=== PATIENT | male | born 1940 | race Caucasian/White ===

== ENCOUNTER → 2016-11-20 | Outpatient (CLI) | payer OTHER ==
[~2016-11-20] MED LIST: ASPI81TA21 PO; CHOL100027 PO; LISI-787 PO; LISI20TA55 PO; MAGNESIUM/ZINC PO; MISCCAP80 PO; POTAPOW29 PO; PRED1SUS3 OPL; VITA400C3 PO
--- NOTE | 2016-11-20 14:06 | DIAGNOSTIC IMAGING REPORT ---
TESTICULAR ULTRASOUND HISTORY: Pain. Nodule. N50.811 Testicular pain, [id number] COMPARISON: None. FINDINGS: Right testis: Maximum dimension 3.8 cm. Normal vascular flow. Left testis: Maximum dimension 4.1 cm. Normal vascular flow. IMPRESSION: Negative study Electronically signed by: Marbin Iverson M.D. 11/20/2016 2:04 PM Dictated Date/Time: 11/20/2016 2:01 PM
--- NOTE | 2016-11-27 08:22 | CODING QUERY MEDICAL NECESSITY ---
SUPPORTING DIAGNOSIS NEEDED A supporting diagnosis is required for the test/procedure performed on this patient in order for us to be reimbursed by the patient's insurance. Please provide a supporting diagnosis for the following test/procedure listed below next to the test name along with your signature. *If there is no additional diagnosis for this patient that would support the following test/procedure please document that below next to the test/procedure. Test(s)/Procedure(s) that require a supporting diagnosis: * PSA DIAGNOSIS: * DOS: 11/20/16 Provider Signature: Date: Thank you Amanda Qureshi [employer] Once completed, please kindly fax back to [phone] For questions please call [phone]
== END | disposition home or self-care (01) ==
LOC: C.ULTR 13:21
PROVIDERS: ATTEND Nurse Practitioner Adult Health
DX: N50.811 Right testicular pain (principal)

== ENCOUNTER → 2016-12-06 | Day surgery (SDC) | payer OTHER ==
[2016-11-20 15:46] VITALS: Ht 175.3 cm; Wt 88.6 kg
[~2016-12-06] VITALS: Ht 175.3 cm; Wt 88.6 kg
[~2016-12-06] MED LIST changes: +500ML BSS 0.3ML EPI 1:1000PF IRRIG ONE; +ACETAMINOPHEN 325 MG TAB PO PRN; +AMVISC PLUS 0.8ML SYRINGE INT OCU ONE; +ATROPINE SULFATE 0.1 MG/ML 5ML SYR IV PRN; +BSS FLUSH ONE; +ENDOCOAT 0.85ML SYRINGE INT OCU ONE; +EpINEphrine INJ 1MG/ML AMP 1 MG/ML AMP ONE; +LACTATED RINGER'S 1000ML 500 ML IV SCH; +LIDOCAINE 4% OP SOLN DROP CHARGE ONE; +LIDOCAINE 4% OP SOLN DROP CHARGE OPL SCH; +LIDOCAINE HCL 1% MPF 2 ML VIAL ONE; -LISI20TA55 PO; -MAGNESIUM/ZINC PO; +MIDAZOLAM HCL 1 MG/ML 2ML VIAL ONE; +MIX: 4ML BSS 1ML EPI 1:1000 PF TOP ONE; +MOXIFLOXACIN OPH SOLN PER DROP CHARGE ONE; -POTAPOW29 PO; +POVIDONE-IODINE OP SOLN 30 ML BTL ONE; +PROPARACAINE 0.5% OP SOLN PER DROP CHARGE OPL SCH; +TOBRAMYCIN/DEXAMETHASONE OPH OINT PER APPLN CHARGE ONE; -VITA400C3 PO
[2016-12-06] MEDS: PHENYLEPHRINE HCL 2.5% OP SOLN PER DROP CHARGE OPL SCH ×3 (06:32→06:42)
[2016-12-06] MEDS: TROPICAMIDE 1% OP SOLN PER DROP CHARGE OPL SCH ×3 (06:33→06:43)
[2016-12-06] MEDS: CYCLOPENTOLATE HCL 1% OP SOLN PER DROP CHARGE OPL SCH ×3 (06:34→06:44)
[2016-12-06] MEDS: MOXIFLOXACIN OPH SOLN PER DROP CHARGE OPL SCH ×3 (06:35→06:45)
--- NOTE | 2016-12-06 06:39 | History & Physical Bridge - SC ---
H&P Re-Evaluation Bridge Note: I have examined the patient, reviewed the History & Physical and in the interval since the performance of the History & Physical I have noted the following changes of clinical significance: No changes noted
--- NOTE | 2016-12-06 07:22 | [facility] Post Operative Brief Note ---
Immediate Operative Summary Operative Date Dec 06, 2016. Pre-Operative Diagnosis Cataract left eye Post-Operative Diagnosis same Procedure(s) Performed Left Cataract Phacoemulsification With Intraocular Lens Implant Surgeon Dr Rueda Cold Working Supervisor Surgeon(s) 0 Estimated Blood Loss 0 Findings left cataract Specimens 0 Complication(s) None Disposition
--- NOTE | 2016-12-06 07:23 | Discharge Instructions-SurgCtr ---
Discharge Instructions Date of Service Dec 06, 2016. Visit Reason for Visit: Cataract Left Eye Discharge Discharge Diagnosis / Problem: left cataract Discharge Goals Goal(s): Decrease discomfort, Improve function Activity Recommendations Activity Limitations: as noted below Anesthesia . Post Anesthesia Instructions: If you have had General Anesthesia or IV Sedation: * Do not drive today. * Resume driving when surgeon permits. * Do not make important decisions or sign legal documents today. * Call surgeon for: 1. Temperature elevations greater than 101 degrees F. 2. Uncontrollable pain. 3. Excessive bleeding. 4. Persistent nausea and vomiting. 5. Medication intolerance (nausea, vomiting or rash). * For nausea and vomiting use only clear liquids such as: tea, soda, bouillon until nausea subsides, then gradually increase diet as tolerated. * If you have any concerns or questions, call your surgeon's office. If physician is unavailable and it is an emergency, call 911 or go to the nearest emergency room. . Instructions / Follow-Up Instructions / Follow-Up ACTIVITY RECOMMENDATIONS: * Light activities. * You may walk outside, read, watch television. * You may notice redness on the white part of the eye and some blurry vision - this is normal. MEDICATIONS: Resume previous medications unless instructed otherwise by your surgeon. Start all eye drops at 9:30am today: * Eye drops (today): Prednisone - one drop in operative eye every 2 hours while awake Ofloxacin - one drop in operative eye every 2 hours while awake SPECIAL CARE INSTRUCTIONS: * Tape plastic shield over eye to sleep at night. Call your doctor at with any concerns or problems. FOLLOW UP VISIT: Follow-up with Dr Rueda at [facility] as scheduled. Diet Recommendations Home Diet: no limitations Procedures Procedures Performed: Left Cataract Phacoemulsification With Intraocular Lens Implant Pending Studies Studies pending at discharge: no Medical Emergencies . Who to Call and When: Medical Emergencies: If at any time you feel your situation is an emergency, please call 911 immediately. . Non-Emergent Contact Non-Emergency issues call your: Surgeon . . "Provider Documentation" section prepared by Jeanmarie Rueda.
--- NOTE | 2016-12-06 07:24 | [facility] Operative Report ---
Operative Report Date of Service Dec 06, 2016. Operative Report Phaco with monofocal IOL DATE OF OPERATION: 12/06/16 PREOPERATIVE DIAGNOSIS: Senile nuclear cataract, left eye POSTOPERATIVE DIAGNOSIS: Senile nuclear cataract, left eye PROCEDURE PERFORMED: Phacoemulsification with intraocular lens implantation, left eye SURGEON: Dr. Jeanmarie Rueda ANESTHESIA: Topical with 1% intracameral lidocaine and monitored anesthesia care COMPLICATIONS: None DESCRIPTION OF PROCEDURE: After positively identifying the patient both verbally and by wristband in the preoperative area, the left eye was marked as the operative eye. The patient was then brought back to the operating room by the anesthesia and nursing staff where they were given a drop of Lidocaine and betadine into the operative eye. They were then sterilely prepped and draped in the standard fashion typical for ophthalmic surgery. Steri-strips were placed along the upper eyelids to keep the lashes back, and a lid speculum was placed into the operative eye. At this point, a documented time out was performed with members of the ophthalmology, nursing, and anesthesia staffs all agreeing upon the correct patient, correct location for surgery, correct procedure, and correct type and power of intraocular lens to be implanted. The microscope was then swung into position. First, a paracentesis wound was made using a sideport blade. Then, in sequence, 1% preservative-free lidocaine followed by Endocoat viscoelastic was injected into the anterior chamber. Next , the main incision was made with a keratome blade in triplanar fashion. A sharp cystotome was introduced into the eye and used to create a tear in the anterior capsule, which was directed into a continuous curvilinear capsulorrhexis using Utrata forceps. Hydrodissection was then performed with BSS on a flat-tip cannula. Next, the phacoemulsification handpiece was introduced into the eye and used to remove the nucleus in a [id number]-kyq-fjzd fashion. This was done without complication and then the irrigation-aspiration handpiece was introduced into the eye and used to remove all remaining cortical and epinuclear material. Amvisc was then injected into the anterior chamber as well as into the capsular bag and using the lens injector system, an MX60 22.0 D lens, serial number [id number], and expiration date 03/2019 was injected into the capsular bag and rotated into the correct position. Next, the irrigation- aspiration handpiece was used to remove all remaining Amvisc. BSS was used to hydrate the main wound, and then BSS was injected into the paracentesis site to reach physiologic pressure and then the main wound was checked and found to be watertight. The patient was given drops of Vigamox and Tobradex ointment into the operative eye, and then the surrounding area was cleaned and dried. A clear plastic shield was placed over the eye and the patient was then sat up and taken from the operating room by the anesthesia staff having tolerated the procedure well and suffering no complications. DISPOSITION: The patient was returned to the recovery room in stable condition. I attest to the content of the Intraoperative Record and any orders documented therein. Any exceptions are noted below.
[2016-12-06 07:28] VITALS: TEMP 36.4
[2016-12-06 07:49] VITALS: BP 124/72; PULSE 58; O2SAT 97
--- NOTE | 2016-12-06 08:06 | Anesthesia Progress Nt - [facility] ---
Anesthesia Post Op Note Date & Time Dec 06, 2016 at 08:06 Vital Signs Pain Intensity: 0 Vital Signs Past 12 Hours Date Time Temp Pulse Resp B/P Pulse Ox O2 Delivery O2 Flow Rate FiO2 12/06/16 07:49 58 16 124/72 97 Room Air 12/06/16 07:28 36.4 54 16 109/74 99 Room Air 12/06/16 06:24 36.4 59 18 130/75 95 Room Air Notes Mental Status: alert / awake / arousable, participated in evaluation Pt Amnestic to Procedure: Yes Nausea / Vomiting: adequately controlled Pain: adequately controlled Airway Patency, RR, SpO2: stable & adequate BP & HR: stable & adequate Hydration State: stable & adequate Anesthetic Complications: no major complications apparent
== END | disposition home or self-care (01) ==
LOC: X.SURG 06:03
PROVIDERS: ATTEND Ophthalmology
DX: H25.12 Age-related nuclear cataract, left eye (principal); I10 Essential (primary) hypertension; Z98.890 Other specified postprocedural states; Z88.8 Allergy status to other drugs, medicaments and biological substances

== ENCOUNTER → 2016-12-20 | Day surgery (SDC) | payer OTHER ==
[2016-12-13 08:15] VITALS: Ht 175.3 cm; Wt 88.6 kg
[~2016-12-20] VITALS: Ht 175.3 cm; Wt 88.6 kg
[~2016-12-20] MED LIST changes: +EpHEDrine SULFATE INJ 50 MG/ML AMP IV PRN; -LIDOCAINE 4% OP SOLN DROP CHARGE OPL SCH; +LIDOCAINE 4% OP SOLN DROP CHARGE OPR SCH; -PROPARACAINE 0.5% OP SOLN PER DROP CHARGE OPL SCH; +PROPARACAINE 0.5% OP SOLN PER DROP CHARGE OPR SCH
[2016-12-20] MEDS: PHENYLEPHRINE HCL 2.5% OP SOLN PER DROP CHARGE OPR SCH ×3 (06:33→06:43)
[2016-12-20] MEDS: TROPICAMIDE 1% OP SOLN PER DROP CHARGE OPR SCH ×3 (06:34→06:44)
[2016-12-20] MEDS: CYCLOPENTOLATE HCL 1% OP SOLN PER DROP CHARGE OPR SCH ×3 (06:35→06:43)
[2016-12-20] MEDS: MOXIFLOXACIN OPH SOLN PER DROP CHARGE OPR SCH ×3 (06:36→06:46)
--- NOTE | 2016-12-20 07:19 | [facility] Post Operative Brief Note ---
Immediate Operative Summary Operative Date Dec 20, 2016. Pre-Operative Diagnosis Cataract Right Eye Post-Operative Diagnosis Same Procedure(s) Performed Right Cataract Phacoemulsification With Intraocular Lens Implant Surgeon Dr. Rueda Fashion Photographer Surgeon(s) None Estimated Blood Loss 0 mL Findings right cataract Specimens None Complication(s) None Disposition
--- NOTE | 2016-12-20 07:20 | [facility] Operative Report ---
Operative Report Date of Service Dec 20, 2016. Operative Report Phaco with monofocal IOL DATE OF OPERATION: 12/20/16 PREOPERATIVE DIAGNOSIS: Senile nuclear cataract, right eye POSTOPERATIVE DIAGNOSIS: Senile nuclear cataract, right eye PROCEDURE PERFORMED: Phacoemulsification with intraocular lens implantation, right eye SURGEON: Dr. Jeanmarie Rueda ANESTHESIA: Topical with 1% intracameral lidocaine and monitored anesthesia care COMPLICATIONS: None DESCRIPTION OF PROCEDURE: After positively identifying the patient both verbally and by wristband in the preoperative area, the right eye was marked as the operative eye. The patient was then brought back to the operating room by the anesthesia and nursing staff where they were given a drop of Lidocaine and betadine into the operative eye. They were then sterilely prepped and draped in the standard fashion typical for ophthalmic surgery. Steri-strips were placed along the upper eyelids to keep the lashes back, and a lid speculum was placed into the operative eye. At this point, a documented time out was performed with members of the ophthalmology, nursing, and anesthesia staffs all agreeing upon the correct patient, correct location for surgery, correct procedure, and correct type and power of intraocular lens to be implanted. The microscope was then swung into position. First, a paracentesis wound was made using a sideport blade. Then, in sequence, 1% preservative-free lidocaine followed by Endocoat viscoelastic was injected into the anterior chamber. Next , the main incision was made with a keratome blade in triplanar fashion. A sharp cystotome was introduced into the eye and used to create a tear in the anterior capsule, which was directed into a continuous curvilinear capsulorrhexis using Utrata forceps. Hydrodissection was then performed with BSS on a flat-tip cannula. Next, the phacoemulsification handpiece was introduced into the eye and used to remove the nucleus in a ymzoff-fuz-podrkrp fashion. This was done without complication and then the irrigation-aspiration handpiece was introduced into the eye and used to remove all remaining cortical and epinuclear material. Amvisc was then injected into the anterior chamber as well as into the capsular bag and using the lens injector system, an MX60 22.0 D lens, serial number [id number], and expiration date 06/2019 was injected into the capsular bag and rotated into the correct position. Next, the irrigation- aspiration handpiece was used to remove all remaining Amvisc. BSS was used to hydrate the main wound, and then BSS was injected into the paracentesis site to reach physiologic pressure and then the main wound was checked and found to be watertight. The patient was given drops of Vigamox and Tobradex ointment into the operative eye, and then the surrounding area was cleaned and dried. A clear plastic shield was placed over the eye and the patient was then sat up and taken from the operating room by the anesthesia staff having tolerated the procedure well and suffering no complications. DISPOSITION: The patient was returned to the recovery room in stable condition. I attest to the content of the Intraoperative Record and any orders documented therein. Any exceptions are noted below.
[2016-12-20 07:21] VITALS: TEMP 36.3
--- NOTE | 2016-12-20 07:21 | Discharge Instructions-SurgCtr ---
Discharge Instructions Date of Service Dec 20, 2016. Visit Reason for Visit: Cataract Right Eye Discharge Discharge Diagnosis / Problem: right cataract Discharge Goals Goal(s): Decrease discomfort, Improve function Activity Recommendations Activity Limitations: as noted below Anesthesia . Post Anesthesia Instructions: If you have had General Anesthesia or IV Sedation: * Do not drive today. * Resume driving when surgeon permits. * Do not make important decisions or sign legal documents today. * Call surgeon for: 1. Temperature elevations greater than 101 degrees F. 2. Uncontrollable pain. 3. Excessive bleeding. 4. Persistent nausea and vomiting. 5. Medication intolerance (nausea, vomiting or rash). * For nausea and vomiting use only clear liquids such as: tea, soda, bouillon until nausea subsides, then gradually increase diet as tolerated. * If you have any concerns or questions, call your surgeon's office. If physician is unavailable and it is an emergency, call 911 or go to the nearest emergency room. . Instructions / Follow-Up Instructions / Follow-Up ACTIVITY RECOMMENDATIONS: * Light activities. * You may walk outside, read, watch television. * You may notice redness on the white part of the eye and some blurry vision - this is normal. MEDICATIONS: Resume previous medications unless instructed otherwise by your surgeon. Start all eye drops at 9:30 am today: * Eye drops (today): Prednisone - one drop in operative eye every 2 hours while awake Ofloxacin - one drop in operative eye every 2 hours while awake SPECIAL CARE INSTRUCTIONS: * Tape plastic shield over eye to sleep at night. Call your doctor at with any concerns or problems. FOLLOW UP VISIT: Follow-up with Dr Rueda at [facility] as scheduled. Diet Recommendations Home Diet: no limitations Procedures Procedures Performed: Right Cataract Phacoemulsification With Intraocular Lens Implant Pending Studies Studies pending at discharge: no Medical Emergencies . Who to Call and When: Medical Emergencies: If at any time you feel your situation is an emergency, please call 911 immediately. . Non-Emergent Contact Non-Emergency issues call your: Surgeon . . "Provider Documentation" section prepared by Jeanmarie Rueda.
[2016-12-20 07:43] VITALS: BP 129/81; PULSE 56; O2SAT 98
--- NOTE | 2016-12-20 07:54 | Anesthesia Progress Nt - [facility] ---
Anesthesia Post Op Note Date & Time Dec 20, 2016 at 07:54 Vital Signs Pain Intensity: 0 Vital Signs Past 12 Hours Date Time Temp Pulse Resp B/P Pulse Ox O2 Delivery O2 Flow Rate FiO2 12/20/16 07:43 56 20 129/81 98 Room Air 12/20/16 07:21 36.3 52 16 116/76 95 Room Air 12/20/16 06:24 36.3 59 16 118/56 95 Room Air Notes Mental Status: alert / awake / arousable, participated in evaluation Pt Amnestic to Procedure: Yes Nausea / Vomiting: adequately controlled Pain: adequately controlled Airway Patency, RR, SpO2: stable & adequate BP & HR: stable & adequate Hydration State: stable & adequate Anesthetic Complications: no major complications apparent
== END | disposition home or self-care (01) ==
LOC: X.SURG 06:10
PROVIDERS: ATTEND Ophthalmology
DX: H25.11 Age-related nuclear cataract, right eye (principal); I10 Essential (primary) hypertension

== ENCOUNTER → 2017-07-04 | Outpatient (CLI) | payer OTHER ==
[~2017-07-04] MED LIST changes: -500ML BSS 0.3ML EPI 1:1000PF IRRIG ONE; -ACETAMINOPHEN 325 MG TAB PO PRN; -AMVISC PLUS 0.8ML SYRINGE INT OCU ONE; -ATROPINE SULFATE 0.1 MG/ML 5ML SYR IV PRN; -BSS FLUSH ONE; -ENDOCOAT 0.85ML SYRINGE INT OCU ONE; -EpHEDrine SULFATE INJ 50 MG/ML AMP IV PRN; -EpINEphrine INJ 1MG/ML AMP 1 MG/ML AMP ONE; -LACTATED RINGER'S 1000ML 500 ML IV SCH; -LIDOCAINE 4% OP SOLN DROP CHARGE ONE; -LIDOCAINE 4% OP SOLN DROP CHARGE OPR SCH; -LIDOCAINE HCL 1% MPF 2 ML VIAL ONE; -MIDAZOLAM HCL 1 MG/ML 2ML VIAL ONE; -MIX: 4ML BSS 1ML EPI 1:1000 PF TOP ONE; -MOXIFLOXACIN OPH SOLN PER DROP CHARGE ONE; -POVIDONE-IODINE OP SOLN 30 ML BTL ONE; -PROPARACAINE 0.5% OP SOLN PER DROP CHARGE OPR SCH; -TOBRAMYCIN/DEXAMETHASONE OPH OINT PER APPLN CHARGE ONE
[2017-07-04 17:46] LABS: BASO % 0.3 %; BASO ABS # 0.02 K/uL (0-0.2); COMPLETE YES; EOS % 7.1 %; HEMATOCRIT 40.8 % (42-52); IG% 0.1 %; LYMPH % 30.5 %; LYMPH ABS # 2.28 K/uL (1.2-3.4); MEAN CELL VOLUME 92.7 fL (80-100); MEAN CORPUSCULAR HEMOGLOBIN 31.8 pg (25-34); MEAN CORPUSCULAR HGB CONC 34.3 g/dl (32-36); MEAN PLATELET VOLUME 9.4 fL (7.4-10.4); MONO % 8.2 %; NEUT % 53.8 %; PLATELET COUNT 286 K/uL (130-400); WHITE BLOOD COUNT 7.48 K/uL (4.8-10.8)
[2017-07-04 18:16] LABS: BLOOD UREA NITROGEN 39 mg/dl (7-18); BUN/CREATININE RATIO 21.2 (10-20); CALCIUM 9.1 mg/dl (8.5-10.1); CARBON DIOXIDE 25 mmol/L (21-32); CHLORIDE 105 mmol/L (98-107); CREATININE 1.84 mg/dl (0.60-1.40); GLUCOSE 92 mg/dl (70-99); POTASSIUM 3.9 mmol/L (3.5-5.1); SODIUM 138 mmol/L (136-145)
== END | disposition home or self-care (01) ==
LOC: C.LAB 17:15
PROVIDERS: ATTEND Family Medicine
DX: R42 Dizziness and giddiness (principal)

== ENCOUNTER 2017-09-12 18:45 | Emergency (ER) | payer OTHER ==
[~2017-09-12] VITALS: Ht 175.3 cm; Wt 90.0 kg
[~2017-09-12 18:45] MED LIST changes: +ASPI-319 PO; -ASPI81TA21 PO; -MISCCAP80 PO
[2017-09-12 18:53] VITALS: BP 139/74; PULSE 78; TEMP 36.5; O2SAT 95; Ht 175.3 cm; Wt 90.0 kg
[2017-09-12] MEDS ORDERED: GLYCDRO6 OP (19:27)
--- NOTE | 2017-09-12 20:01 | EMERGENCY ROOM VISIT NOTE ---
ED Visit Note First contact with patient: 18:59 CHIEF COMPLAINT: Foot pain This 77-year-old male presents to the emergency departments complaint of left foot pain that started yesterday and has been getting progressively worse today. Patient states the pain is constant, aching and occasionally burning, worse with walking on the foot, better with rest and elevation, 7/10. He has not tried any medication for the pain. He denies any known injury to the foot. No numbness or weakness. He denies any ankle, knee, or hip pain. He denies any fevers or chills, headache, chest pain, shortness of breath, back pain, abdominal pain, nausea or vomiting, diarrhea or constipation, urinary symptoms, or rash. REVIEW OF SYSTEMS: A complete 10 point review of systems was reviewed with the patient with pertinent positives and negatives as per history of present illness. All else were negative. PMH: Reviewed in chart. He is not a diabetic. SOCIAL HISTORY: Patient lives at home with his . He denies tobacco use. PHYSICAL EXAM: Vital Signs: Reviewed Nurse's notes. CONSTITUTIONAL: Pleasant and cooperative. No acute distress, but appears uncomfortable and in pain during exam. HEENT: Normocephalic, atraumatic. Pupils equal, round and reactive to light, EOMI. TMs normal. Pharynx normal. Moist membranes. NECK: Supple, full active range of motion without discomfort. RESPIRATORY: Clear to auscultation bilaterally with no wheezing, crackles, rhonchi or stridor. Equal expansion bilaterally. CARDIOVASCULAR: Regular rate and rhythm with no murmurs, rubs or gallops. Normal peripheral perfusion. No edema. GASTROINTESTINAL: Soft, nontender, nondistended. No palpable masses or HSM. Bowel sounds present in all quadrants. MUSCULOSKELETAL: There is tenderness to palpation and mild swelling over the dorso-lateral aspect of the left foot, slightly erythematous and warm to touch. There is no tenderness with palpation of the ankle or the remainder of the foot. There is no swelling or erythema involving the toes. No deformity noted. The skin is intact. The foot is warm and well-perfused with 2+ DP/PT pulses and sensation is intact. Full range of motion of all joints without discomfort. INTEGUMENTARY: No rash or other significant dermatologic conditions noted. NEUROLOGIC: Alert and oriented X 4 with normal affect. Cranial nerves II-XII grossly intact. No focal neurologic deficits noted. IMAGING: LEFT FOOT 3 VIEWS CLINICAL HISTORY: Dorsolateral foot pain. FINDINGS: 3 views of left foot are compared to study dated 02/27/2008. The skeletal structures are osteopenic. No fracture is seen. Mild arthritic change is present at the first metatarsophalangeal joint. The joint spaces of the foot are otherwise well-maintained. A high arch is incidentally noted. There is a tiny plantar calcaneal enthesophyte. The overlying soft tissues are within normal limits. IMPRESSION: Osteopenia and mild arthritic change as above. No acute bony abnormality is seen in the left foot. EMERGENCY DEPARTMENT COURSE: I examined the patient. Differential diagnosis includes contusion, abrasion, fracture, arthritis, cellulitis, gout, among others. X-ray of the left foot is negative for any acute fracture. Given how tender his foot is with mild erythema and warmth, and concern for developing cellulitis. Patient is afebrile with normal vital signs, I do not feel blood work is indicated at this time. There is no evidence of osteomyelitis on x- ray. The patient was placed on Keflex, given his first dose in the ED and encouraged to follow closely with his primary care provider. He was also given strict return precautions should his symptoms worsen, he verbalized understanding. Patient was discharged home in stable condition and ambulatory. Medication Reconciliation: I attest that I have personally reviewed the patient' s current medication list. Blood pressure screening: The patient was found to have normal blood pressure on screening and does not require follow-up for repeat blood pressure check. Patient was discussed with Dr. Calle, who also independently evaluated the patient and agrees with my assessment and plan. Problem List Medical Problems: (1) Hypertension Status: Chronic Current/Historical Medications Scheduled Aspirin Enteric Coated (Ecotrin Or Generic), 81 MG PO 3XWK Cephalexin Monohydrate (Keflex), 500 MG PO QID Cholecalciferol (Vitamin D 1000 Unit), 1,000 INTER.UNIT PO QAM Lisinopril/Hctz (Zestoretic 20MG/12.5MG), 0.5 TAB PO DAILY Probiotic Product (Probiotic), 1 CAP PO QAM Scheduled PRN [place]-Dbqmqgpyisxy-Eabhywrs (Artificial Tears), 1 DROP OP UD PRN for Dry Eye( s) Allergies Coded Allergies: Atorvastatin (Verified Allergy, Unknown, RASH, 12/20/16) Propranolol (Verified Allergy, Unknown, RASH, 12/13/16) Vital Signs Date Time Temp Pulse Resp B/P (MAP) Pulse Ox O2 Delivery O2 Flow Rate FiO2 09/12/17 18:53 36.5 78 18 139/74 95 Medications Administered Medications (Trade) Dose Ordered Sig/Paula Route Start Time Stop Time Status Last Admin Dose Admin Cephalexin Monohydrate (Keflex Cap) 500 mg NOW ONCE PO 09/12/17 20:45 09/12/17 20:46 DC 09/12/17 21:20 500 MG Cephalexin Monohydrate (Keflex 500MG Home Pack) 1 homepack NOW ONCE PO 09/12/17 20:45 09/12/17 20:46 DC 09/12/17 21:31 1 HOMEPACK Departure Information Impression Primary Impression: Cellulitis of foot, left Dispostion Home / Self-Care Condition GOOD Prescriptions Cephalexin Monohydrate (Keflex) 500 Mg Cap 500 MG PO QID for 9 Days, #36 CAP Prov: Blanca Madrid CRNP 09/12/17 Referrals Taj Hart M.D. (PCP) Patient Instructions ED Infec Skin Cellulitis, [facility] Additional Instructions You were seen in the Emergency Department for cellulitis (skin infection) of your left foot. You have been prescribed Keflex to be taken 4 times a day for 10 days. This medication is an antibiotic. Stop this medication and contact a medical provider if you develop any significant adverse side effects including: wheezing , shortness of breath, passing out, vomiting, or a diffuse rash. Always take antibiotics as directed and COMPLETE the ENTIRE course regardless of the improvement of your symptoms. Look for signs of worsening infection of the wound including: increased pain, swelling, foul discharge, streaking, or fevers/chills/feeling ill. If any of these are noticed you should return to the Emergency Department for further assessment and treatment. For pain control, you can use the following tvpn-kyy-cyocnwr medicines (if >12 yo): - Extra strength (500mg/tab) Tylenol (acetaminophen) 1-2 tabs every 6-8 hours as needed. Do not exceed 6 tablets in a 24 hour period. Avoid taking more than 3 grams (3000 mg) of Tylenol per day. This includes any other sources of acetaminophen you may take on a regular basis. - Regular strength (200 mg/tab) Advil (ibuprofen) 1-2 tabs every 4-6 hours as needed. Do not exceed a dose of 2400 mg per day. Apply warm compresses to your left foot to help with pain and also to help improve the infection. Keep the foot elevated as much as possible to reduce swelling. Follow up with your PCP in 2 days for recheck, or sooner for worsening symptoms. Return to the emergency department if your symptoms worsen despite treatment course outlined above.
--- NOTE | 2017-09-12 20:11 | DIAGNOSTIC IMAGING REPORT ---
LEFT FOOT 3 VIEWS CLINICAL HISTORY: Dorsolateral foot pain. FINDINGS: 3 views of left foot are compared to study dated 02/27/2008. The skeletal structures are osteopenic. No fracture is seen. Mild arthritic change is present at the first metatarsophalangeal joint. The joint spaces of the foot are otherwise well-maintained. A high arch is incidentally noted. There is a tiny plantar calcaneal enthesophyte. The overlying soft tissues are within normal limits. IMPRESSION: Osteopenia and mild arthritic change as above. No acute bony abnormality is seen in the left foot. Electronically signed by: Ariel Lucas M.D. 09/12/2017 8:09 PM Dictated Date/Time: 09/12/2017 8:08 PM
[2017-09-12] MEDS ORDERED: CEPHALEXIN MONOHYDRATE 250 MG CAP PO ONE (20:45)
[2017-09-12] MEDS ORDERED: CEPHALEXIN 500MG HOME PACK 1 EA BTL PO ONE (20:45)
[2017-09-12] MEDS ORDERED: CEPH500C PO (21:18)
[2017-09-12] MEDS ORDERED: MISCCAP80 PO (21:57)
--- NOTE | 2017-09-12 23:54 | EMERGENCY ROOM VISIT NOTE ---
ED Visit Note First contact with patient: 18:59 I have personally seen and evaluated the patient with the PA. I agree with the diagnosis and management decisions and have been personally involved in the case. Please see FAUSTO Alford's notes for further details of the history, physical and visit.
== END 2017-09-12 21:33 | disposition home or self-care (01) ==
LOC: C.EDB 18:46 → C.EDD 21:33
DX: L03.116 Cellulitis of left lower limb (principal); I10 Essential (primary) hypertension; Z79.82 Long term (current) use of aspirin; Z79.899 Other long term (current) drug therapy; Z88.8 Allergy status to other drugs, medicaments and biological substances

== ENCOUNTER → 2018-04-18 | Outpatient (CLI) | payer OTHER ==
[~2018-04-18] MED LIST changes: +GLYCDRO6 OP; +MISCCAP80 PO; -PRED1SUS3 OPL
== END | disposition home or self-care (01) ==
LOC: C.RDSM 10:40
PROVIDERS: ATTEND Orthopaedic Surgery Sports Medicine
DX: M25.531 Pain in right wrist (principal)

== ENCOUNTER 2020-04-07 18:20 | Observation (INO) ==
[2020-04-07] MEDS ORDERED: ONDANSETRON INJ 2 MG/ML 2 ML VIAL IV STA (18:39)
[2020-04-07] MEDS ORDERED: NITROGLYCERIN 2% OINTMENT 30GM TUBE EXT STA (18:39)
--- NOTE | 2020-04-07 18:47 | Emergency Department Note ---
History of Present Illness General Chief complaint: Chest Pain Stated complaint: SEVERE CHEST PAIN Time Seen by Provider: 04/07/20 18:30 Source: patient History of Present Illness Provider complaint: Upper abdominal pain Onset (ago): hour(s) (1.5 hours prior to arrival) Location: abdomen Radiation: non-radiation Severity: severe Maximum Pain Intensity: 7 Quality: + other (Like an elephant sitting on his belly) Relieved By: + medication (Pepcid and antacid) Associated symptoms: + nausea/vomiting (Nausea no vomiting) and + shortness of breath; no cough, no fever/chills and no headaches This is a 80-year-old male who presents with epigastric abdominal pain. It started about an hour and a half prior to arrival. The patient states that he was eating a hoagie and started to have discomfort in his upper abdomen. He describes it as a elephant sitting on his abdomen. He states it is associated with nausea and shortness of breath. He rates it a 7 out of 10 in severity. He took a Pepcid which did not seem to help. He also took liquid antacid which he states he feels is helping alleviate the pain now. The pain does not radiate. He has no diaphoresis. He has had no fever, cough or cold symptoms, urinary symptoms, diarrhea, black or bloody stools or known exposure to COVID-19. The patient does state that he had a similar episode about a year ago. He was seen at [facility] and they did a nuclear stress test on him which was normal. They gave him the presumptive diagnosis of esophageal spasm. Home Medications Home Medications Medication Instructions Recorded Confirmed Type lisinopril 20 1 tab PO DAILY tab 07/03/19 04/07/20 History mg-hydrochlorothiazide 12.5 mg tablet lactobacillus combination no.4 0 mmu cells PO DAILY 04/07/20 04/07/20 History [Probiotic] magnesium oxide 0 mg PO DAILY 04/07/20 04/07/20 History Allergies Allergy/AdvReac Type Severity Reaction Status Date / Time atorvastatin Allergy Unknown RASH Verified 04/07/20 20:36 propranolol Allergy Unknown RASH Verified 04/07/20 20:36 nisoldipine [From Sular] Allergy Unknown Verified 04/07/20 20:36 Past Med/Surg History Medical History Benign prostatic hyperplasia with elevated prostate specific antigen (PSA) Carotid artery stenosis Chronic kidney disease, stage III (moderate) GERD without esophagitis Hypertension Inflammatory polyarthritis Long-term use of hydroxychloroquine NSAID long-term use Osteoarthritis of hands, bilateral PAD (peripheral artery disease) Surgical History H/O inguinal hernia repair H/O prostatectomy Hx of total knee arthroplasty Family History Denies family history of Kidney disease Social History Smoking Status: Former smoker Tobacco Type: Pipe and Cigars marital status: Current Living Situation: Spouse Feels Safe at Home: Yes Review of Systems See HPI for pertinent positives & negatives. and A total of 10 systems reviewed and were otherwise negative Physical Exam Vital Signs Vital Signs - 24 hr 04/07/20 18:23 04/07/20 18:33 04/07/20 18:40 Temperature 36.8 C Temperature Source Oral Pulse Rate 68 68 64 Pulse Rate from SpO2 Sensor 68 64 Respiratory Rate 20 13 20 Blood Pressure 137/69 128/71 Blood Pressure Mean 91 97 Pulse Oximetry 99 99 97 Oxygen Delivery Method Room Air Sepsis Recent Fever Within 48 Hours No Sepsis New/Unexplained Change in Mental Status N/A Sepsis Action Taken by Nursing No Action Required 04/07/20 18:41 04/07/20 18:42 04/07/20 18:50 Temperature Temperature Source Pulse Rate 63 62 Pulse Rate from SpO2 Sensor 62 61 Respiratory Rate 22 Blood Pressure Blood Pressure Mean Pulse Oximetry 97 95 Oxygen Delivery Method Room Air Room Air Sepsis Recent Fever Within 48 Hours Sepsis New/Unexplained Change in Mental Status Sepsis Action Taken by Nursing 04/07/20 19:00 04/07/20 19:10 04/07/20 19:42 Temperature Temperature Source Pulse Rate 62 60 61 Pulse Rate from SpO2 Sensor 62 61 62 Respiratory Rate 17 24 20 Blood Pressure 139/87 126/68 Blood Pressure Mean 105 85 Pulse Oximetry 98 97 96 Oxygen Delivery Method Sepsis Recent Fever Within 48 Hours Sepsis New/Unexplained Change in Mental Status Sepsis Action Taken by Nursing 04/07/20 19:50 04/07/20 20:00 04/07/20 20:50 Temperature Temperature Source Pulse Rate 60 63 64 Pulse Rate from SpO2 Sensor 59 L 64 Respiratory Rate 22 19 20 Blood Pressure 120/63 Blood Pressure Mean 80 Pulse Oximetry 95 97 Oxygen Delivery Method Sepsis Recent Fever Within 48 Hours Sepsis New/Unexplained Change in Mental Status Sepsis Action Taken by Nursing 04/07/20 21:00 04/07/20 21:10 04/07/20 21:20 Temperature Temperature Source Pulse Rate 63 60 64 Pulse Rate from SpO2 Sensor 63 61 62 Respiratory Rate 19 14 19 Blood Pressure 156/85 H Blood Pressure Mean 104 Pulse Oximetry 97 96 94 Oxygen Delivery Method Sepsis Recent Fever Within 48 Hours Sepsis New/Unexplained Change in Mental Status Sepsis Action Taken by Nursing 04/07/20 21:30 04/07/20 21:40 Temperature Temperature Source Pulse Rate 62 63 Pulse Rate from SpO2 Sensor 63 62 Respiratory Rate 18 18 Blood Pressure 135/75 Blood Pressure Mean 88 Pulse Oximetry 97 97 Oxygen Delivery Method Sepsis Recent Fever Within 48 Hours Sepsis New/Unexplained Change in Mental Status Sepsis Action Taken by Nursing Constitutional: Vital signs reviewed. Eyes: Pupils are equal round reactive to light. Conjunctiva are noninjected. ENT: Pharynx is clear without erythema or exudate. Mucous membranes are moist. Neck supple without meningeal signs. Respiratory: Clear to auscultation bilaterally. Breath sounds are equal ibis aterally. Cardiovascular: Regular rate and rhythm. No rubs or gallops. GI: Soft, nondistended with epigastric tenderness. No guarding or Gerardo sign. Bowel sounds are present. Musculoskeletal: No peripheral edema. No lower extremity tenderness. Integumentary: No cyanosis. or jaundice. Neurological: The patient is awake and alert. No focal deficits. Psychiatric: Normal affect. Not anxious appearing. Course Administered Medications Discontinued Medications Nitroglycerin (Nitro-Bid 2%) 0.5 inch EXT NOW STA Stop: 04/07/20 18:40 Last Admin: 04/07/20 18:58 Dose: 0.5 inch Documented by: [id number] Ondansetron HCl (Zofran) 4 mg IV NOW STA Stop: 04/07/20 18:40 Last Admin: 04/07/20 19:08 Dose: 4 mg Documented by: [id number] Medical Decision Making Differential Diagnosis GERD, hiatal hernia, cholelithiasis, PUD, PA Medical Records Attestation: I reviewed the patient's medical records. I did perform a limited focused review of portions of the patient's old chart on the electronic medical record. The patient has had no recent pertinent visits to this hospital. Home Medications Current Medication List: was personally reviewed by me Laboratory Data Attestation: I reviewed the patient's lab results. Result diagrams: 04/07/20 19:08 04/07/20 19:08 Lab Results 04/07/20 04/07/20 04/07/20 Range/Units 19:08 19:08 19:08 WBC 7.21 (4.8-10.8) K/uL RBC 4.01 L (4.7-6.1) M/uL Hgb 13.0 L (14.0-18.0) g/dL Hct 36.9 L (42-52) % MCV 92.0 (80-100) fL MCH 32.4 (25-34) pg MCHC 35.2 (32-36) g/dL RDW Std Deviation 41.1 (36.4-46.3) fL RDW Coeff of Raul 12.1 (11.5-14.5) % Plt Count 221 (130-400) K/uL MPV 9.4 (7.4-10.4) fL Immature Gran % (Auto) 0.1 % Neut % (Auto) 62.6 % Lymph % (Auto) 21.1 % Henry % (Auto) 9.3 % Eos % (Auto) 6.8 % Baso % (Auto) 0.1 % Neut # (Auto) 4.51 (1.4-6.5) K/uL Lymph # (Auto) 1.52 (1.2-3.4) K/uL Henry # (Auto) 0.67 H (0.11-0.59) K/uL Eos # (Auto) 0.49 (0-0.5) K/uL Baso # (Auto) 0.01 (0-0.2) K/uL Immature Gran # (Auto) 0.01 (0.00-0.02) K/uL PT Cancelled INR Cancelled APTT Cancelled PTT Ratio Cancelled Sodium 142 (136-145) mmol/L Potassium 4.2 (3.5-5.1) mmol/L Chloride 108 H (98-107) mmol/L Carbon Dioxide 28 (21-32) mmol/L Anion Gap 6.0 (3-11) BUN 42 H (7-18) mg/dl Creatinine 2.02 H (0.6-1.4) mg/dl Est Cr Clr Drug Dosing 33.1 ml/min Est GFR ( Amer) 35.6 Est GFR (Non-Af Amer) 30.7 BUN/Creatinine Ratio 20.8 H (10-20) Glucose 132 H (70-99) mg/dl Calcium 9.1 (8.5-10.1) mg/dl Total Bilirubin 0.6 (0.2-1) mg/dl AST 38 H (15-37) U/L ALT 43 (12-78) U/L Alkaline Phosphatase 110 (45-117) U/L Troponin I < 0.015 (0-0.045) ng/ml Total Protein 7.1 (6.4-8.2) gm/dl Albumin 3.6 (3.4-5.0) gm/dl Globulin 3.5 (2.5-4.0) gm/dl Albumin/Globulin Ratio 1.0 (0.9-2) Lipase 287 (73-393) U/L 04/07/20 Range/Units 20:08 WBC (4.8-10.8) K/uL RBC (4.7-6.1) M/uL Hgb (14.0-18.0) g/dL Hct (42-52) % MCV (80-100) fL MCH (25-34) pg MCHC (32-36) g/dL RDW Std Deviation (36.4-46.3) fL RDW Coeff of Raul (11.5-14.5) % Plt Count (130-400) K/uL MPV (7.4-10.4) fL Immature Gran % (Auto) % Neut % (Auto) % Lymph % (Auto) % Henry % (Auto) % Eos % (Auto) % Baso % (Auto) % Neut # (Auto) (1.4-6.5) K/uL Lymph # (Auto) (1.2-3.4) K/uL Henry # (Auto) (0.11-0.59) K/uL Eos # (Auto) (0-0.5) K/uL Baso # (Auto) (0-0.2) K/uL Immature Gran # (Auto) (0.00-0.02) K/uL PT 10.2 INR 1.0 APTT 26.2 PTT Ratio 0.9 Sodium (136-145) mmol/L Potassium (3.5-5.1) mmol/L Chloride (98-107) mmol/L Carbon Dioxide (21-32) mmol/L Anion Gap (3-11) BUN (7-18) mg/dl Creatinine (0.6-1.4) mg/dl Est Cr Clr Drug Dosing ml/min Est GFR ( Amer) Est GFR (Non-Af Amer) BUN/Creatinine Ratio (10-20) Glucose (70-99) mg/dl Calcium (8.5-10.1) mg/dl Total Bilirubin (0.2-1) mg/dl AST (15-37) U/L ALT (12-78) U/L Alkaline Phosphatase (45-117) U/L Troponin I (0-0.045) ng/ml Total Protein (6.4-8.2) gm/dl Albumin (3.4-5.0) gm/dl Globulin (2.5-4.0) gm/dl Albumin/Globulin Ratio (0.9-2) Lipase (73-393) U/L Imaging Data Radiologist's Impression: US gallbladder CLINICAL HISTORY: Epigastric pain. Evaluate for stone. COMPARISON STUDY: No previous studies for comparison. FINDINGS: Exam is compromised by suboptimal penetration. No biliary ductal dilatation is identified. The common bile duct measures 4 mm in caliber. Sludge within the gallbladder is noted. No gallstones are identified. There is no gallbladder wall thickening. Gallbladder is mildly distended. No sonographic Gerardo sign was reported. The pancreas is largely obscured. There is no right hydronephrosis. No hepatic lesions are identified although sensitivity is diminished on this exam. Right renal cortical thinning is noted. IMPRESSION: 1. Exam compromised by suboptimal penetration. Mild gallbladder distention with sludge within the gallbladder. No gallbladder wall thickening or gallstones identified. These findings do not strongly suggest acute cholecystitis although a hepatobiliary scan could be obtained if indicated. 2. Obscured pancreas. ACT 112: Negative or not required by law. Electronically signed by: Jack Drake M.D. 04/07/2020 7:42 PM Dictated: 04/07/201940 Transcribed: 04/07/201940 XR chest 1V portable CLINICAL HISTORY: Chest pain. COMPARISON STUDY: Chest radiograph December 30, 2015. FINDINGS: Lung volumes are normal. Lungs are clear. There is no pneumothorax or pleural effusion. Cardiac size is stable. Mediastinal contours are normal. There is no evidence for pulmonary edema. IMPRESSION: No acute cardiopulmonary findings. ACT 112: Negative or not required by law. Electronically signed by: Jack Drake M.D. 04/07/2020 6:49 PM Dictated: 04/07/201848 Transcribed: 04/07/201848 ECG Data Indication: + abdominal pain Rate (beats per minute): 66 Rhythm: + normal sinus ECG Intervals/blocks: no Left bundle branch block ECG [place]: + Left axis deviation ECG ST segments: no ST elevation ECG Findings: no PVCs Comparison ECG Date: from (December 30, 2015) Change: no significant change Blood Pressure Blood Pressure Findings: Elevated blood pressure Blood Pressure Disposition: Referred to patients primary care provider [facility] Narrative I did evaluate the patient as noted above. The patient is presenting with pain over his epigastrium and lower chest. He describes it as an elephant sitting on his chest. He does state that it seems to be better with an antacid he took. He did have a negative cardiac nuclear stress test a year ago. I did treat the patient with nitroglycerin paste. IV access was established. He was given Zofran [address] I did place an order for continuous cardiac monitoring. The monitor showed normal sinus rhythm at a rate of 68. I did order and personally review the patient's 12-lead EKG as described above. He has no acute ischemic changes. I did order and personally reviewed the images of the patient's chest x-ray as described above. There is no evidence of pneumonia or acute cardiopulmonary process. I did order and review the patient's blood work as noted in the electronic medical record. He has chronic kidney disease with the creatinine of 2. He has a negative troponin but his pain did start an hour and a half prior to arrival. I did order an ultrasound of the gallbladder. I did review the images myself as well as the radiology report as described above. There is some gallbladder sludge with mild distention but no signs of CBD dilatation or gallstones or cholecystitis. I did reevaluate the patient. I did discuss his test results with him. He states that his chest/abdominal pain is now completely resolved. On exam he no longer has any tenderness to his abdomen. I did recommend hospitalization for repeat cardiac biomarkers and potentially a HIDA scan if he has persistent pain in his abdomen. The case was discussed with the case loader operator and hospitalist. Impression & Plan Chest pain, Abdominal pain, Chronic kidney disease Discharge Plan Visit Data *Final* Discharge Date/Time: 04/07/20 22:16 Chief Complaint: Chest Pain Stated Complaint: SEVERE CHEST PAIN ED Provider: Gage Sen Discharge Problem: Chest pain, Abdominal pain, Chronic kidney disease Patient Disposition: Admitted As Inpatient Discharge Instructions Interventions: ED Discharge Assessment Last Done: 04/07/20 22:16 Discharge Problem: Chest pain Qualifiers: Chest pain type: unspecified Qualified Code(s): R07.9 - Chest pain, unspecified Abdominal pain Qualifiers: Abdominal location: epigastric Qualified Code(s): R10.13 - Epigastric pain Chronic kidney disease Qualifiers: Chronic kidney disease stage: unspecified stage Qualified Code(s): N18.9 - Chronic kidney disease, unspecified
--- NOTE | 2020-04-07 18:51 | XRay Report ---
XR chest 1V portable CLINICAL HISTORY: Chest pain. COMPARISON STUDY: Chest radiograph December 30, 2015. FINDINGS: Lung volumes are normal. Lungs are clear. There is no pneumothorax or pleural effusion. Car diac size is stable. Mediastinal contours are normal. There is no evidence for pulmonary edema. IMPRESSION: No acute cardiopulmonary findings. ACT 112: Negative or not required by law. Electronically signed by: Jack Drake M.D. 04/07/2020 6:49 PM
[2020-04-07 19:16] LABS: Basophils # (auto) 0.01 K/uL (0-0.2); Basophils % (auto) 0.1 %; Eosinophils # (auto) 0.49 K/uL (0-0.5); Eosinophils % (auto) 6.8 %; Hematocrit (blood only) 36.9 % (42-52); Immature Granulocytes # (auto) 0.01 K/uL (0.00-0.02); Immature Granulocytes % (auto) 0.1 %; Lymphocytes # (auto) 1.52 K/uL (1.2-3.4); Lymphocytes % (auto) 21.1 %; Mean Corpuscular Hemoglobin 32.4 pg (25-34); Mean Corpuscular Hgb Conc 35.2 g/dL (32-36); Mean Platelet Volume 9.4 fL (7.4-10.4); Monocytes # (auto) 0.67 K/uL (0.11-0.59); Monocytes % (auto) 9.3 %; Neutrophils # (auto) 4.51 K/uL (1.4-6.5); Neutrophils % (auto) 62.6 %; Platelet Count 221 K/uL (130-400); RDW Coefficient of Variation 12.1 % (11.5-14.5); RDW Standard Deviation 41.1 fL (36.4-46.3); Red Blood Count 4.01 M/uL (4.7-6.1); White Blood Count 7.21 K/uL (4.8-10.8)
[2020-04-07 19:35] LABS: Alanine Aminotransferase 43 U/L (12-78); Albumin Level 3.6 gm/dl (3.4-5.0); Aspartate Aminotransferase 38 U/L (15-37); BUN Creatinine Ratio 20.8 (10-20); Blood Urea Nitrogen 42 mg/dl (7-18); Calcium 9.1 mg/dl (8.5-10.1); Carbon Dioxide 28 mmol/L (21-32); Chloride 108 mmol/L (98-107); Creatinine Clr Calc Pharmacy 33.1 ml/min; Est GFR (African American) 35.6; Est GFR (Non-African American) 30.7; Glucose 132 mg/dl (70-99); Lipase 287 U/L (73-393); Potassium 4.2 mmol/L (3.5-5.1); Sodium 142 mmol/L (136-145)
[2020-04-07 19:39] LABS: Alkaline Phosphatase 110 U/L (45-117); Bilirubin,Total 0.6 mg/dl (0.2-1); Globulin 3.5 gm/dl (2.5-4.0); Total Protein 7.1 gm/dl (6.4-8.2); Troponin I < 0.015 ng/ml (0-0.045)
--- NOTE | 2020-04-07 19:44 | Ultrasound Report ---
US gallbladder CLINICAL HISTORY: Epigastric pain. Evaluate for stone. COMPARISON STUDY: No previous studies for comparison. FINDINGS: Exam is compromised by suboptimal penetration. No biliary ductal dilatation is identified. The common bile duct measures 4 mm in caliber. Sludge within the gallbladder is noted. No gallstones are identified. There is no gallbladder wall thickening. Gallbladder is mildly distended. No sonograp hic Gerardo sign was reported. The pancreas is largely obscured. There is no right hydronephrosis. No hepatic lesions are identified although sensitivity is diminished on this exam. Right renal cortical thinning is noted. IMPRESSION: 1. Exam compromised by suboptimal penetration. Mild gallbladder distention with sludge within the gal lbladder. No gallbladder wall thickening or gallstones identified. These findings do not strongly sug gest acute cholecystitis although a hepatobiliary scan could be obtained if indicated. 2. Obscured pancreas. ACT 112: Negative or not required by law. Electronically signed by: Jack Drake M.D. 04/07/2020 7:42 PM
[2020-04-07 20:35] LABS: Partial Thromboplastin Ratio 0.9; Partial Thromboplastin Time 26.2 Seconds (21.0-31.0); Prothrombin Time 10.2 Seconds (9.0-12.0)
--- NOTE | 2020-04-07 21:56 | History & Physical Report ---
Date of Service April 07, 2020 Assessment & Plan (1) Substernal chest pain: Substernal chest pain and epigastric abdominal pain- The patient will be admitted to telemetry for serial cardiac enzymes, serial EKG's, cardiac rhythm monitoring and a 2-D echocardiogram with Dopplers.. Initial EKG and troponin are normal. Patient did have hospitalization at [facility] approximately 1 year ago, with negative stress testing at that time. Present on Admission?: Yes (2) Epigastric abdominal pain: The fact that he took 3 ibuprofen the previous day, may have contributed to his symptoms. Present on Admission?: Yes (3) Abnormal gallbladder ultrasound: Gallbladder ultrasound shows mild gallbladder distention with sludge. Keep patient n.p.o. Order HIDA scan. Famotidine 20 mg IV every 12 hours Zofran 4 mg IV every 6 hours PRN Ceftriaxone 1 g IV daily Present on Admission?: Yes (4) Benign prostatic hyperplasia with elevated prostate specific antigen (PSA): Follow urine output while receiving IV fluids Present on Admission?: Yes (5) Chronic kidney disease, stage III (moderate): Creatinine 2.02 upon admission, with range 1.62-2.12. Follow laboratory serially. Present on Admission?: Yes (6) GERD without esophagitis: Placed on famotidine 20 mg IV every 12 hours Present on Admission?: Yes (7) Hypertension: Hold lisinopril and HCTZ while n.p.o. Present on Admission?: Yes (8) Long-term use of hydroxychloroquine: No longer listed as a current medication Present on Admission?: Yes (9) Inflammatory polyarthritis: Reports he does take ibuprofen periodically, and in particular, took 3 ibuprofen yesterday. Present on Admission?: Yes (10) PAD (peripheral artery disease): Not symptomatic at this time Present on Admission?: Yes History of Present Illness Chief Complaint: The patient presents to the emergency department with the acute onset of severe substernal and epigastric pain after eating a [employer] spicy mayonnaise laden kristy. Primary Care Provider: Taj Hart MD The patient is a 80-year-old male with a past medical history including CKD stage III, BPH with elevated PSA, carotid artery stenosis, GERD, hypertension, inflammatory polyarthritis, long-term use of hydroxychloroquine, bilateral hand osteoarthritis, PAD and hypertension. He presented to the emergency department after persistence of substernal and epigastric chest pain following eating a spicy mayonnaise laden Robin wagner earlier this evening. About 1 year ago he had similar symptoms, was taken to [facility], where he was ad mitted for 2 days and underwent significant testing including heart stress testing which was reported normal. During that admission, he was diagnosed with esophageal spasm. Allergies Allergy/AdvReac Type Severity Reaction Status Date / Time atorvastatin Allergy Unknown RASH Verified 04/07/20 20:36 propranolol Allergy Unknown RASH Verified 04/07/20 20:36 nisoldipine [From Sular] Allergy Unknown Verified 04/07/20 20:36 Home Medications Home Medications Medication Instructions Recorded Confirmed Type lisinopril 20 1 tab PO DAILY tab 07/03/19 04/07/20 History mg-hydrochlorothiazide 12.5 mg tablet lactobacillus combination no.4 0 mmu cells PO DAILY 04/07/20 04/07/20 History [Probiotic] magnesium oxide 0 mg PO DAILY 04/07/20 04/07/20 History Past Med/Surg History Medical History Benign prostatic hyperplasia with elevated prostate specific antigen (PSA) Carotid artery stenosis Chronic kidney disease, stage III (moderate) GERD without esophagitis Hypertension Inflammatory polyarthritis Long-term use of hydroxychloroquine NSAID long-term use Osteoarthritis of hands, bilateral PAD (peripheral artery disease) Surgical History H/O inguinal hernia repair H/O prostatectomy Hx of total knee arthroplasty Family History Denies family history of Kidney disease Social History Smoking Status: Former smoker Tobacco Type: Pipe and Cigars marital status: Current Living Situation: Spouse Feels Safe at Home: Yes Review of Systems Review of Systems: The patient denies palpitations, shortness of breath, dyspnea on exertion, cough, lower extremity swelling, sore throat, fevers, chills, sweats, weight change, fatigue, nausea, vomiting, diarrhea , constipation, pelvic pain, blood in urine or stool, dysuria, urinary frequency or urgency, lightheadedness, dizziness, headache, memory loss, loss of consciousness, rash, abnormal bruising or bleeding, imbalance, focal or generalized weakness, numbness or tingling in arms or legs, generalized arthralgias or myalgias, back or neck pain, or night sweats. The review of systems is otherwise negative other than for that already noted above, and at least 10 systems have been reviewed. Physical Exam Physical Exam: The patient is awake, alert and oriented 3, well developed and well nourished, normocephalic and atraumatic, lying in bed and in no acute distress. HEENT--PERRL, EOMI, mucous membranes and oropharynx normal. Neck--supple. No JVD. No bruits. Thyroid normal, trachea midline, no adenopathy. Heart--normal S1 and S2. No murmurs, rubs or gallops. Lungs--clear bilaterally, no respiratory distress, no accessory muscle use. Abdomen--normal bowel sounds and soft. Nontender. Nondistended. Mildly obese. Extremities--no cyanosis or clubbing. No edema. Dermatologic--normal skin turgor, normal color, no abnormal lymph nodes, no rash. Neurologic--cranial nerves II through XII grossly intact. Rheumatologic--normal range of motion. Psychiatric--normal affect. Results & Data Results & Data ([facility]) Vital Signs (Past 12 Hours) Vital Signs Temp Pulse Resp BP Pulse Ox 04/07/20 20:50 64 20 04/07/20 20:00 63 19 120/63 97 04/07/20 19:50 60 22 95 04/07/20 19:42 61 20 126/68 96 04/07/20 19:10 60 24 97 04/07/20 19:00 62 17 139/87 98 04/07/20 18:50 62 95 04/07/20 18:41 63 22 97 04/07/20 18:40 64 20 128/71 97 04/07/20 18:33 68 13 99 04/07/20 18:23 98.2 F 68 20 137/69 99 Laboratory Results Laboratory Results WBC 7.21 K/uL (4.8-10.8) 04/07/20 19:08 RBC 4.01 M/uL (4.7-6.1) L 04/07/20 19:08 Hgb 13.0 g/dL (14.0-18.0) L 04/07/20 19:08 Hct 36.9 % (42-52) L 04/07/20 19:08 MCV 92.0 fL (80-100) 04/07/20 19:08 MCH 32.4 pg (25-34) 04/07/20 19:08 MCHC 35.2 g/dL (32-36) 04/07/20 19:08 RDW Std Deviation 41.1 fL (36.4-46.3) 04/07/20 19:08 RDW Coeff of Raul 12.1 % (11.5-14.5) 04/07/20 19:08 Plt Count 221 K/uL (130-400) 04/07/20 19:08 MPV 9.4 fL (7.4-10.4) 04/07/20 19:08 Immature Gran % (Auto) 0.1 % 04/07/20 19:08 Neut % (Auto) 62.6 % 04/07/20 19:08 Lymph % (Auto) 21.1 % 04/07/20 19:08 [place] % (Auto) 9.3 % 04/07/20 19:08 Eos % (Auto) 6.8 % 04/07/20 19:08 Baso % (Auto) 0.1 % 04/07/20 19:08 Neut # (Auto) 4.51 K/uL (1.4-6.5) 04/07/20 19:08 Lymph # (Auto) 1.52 K/uL (1.2-3.4) 04/07/20 19:08 [place] # (Auto) 0.67 K/uL (0.11-0.59) H 04/07/20 19:08 Eos # (Auto) 0.49 K/uL (0-0.5) 04/07/20 19:08 Baso # (Auto) 0.01 K/uL (0-0.2) 04/07/20 19:08 Immature Gran # (Auto) 0.01 K/uL (0.00-0.02) 04/07/20 19:08 PT 10.2 Seconds (9.0-12.0) 04/07/20 20:08 INR 1.0 (0.9-1.1) 04/07/20 20:08 APTT 26.2 Seconds (21.0-31.0) 04/07/20 20:08 PTT Ratio 0.9 04/07/20 20:08 Sodium 142 mmol/L (136-145) 04/07/20 19:08 Potassium 4.2 mmol/L (3.5-5.1) 04/07/20 19:08 Chloride 108 mmol/L (98-107) H 04/07/20 19:08 Carbon Dioxide 28 mmol/L (21-32) 04/07/20 19:08 Anion Gap 6.0 (3-11) 04/07/20 19:08 BUN 42 mg/dl (7-18) H 04/07/20 19:08 Creatinine 2.02 mg/dl (0.6-1.4) H 04/07/20 19:08 Est Cr Clr Drug Dosing 33.1 ml/min 04/07/20 19:08 Est GFR ( Amer) 35.6 04/07/20 19:08 Est GFR (Non-Af Amer) 30.7 04/07/20 19:08 BUN/Creatinine Ratio 20.8 (10-20) H 04/07/20 19:08 Glucose 132 mg/dl (70-99) H 04/07/20 19:08 Calcium 9.1 mg/dl (8.5-10.1) 04/07/20 19:08 Total Bilirubin 0.6 mg/dl (0.2-1) 04/07/20 19:08 AST 38 U/L (15-37) H 04/07/20 19:08 ALT 43 U/L (12-78) 04/07/20 19:08 Alkaline Phosphatase 110 U/L (45-117) 04/07/20 19:08 Troponin I < 0.015 ng/ml (0-0.045) 04/07/20 19:08 Total Protein 7.1 gm/dl (6.4-8.2) 04/07/20 19:08 Albumin 3.6 gm/dl (3.4-5.0) 04/07/20 19:08 Globulin 3.5 gm/dl (2.5-4.0) 04/07/20 19:08 Albumin/Globulin Ratio 1.0 (0.9-2) 04/07/20 19:08 Lipase 287 U/L (73-393) 04/07/20 19:08 Diagnostic Findings [facility] [place], [place] [phone] XRay Report Patient: GAGE JOHNS Date: 04/07/20 MR#: [id number]: [address] Acct ID:[id number]: Date: [address] [place] [address] Zip: [place] [address] Age: 80Location: ED Sex: M Room/Bed: Att Phy:Diagnosis: SEVERE CHEST PAIN Mariela Phy: Taj Hart MDService Date: 04/07/20 Fam Phy:Interpreting Phy: Jack Drake MD Admit Phy: Ordering Phy: Gage Sen MD cc: ~ XR chest 1V portable CLINICAL HISTORY: Chest pain. COMPARISON STUDY: Chest radiograph December 30, 2015. FINDINGS: Lung volumes are normal. Lungs are clear. There is no pneumothorax or pleural effusion. Cardiac size is stable. Mediastinal contours are normal. There is no evidence for pulmonary edema. IMPRESSION: No acute cardiopulmonary findings. ACT 112: Negative or not required by law. Electronically signed by: Jack Drake M.D. 04/07/2020 6:49 PM Dictated: 04/07/201848 Transcribed: 04/07/201848 [facility], [place] [phone] Ultrasound Report Patient: GAGE JOHNS Date: 04/07/20 MR#: [id number]: [address] Acct ID:[id number]: Date: [address] [place] [address] Zip: [place] [address] Age: 80Location: ED Sex: M Room/Bed: Att Phy:Diagnosis: SEVERE CHEST PAIN Mariela Phy: Taj Hart MDService Date: 04/07/20 Colin Phy: Taj Hart MDInterpreting Phy: Jack Drake MD Admit Phy: Ordering Phy: Gage Sen MD cc: ~ US gallbladder CLINICAL HISTORY: Epigastric pain. Evaluate for stone. COMPARISON STUDY: No previous studies for comparison. FINDINGS: Exam is compromised by suboptimal penetration. No biliary ductal dilatation is identified. The common bile duct measures 4 mm in caliber. Sludge within the gallbladder is noted. No gallstones are identified. There is no gallbladder wall thickening. Gallbladder is mildly distended. No sonographic Gerardo sign was reported. The pancreas is largely obscured. There is no right hydronephrosis. No hepatic lesions are identified although sensitivity is diminished on this exam. Right renal cortical thinning is noted. IMPRESSION: 1. Exam compromised by suboptimal penetration. Mild gallbladder distention with sludge within the gallbladder. No gallbladder wall thickening or gallstones identified. These findings do not strongly suggest acute cholecystitis although a hepatobiliary scan could be obtained if indicated. 2. Obscured pancreas. ACT 112: Negative or not required by law. Electronically signed by: Jack Drake M.D. 04/07/2020 7:42 PM Dictated: 04/07/201940 Transcribed: 04/07/201940 Code Status & VTE Plan Code Status Full code VTE Prophylaxis Plan VTE Prophylaxis will be ordered: Yes PG Care Time/CCT Total # of Minutes Spent Total Time Spent with Patient: Total time spent is greater than 50% in administrative coordinator rdination of care (as documented) at patient's floor/unit and/or counseling patient: Coding Level of Care Code 34842 OBS Care - Level 3 Diagnoses Substernal chest pain R07.2 Epigastric abdominal pain R10.13 Abnormal gallbladder ultrasound R93.2 Benign prostatic hyperplasia with elevated prostate specific antigen (PSA) N40.0; R97.20 Chronic kidney disease, stage III (moderate) N18.3 GERD without esophagitis K21.9 Hypertension I10 Long-term use of hydroxychloroquine Z79.899 Inflammatory polyarthritis M06.4 PAD (peripheral artery disease) I73.9
[2020-04-07] MEDS ORDERED: NITROGLYCERIN SL 0.4 MG/TAB TAB SL PRN (22:41)
[2020-04-07] MEDS ORDERED: ONDANSETRON INJ 2 MG/ML 2 ML VIAL IV PRN (22:41)
[2020-04-07] MEDS ORDERED: cefTRIAXone SODIUM 2,000 MG in DEXTROSE 5% 50 ML IV SCH (23:00)
[2020-04-07] MEDS: FAMOTIDINE 20 MG in SYRINGE 3 ML IV SCH (23:32)
[2020-04-08] MEDS: SODIUM CHLORIDE 0.9% 1000ML 1,000 ML IV SCH ×2 (00:11→14:05)
[2020-04-08] MEDS: FAMOTIDINE 20 MG in SYRINGE 3 ML IV SCH (07:48)
[2020-04-08 08:00] LABS: Basophils # (auto) 0.01 K/uL (0-0.2); Basophils % (auto) 0.2 %; Eosinophils # (auto) 0.46 K/uL (0-0.5); Eosinophils % (auto) 7.9 %; Hematocrit (blood only) 35.7 % (42-52); Hemoglobin 12.3 g/dL (14.0-18.0); Immature Granulocytes # (auto) 0.01 K/uL (0.00-0.02); Immature Granulocytes % (auto) 0.2 %; Lymphocytes # (auto) 1.23 K/uL (1.2-3.4); Lymphocytes % (auto) 21.2 %; Mean Corpuscular Hemoglobin 32.3 pg (25-34); Mean Corpuscular Hgb Conc 34.5 g/dL (32-36); Mean Corpuscular Volume 93.7 fL (80-100); Mean Platelet Volume 9.4 fL (7.4-10.4); Monocytes # (auto) 0.54 K/uL (0.11-0.59); Monocytes % (auto) 9.3 %; Neutrophils # (auto) 3.55 K/uL (1.4-6.5); Neutrophils % (auto) 61.2 %; Platelet Count 213 K/uL (130-400); RDW Coefficient of Variation 12.4 % (11.5-14.5); RDW Standard Deviation 41.8 fL (36.4-46.3); Red Blood Count 3.81 M/uL (4.7-6.1)
[2020-04-08 08:32] LABS: Albumin Level 3.3 gm/dl (3.4-5.0); BUN Creatinine Ratio 22.3 (10-20); Calcium 8.8 mg/dl (8.5-10.1); Creatinine Clr Calc Pharmacy 36.7 ml/min; Est GFR (African American) 40.3; Est GFR (Non-African American) 34.8; Magnesium 2.4 mg/dl (1.8-2.4); Potassium 4.6 mmol/L (3.5-5.1)
[2020-04-08 08:36] LABS: Bilirubin,Total 0.3 mg/dl (0.2-1); Globulin 3.2 gm/dl (2.5-4.0); Total Protein 6.5 gm/dl (6.4-8.2)
[2020-04-08] MEDS ORDERED: ASPIRIN 81 MG CHEW PO SCH (09:00)
[2020-04-08] MEDS ORDERED: SODIUM CHLORIDE 0.9% IV SCH (09:00)
[2020-04-08] MEDS ORDERED: SINCALIDE IV SCH (09:00)
[2020-04-08] MEDS ORDERED: cefTRIAXone SODIUM 1,000 MG/50 ML BAG IV SCH (09:00)
[2020-04-08] MEDS ORDERED: ACETAMINOPHEN 325 MG TAB PO PRN (10:31)
[2020-04-08] MEDS ORDERED: ACETAMINOPHEN 325 MG TAB ONE (10:33)
--- NOTE | 2020-04-08 11:00 | Nuclear Medicine Report ---
NUCLEAR MEDICINE HEPATOBILIARY SCAN WITH EJECTION FRACTION HISTORY: epigastric pain, abnormal GB US COMPARISON: Abdominal ultrasound 04/05/2020. TECHNIQUE: Immediately following the intravenous administration of 5.3 mCi Tc-99m Choletec, dynamic a nterior abdominal imaging pre/post 1.75 mcg of Kinevac was performed. FINDINGS: Uniform hepatic tracer accumulation is shown. Prompt intrahepatic biliary excretion is seen. The gall bladder, common bile duct, and small bowel are all visualized by 40 minutes. This appearance represen ts the normal sequence of biliary excretion. The gall bladder ejection fraction following administration of Kinevac was 28% (normal >35%). IMPRESSION: 1. No evidence for cystic duct obstruction. 2. Abnormally low gallbladder ejection fraction of 28 %. ACT 112: Negative or not required by law. Electronically signed by: Philip Gardner M.D. 04/08/2020 10:58 AM
--- NOTE | 2020-04-08 11:36 | Hospitalist Progress Note ---
Date of Service April 08, 2020 Assessment & Plan (1) Abnormal gallbladder ultrasound: 1. Substernal chest pain -troponins and EKG negative -continue to follow clinically 2. Epigastric abdominal pain/gallbladder sludge on ultrasound -c/w ceftriaxone IV q24h -HIDA scan complete; awaiting read 3. (2) Epigastric abdominal pain: (3) Substernal chest pain: (4) Benign prostatic hyperplasia with elevated prostate specific antigen (PSA): (5) Carotid artery stenosis: (6) Chronic kidney disease, stage III (moderate): (7) Hypertension: (8) GERD without esophagitis: (9) Inflammatory polyarthritis: (10) Long-term use of hydroxychloroquine: (11) NSAID long-term use: (12) PAD (peripheral artery disease): (13) Osteoarthritis of hands, bilateral: (14) Chest pain: (15) Hypertension: Admission and Anticipated Discharge Date Admission Date: April 07, 2020 Subjective Patient seen at bedside this morning after his HIDA scan. He reports no symptoms except for a headache. Per patient, his lower chest/upper abdominal pain has resolved. Patient denies chest pain, shortness of breath, abdominal pain, lightheadedness, dizziness, sweating, chills, fever, nausea, vomiting, arm pain, jaw pain, or back pain. Results & Data Results & Data ([facility]) Vital Signs (Past 12 Hours) Vital Signs Temp Pulse Pulse Resp BP Pulse Ox 04/08/20 11:18 36.5 C 56 L 16 161/86 H 98 04/08/20 08:00 61 04/08/20 07:28 36.4 C L 56 L 18 145/74 H 95 04/08/20 03:26 36.4 C L 59 L 18 108/62 97 04/08/20 01:28 36.7 C 62 18 126/74 97 04/08/20 00:00 49 L (1) Chest pain Chest pain type: unspecified Qualified Code(s): R07.9 - Chest pain, unspecified
--- NOTE | 2020-04-08 18:15 | Discharge Summary ---
Date of Service April 08, 2020 Admission HPI Per Admitting Provider The patient is a 80-year-old male with a past medical history including CKD stage III, BPH with elevated PSA, carotid artery stenosis, GERD, hypertension, inflammatory polyarthritis, long-term use of hydroxychloroquine, bilateral hand osteoarthritis, PAD and hypertension. He presented to the emergency department after persistence of substernal and epigastric chest pain following eating a spicy mayonnaise laden Robin wagner earlier this evening. About 1 year ago he had similar symptoms, was taken to [facility], where he was admitted for 2 days and underwent significant testing including heart stress testing which was reported normal. During that admission, he was diagnosed with esophageal spasm. Admission Exam Per Admitting Provider Constitutional: Vital signs reviewed. Eyes: Pupils are equal round reactive to light. Conjunctiva are noninjected. ENT: Pharynx is clear without erythema or exudate. Mucous membranes are moist. Neck supple without meningeal signs. Respiratory: Clear to auscultation bilaterally. Breath sounds are equal bilaterally. Cardiovascular: Regular rate and rhythm. No rubs or gallops. GI: Soft, nondistended with epigastric tenderness. No guarding or Gerardo sign. Bowel sounds are present. Musculoskeletal: No peripheral edema. No lower extremity tenderness. Integumentary: No cyanosis. or jaundice. Neurological: The patient is awake and alert. No focal deficits. Psychiatric: Normal affect. Not anxious appearing. Principal Diagnosis Epigastric pain Discharge Exam Constitutional well developed and well nourished; no acute distress and not ill appearing Respiratory normal respiratory effort; no respiratory distress Auscultation: lungs clear to auscultation bilaterally; no crackles and no wh eezes Cardiovascular Rate/Rhythm: regular rate and regular rhythm Heart Sounds: no murmur Gastrointestinal (Abdomen) Inspection/Auscultation: abdomen not distended Percussion/Palpation: + abdomen tender (mild tenderness to deep palpation in the epigastrum) and abdomen soft; no guarding and abdomen not rigid Discharge Data Allergies Allergy/AdvReac Type Severity Reaction Status Date / Time atorvastatin Allergy Unknown RASH Verified 04/07/20 20:36 propranolol Allergy Unknown RASH Verified 04/07/20 20:36 nisoldipine [From Sular] Allergy Unknown Verified 04/07/20 20:36 Consultations 04/07/20 20:16 ED Decision to Admit Stat 04/07/20 22:41 Consult Case Management - Discharge Planning Routine Ordered Studies 04/07/20 18:39 US gallbladder Stat Hospital Course (1) Abnormal gallbladder ultrasound: 1. Epigastric pain/substernal chest pain/gallbladder sludge on ultrasound: Patient was admitted for epigastric pain/substernal chest pressure after a large fatty meal that came on suddenly and lasted about 2-3 hours. Patient had a distant history of similar pain, which was also worked up in hospital and deemed not of cardiac origin. In the ED, EKG was negative, as were troponins. RUQ ultrasound showed some gallbladder sludge and mild edema, and so the patient was placed on IV ceftriaxone. A HIDA scan was performed, which showed a mildly reduced gallbladder ejection fraction, but was otherwise normal, and so IV antibiotics were discontinued. The patient was discharged with instructions to follow up outpatient for his gallbladder findings. 2. Hypertension Patient's blood pressure was slightly elevated during his stay, and he was continued on his home blood pressure meds. His BP did not become clinically concerning during his visit. 3. GERD without esophagitis Patient was placed on famotidine IV during his admission. (2) Epigastric abdominal pain: (3) Substernal chest pain: (4) Benign prostatic hyperplasia with elevated prostate specific antigen (PSA): (5) Carotid artery stenosis: (6) Chronic kidney disease, stage III (moderate): (7) Hypertension: (8) GERD without esophagitis: (9) Inflammatory polyarthritis: (10) Long-term use of hydroxychloroquine: (11) NSAID long-term use: (12) PAD (peripheral artery disease): (13) Osteoarthritis of hands, bilateral: (14) Chest pain: Total Time Total Time Spent Total Time Spent (In Minutes): >30 Discharge Plan Discharge Items Patient Disposition: Home - Self-Care Reason For Visit: SUBSTERNAL AND EPIGASTRIC PAIN Discharge Diagnosis: Substernal and epigastric pain Activity: Resume your previous activity Non-emergency contact: Primary Care Provider Call non-emergency contact if: your symptoms worsen, your pain is worsening and your pain is concerning for you Follow-up/Referrals: Taj Hart MD [Primary Care Provider] - Diet: Heart Healthy Addtl Attending Provider Instructions: Chest and abdominal pain -when you came in, we were concerned about whether the discomfort could have been coming from your heart, stomach, or gallbladder -fortunately, your EKGs and heart enzymes looked reassuring; that makes it clear you weren't having a heart attack -to be thorough, because you do have some risks for clogged arteries, we should get you set up for a stress test, but this can be done in the office in the next week or two -your gallbladder has a bit of sludge on ultrasound, but this is extremely common. Your "gallbladder stress test" (HIDA scan) did show a slight reduction in gallbladder function, but not so severe as to be clear that the gallbladder is the culprit. With this in mind, we will want you to follow for symptoms. If you get that pain frequently/recurrently, especially after fatty meals, we would need to revisit to see if your gallbladder was the problem. -putting it all together, however, it really looks most like you had a bad bout of indigestion from the meal you had. Pending Studies at Discharge: No Stand-Alone Forms: My [facility], Smoking Cessation Medications and DC Order Prescriptions: Continued lisinopril-hydrochlorothiazide 20-12.5 mg tablet 1 tab PO DAILY RF: 0 magnesium oxide 420 mg Tablet 0 mg PO DAILY RF: 0 Probiotic 3 billion cell Capsule 0 mmu cells PO DAILY RF: 0 Discharge Orders: Discharge Order (Routine); Ordered 04/08/20 Ordered By: Rajat Smith Admission Data Admit Date/Time: 04/07/20 21:49 Attending Provider: Francisco Javier Sosa Admit Provider: Leighton Land Primary Care Provider: Taj Hart Other Providers: Leighton Land ; Rajat Smith Other Interventions: Discharge Summary Assessment (RN) Last Done: 04/08/20 17:13 DC Date/Time DO NOT enter until pt leaves facility: 04/08/20 17:59 Supervising Physician Co-Signing Physician Notes I personally examined the patient and verified all jiménez points of history and exam, discussed case, and agree with decision making with Dr Smith feeling better and would like to go home. pain lasted at least 2.5hrs nonstop. no preceding CP w exertion no SHEETS no diminished exercise tolerance. no dyspnea with the pain, no sweats no radiation of pain pt believes pain was entirely GI main question was esophageal spasms vs biliary vitals noted nad heent nc at mmm breathing unlabored no accessory muscles good effort skin no rashes no pallor or icterus abd soft mild distention mild epigastric ttp no guarding no rebound NO RUQ tenderness chest/abdominal pain - after eating sub w spicey patricio. suspect UGI source - indigestion --> stomach and/or esophageal spasm >>>> biliary. d/w pt HIDA mildly abnromal w sl low EF but no other evidence of acute biliary disease (exam, labs, US -- sludge but no cholecystitis or duct obstruction) -- and all of this coupled with pain having been a one time occurrence (possibly twice in about a year at the most if prior episode that got him admitted at [facility] was similar) - that it would be far less likely to be biliary in origin - for now watchful waiting in this regard and if sx were to start to occur on a more frequent basis then could consider choley. otherwise - with no dyspnea no other preceding anginal sx and with pain lasting for so long without acute EKG findings and with normal troponins - exceedingly unlikely to have been cardiac. this, coupled with fairly recent negative stress test, all quite reassuring. pt stable for home, expressed good understanding of all of above. Resident Activity Tracking Resident Involvement: Resident Care Provided Care Provided: Adult Hospital Medicine
--- NOTE | 2020-04-08 19:39 | Billing Data ---
Date of Service April 08, 2020 Coding Level of Care Code 64716 OBS Care - Discharge
--- NOTE | 2020-04-08 22:28 | Electrocardiogram Report ---
Test Reason : Blood Pressure : / mmHG Vent. Rate : 066 BPM Atrial Rate : 066 BPM P-R Int : 244 ms QRS Dur : 084 ms QT Int : 406 ms P-R-T Axes : 053 -43 033 degrees QTc Int : 425 ms Sinus rhythm with 1st degree A-V block Left axis deviation Inferior infarct , age undetermined Abnormal ECG When compared with ECG of 30-DEC-2015 20:57, Inferior infarct is now Present Non-specific change in ST segment in Anterior leads Nonspecific T wave abnormality, improved in Inferior leads T wave inversion no longer evident in Anterior leads Confirmed by Vidal Wilcox ([id number]) on 04/08/2020 10:28:03 PM Referred By: REFERRED SELF Confirmed By:Vidal Wilcox
--- NOTE | 2020-04-08 22:51 | Electrocardiogram Report ---
Test Reason : Blood Pressure : / mmHG Vent. Rate : 054 BPM Atrial Rate : 054 BPM P-R Int : 266 ms QRS Dur : 074 ms QT Int : 428 ms P-R-T Axes : 072 -27 036 degrees QTc Int : 405 ms Sinus bradycardia with 1st degree A-V block Low voltage QRS Inferior infarct When compared with ECG of 07-APR-2020 18:32, No significant change was found Confirmed by Vidal Wilcox ([id number] on 04/08/2020 10:50:51 PM Referred By: REFERRED SELF Confirmed By:Vidal Wilcox
== END 2020-04-08 17:59 | disposition home or self-care (01) ==
LOC: 2W 18:20 → ED 18:20 → SUATTDRO 21:49 → 2W 22:16

== ENCOUNTER 2020-05-12 23:32 | Inpatient (IN) ==
[2020-05-12] MEDS ORDERED: SODIUM CHLORIDE 0.9% 500 ML IV SCH (23:45)
[2020-05-12] MEDS ORDERED: ONDANSETRON INJ 2 MG/ML 2 ML VIAL IV STA (23:50)
[2020-05-12] MEDS: HYDROmorphone INJ 0.5 MG/0.5 ML SYR IV PRN (23:53)
[2020-05-13] LABS: Basophils # (auto) 0.01 K/uL (0-0.2); Basophils % (auto) 0.1 %; Eosinophils # (auto) 0.28 K/uL (0-0.5); Hematocrit (blood only) 37.5 % (42-52); Hemoglobin 12.8 g/dL (14.0-18.0); Immature Granulocytes # (auto) 0.03 K/uL (0.00-0.02); Immature Granulocytes % (auto) 0.2 %; Lymphocytes # (auto) 2.29 K/uL (1.2-3.4); Lymphocytes % (auto) 16.5 %; Mean Corpuscular Hemoglobin 31.9 pg (25-34); Mean Corpuscular Hgb Conc 34.1 g/dL (32-36); Mean Corpuscular Volume 93.5 fL (80-100); Mean Platelet Volume 9.6 fL (7.4-10.4); Monocytes # (auto) 1.26 K/uL (0.11-0.59); Monocytes % (auto) 9.1 %; Neutrophils % (auto) 72.1 %; Platelet Count 252 K/uL (130-400); RDW Coefficient of Variation 12.3 % (11.5-14.5); RDW Standard Deviation 41.9 fL (36.4-46.3); Red Blood Count 4.01 M/uL (4.7-6.1); White Blood Count 13.87 K/uL (4.8-10.8)
[2020-05-13] MEDS: HYDROmorphone INJ 0.5 MG/0.5 ML SYR IV PRN ×6 (00:12→09:16)
[2020-05-13 00:17] LABS: Alanine Aminotransferase 78 U/L (12-78); Albumin Level 3.9 gm/dl (3.4-5.0); Aspartate Aminotransferase 56 U/L (15-37); BUN Creatinine Ratio 24.3 (10-20); Blood Urea Nitrogen 55 mg/dl (7-18); Calcium 9.4 mg/dl (8.5-10.1); Carbon Dioxide 25 mmol/L (21-32); Chloride 108 mmol/L (98-107); Est GFR (African American) 31.2; Est GFR (Non-African American) 26.9; Glucose 136 mg/dl (70-99); Lipase 145 U/L (73-393); Sodium 140 mmol/L (136-145)
[2020-05-13 00:20] LABS: Albumin Globulin Ratio 1.1 (0.9-2); Alkaline Phosphatase 96 U/L (45-117); Bilirubin,Total 0.4 mg/dl (0.2-1); Globulin 3.5 gm/dl (2.5-4.0); Total Protein 7.4 gm/dl (6.4-8.2)
[2020-05-13] MEDS ORDERED: fentaNYL citrate 100 MCG/2 ML VIAL IV STA (01:12)
--- NOTE | 2020-05-13 01:32 | Emergency Department Note ---
Impression & Plan Acute postoperative abdominal pain, Leukocytosis ED Provider Note INFORMANT: Patient ED PROVIDER(S): Romulo Basilio MD CHIEF COMPLAINT: Right upper quadrant abdominal pain PLAN: Disposition: Admitted Condition: Good MEDICAL DECISION MAKING: Patient presented with acute postoperative right upper quadrant abdominal pain. He was quite tender. He was given multiple doses of IV Dilaudid. He was also treated with IV Zofran. The patient had unremarkable ECG. The patient's blood work revealed a mild leukocytosis. LFTs and lipase were unremarkable. Chemistry panel revealed renal insufficiency. The patient underwent CT imaging which revealed postsurgical changes. The patient had a consultation placed with the surgeon, Dr. Erick Martinez. He asked for his PA to be notified for evaluation in the ER. Patient was evaluated in the emergency [place] by Luis Joy PA-C. Patient was admitted for further treatment. Triage Nursing notes reviewed and agree them. Additional history obtained from patient's Vital Signs: reviewed and remarkable for no significant abnormalities Differential diagnosis: Bile leak, diaphragmatic irritation secondary to laparoscopic procedure, appendicitis, testicular torsion, infections, diverticulitis, UTI, obstruction, mesenteric ischemia, aortic pathology, inflammatory bowel disease, renal colic, PUD, pancreatitis, biliary pathology, hernia, volvulus, constipation, as well as other pathologies. Diagnostics interpreted by me: ECG: Twelve-lead ECG reveals a sinus rhythm with a first-degree AV block at 62 bpm. There is a normal QRS and axis. No elevation or depression. No PVCs. Cardiac Monitoring: [Cardiac monitoring ordered by me: The patient was placed on continuous cardiac monitoring and observed. It revealed a normal sinus rhythm at 64 beats per minute without ectopy or evidence of dysrhythmia. Imaging studies: CT imaging of the abdomen pelvis reveals postsurgical changes. There is some mild fluid around the liver. No significant obstruction or other emergent p athology noted. I refer to the EMR for further details. Consultation(s): Surgery, Dr. Erick Martinez HPI: The patient is a 80 year old male who presents to the Emergency Room with complaints of right upper quadrant abdominal pain. This started 10 PM this evening and is worse with palpation or taking a deep breath. The patient also notes the following associated symptoms, mild nausea. The patient has tried Percocet without success for relieving factors. Current pain is rated as 9/10. Patient had gallbladder surgery done yesterday by Dr. Erick Martinez. Pt denies LOC, headache, fevers, chills, diaphoresis, visual changes, neck pain, chest pain, breathing difficulties, nausea, vomiting, abdominal pain, back pain, melena, hematochezia, urinary symptoms, numbness, weakness, lymphadenopathy, rash, or other complaints. ROS: See above HPI for pertinent positives & negatives. A total of 10 systems reviewed and were otherwise negative. PAST MEDICAL HISTORY:See Below hypertension PAST SURGICAL HISTORY:See Below cholecystectomy FAMILY HISTORY:See Below SOCIAL HISTORY:See Below HOME MEDICATIONS:See Below ALLERGIES:See Below VITALS:See Below PHYSICAL EXAMINATION: GENERAL: Awake, alert, very uncomfortable-appearing, in no distress HENT: Normocephalic, atraumatic. Oropharynx unremarkable. EYES: Normal conjunctiva. Sclera non-icteric. NECK: Inspection normal. Non-tender. Supple. No nuchal rigidity. FROM. No masses. RESPIRATORY: Clear to auscultation. No wheezes. No rales. Normal respiratory effort. CARDIAC: Normal rate. Normal rhythm. No murmurs. No rubs. Extremities warm and well perfused. Pulses equal. No JVD. GI: Soft, non-distended. Right upper quadrant tenderness to palpation. Mild rebound and guarding. No masses. The laparoscopic incision sites are clean dry and intact. RECTAL: Deferred. MUSCULOSKELETAL: Atraumatic. Chest examination reveals no tenderness. The back is symmetrical on inspection without obvious abnormality. There is no CVA tenderness to palpation. No joint edema. LOWER EXTREMITIES: Calves are equal size bilaterally and non-tender. No edema. No discoloration. NEURO: Normal sensorium. No sensory or motor deficits noted. SKIN: No rash or jaundice noted. ED COURSE: Critical Care: None Romulo Basilio MD Past Med/Surg History Medical History (Updated 05/13/20 @ 01:32 by Romulo Basilio MD) Benign prostatic hyperplasia with elevated prostate specific antigen (PSA) Cardiac murmur HEARD BY PCP PAST MONTH- NO VALVE ISSUES PER 2015 ECHO Carotid artery stenosis Left side 50-69% stenosis per 2019 carotid doppler Chronic kidney disease, stage III (moderate) F/U DR RICARDO- BASELINE CREAT 1.6-1.8 GERD without esophagitis History of back problems Hypertension Inflammatory polyarthritis PAD (peripheral artery disease) SOB (shortness of breath) on exertion Surgical History (Updated 05/11/20 @ 10:59 by Cele Hunt, RN) H/O hernia repair (08/18/05) Right direct inguinal hernia and lipoma of the cord repair with mesh [id number] Dr. Martinez H/O inguinal hernia repair H/O prostatectomy 2001 & 2007 H/O right knee surgery 1973 History of colonoscopy History of rectal surgery Hx of cataract surgery 2016 both eyes Hx of total knee arthroplasty Right 2005 S/P laparoscopic cholecystectomy (05/11/20) Laparoscopic Cholecystectomy with Cholangiogram 05/11/20 Dr. 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 Beliefs That Will Affect Care: None marital status: Current Living Situation: Spouse and Family current occupational status: retired How many Children do You have: 2 Feels Safe at Home: Yes Allergies Allergies Allergy/AdvReac Type Severity Reaction Status Date / Time atorvastatin Allergy Unknown RASH Verified 05/13/20 00:38 nisoldipine [From Sular] Allergy Unknown Unknown Verified 05/13/20 00:38 propranolol Allergy Unknown RASH Verified 05/13/20 00:38 Home Meds Home Medications Medication Instructions Recorded Confirmed lisinopril 20 1 tab PO QAM tab 07/03/19 05/13/20 mg-hydrochlorothiazide 12.5 mg tablet Probiotic 0 mmu cells PO QAM 04/07/20 05/13/20 omeprazole magnesium 20 mg 20 mg PO QAM 04/21/20 05/13/20 tablet,delayed release alum-mag hydroxide-simeth 30 ml PO QID PRN 05/06/20 05/13/20 Previous Rx's Medication Instructions Recorded oxycodone-acetaminophen [Percocet] 1 - 2 tab PO .q4-6h PRN #7 tab 05/11/20 Results & Data (ED) Vital Signs Vital Signs - 24 hr 05/12/20 23:37 05/12/20 23:53 05/12/20 23:55 Pulse Rate 63 62 55 L Pulse Rate from SpO2 Sensor 60 56 L Respiratory Rate 18 17 20 Respiratory Effort / Characteristics Non-Labored Respiratory Depth Normal Respiratory Pattern Regular Blood Pressure 162/82 H 159/91 H Blood Pressure Mean 108 117 Pulse Oximetry 98 99 97 Oxygen Delivery Method Room Air Room Air Sepsis Recent Fever Within 48 Hours No Sepsis New/Unexplained Change in Mental Status No Sepsis Action Taken by Nursing No Action Required 05/13/20 00:10 05/13/20 00:11 05/13/20 00:20 Pulse Rate 60 62 61 Pulse Rate from SpO2 Sensor 59 L 62 60 Respiratory Rate 14 16 14 Respiratory Effort / Characteristics Respiratory Depth Respiratory Pattern Blood Pressure 167/90 H Blood Pressure Mean 132 Pulse Oximetry 97 96 94 Oxygen Delivery Method Sepsis Recent Fever Within 48 Hours Sepsis New/Unexplained Change in Mental Status Sepsis Action Taken by Nursing 05/13/20 00:30 Pulse Rate 63 Pulse Rate from SpO2 Sensor 66 Respiratory Rate 17 Respiratory Effort / Characteristics Respiratory Depth Respiratory Pattern Blood Pressure 156/87 H Blood Pressure Mean 111 Pulse Oximetry 93 Oxygen Delivery Method Sepsis Recent Fever Within 48 Hours Sepsis New/Unexplained Change in Mental Status Sepsis Action Taken by Nursing Laboratory Data Result diagrams: 05/12/20 23:48 05/12/20 23:48 Lab Results 05/12/20 05/12/20 Range/Units 23:48 23:48 WBC 13.87 H (4.8-10.8) K/uL RBC 4.01 L (4.7-6.1) M/uL Hgb 12.8 L (14.0-18.0) g/dL Hct 37.5 L (42-52) % MCV 93.5 (80-100) fL MCH 31.9 (25-34) pg MCHC 34.1 (32-36) g/dL RDW Std Deviation 41.9 (36.4-46.3) fL RDW Coeff of Raul 12.3 (11.5-14.5) % Plt Count 252 (130-400) K/uL MPV 9.6 (7.4-10.4) fL Immature Gran % (Auto) 0.2 % Neut % (Auto) 72.1 % Lymph % (Auto) 16.5 % [place] % (Auto) 9.1 % Eos % (Auto) 2.0 % Baso % (Auto) 0.1 % Neut # (Auto) 10.00 H (1.4-6.5) K/uL Lymph # (Auto) 2.29 (1.2-3.4) K/uL [place] # (Auto) 1.26 H (0.11-0.59) K/uL Eos # (Auto) 0.28 (0-0.5) K/uL Baso # (Auto) 0.01 (0-0.2) K/uL Immature Gran # (Auto) 0.03 H (0.00-0.02) K/uL Sodium 140 (136-145) mmol/L Potassium 4.0 (3.5-5.1) mmol/L Chloride 108 H (98-107) mmol/L Carbon Dioxide 25 (21-32) mmol/L Anion Gap 7.0 (3-11) BUN 55 H (7-18) mg/dl Creatinine 2.25 H (0.6-1.4) mg/dl Est Cr Clr Drug Dosing Not Reportable Est GFR ( Amer) 31.2 Est GFR (Non-Af Amer) 26.9 BUN/Creatinine Ratio 24.3 H (10-20) Glucose 136 H (70-99) mg/dl Calcium 9.4 (8.5-10.1) mg/dl Total Bilirubin 0.4 (0.2-1) mg/dl AST 56 H (15-37) U/L ALT 78 (12-78) U/L Alkaline Phosphatase 96 (45-117) U/L Total Protein 7.4 (6.4-8.2) gm/dl Albumin 3.9 (3.4-5.0) gm/dl Globulin 3.5 (2.5-4.0) gm/dl Albumin/Globulin Ratio 1.1 (0.9-2) Lipase 145 (73-393) U/L Administered Medications Hydromorphone HCl (Hydromorphone Inj 0.5 Mg/0.5 Ml Syr) 0.5 mg IV Q15M PRN PRN Reason: Pain Stop: 05/26/20 23:49 Last Admin: 05/13/20 00:54 Dose: 0.5 mg Documented by: [id number] Admin: 05/13/20 00:12 Dose: 0.5 mg Documented by: [id number] Admin: 05/12/20 23:53 Dose: 0.5 mg Documented by: [id number] Discontinued Medications Fentanyl Citrate (Fentanyl Citrate 100 Mcg/2 Ml Vial) 50 mcg IV NOW STA Stop: 05/13/20 01:13 Last Admin: 05/13/20 01:20 Dose: 50 mcg Documented by: [id number] Sodium Chloride (Nss) 500 mls @ 999 mls/hr IV .Q31M MARIA E Stop: 05/13/20 00:15 Last Infusion: 05/13/20 00:31 Dose: 0 mls/hr Documented by: [id number] Admin: 05/12/20 23:53 Dose: 999 mls/hr Documented by: [id number] Ondansetron HCl (Ondansetron Inj 2 Mg/Ml 2 Ml Vial) 4 mg IV NOW STA Stop: 05/12/20 23:51 Last Admin: 05/12/20 23:53 Dose: 4 mg Documented by: [id number] Discharge Plan Visit Data Chief Complaint: Abdominal Pain Stated Complaint: GALL BLADDER SURG YESTERDAYABD PAIN,CHEST,SHOULDER ED Provider: Romulo Basilio Discharge Problem: Acute postoperative abdominal pain, Leukocytosis Forms Stand Alone Forms: [employer] [facility] Remind Prescriptions Prescriptions: No Action lisinopril-hydrochlorothiazide 20-12.5 mg tablet 1 tab PO QAM RF: 0 omeprazole magnesium [Prilosec OTC] 20 mg tablet,delayed release (DR/EC) 20 mg PO QAM RF: 0 alum-mag hydroxide-simeth 200-200-20 mg/5 mL Suspension 30 ml PO QID PRN (Reason: Indigestion) RF: 0 oxycodone-acetaminophen [Percocet] 5-325 mg tablet 1 - 2 tab PO .q4-6h PRN (Reason: pain, for initial therapy, max 6 tabs per day) Qty: 7 RF: 0 Probiotic 3 billion cell Capsule 0 mmu cells PO QAM RF: 0
[2020-05-13] MEDS ORDERED: ONDANSETRON INJ 2 MG/ML 2 ML VIAL ONE (02:45)
--- NOTE | 2020-05-13 03:27 | History & Physical Report ---
Date of Service May 13, 2020 Assessment & Plan (1) Acute postoperative abdominal pain: -etiology uncertain -will admit for pain control and treat conservatively with NPO status and IVF -provide analgesics and anti-emetics -if pain persists will consider HIDA scan in am History of Present Illness Primary Care Provider: Taj Hart MD 80 year old male underwent cholecystectomy yesterday and was d/c home the same day. He was doing well--had BM and was tolerating diet until earlier this evening developed right shoulder pain along with RUQ abdominal pain. No N/V. No palliative or provocative factors. In the ED, CT scan of abdomen showed small amount of perihepatic fluid. No free air or SBO noted. WBC was 13K. At the im eof my exam the patient was noted to be stable. Allergies Allergy/AdvReac Type Severity Reaction Status Date / Time atorvastatin Allergy Unknown RASH Verified 05/13/20 00:38 nisoldipine [From Sular] Allergy Unknown Unknown Verified 05/13/20 00:38 propranolol Allergy Unknown RASH Verified 05/13/20 00:38 Home Medications Home Medications Medication Instructions Recorded Confirmed Type lisinopril 20 1 tab PO QAM tab 07/03/19 05/13/20 History mg-hydrochlorothiazide 12.5 mg tablet Probiotic 0 mmu cells PO QAM 04/07/20 05/13/20 History omeprazole magnesium 20 mg 20 mg PO QAM 04/21/20 05/13/20 History tablet,delayed release alum-mag hydroxide-simeth 30 ml PO QID PRN 05/06/20 05/13/20 History oxycodone-acetaminophen [Percocet] 1 - 2 tab PO .q4-6h PRN #7 tab 05/11/20 05/13/20 Rx Past Med/Surg History Medical History Benign prostatic hyperplasia with elevated prostate specific antigen (PSA) Cardiac murmur HEARD BY PCP PAST MONTH- NO VALVE ISSUES PER 2015 ECHO Carotid artery stenosis Left side 50-69% stenosis per 2019 carotid doppler Chronic kidney disease, stage III (moderate) F/U DR RICARDO- BASELINE CREAT 1.6-1.8 GERD without esophagitis History of back problems Hypertension Inflammatory polyarthritis PAD (peripheral artery disease) SOB (shortness of breath) on exertion Surgical History H/O hernia repair (08/18/05) Right direct inguinal hernia and lipoma of the cord repair with mesh [id number] Dr. Martinez H/O inguinal hernia repair H/O prostatectomy 2001 & 2007 H/O right knee surgery 1973 History of colonoscopy History of rectal surgery Hx of cataract surgery 2016 both eyes Hx of total knee arthroplasty Right 2005 S/P laparoscopic cholecystectomy (05/11/20) Laparoscopic Cholecystectomy with Cholangiogram 05/11/20 Dr. 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 Beliefs That Will Affect Care: None marital status: Current Living Situation: Spouse current occupational status: retired How many Children do You have: 2 Feels Safe at Home: Yes Review of Systems Constitutional: no fever Eyes: no diplopia Ear, Nose, Mouth, Throat: no ear pain Respiratory: no cough and no dyspnea Cardiovascular: no chest pain Gastrointestinal: + abdominal pain; no nausea and no vomiting Genitourinary: no dysuria Musculoskeletal: no back pain Integumentary: no rash Neurologic: no localized weakness Physical Exam Constitutional: well developed and well nourished; no acute distress Eyes: no conjunctival abnormality ENMT: Ears: no hearing impairment Neck: trachea midline Respiratory: normal respiratory effort; no respiratory distress and no labored breathing BS are decreased at bases Cardiovascular: Rate/Rhythm: regular rate and regular rhythm Gastrointestinal (Abdomen): Inspection/Auscultation: + hypoactive bowel sounds Percussion/Palpation: + abdomen tender; no guarding incisions all C/D/I Musculoskeletal: no calf pain Skin: no rashes, warm and dry Neurologic: moves all extremities Results & Data Results & Data ([place]) Vital Signs (Past 12 Hours) Vital Signs Pulse Resp BP Pulse Ox 05/13/20 03:10 67 19 95 05/13/20 03:01 68 18 95 05/13/20 03:00 65 18 146/84 H 95 05/13/20 02:50 69 19 96 05/13/20 02:40 67 17 95 05/13/20 02:31 73 19 93 05/13/20 02:30 67 18 163/93 H 96 05/13/20 02:20 73 19 97 05/13/20 02:10 68 19 96 05/13/20 02:00 66 18 172/75 H 97 05/13/20 01:50 70 19 150/80 H 97 05/13/20 01:40 66 19 98 05/13/20 01:31 68 18 97 05/13/20 01:30 63 18 154/87 H 97 05/13/20 01:20 65 20 93 05/13/20 01:10 63 18 91 05/13/20 01:01 64 17 90 05/13/20 01:00 63 17 146/76 H 90 05/13/20 00:50 68 20 93 05/13/20 00:40 64 17 94 05/13/20 00:31 79 14 89 L 05/13/20 00:30 63 17 156/87 H 93 05/13/20 00:20 61 14 94 05/13/20 00:11 62 16 167/90 H 96 05/13/20 00:10 60 14 97 05/12/20 23:55 55 L 20 159/91 H 97 05/12/20 23:53 62 17 99 05/12/20 23:37 63 18 162/82 H 98 Code Status & VTE Plan VTE Prophylaxis Plan VTE Prophylaxis will be ordered: Yes Supervising Physician Co-Signing Physician Notes As per Luis LEYVA Hard to pinpoint the patient's pain seems like he has abdominal wall guarding more than anything in the epigastric and right upper quadrant he stated that the pain initially started in the right upper quadrant going to the shoulder at about 9:30 in the evening he was doing fine during the day CT scan was obtained which was reviewed His vitals were reviewed. On exam the patient is laying comfortable but immediately as I examined him he generalized guards all over his abdomen the trocar sites are fine We will admit and watch him if the pain persists we will get a HIDA scan but doubt doubt that this is a bile leak cholangiogram was obtained which did not show an obstruction but the common bile duct was a little bit bigger than normal PG Care Time/CCT Total # of Minutes Spent Total Time Spent with Patient: Total time spent is greater than 50% in coordination of care (as documented) at patient's floor/unit and/or counseling patient: Coding Level of Care Code None Diagnoses Acute postoperative abdominal pain G89.18; R10.9
[2020-05-13] MEDS ORDERED: MoRPHine SULFATE 2 MG/ML CARP IV PRN (03:56)
[2020-05-13] MEDS ORDERED: SODIUM CHLORIDE 0.9% 1000ML 1,000 ML IV SCH (03:56)
[2020-05-13] MEDS ORDERED: ACETAMINOPHEN 1,000 MG/100 ML VIAL IV SCH (04:30)
[2020-05-13 05:51] LABS: Appearance Urine Clear (Clear); Bilirubin Urine Negative (Negative); Blood Urine Negative (Negative); Color Urine Yellow; Glucose Urine UA Negative (Negative); Ketones Urine Trace (Negative); Leukocyte Esterase Urine Negative (Negative); Nitrite Urine Negative (Negative); Protein Urine Negative (Negative); Specific Gravity Urine 1.025 (1.000-1.030); Urobilinogen Urine Negative (Negative)
--- NOTE | 2020-05-13 07:18 | XRay Report ---
XR chest 1V portable CLINICAL HISTORY: right chest pain RECENT CHOLECYSTECTOMY COMPARISON STUDY: 04/07/2020 FINDINGS: The heart is mildly enlarged. There is elevation right hemidiaphragm. There is no overt monica lure. There is no focal pulmonary consolidation. There is minor basilar atelectasis.[ IMPRESSION: Elevation of the right hemidiaphragm otherwise no acute findings. ACT 112: Negative or not required by law. Electronically signed by: Scott Irwin M.D. 05/13/2020 7:17 AM
[2020-05-13 07:36] LABS: Basophils # (auto) 0.01 K/uL (0-0.2); Basophils % (auto) 0.1 %; Hematocrit (blood only) 40.4 % (42-52); Hemoglobin 13.6 g/dL (14.0-18.0); Immature Granulocytes # (auto) 0.01 K/uL (0.00-0.02); Immature Granulocytes % (auto) 0.1 %; Lymphocytes # (auto) 0.33 K/uL (1.2-3.4); Lymphocytes % (auto) 3.5 %; Mean Corpuscular Hemoglobin 31.9 pg (25-34); Mean Corpuscular Hgb Conc 33.7 g/dL (32-36); Mean Corpuscular Volume 94.8 fL (80-100); Mean Platelet Volume 9.8 fL (7.4-10.4); Monocytes # (auto) 0.25 K/uL (0.11-0.59); Monocytes % (auto) 2.6 %; Neutrophils # (auto) 8.94 K/uL (1.4-6.5); Neutrophils % (auto) 93.7 %; Platelet Count 232 K/uL (130-400); RDW Coefficient of Variation 12.7 % (11.5-14.5); RDW Standard Deviation 43.2 fL (36.4-46.3); Red Blood Count 4.26 M/uL (4.7-6.1); White Blood Count 9.54 K/uL (4.8-10.8)
--- NOTE | 2020-05-13 08:16 | CT Scan Report ---
CT OF THE ABDOMEN AND PELVIS WITHOUT CONTRAST CLINICAL HISTORY: sudden right abd pain, 1 day post cholecystectomy COMPARISON STUDY: Right upper quadrant ultrasound April 07, 2020. TECHNIQUE: Axial images of the abdomen and pelvis were obtained without IV contrast. Images were revi ewed in the axial, sagittal, and coronal planes. Automated exposure control was utilized for the chace dy. A dose lowering technique was utilized adhering to the principles of ALARA. FINDINGS: Incidental note is made of contrast within the colon and rectum from intraoperative cholang iogram. Imaged portions of the lower chest demonstrate a trace right pleural effusion. No pneumatosis , free air or portal venous gas is present. There is no biliary ductal dilatation status post cholecy stectomy. There is mild infiltration within the cholecystectomy bed. There is trace perihepatic fluid . Evaluation of the abdomen and pelvis is suboptimal on this unenhanced examination. There is no laurie pancreatic infiltration. Moderate right renal atrophy is noted. There is no hydronephrosis. There is no evidence for a bowel obstruction. The appendix is normal. Sigmoid diverticulosis is noted without evidence for acute diverticulitis. No renal, ureteral or bladder calculi are present. Fat-containing left inguinal hernia is incidentally noted. There are no suspicious osseous lesions. Caliber of the a bdominal aorta is normal. IMPRESSION: 1. Expected findings following recent cholecystectomy, including minimal infiltration within the chol ecystectomy bed, trace perihepatic fluid and trace right pleural effusion. No biliary ductal dilatati on. 2. No bowel obstruction. Normal appendix. 3. Moderate right renal atrophy. 4. Colonic diverticulosis without evidence for acute diverticulitis. ACT 112: Negative or not required by law. Electronically signed by: Jack Drake M.D. 05/13/2020 8:14 AM
[2020-05-13] MEDS: ONDANSETRON INJ 2 MG/ML 2 ML VIAL IV PRN ×2 (08:45→17:47)
--- NOTE | 2020-05-13 08:47 | Electrocardiogram Report ---
Test Reason : Blood Pressure : / mmHG Vent. Rate : 062 BPM Atrial Rate : 062 BPM P-R Int : 226 ms QRS Dur : 084 ms QT Int : 428 ms P-R-T Axes : 098 -16 031 degrees QTc Int : 434 ms Sinus rhythm with 1st degree A-V block with Premature atrial complexes Low voltage QRS Borderline ECG When compared with ECG of 08-APR-2020 07:27, Premature atrial complexes are now Present Confirmed by Jc Bob ([id number]) on 05/13/2020 8:46:43 AM Referred By: REFERRED SELF Confirmed By:Jc Bob
--- NOTE | 2020-05-13 11:28 | Nuclear Medicine Report ---
NUCLEAR MEDICINE HEPATOBILIARY SCAN HISTORY: post op laparoscopic cholecystectomy pain right upper quadrant COMPARISON: Abdomen and pelvis CT 05/13/2020. TECHNIQUE: Immediately following the intravenous administration of 5.3 mCi Tc-99m Choletec, static an terior abdominal imaging was performed at 30 minutes and 60 minutes. The patient was unable to tolera te dynamic imaging. FINDINGS: Uniform hepatic tracer accumulation is shown. Prompt intrahepatic biliary excretion is seen. The gall bladder is surgically absent. Radiotracer seen within the common bile duct and small bowel at the ini tial 30 minutes. Intense pooling of radiotracer is also seen within the subhepatic location. This fav ors enterogastric reflux into the stomach. There is a punctate focus of radiotracer uptake at the gal lbladder fossa which is unchanged throughout the examination. This favors the cystic duct remnant. A tiny bile leak cannot be excluded but is considered less likely. IMPRESSION: 1. Suboptimal study with static images only due to the patient's pain. 2. Radiotracer uptake within the left subhepatic space favors enterogastric reflux into the stomach. 3. There is a punctate focus of radiotracer uptake at the gallbladder fossa which is unchanged throug hout the examination. This favors the cystic duct remnant. A tiny bile leak cannot be excluded but is considered less likely. ACT 112: Negative or not required by law. Electronically signed by: Philip Gardner M.D. 05/13/2020 11:26 AM
--- NOTE | 2020-05-13 12:06 | XRay Report ---
XR abdomen 2V w PA chest CLINICAL HISTORY: right upper quadrant and abd pain post op COMPARISON STUDY: CT scan dated 05/13/2020 FINDINGS: There are surgical clips within the right upper quadrant. Erect chest reveals no free intra peritoneal air. There are basilar atelectatic changes. There is elevation right hemidiaphragm. The he art is enlarged with mild central vascular prominence. Erect and supine views the abdomen reveal cont rast within nondilated colon. There is filling of a normal-appearing appendix. IMPRESSION: No evidence of bowel obstruction. No evidence of free air. ACT 112: Negative or not required by law. Electronically signed by: Scott Irwin M.D. 05/13/2020 12:05 PM
--- NOTE | 2020-05-13 12:08 | Surgery Progress Note ---
Date of Service May 13, 2020 Assessment & Plan (1) Acute postoperative abdominal pain: At this time we will re-check his creatinine and put a consult for medical service to see the patient he has had a previous history of cardiac disease although was cleared for surgery by rehab liaison he is not complaining of chest pain At this time we will change his IV fluids may cut down on a analgesics may start him on a clear liquid diet but at this time I am at a loss to really explain the pain that he is having out of proportion with physical findings and images Present on Admission?: Yes Admission and Anticipated Discharge Date Admission Date: May 13, 2020 Subjective Still complaining of abdominal pain although states maybe a little bit less has not voided since this morning Physical Exam Physical Exam: Almost somnolent at times but still complaining of abdominal pain Generalized guarding and when I examined him Results & Data ([facility]) Vital Signs (Past 12 Hours) Vital Signs Temp Pulse Pulse Resp BP BP Pulse Ox 05/13/20 08:04 36.8 C 05/13/20 07:34 86 20 156/89 H 90 05/13/20 06:00 36.5 C 05/13/20 03:45 81 16 159/91 H 92 05/13/20 03:10 67 19 95 05/13/20 03:01 68 18 95 05/13/20 03:00 65 18 146/84 H 95 05/13/20 02:50 69 19 96 05/13/20 02:40 67 17 95 05/13/20 02:31 73 19 93 05/13/20 02:30 67 18 163/93 H 96 05/13/20 02:20 73 19 97 05/13/20 02:10 68 19 96 05/13/20 02:00 66 18 172/75 H 97 05/13/20 01:50 70 19 150/80 H 97 05/13/20 01:40 66 19 98 05/13/20 01:31 68 18 97 05/13/20 01:30 63 18 154/87 H 97 05/13/20 01:20 65 20 93 05/13/20 01:10 63 18 91 05/13/20 01:01 64 17 90 05/13/20 01:00 63 17 146/76 H 90 05/13/20 00:50 68 20 93 05/13/20 00:40 64 17 94 05/13/20 00:31 79 14 89 L 05/13/20 00:30 63 17 156/87 H 93 05/13/20 00:20 61 14 94 05/13/20 00:11 62 16 167/90 H 96 05/13/20 00:10 [address] scan most recent lab work was reviewed PG Care Time/CCT Total # of Minutes Spent Total Time Spent with Patient: Total time spent is greater than 50% in coordination of care (as documented) at patient's floor/unit and/or counseling patient: Coding Level of Care Code None Diagnoses Acute postoperative abdominal pain G89.18; R10.9
[2020-05-13] MEDS ORDERED: OXYCODONE/ACETAMINOPHEN 5mg/325mg TAB PO PRN (12:10)
[2020-05-13 12:23] LABS: BUN Creatinine Ratio 26.4 (10-20); Calcium 9.2 mg/dl (8.5-10.1); Creatinine Clr Calc Pharmacy 32.3 ml/min; Est GFR (African American) 34.5; Est GFR (Non-African American) 29.8; Potassium 4.6 mmol/L (3.5-5.1)
[2020-05-13] MEDS: LACTATED RINGER'S 1,000 ML IV SCH ×2 (12:28→17:49)
--- NOTE | 2020-05-13 12:52 | Hospitalist Consultation ---
Date of Consultation May 13, 2020 Assessment & Plan (1) Respiratory distress: Nursing staff to call me concerned for the patient's respiratory distress. He was tachypneic and was splinting due to his right-sided abdominal pain. Patient was placed on 3 L of oxygen by simple mask. An ABG showed pH of 7.38 PCO2 37 PO2 of 84 with 96% saturation rate on the oxygen. Chest x-ray was repeated showing elevation of right hemidiaphragm but no new changes and EKG showed normal sinus rhythm. To this end it may be splinting abdominal distention pain will continue to try to control his pain symptoms again try to have a cathartic to try to relieve any type of constipation which may be impedi ng his diaphragmatic excursion (2) Acute postoperative abdominal pain: Patient was admitted after discharge for cholecystectomy with acute right upper quadrant abdominal pain radiating to her shoulder. Subsequent to admission he had a repeat CT scan abdomen pelvis and also hepatobiliary nuclear scan. Neither showed convincing evidence for etiologies of this discomfort. I personally spoke to the radiologist to read the studies which we reviewed them and there is does not seem to be anything out of the typical postoperative changes other than her elevated right hemidiaphragm which could be from splinting from the pain. Subsequently we will try to administer pain control with scheduled acetaminophen and opiates and topical lidocaine being sure not to place the lidocaine on the wound itself. Patient does have some stool visible in the colon on the right side will try to employ some gentle cathartic agents to try to remove the stool as this may be an etiology of his discomfort (3) Hypertension: Patient typically takes lisinopril hydrochlorothiazide however he does have a bit of change in his creatinine making him have some acute kidney injury subsequently these medications will be held and we will employ hydralazine if need be for blood pressure control (4) Chronic kidney disease, stage III (moderate): As mentioned above patient suffers on chronic kidney disease stage III now with acute kidney injury on top of this will continue to avoid nephrotoxic medications and will administer some intravenous fluids to try to improve his renal function (5) GERD without esophagitis: Proton pump inhibitor will be continued (6) Benign prostatic hyperplasia with elevated prostate specific antigen (PSA): Currently not exhibiting signs and symptoms of lower urinary tract outflow obstruction subsequently patient typically does not take any medications will continue to watch for postoperative urinary retention History of Present Illness Attending Physician: Erick Martinez MD History of Present Illness Dr. Martinez had requested a consultation to evaluate this patient's postoperative abdominal pain and acute kidney injury Initially the patient was evaluated multiple occasions in the afternoon of 05/13 first the patient was evaluated and says his pain was somewhat better I did notice he had increased respiratory effort and did noted elevated right hemidiaphragm on X chest x-ray. I did phone radiology and went over the CAT sca n of his abdomen pelvis, his HIDA scan, x-ray with Dr. Drake who did not feel there were anything out of the ordinary except for the elevated hemidiaphragm and postoperative changes. Patient says he was somewhat comfortable during my examination his lungs examine normally with exception of the right base and I left him to convalesce as we attempted to control his symptoms. Earlier in the afternoon the nurse on shift called me and states he was more tachypneic and hypoxemic requiring oxygen therapy. I ordered a stat chest x-ray ABG EKG and did physically see the patient again in the presence of his . He did seem around similar with regard to his respiratory distress and ABG was performed and did not show him to be hypercarbic his pH was normalized his oxygen was appropriate although he did require some supplementation and maintain his saturations. Chest x-ray was without any new changes as an EKG also did not show any concerns for acute coronary syndrome. Initially is also worried he could be having some respiratory depression from opiate use however he was able to be appropriate and talk to me so initially thoughts of using naloxone were withdrawn. Patient did have poor urinary output and was given a fluid bolus and there was some stool retention seen on initial CAT scan on presentation he was given a suppository I did also physically communicate to the surgical SIMA so that were all aware of what happened with this patient at this time Allergies Allergy/AdvReac Type Severity Reaction Status Date / Time atorvastatin Allergy Unknown RASH Verified 05/13/20 00:38 nisoldipine [From [facility]ular] Allergy Unknown Unknown Verified 05/13/20 00:38 propranolol Allergy Unknown RASH Verified 05/13/20 00:38 Home Medications Home Medications Medication Instructions Recorded Confirmed Type lisinopril 20 1 tab PO QAM tab 07/03/19 05/13/20 History mg-hydrochlorothiazide 12.5 mg tablet Probiotic 0 mmu cells PO QAM 04/07/20 05/13/20 History omeprazole magnesium 20 mg 20 mg PO QAM 04/21/20 05/13/20 History tablet,delayed release alum-mag hydroxide-simeth 30 ml PO QID PRN 05/06/20 05/13/20 History oxycodone-acetaminophen [Percocet] 1 - 2 tab PO .q4-6h PRN #7 tab 05/11/20 05/13/20 Rx Patient History Medical History (Updated 05/13/20 @ 16:37 by Gage Taylor MD) Benign prostatic hyperplasia with elevated prostate specific antigen (PSA) Cardiac murmur HEARD BY PCP PAST MONTH- NO VALVE ISSUES PER 2015 ECHO Carotid artery stenosis Left side 50-69% stenosis per 2019 carotid doppler Chronic kidney disease, stage III (moderate) F/U DR RICARDO- BASELINE CREAT 1.6-1.8 GERD without esophagitis History of back problems Hypertension Inflammatory polyarthritis PAD (peripheral artery disease) SOB (shortness of breath) on exertion Surgical History H/O hernia repair (08/18/05) Right direct inguinal hernia and lipoma of the cord repair with mesh [id number] Dr. Martinez H/O inguinal hernia repair H/O prostatectomy 2001 & 2007 H/O right knee surgery 1973 History of colonoscopy History of rectal surgery Hx of cataract surgery 2016 both eyes Hx of total knee arthroplasty Right 2005 S/P laparoscopic cholecystectomy (05/11/20) Laparoscopic Cholecystectomy with Cholangiogram 05/11/20 Dr. Martinez Family History Father Cancer Mother Heart disease Diabetes Denies family history of Kidney disease Social History (Updated 04/21/20 @ 11:47 by Christiane Bosch RN) Smoking Status: Former smoker Tobacco Type: Pipe and Cigars Second Hand Exposure: Yes (ON OCC); Do You Dip or Chew Tobacco: No; Hx Alcohol Use: Yes Alcohol type: beer, wine and hard liquor Alcohol Intake Frequency: 2-3 x/Week Hx Substance Use: No Preferred Language: Tristanian Communication Ability: Effective Promotional Marketing Agent Required: No Beliefs That Will Affect Care: None marital status: Current Living Situation: Spouse current occupational status: retired How many Children do You have: 2 Feels Safe at Home: Yes Review of Systems Review of Systems: Mild to moderate respiratory distress and abdominal discomfort with right abdominal wall pain no headache, blurry or double vision no speech or swallowing issues no chest pain, pressure or palpitations Patient has shortness of breath at rest without cough or wheezes abdominal pain is right lateral wall there is no evidence of skin breakdown this is not over his ribs to suggest rib fracture and there is no fluctuance or ecchymosis associated with it., He has no nausea or vomiting no dysuria, hematuria or frequency no focal joint pain or swelling no back pain, CVA tenderness or radicular pain no bruising, bleeding or rashes no focal signs of weakness or numbness or altered sensation no complaints or anxiety or depression. Physical Exam Physical Exam: The patient appeared well nourished but in mild to moderate distress Vital signs as documented. Head exam is normocephalic atraumatic no scleral icterus Neck is without JVD, thyromegaly, or carotid bruits. Lungs are with abscent breath sounds at the right base Cardiac exam, Rhythm is regular.. No murmurs, rubs or gallops. Abdominal exam reveals normal bowel sounds, soft mild distension, wounds look good, but his lateral abdominal wall has reproducible tenderness Extremities are nonedematous and both pedal pulses are normal. Neurologic exam is alert and oriented, no focal loss of strength or sensation Skin is without bruises or rashes Psychologically is without concerns for anxiety or depression. Results & Data Results & Data ([facility]) Vital Signs (Past 12 Hours) Vital Signs Temp Pulse Pulse Resp BP BP Pulse Ox 05/13/20 08:04 98.2 F 05/13/20 07:34 86 20 156/89 H 90 05/13/20 06:00 97.7 F 05/13/20 03:45 81 16 159/91 H 92 05/13/20 03:10 67 19 95 05/13/20 03:01 68 18 95 05/13/20 03:00 65 18 146/84 H 95 05/13/20 02:50 69 19 96 05/13/20 02:40 67 17 95 05/13/20 02:31 73 19 93 05/13/20 02:30 67 18 163/93 H 96 05/13/20 02:20 73 19 97 05/13/20 02:10 68 19 96 05/13/20 02:00 66 18 172/75 H 97 05/13/20 01:50 70 19 150/80 H 97 05/13/20 01:40 66 19 98 05/13/20 01:31 68 18 97 05/13/20 01:30 63 18 154/87 H 97 05/13/20 01:20 65 20 93 05/13/20 01:10 63 18 91 05/13/20 01:01 64 17 90 05/13/20 01:00 63 17 146/76 H 90 05/13/20 00:[address] abdomen pelvis 05/13/2020 expected findings following recent cholecystectomy no bowel obstruction, normal appendix, moderate right renal atrophy. Diverticulosis without diverticulitis Nuclear medicine hepatobiliary scan 05/13/2020 radiotracer uptake within the left subhepatic space favors enterogastric reflux into the stomach. A tiny punctate focus of radiotracer at the gallbladder fossa is unchanged through the examination likely favoring a cystic duct remnant Chest x-ray 05/12 elevation of right hemidiaphragm otherwise negative, abdomen x- ray 05/13 no bowel obstruction no free air PG Care Time/CCT Total # of Minutes Spent Total Time Spent with Patient: Total time spent is greater than 50% in co ordination of care (as documented) at patient's floor/unit and/or counseling patient: Coding Level of Care Code 16111 Inpt Consult Level 5 Diagnoses Respiratory distress R06.03 Acute postoperative abdominal pain G89.18; R10.9 Hypertension I10 Chronic kidney disease, stage III (moderate) N18.3 GERD without esophagitis K21.9 Benign prostatic hyperplasia with elevated prostate specific antigen (PSA) N40.0; R97.20
[2020-05-13] MEDS: LIDOCAINE 5% 1 PATCH TD SCH (13:47)
[2020-05-13] MEDS: ACETAMINOPHEN 1,000 MG/100 ML VIAL IV SCH ×2 (13:56→21:58)
[2020-05-13] MEDS ORDERED: ACETAMINOPHEN 1000 MG/100 ML IV IV SCH (14:00)
[2020-05-13] MEDS ORDERED: SODIUM CHLORIDE 0.9% 500 ML IV SCH (14:45)
[2020-05-13] MEDS ORDERED: NALOXONE HCL 0.4 MG/1 ML VIAL/CARP IV STA (14:47)
[2020-05-13] MEDS ORDERED: LACTATED RINGER'S 500 ML IV ONE (14:58)
--- NOTE | 2020-05-13 15:18 | XRay Report ---
XR chest 1V portable CLINICAL HISTORY: shortness of breath COMPARISON STUDY: Earlier in the day FINDINGS: There is persistent elevation the right hemidiaphragm. The heart is enlarged. There is basi lar atelectasis. There is no lobar consolidation. No free intraperitoneal air is visualized.[There ar e no significant pleural effusions. IMPRESSION: Persistent elevation of the right hemidiaphragm with basilar atelectatic change. ACT 112: Negative or not required by law. Electronically signed by: Scott Irwin M.D. 05/13/2020 3:17 PM
[2020-05-13 15:29] LABS: Base Excess ABG -3.2 mEq/L (-9-1.8); HCO3 ABG 21 mmol/L (19-24); Oxygen Saturation ABG 96.4 % (90-95); PCO2 ABG 37 mmHg (35-46); PO2 ABG 84 mmHg (80-95); pH ABG 7.38 (7.35-7.45)
[2020-05-13 15:30] LABS: Allen Test POS (Pos)
[2020-05-13] MEDS ORDERED: bisacodyL 10 MG SUPP PR STA (15:44)
[2020-05-13] MEDS: MoRPHine SULFATE 2 MG/ML CARP IV PRN (16:12)
--- NOTE | 2020-05-13 16:24 | Electrocardiogram Report ---
Test Reason : Blood Pressure : / mmHG Vent. Rate : 096 BPM Atrial Rate : 096 BPM P-R Int : 204 ms QRS Dur : 066 ms QT Int : 488 ms P-R-T Axes : 044 -40 046 degrees QTc Int : 616 ms Normal sinus rhythm Left axis deviation Poor R wave progression, consider anterior [place] vs. lead placement vs. LVH Diffuse Nonspecific T wave abnormality Abnormal ECG When compared with ECG of 12-MAY-2020 23:45, Premature atrial complexes are no longer Present Vent. rate has increased BY 34 BPM Confirmed by Jc Bob ([id number]) on 05/13/2020 4:24:45 PM Referred By: REFERRED SELF Confirmed By:Jc Bob
--- NOTE | 2020-05-13 16:25 | Electrocardiogram Report ---
Test Reason : Blood Pressure : / mmHG Vent. Rate : 095 BPM Atrial Rate : 095 BPM P-R Int : 214 ms QRS Dur : 066 ms QT Int : 376 ms P-R-T Axes : 034 -40 040 degrees QTc Int : 472 ms Sinus rhythm with 1st degree A-V block Left axis deviation Poor R wave progression, consider anterior [place] vs. lead placement vs. LVH Diffuse Nonspecific T wave abnormality Abnormal ECG When compared with ECG of 13-MAY-2020 15:03, No significant change Confirmed by Jc Bob ([id number]) on 05/13/2020 4:25:28 PM Referred By: REFERRED SELF Confirmed By:Jc Bob
[2020-05-14] MEDS: MoRPHine SULFATE 2 MG/ML CARP IV PRN ×2 (00:24→08:27)
[2020-05-14] MEDS: OXYCODONE HCL IR 5 MG TAB (IMMEDIATE RELEASE) PO PRN (02:46)
[2020-05-14] MEDS: LACTATED RINGER'S 1,000 ML IV SCH (03:50)
[2020-05-14] MEDS: ACETAMINOPHEN 1,000 MG/100 ML VIAL IV SCH ×3 (05:58→21:25)
[2020-05-14 07:59] LABS: Hematocrit (blood only) 38.7 % (42-52); Hemoglobin 12.9 g/dL (14.0-18.0); Mean Corpuscular Hemoglobin 32.1 pg (25-34); Mean Corpuscular Hgb Conc 33.3 g/dL (32-36); Mean Corpuscular Volume 96.3 fL (80-100); Mean Platelet Volume 9.8 fL (7.4-10.4); Platelet Count 224 K/uL (130-400); RDW Coefficient of Variation 12.9 % (11.5-14.5); RDW Standard Deviation 45.3 fL (36.4-46.3); Red Blood Count 4.02 M/uL (4.7-6.1); White Blood Count 10.72 K/uL (4.8-10.8)
[2020-05-14 08:19] LABS: Dohle Bodies 1+; Immature Granulocytes # (auto) 0.09 K/uL (0.00-0.02); Immature Granulocytes % (auto) 0.8 %; Lymphocytes # (auto) 0.51 K/uL (1.2-3.4); Lymphocytes % (auto) 4.8 %; Monocytes # (auto) 0.43 K/uL (0.11-0.59); Neutrophils # (auto) 9.69 K/uL (1.4-6.5); Neutrophils % (auto) 90.4 %; Toxic Vacuolation 1+
[2020-05-14] MEDS: LIDOCAINE 5% 1 PATCH TD SCH (08:27)
[2020-05-14 09:03] LABS: BUN Creatinine Ratio 28.2 (10-20); Calcium 8.4 mg/dl (8.5-10.1); Creatinine Clr Calc Pharmacy 28.8 ml/min; Est GFR (African American) 30.1; Est GFR (Non-African American) 25.9; Potassium 5.9 mmol/L (3.5-5.1)
[2020-05-14] MEDS: SODIUM CHLORIDE 0.9% 1000ML 1,000 ML IV SCH ×2 (10:03→19:00)
[2020-05-14] MEDS: DOCUSATE SODIUM/SENNA 50/8.6MG TAB PO SCH (10:04)
[2020-05-14] MEDS: POLYETHYLENE (MIRALAX) 17 GM PACK PO SCH ×2 (10:04→21:12)
--- NOTE | 2020-05-14 11:04 | Surgery Progress Note ---
Date of Service May 14, 2020 Assessment & Plan (1) Acute postoperative abdominal pain: Still concerned of possibly an intra-abdominal pathology that may be ascribed to his guarding although he had a CAT scan when he first came in hepatobiliary scan which was negative for any biliary system leaks from recent gallbladder surgery Surgery was straightforward without any complications in fact the patient had gone home the same day ate well and approximately 8 hours later came in with acute right upper quadrant pain shoulder pain At this point I will repeat the CT scan of the abdomen and pelvis without contrast but the patient may need to be reexplored This was discussed with the patient and I reviewed with the radiologist as far as the type of CAT scans obtained at this time the patient has a chronic renal failure and I was hesitant to use any IV contrast plain CT scan of the abdomen was recommended Present on Admission?: Yes Admission and Anticipated Discharge Date Admission Date: May 13, 2020 Subjective States his abdominal pain is less pronounced than when he first came back in Denies any nausea denies any flatus Feels like he is more short of breath Physical Exam Physical Exam: On O2 nasal cannula 2 L Appears to be more labored breathing The abdomen is still distended with generalized guarding No peripheral edema Patient just with straight catheter 300 cc Results & Data ([facility]) Vital Signs (Past 12 Hours) Vital Signs Temp Pulse Pulse Resp BP Pulse Ox 05/14/20 07:31 36.8 C 89 24 157/79 H 95 05/13/20 23:11 36.4 C L 86 22 153/81 H 97 Vitals and lab were noted PG Care Time/CCT Total # of Minutes Spent Total Time Spent with Patient: Total time spent is greater than 50% in coordination of care (as documented) at patient's floor/unit and/or counseling patient: Coding Level of Care Code None Diagnoses Acute postoperative abdominal pain G89.18; R10.9
--- NOTE | 2020-05-14 12:28 | CT Scan Report ---
CT OF THE ABDOMEN AND PELVIS WITHOUT CONTRAST CLINICAL HISTORY: Persistent abdominal pain following upper scalp cholecystectomy. COMPARISON STUDY: CT of the abdomen and pelvis May 13, 2020. TECHNIQUE: Axial images of the abdomen and pelvis were obtained without IV contrast. Images were revi ewed in the axial, sagittal, and coronal planes. Automated exposure control was utilized for the chace dy. A dose lowering technique was utilized adhering to the principles of ALARA. FINDINGS: Elevation of the right hemidiaphragm is again noted. A small right pleural effusion has dev eloped since prior CT. There is right lower lobe atelectasis. There is segmental right middle lobe at electasis. There is a trace left pleural effusion. No pneumatosis, free air or portal venous gas is p resent. There is no biliary ductal dilatation status post cholecystectomy. The stomach is mildly dist ended and fluid-filled. There has been interval development of a 9.6 x 4.6 cm pocket of fluid along t he undersurface of the lateral segment of the liver since prior CT. A small amount of fluid within th e pelvis has developed since prior examination. The appendix is normal. There is colonic diverticulos is without evidence for acute diverticulitis. Unenhanced images of the spleen, adrenal glands, left k idney and pancreas are unremarkable. There is moderate right renal atrophy. There is no hydronephrosi s. There are no suspicious osseous lesions. IMPRESSION: 1. Interval development of a 9.6 x 4.6 cm pocket of fluid along the undersurface of the lateral segme nt of the liver. Increasing perihepatic fluid and new fluid within the pelvis. These findings are hig hly suggestive of a bile leak. 2. Interval development of a small right pleural effusion. This is probably reactive although bile wi thin the pleural space could appear similar. Associated right lower lobe and right middle lobe atelec tasis. ACT 112: Negative or not required by law. Electronically signed by: Jack Drake M.D. 05/14/2020 12:26 PM
--- NOTE | 2020-05-14 12:56 | Surgery Progress Note ---
Date of Service May 14, 2020 Assessment & Plan (1) Bile leak: And review all the CAT scans and HIDA scan that he had since he came in postoperatively including the intraoperative cholangiogram and in retrospect the patient had a bowel leak and most likely from an accessory duct of [place] even though at the time of the surgery we had clipped any structure coming out from the liver I doubt that this is related to a cystic duct leak since our last imaging showed dye into the duodenum and it had a little extravasation which I doubt was related to the catheter inserting in the cystic duct I talk with the patient talk with his discussed the situation with the endoscopy department for GI and they will try to see who does ERCPs which he may need we will keep the patient n.p.o. at this time in anticipation they may do it today Since he is clinically improving slowly and his abdomen is softer I think ERCP with stenting would be the only thing that is needed but if it does not resolve the issue then he may need to have a subhepatic drainage catheter which can be done laparoscopically or with interventional radiologist Present on Admission?: Yes Admission and Anticipated Discharge Date Admission Date: May 13, 2020 Subjective Sitting at the side of the bed appears much more comfortable and I saw him this morning he is less short of breath and his abdomen appears a bit softer and feels better Physical Exam Physical Exam: As stated above he is alert coherent much less short of breath than earlier this morning the abdomen is softer with no localized tenderness Results & Data ([facility]) Vital Signs (Past 12 Hours) Vital Signs Temp Pulse Resp BP Pulse Ox 05/14/20 07:31 36.8 C 89 24 157/[address] scan of the abdomen and pelvis without contrast at this shows more fluid around the liver and there may be some fluid towards the right lower quadrant localized suspicious at this time for a bowel leak PG Care Time/CCT Total # of Minutes Spent Total Time Spent with Patient: Total time spent is greater than 50% in coordination of care (as documented) at patient's floor/unit and/or counseling patient: Coding Level of Care Code None Diagnoses Bile leak K83.9
--- NOTE | 2020-05-14 13:07 | Hospitalist Progress Note ---
Date of Service May 14, 2020 Assessment & Plan (1) Acute postoperative abdominal pain: Patient was admitted after discharge for cholecystectomy with acute right upper quadrant abdominal pain radiating to her shoulder. - Repeat CT a/p on 05/14 showed bile leak. GI consulted. - Continue pain control & relieve bladder pressure - Going for ERCP today for concern for bile leak (2) Benign prostatic hyperplasia with elevated prostate specific antigen (PSA): Increasing suprapubic discomfort on 05/14. Straight cath with 300 mL of urine. Follows with Dr. Bautista as outpatient. - Will monitor bladder scans today. Offer Grubbs if he re-retains. He could then go home with this and follow up as outpatient for voiding trial. (3) Respiratory distress: Nursing staff called hospitalist on 05/13 for shortness of breath. CXR on 05/13 revealed right ranjan-diaphragm elevation, possibly due to splinting from pain. - CT a/p on 05/14 showed right pleural effusion. Unclear if this is bile vs. serous fluid from irritation from bile leak. - Comfortable on nasal cannula and Oxymask -> Should improve with resolution of abdominal issues. - If continue breathing issues, may need to consider pulmonary consult for chest tube if we think this is a bilious pleural effusion. (4) Chronic kidney disease, stage III (moderate): Baseline Cr ~1.6-1.8. - Up to 2.3 on 05/14 with concern for post-renal due to bladder outlet obstruction. - Straight cath on 05/14 at noon with 300 mL; will do bladder scans as above. - Continue IV fluids; using normal saline instead of lactated ringers for high K+. (5) Hypertension: Patient typically takes lisinopril-hydrochlorothiazide. Today BP is 160/80. - Holding home BP meds for now; can restart home meds as needed (6) GERD without esophagitis: - Continue PPI as able (7) DVT prophylaxis: SCDs - Defer to primary team on heparin given possible surgical need or chest tube need. Admission and Anticipated Discharge Date Admission Date: May 13, 2020 Subjective Pain is some improved today. Still having some bladder discomfort and abdominal discomfort. Physical Exam Constitutional: WD/WN, vitals as above Eyes: EOM intact bilaterally; no conjunctival abnormality ENMT: external ear and nose normal, oropharynx normal Neck: trachea midline, no thyromegaly normal visual inspection Respiratory: normal respiratory effort, lungs clear to auscultation no respiratory distress Cardiovascular: RRR, no murmur, no edema Gastrointestinal (Abdomen): Inspection/Auscultation: + abdomen distended, normal bowel sounds and + abdominal surgical scar (Clean, healing) Percussion/Palpation: + abdomen tender, + guarding and abdomen soft; abdomen not rigid Musculoskeletal: no cyanosis or clubbing, extremities motor strength 5/5 Skin: no rashes, warm and dry Neurologic: moves all extremities and awake Psychiatric: Orientation: alert, oriented to person and cooperative Results & Data Results & Data ([facility]) Vital Signs (Past 12 Hours) Vital Signs Temp Pulse Resp BP Pulse Ox 05/14/20 07:31 36.8 C 89 24 157/79 H 95 PG Care Time/CCT Total # of Minutes Spent Total Time Spent with Patient: Total time spent is greater than 50% in coordination of care (as documented) at patient's floor/unit and/or counseling patient: Coding Level of Care Code 39335 Subseq Hosp Care Lvl 3 Diagnoses Acute postoperative abdominal pain G89.18; R10.9 Benign prostatic hyperplasia with elevated prostate specific antigen (PSA) N40.0; R97.20 Respiratory distress R06.03 Chronic kidney disease, stage III (moderate) N18.3 Hypertension I10 GERD without esophagitis K21.9 DVT prophylaxis Z29.9
--- NOTE | 2020-05-14 13:09 | Gastrointestinal Consultation ---
Date of Consultation May 14, 2020 Assessment & Plan (1) Acute postoperative abdominal pain: Pt is a 80 y/o male who is 3 days s/p lap cholecystectomy, admitted for abd pain. Upon eval, CT abd/pelvis showed 9x3cm pocket of fluid in lateral liver area suspicious for bile leak vs biloma? - Keep NPO - Repeat K level (5.9 this AM), repeat LFTs - Plan for ERCP if K level within acceptable range by Dr. Sheron Berman in OR today - IVF and symptomatic supports - Surgery following Supervising Physician Co-Signing Physician Notes I have seen and examined the patient and discussed the management with FAUSTO Galvin. Post operative abdominal pain- admitted through the ER. Slightly use of accessory muscles, no reported chest pain. PE - elderly male in nad, HEENT -perrla, no scleral icterus, Pulm- slight use of accessory muscles with breathing, supplemental oxygen use, cv- rrr no mrg, Abd - lap marvin scars, protuberant abdomen, soft Labs reviewed - K high but repeat pending, hfp wnl CT a/p with concerns for a right pleural effusion, periphepatic fluid, and also a collection near bile duct ERCP later today - correction of electrolytes prior if still elevated. Dr. Berman aware of case. History of Present Illness Reason for Consultation: Bile leak Requesting Physician: Dr. Erick Martinez Attending Physician: Dr. Jacy Ramirez History of Present Illness Pt is a 80 y/o male who is s/p lap cholecystectomy on 05/11/2020 and returned to hospital w c/o RUQ abd pain radiating to R shoulder, difficulty urinating/defecating. He appears SOB on exam and said this is new as well. No fever, chills, CP, jaundice. On eval, initial HIDA scan 05/13 was limited due to pt's pain/motion. CT abd/pelvis today showed development of a 9.6 x 4.6 cm pocket of fluid along the undersurface of the lateral segment of the liver. Increasing perihepatic fluid and new fluid within the pelvis. These findings are highly suggestive of a bile leak. He also has small R pleural effusion. K 5.9. LFTs normal on 05/12, repeat pending No ASA, anticoagulant Denies ETOH abuses; no tobacco since 1960s Allergies Allergy/AdvReac Type Severity Reaction Status Date / Time atorvastatin Allergy Unknown RASH Verified 05/13/20 00:38 nisoldipine [From Sular] Allergy Unknown Unknown Verified 05/13/20 00:38 propranolol Allergy Unknown RASH Verified 05/13/20 00:38 Home Medications Home Medications Medication Instructions Recorded Confirmed Type lisinopril 20 1 tab PO QAM tab 07/03/19 05/13/20 History mg-hydrochlorothiazide 12.5 mg tablet Probiotic 0 mmu cells PO QAM 04/07/20 05/13/20 History omeprazole magnesium 20 mg 20 mg PO QAM 04/21/20 05/13/20 History tablet,delayed release alum-mag hydroxide-simeth 30 ml PO QID PRN 05/06/20 05/13/20 History oxycodone-acetaminophen [Percocet] 1 - 2 tab PO .q4-6h PRN #7 tab 05/11/20 05/13/20 Rx Patient History Medical History Benign prostatic hyperplasia with elevated prostate specific antigen (PSA) Cardiac murmur HEARD BY PCP PAST MONTH- NO VALVE ISSUES PER 2015 ECHO Carotid artery stenosis Left side 50-69% stenosis per 2019 carotid doppler Chronic kidney disease, stage III (moderate) F/U DR RICARDO- BASELINE CREAT 1.6-1.8 GERD without esophagitis History of back problems Hypertension Inflammatory polyarthritis PAD (peripheral artery disease) SOB (shortness of breath) on exertion Surgical History H/O hernia repair (08/18/05) Right direct inguinal hernia and lipoma of the cord repair with mesh [id number] Dr. Martinez H/O inguinal hernia repair H/O prostatectomy 2001 & 2007 H/O right knee surgery 1973 History of colonoscopy History of rectal surgery Hx of cataract surgery 2016 both eyes Hx of total knee arthroplasty Right 2004 S/P laparoscopic cholecystectomy (05/11/20) Laparoscopic Cholecystectomy with Cholangiogram 05/11/20 Dr. Martinez Family History Father Cancer Mother Heart disease Diabetes Denies family history of Kidney disease Social History Smoking Status: Former smoker Tobacco Type: Pipe and Cigars Second Hand Exposure: Yes (ON OCC); Do You Dip or Chew Tobacco: No; Hx Alcohol Use: Yes Alcohol type: beer, wine and hard liquor Alcohol Intake Frequency: 2-3 x/Week Hx Substance Use: No Preferred Language: Citizen Of The [place] Communication Ability: Effective Consultant Teacher Required: No Beliefs That Will Affect Care: None marital status: Current Living Situation: Spouse current occupational status: retired How many Children do You have: 2 Feels Safe at Home: Yes Review of Systems Review of Systems: All systems reviewed & are unremarkable except as noted in HPI & below Physical Exam Constitutional: well groomed and cooperative; + uncomfortable (c/o abd pain, SOB) Eyes: PERRL, conjunctivae normal, anicteric sclerae ENMT: external ear and nose normal, oropharynx normal Respiratory: + uses accessory muscles CTA except diminished on RLL areas Cardiovascular: RRR, no murmur, no edema Gastrointestinal (Abdomen): Inspection/Auscultation: + abdomen distended and + hypoactive bowel sounds Percussion/Palpation: + abdomen tender (diffuse) Skin: no rashes, warm and dry no jaundice Psychiatric: A+Ox3, euthymic affect Lymphatic: no lymphedema Results & Data ([facility]) Vital Signs (Past 12 Hours) Vital Signs Temp Pulse Resp BP Pulse Ox 05/14/20 07:31 36.8 C 89 24 157/79 H 95
[2020-05-14] MEDS ORDERED: INDOMETHACIN 50 MG SUPP PR ONE ×2 (13:19→16:16)
[2020-05-14 13:20] LABS: Potassium 5.3 mmol/L (3.5-5.1)
[2020-05-14 13:28] LABS: Albumin Level 2.9 gm/dl (3.4-5.0); Bilirubin Direct 0.3 mg/dl (0-0.2); Bilirubin,Total 0.7 mg/dl (0.2-1); Total Protein 6.6 gm/dl (6.4-8.2)
[2020-05-14] MEDS ORDERED: IOVERSOL 50ml IV ONE (16:01)
[2020-05-14] MEDS ORDERED: SUCCINYLCHOLINE CHLORIDE 20 MG/ML 10 ML VIAL IV ONE (16:19)
[2020-05-14] MEDS ORDERED: ONDANSETRON INJ 2 MG/ML 2 ML VIAL ONE (16:19)
[2020-05-14] MEDS ORDERED: LIDOCAINE HCL 2% 2 ML VIAL/AMP(20MG/ML) INFIL ONE (16:19)
[2020-05-14] MEDS ORDERED: PROPOFOL IV EMULSION 10 MG/ML 20 ML VIAL IV ONE (16:19)
[2020-05-14] MEDS ORDERED: fentaNYL citrate 100 MCG/2 ML VIAL ONE (16:19)
--- NOTE | 2020-05-14 16:26 | Anesthesiology Consultation ---
Date of Service May 14, 2020 Assessment & Plan Chart Review Chart Review: Acceptable Risk for Surgery Consults Requested none History Surgery Operation Date: 05/14/20 14:20 Proposed Procedures p Endoscopic Retrograde Cholangiopancreatogram - Sheron Berman Height/Weight Height: 5 ft 9 in Weight: 87.9 kg Allergies Allergy/AdvReac Type Severity Reaction Status Date / Time atorvastatin Allergy Unknown RASH Verified 05/13/20 00:38 nisoldipine [From Sular] Allergy Unknown Unknown Verified 05/13/20 00:38 propranolol Allergy Unknown RASH Verified 05/13/20 00:38 Medications Home Medications Medication Instructions Recorded Confirmed Last Taken lisinopril 20 1 tab PO QAM tab 07/03/19 05/13/20 05/12/20 mg-hydrochlorothiazide 12.5 mg tablet Probiotic 0 mmu cells PO QAM 04/07/20 05/13/20 05/12/20 omeprazole magnesium 20 mg 20 mg PO QAM 04/21/20 05/13/20 05/12/20 tablet,delayed release alum-mag hydroxide-simeth 30 ml PO QID PRN 05/06/20 05/13/20 05/09/20 13:00 oxycodone-acetaminophen [Percocet] 1 - 2 tab PO .q4-6h PRN #7 tab 05/11/20 05/13/20 05/12/20 Active Medications Generic Name Dose Route Start Last Admin Trade Name Freq PRN Reason Stop Dose Admin Acetaminophen 1,000 mg in 100 mls @ 400 mls/hr 05/13/20 14:00 05/14/20 15:15 Ofirmev IV 05/16/20 13:59 Infused Q8H MARIA E Infusion Protocol Sodium Chloride 1,000 mls @ 80 mls/hr 05/14/20 10:00 05/14/20 10:03 Nss 1000ml IV 06/13/20 09:59 80 mls/hr .[id number] MARIA E Administration Lidocaine 1 patch 05/13/20 13:15 05/14/20 08:27 Lidocaine 5% 1 Patch TD 06/12/20 13:14 1 patch QAM MARIA E Administration Miscellaneous 1 ea 05/13/20 13:30 05/13/20 22:00 Remove Lidoderm Patch N/A 06/12/20 13:29 1 ea DAILY@2100 MARIA E Administration Morphine Sulfate 2 mg 05/13/20 13:11 05/14/20 08:27 Morphine Sulfate 2 Mg/Ml Carp IV 05/27/20 13:10 2 mg Q4 PRN Administration Severe Pain Ondansetron HCl 4 mg 05/13/20 03:56 05/13/20 17:47 Ondansetron Inj 2 Mg/Ml 2 Ml Vial IV 06/12/20 03:55 4 mg Q4H PRN Administration Nausea And Vomiting Oxycodone HCl 10 mg 05/13/20 13:11 05/14/20 02:46 Oxycodone Hcl Ir 5 Mg Tab (Immediate Release) PO 05/27/20 13:10 10 mg Q6H PRN Administration Moderate Pain Polyethylene Glycol 17 gm 05/14/20 10:00 05/14/20 10:04 Polyethylene (Miralax) 17 Gm Pack PO 06/13/20 09:59 17 gm BID MARIA E Administration Senna/Docusate Sodium 1 tab 05/14/20 10:00 05/14/20 10:04 Docusate Sodium/Senna 50/8.6mg Tab PO 06/13/20 09:59 1 tab QAM MARIA E Administration NPO Date Last Intake of Fluids: 05/14/20 Time Last Intake of Fluids: 09:00 Date Last Intake of Solids: 05/12/20 Past Medical History Medical History Benign prostatic hyperplasia with elevated prostate specific antigen (PSA) Cardiac murmur HEARD BY PCP PAST MONTH- NO VALVE ISSUES PER 2015 ECHO Carotid artery stenosis Left side 50-69% stenosis per 2019 carotid doppler Chronic kidney disease, stage III (moderate) F/U DR RICARDO- BASELINE CREAT 1.6-1.8 GERD without esophagitis History of back problems Hypertension Inflammatory polyarthritis PAD (peripheral artery disease) SOB (shortness of breath) on exertion Past Family History Family History Father Cancer Mother Heart disease Diabetes Denies family history of Kidney disease Past Surgical History Surgical History H/O hernia repair (08/18/05) Right direct inguinal hernia and lipoma of the cord repair with mesh [id number] Dr. Martinez H/O inguinal hernia repair H/O prostatectomy 2001 & 2007 H/O right knee surgery 1973 History of colonoscopy History of rectal surgery Hx of cataract surgery 2016 both eyes Hx of total knee arthroplasty Right 2005 S/P laparoscopic cholecystectomy (05/11/20) Laparoscopic Cholecystectomy with Cholangiogram 05/11/20 Dr. Martinez Social History Smoking Status: Former smoker tobacco type: cigarettes and smokeless tobacco Do You Dip or Chew Tobacco: No Hx Alcohol Use: Yes Alcohol type: beer, wine and hard liquor alcohol intake frequency: a few times a week Hx Substance Use: No Physical Exam Vital Signs Last Vital Signs Temp 36.4 C L 05/14/20 15:13 Pulse 94 H 05/14/20 15:13 Resp 24 05/14/20 15:13 BP 164/81 H 05/14/20 15:13 Pulse Ox 94 05/14/20 15:13 Testing Laboratory Results 05/14/20 07:37 05/14/20 12:57 Urine Color Yellow 05/13/20 05:20 Urine Appearance Clear (Clear) 05/13/20 05:20 Urine pH 5.0 (4.5-7.5) 05/13/20 05:20 Ur Specific [place] 1.025 (1.000-1.030) 05/13/20 05:20 Urine Protein Negative (Negative) 05/13/20 05:20 Urine Glucose (UA) Negative (Negative) 05/13/20 05:20 Urine Ketones Trace (Negative) H 05/13/20 05:20 Urine Nitrite Negative (Negative) 05/13/20 05:20 Ur Leukocyte Esterase Negative (Negative) 05/13/20 05:20
[2020-05-14] MEDS ORDERED: HYDROmorphone INJ 2 MG/ML SYR/VIAL IV PRN (16:27)
[2020-05-14] MEDS ORDERED: ONDANSETRON INJ 2 MG/ML 2 ML VIAL IV PRN (16:27)
[2020-05-14] MEDS ORDERED: METOCLOPRAMIDE HCL INJ 5 MG/ML 2 ML VIAL IV PRN (16:27)
[2020-05-14] MEDS ORDERED: ePHEDrine sulfate 50 MG/ML AMP IV PRN (16:27)
[2020-05-14] MEDS ORDERED: fentaNYL citrate 100 MCG/2 ML VIAL IV PRN (16:27)
[2020-05-14] MEDS ORDERED: PROMETHAZINE HCL 12.5 MG in SODIUM CHLORIDE 0.9% 50 ML IV PRN (16:27)
[2020-05-14] MEDS ORDERED: ATROPINE SULFATE 0.1 MG/ML 10ML SYR IV PRN (16:27)
--- NOTE | 2020-05-14 16:39 | History & Physical Bridge Note ---
Date of Service May 14, 2020 History & Physical Bridge Note I have examined the patient, reviewed the History & Physical and in the interval since the performance of the History & Physical I have noted the following changes of clinical significance. Patient underwent cholecystectomy several days ago and now has worsening abdominal discomfort and CT findings suggestive of a bile leak. The patient notes having severe right-sided discomfort associated with shortness of breath as he is not able to breathe in deeply. ERCP has been requested for treatment of a suspected bile leak. Patient and I have discussed the risks of ERCP to include bleeding, infection, perforation, pain, pancreatitis and failed biliary cannulation. PE: moderate distress severe ruq tenderness no scleral icterus Impression: Patient status post cholecystectomy with a fairly large fluid collection and worsening abdominal pain. The findings are fairly consistent with a postoperative bile leak. Given this we will proceed with ERCP, given the patient's symptoms this seems to be a somewhat urgent case and we will perform it as soon as possible Plan: ERCP today Continue broad-spectrum antibiotic coverage If patient continues to have problems despite a biliary decompression he may need radiologic placement of a drain into the biloma CT OF THE ABDOMEN AND PELVIS WITHOUT CONTRAST CLINICAL HISTORY: Persistent abdominal pain following upper scalp cholecystectomy. COMPARISON STUDY: CT of the abdomen and pelvis May 13, 2020. TECHNIQUE: Axial images of the abdomen and pelvis were obtained without IV contrast. Images were reviewed in the axial, sagittal, and coronal planes. Automated exposure control was utilized for the study. A dose lowering technique was utilized adhering to the principles of ALARA. FINDINGS: Elevation of the right hemidiaphragm is again noted. A small right pleural effusion has developed since prior CT. There is right lower lobe atelectasis. There is segmental right middle lobe atelectasis. There is a trace left pleural effusion. No pneumatosis, free air or portal venous gas is present. There is no biliary ductal dilatation status post cholecystectomy. The stomach is mildly distended and fluid-filled. There has been interval development of a 9.6 x 4.6 cm pocket of fluid along the undersurface of the lateral segment of the liver since prior CT. A small amount of fluid within the pelvis has developed since prior examination. The appendix is normal. There is colonic diverticulosis without evidence for acute diverticulitis. Unenhanced images of the spleen, adrenal glands, left kidney and pancreas are unremarkable. There is moderate right renal atrophy. There is no hydronephrosis. There are no suspicious osseous lesions. IMPRESSION: 1. Interval development of a 9.6 x 4.6 cm pocket of fluid along the undersurface of the lateral segment of the liver. Increasing perihepatic fluid and new fluid within the pelvis. These findings are highly suggestive of a bile leak. 2. Interval development of a small right pleural effusion. This is probably reactive although bile within the pleural space could appear similar. Associated right lower lobe and right middle lobe atelectasis.
[2020-05-14] MEDS ORDERED: GLYCOPYRROLATE 0.2 MG/ML VIAL ONE (17:01)
--- NOTE | 2020-05-14 17:31 | Post Operative Brief Note ---
Immediate Post Op Note v1 Date of Surgery May 14, 2020 Pre & Post Diagnosis Operation Date: 05/14/20 14:20 Pre-Op Diagnosis: Bile duct leak Post-Op Diagnosis: Bile duct leak I identified the patient and participated in the time-out.: Yes Procedure Operation Date: 05/14/20 14:20 Actual Procedures p Endoscopic Retrograde Cholangiopancreatogram, Stent Placement - Sheron Berman Surgeon Sheron Berman Hosiery Pairer none Estimated Blood Loss 0 Findings Consistent with Post-Op Diagnosis
[2020-05-14] MEDS ORDERED: PIPERACILL/TAZOBAC CONSULT ACTIVE PRN (17:32)
[2020-05-14] MEDS ORDERED: PIPERACILLIN/TAZOBACTAM 4.5 GM in DEXTROSE 5% 100 ML IV STA (17:32)
--- NOTE | 2020-05-14 17:32 | Communication Note ---
Date of Service: May 14, 2020 Patient underwent urgent ERCP this evening for suspected bile leak Findings High-grade bile leak noted from the cystic duct remnant Treatment: Biliary sphincterotomy, biliary stent placed Recommendations Continue IV hydration overnight Would begin broad-spectrum antibiotic coverage for 7 days Avoid use of nonsteroidals for 1 week If pain persists overnight patient may need a percutaneous drain placed for the bile within the peritoneum
[2020-05-14] MEDS ORDERED: GLUCAGON FOR INJ 1 MG VIAL ONE (17:37)
[2020-05-14] MEDS ORDERED: PIPERACILLIN/TAZOBACTAM 3.375 GM in DEXTROSE 5% 100 ML IV ONE (17:45)
--- NOTE | 2020-05-14 17:46 | GI REPORT ---
Patient Name: Gage Man Procedure Date: 05/14/2020 4:39 PM Date of : 1940 Admit Type: Inpatient Age: 80 Gender: Male Attending MD: Sheron Berman DO Procedure: ERCP Providers: Sheron Berman DO Referring MD: Erick Martinez, Ji Gutiérrez Md, Taj Hart Indications: Abdominal pain of suspected biliary origin, Suspected bile leak Medicines: General Anesthesia Complications: No immediate complications. Estimated blood loss: Minimal. Estimated Blood Loss: Estimated blood loss was minimal. Procedure: Pre-Anesthesia Assessment: - Prior to the procedure, a History and Physical was performed, and patient medications, allergies and sensitivities were reviewed. The patient's tolerance of previous anesthesia was reviewed. - The risks and benefits of the procedure and the sedation options and risks were discussed with the patient. All questions were answered and informed consent was obtained. - Patient identification and proposed procedure were verified prior to the procedure by the physician, the nurse and the sterile preparation technician. The procedure was verified in the procedure room. - Pre-procedure physical examination revealed no contraindications to sedation. - ASA Grade Assessment: IV - A patient with severe systemic disease that is a constant threat to life. - After reviewing the risks and benefits, the patient was deemed in satisfactory condition to undergo the procedure. - The anesthesia plan was to use general anesthesia. - Immediately prior to administration of medications, the patient was re-assessed for adequacy to receive sedatives. - The heart rate, respiratory rate, oxygen saturations, blood pressure, adequacy of pulmonary ventilation, and response to care were monitored throughout the procedure. - The physical status of the patient was re-assessed after the procedure. After obtaining informed consent, the scope was passed under direct vision. Throughout the procedure, the patient's blood pressure, pulse, and oxygen saturations were monitored continuously. The Scope was introduced through the mouth, and advanced to the duodenum and used to inject contrast into the bile duct. The patient tolerated the procedure well. The ERCP was somewhat difficult due to challenging cannulation because of papillary stenosis, challenging cannulation because of peridiverticular papilla, presence of food and the patient's body habitus. Successful completion of the procedure was aided by performing the maneuvers documented (below) in this report. Findings: A teacher of the sight impaired film of the abdomen was obtained. Surgical clips, consistent with a previous cholecystectomy, were seen in the area of the right upper quadrant of the abdomen. The esophagus was successfully intubated under direct vision without detailed examination of the pharynx, larynx, and associated structures. The upper GI tract was traversed under direct vision without detailed examination. Excessive fluid was found in the stomach. A medium amount of food (residue) was found in the gastric fundus. The major papilla was located partially within a diverticulum. The major papilla was congested. We had difficulty with cannulation of the bile duct during the initial attempts when using the Cook Omnitone and 0.035 inch Acrobate 2 guidewire. This was transitioned to another sphinctertome. The bile duct was then deeply cannulated with the short-nosed traction sphincterotome (Rx 39) and 0.025 in Dream guidewire (PD was not cannulated). Contrast was injected. I personally interpreted the bile duct images. Contrast extended to the entire biliary tree. The biliary orifice was stenotic. This appeared benign. Extravasation of contrast originating from the cystic duct was observed (contrast seen in the peritoneum). A biliary sphincterotomy was made with a monofilament Dreamtome sphincterotome using ERBE electrocautery. There was no post-sphincterotomy bleeding. To discover objects, the biliary tree was swept with an 8.5to 15 mm balloon starting at the bifurcation. Sludge was swept from the duct. One 10 Fr by 8 cm biliary stent with a single external flap and a single internal flap was placed 8 cm into the common bile duct. Bile flowed through the stent. The stent was in good position. The endoscope was withdrawn from the patient. Indomethacin 100 mg was given via suppository to decrease the risk of post-ERCP pancreatitis (PEP). Impression: - Excessive gastric fluid. - A medium amount of food (residue) in the stomach. - The major papilla was located partially within a diverticulum. - The major papilla appeared congested. - Biliary papillary stenosis, benign. - A bile leak was found. - A biliary sphincterotomy was performed. - The biliary tree was swept and sludge was found. - One biliary stent was placed into the common bile duct. - Indomethacin given to decrease risk of post-ERCP pancreatitis. Recommendation: - Avoid aspirin and nonsteroidal anti-inflammatory medicines for 1 week. - Repeat ERCP in 6 weeks to remove stent. - Use broad spectrum antibiotics for 1 week. - Observe patient's clinical course following today's ERCP with therapeutic intervention. If no improvement overnight may need to consider percutaneous drain. Sheron Berman D.O. Sheron Berman, 05/14/2020 5:45:21 PM This report has been signed electronically. Note Initiated On: 05/14/2020 4:39 PM Number of Addenda: 0 I attest to the content of the Intraoperative Record and orders documented therein, exceptions below {[id number]}
--- NOTE | 2020-05-14 18:02 | Communication Note ---
I saw the patient in the postoperative unit after ERCP. He remains to be in significant distress although he notes his pain is much better. After discussion with the anesthesia doctor we would recommend that the patient be monitored in the ICU overnight. I called the internal medicine service informing they would be able to take care of the transfer process. Recommendations Antibiotic coverage for 7 days N.p.o. overnight Recommend ICU monitoring overnight Continue IV hydration If pain persists tomorrow may need to consider percutaneous drainage of the biloma (per surgery service) Date of Service: May 14, 2020
--- NOTE | 2020-05-14 18:08 | Fluoroscopy Report ---
[place] ERCP biliary ductal CLINICAL HISTORY: ERCPabdominal pain, possible bile leak. COMPARISON STUDY: CT scan dated 05/14/2020 FLUOROSCOPY TIME: 25 seconds. NUMBER OF FLUOROSCOPIC IMAGES: 5 FINDINGS: 5 intraprocedural fluoroscopic spot images were obtained. The common bile duct was cannulat ed and retrograde fashion and contrast was instilled. The cystic duct remnant was opacified. The juan ent's suspected bile leak is difficult to visualize in the provided fluoroscopic spot images IMPRESSION: Intraoperative fluoroscopic spot images obtained during ERCP. ACT 112: Negative or not required by law. Electronically signed by: Scott Irwin M.D. 05/14/2020 6:07 PM
--- NOTE | 2020-05-14 18:23 | Anesthesiology Progress Note ---
Date of Service May 14, 2020 Anesthesia Post Procedure Vital Signs Vital Signs: Temp Pulse Pulse Resp BP Pulse Ox 05/14/20 18:10 85 18 132/76 97 05/14/20 18:00 83 15 143/57 H 99 05/14/20 17:50 91 H 19 140/67 93 05/14/20 17:40 36.5 C 92 H 21 139/82 93 05/14/20 16:18 36.7 C 94 H 20 102/82 96 05/14/20 15:13 36.4 C L 94 H 24 164/81 H 94 05/14/20 07:31 36.8 C 89 24 157/79 H 95 05/13/20 23:11 36.4 C L 86 22 153/81 H 97 Pain Intensity Right Upper Abdomen: Pain Intensity: 0 Transfer of Care Handoff Completed per policy Notes Mental Status: alert / awake / arousable Patient Amnestic to Procedure: Yes Nausea / Vomiting: adequately controlled Pain: adequately controlled Airway Patency, RR, SpO2: stable & adequate BP & HR: stable & adequate Hydration State: stable & adequate Anesthetic Complications: no major complications apparent
[2020-05-14] MEDS: PIPERACILLIN/TAZOBACTAM 3.375 GM in DEXTROSE 5% 100 ML IV SCH (23:51)
[2020-05-15] MEDS: ACETAMINOPHEN 1,000 MG/100 ML VIAL IV SCH ×3 (05:49→20:54)
[2020-05-15 07:41] LABS: Hematocrit (blood only) 32.3 % (42-52); Hemoglobin 10.4 g/dL (14.0-18.0); Mean Corpuscular Hemoglobin 31.5 pg (25-34); Mean Corpuscular Hgb Conc 32.2 g/dL (32-36); Mean Corpuscular Volume 97.9 fL (80-100); Mean Platelet Volume 9.6 fL (7.4-10.4); Platelet Count 192 K/uL (130-400); RDW Coefficient of Variation 13.2 % (11.5-14.5); RDW Standard Deviation 47.1 fL (36.4-46.3); White Blood Count 7.46 K/uL (4.8-10.8)
[2020-05-15] MEDS: LIDOCAINE 5% 1 PATCH TD SCH (07:59)
[2020-05-15] MEDS: DOCUSATE SODIUM/SENNA 50/8.6MG TAB PO SCH (07:59)
[2020-05-15] MEDS: POLYETHYLENE (MIRALAX) 17 GM PACK PO SCH ×2 (07:59→20:54)
[2020-05-15] MEDS: SODIUM CHLORIDE 0.9% 1000ML 1,000 ML IV SCH ×2 (07:59→17:11)
[2020-05-15 08:06] LABS: Albumin Level 2.2 gm/dl (3.4-5.0); BUN Creatinine Ratio 27.3 (10-20); Calcium 8.1 mg/dl (8.5-10.1); Creatinine Clr Calc Pharmacy 27.1 ml/min; Est GFR (African American) 27.2; Est GFR (Non-African American) 23.5; Magnesium 2.3 mg/dl (1.8-2.4); Potassium 5.1 mmol/L (3.5-5.1)
[2020-05-15] MEDS: PIPERACILLIN/TAZOBACTAM 3.375 GM in DEXTROSE 5% 100 ML IV SCH ×2 (08:06→15:04)
[2020-05-15 08:09] LABS: Albumin Globulin Ratio 0.6 (0.9-2); Bilirubin,Total 0.6 mg/dl (0.2-1); Globulin 3.6 gm/dl (2.5-4.0); Phosphorus 2.8 mg/dl (2.5-4.9); Total Protein 5.8 gm/dl (6.4-8.2)
[2020-05-15] MEDS ORDERED: SODIUM CHLORIDE 0.9% 1000ML 500 ML IV ONE (08:13)
--- NOTE | 2020-05-15 10:44 | Surgery Progress Note ---
Date of Service May 15, 2020 Assessment & Plan (1) Bile leak: ERCP done yesterday was reviewed apparently small leak at the cystic duct although I cannot appreciated when reviewing the films a stent was placed The fluid that he has around the liver and possibly reactive effusion in the r ight chest was well noted yesterday At this time since the patient is improving clinically I would favor conservative management at this time and reimaging in a day or so depending on her clinical scenario if need be I would like to have interventional radiologist drain this fluid if possible rather than take him back to surgery if it needs to be done Presently he is receiving some fluid bolus for his lateral related creatinine and discussed with Dr. Ji Gutiérrez the current situation a plan to repeat the creatinine later drawn today if still elevated nephrology consult will be placed We will order regular diet reported patient could choose what ever he would like Called at home left word on recorder for roll to call me back so that I could bring her up-to-date Present on Admission?: Yes Admission and Anticipated Discharge Date Admission Date: May 13, 2020 Subjective Feels much better hungry he wants something to chew on virtually no abdominal pain his abdomen much softer Physical Exam Physical Exam: Sitting up in a side of the bed fairly comfortable on O2 nasal cannula O2 sats 99 less labored bleeding than yesterday the abdomen much softer without localized tenderness Results & Data ([facility]) Vital Signs (Past 12 Hours) Vital Signs Temp Pulse Pulse Resp BP Pulse Ox Pulse Ox 05/15/20 07:03 36.6 C 72 18 126/66 99 05/15/20 03:55 36.6 C 62 19 95/53 L 97 05/15/20 03:18 65 19 99 05/15/20 03:00 97 05/15/20 02:14 64 12 98 05/14/20 23:46 64 12 98 05/14/20 23:43 36.5 C 63 19 95/51 L 98 Lab noted including slight elevation of the renal function and a slight drop in hemoglobin no white count PG Care Time/CCT Total # of Minutes Spent Total Time Spent with Patient: Total time spent is greater than 50% in coordination of care (as documented) at patient's floor/unit and/or counseling patient: Coding Level of Care Code None Diagnoses Bile leak K83.9
[2020-05-15] MEDS ORDERED: COUGH DROP (SUGAR FREE) LOZ 24 LOZ/1 BOX BUCCAL ONE (12:12)
--- NOTE | 2020-05-15 13:52 | Hospitalist Progress Note ---
Date of Service May 15, 2020 Assessment & Plan (1) Acute postoperative abdominal pain: Patient was admitted after discharge for cholecystectomy with acute right upper quadrant abdominal pain radiating to her shoulder. - Repeat CT a/p on 05/14 showed bile leak. GI consulted. - Underwent ERCP on 05/14 with stent put in. - Continue pain control & relieve bladder pressure - Improving today. Will advance diet. (2) Respiratory distress: Nursing staff called hospitalist on 05/13 for shortness of breath. CXR on 05/13 revealed right ranjan-diaphragm elevation, possibly due to splinting from pain. - CT a/p on 05/14 showed right pleural effusion. Unclear if this is bile vs. serous fluid from irritation from bile leak. - Comfortable on nasal cannula and Oxymask -> Should improve with resolution of abdominal issues. - Will get repeat CXR today to assess pleural effusion. - If continue breathing issues, may need to consider pulmonary consult for chest tube if we think this is a bilious pleural effusion. (3) Benign prostatic hyperplasia with elevated prostate specific antigen (PSA): Increasing suprapubic discomfort on 05/14. Straight cath with 300 mL of urine. Follows with Dr. Bautista as outpatient. - Grubbs inserted on 05/14. Will probably need discharged with it with plan for outpatient voiding trial. (4) Chronic kidney disease, stage III (moderate): Baseline Cr ~1.6-1.8. - Up to 2.3 on 05/14 with concern for post-renal due to bladder outlet obstruction. - Cr up to 2.5 today. Gave 500 mL bolus and will recheck in the afternoon. If no improvement, will get nephrology consult. (5) Hypertension: Patient typically takes lisinopril-hydrochlorothiazide. Today BP is 160/80 . - Holding home BP meds for now; can restart home meds as needed (6) GERD without esophagitis: - Continue PPI as able (7) DVT prophylaxis: SCDs - Defer to primary team on heparin given possible surgical need or chest tube need. Admission and Anticipated Discharge Date Admission Date: May 13, 2020 Subjective Feel better today. Less abdominal pain. More appetite. Physical Exam Constitutional: WD/WN, vitals as above Eyes: EOM intact bilaterally; no conjunctival abnormality ENMT: external ear and nose normal, oropharynx normal Neck: trachea midline, no thyromegaly normal visual inspection Respiratory: normal respiratory effort, lungs clear to auscultation no respiratory distress Cardiovascular: RRR, no murmur, no edema Gastrointestinal (Abdomen): Inspection/Auscultation: + abdomen distended, normal bowel sounds and + abdominal surgical scar (Clean, healing) Percussion/Palpation: + abdomen tender, + guarding and abdomen soft; abdomen not rigid Musculoskeletal: no cyanosis or clubbing, extremities motor strength 5/5 Skin: no rashes, warm and dry Neurologic: moves all extremities and awake Psychiatric: Orientation: alert, oriented to person and cooperative Results & Data Results & Data ([facility]) Vital Signs (Past 12 Hours) Vital Signs Temp Pulse Pulse Pulse Resp BP Pulse Ox 05/15/20 11:24 36.6 C 71 18 116/62 98 05/15/20 11:12 64 05/15/20 07:03 36.6 C 72 18 126/66 99 05/15/20 03:55 36.6 C 62 19 95/53 L 97 05/15/20 03:18 65 19 99 05/15/20 03:00 05/15/20 02:14 64 12 98 Pulse Ox 05/15/20 11:24 05/15/20 11:12 05/15/20 07:03 05/15/20 03:55 05/15/20 03:18 05/15/20 03:00 97 05/15/20 02:14 PG Care Time/CCT Total # of Minutes Spent Total Time Spent with Patient: Total time spent is greater than 50% in coordination of care (as documented) at patient's floor/unit and/or counseling patient: Coding Level of Care Code 81974 Subseq Hosp Care Lvl 3 Diagnoses Acute postoperative abdominal pain G89.18; R10.9 Respiratory distress R06.03 Benign prostatic hyperplasia with elevated prostate specific antigen (PSA) N40.0; R97.20 Chronic kidney disease, stage III (moderate) N18.3 Hypertension I10 GERD without esophagitis K21.9 DVT prophylaxis Z29.9
--- NOTE | 2020-05-15 15:03 | Progress Notes ---
DATE: 05/15/2020 The patient is doing well today after ERCP and stent placement for a bile leak. His daughter is present at the bedside. He was able to eat and though he felt full, he did not have any vomiting. He has had no fever and his abdominal pain is greatly improved. There are no signs of post-ERCP pancreatitis. At this point, I just recommend continued antibiotic coverage and recommendations as per the surgery team.
[2020-05-15 15:16] LABS: BUN Creatinine Ratio 27.6 (10-20); Calcium 8.4 mg/dl (8.5-10.1); Creatinine Clr Calc Pharmacy 27.6 ml/min; Est GFR (African American) 27.9; Est GFR (Non-African American) 24.1; Potassium 4.8 mmol/L (3.5-5.1)
--- NOTE | 2020-05-15 15:21 | XRay Report ---
TWO VIEW CHEST CLINICAL HISTORY: Pleural effusions. FINDINGS: PA and lateral chest radiographs are compared to study dated 05/13/2020 and correlated with abdominal CT dated 05/14/2020. The cardiomediastinal silhouette is unremarkable noting atherosclerotic calcification of the thoracic aorta. There is persistent elevation of the right hemidiaphragm. There are small pleural effusions with bibasilar consolidation. There is no pneumothorax. The skeletal str uctures are osteopenic. The bony thorax appears intact. Cholecystectomy clips are seen in the right u pper quadrant. Residual enteric contrast is noted in the colon. A common bile duct stent is in place. IMPRESSION: 1. There is persistent elevation of the right hemidiaphragm. 2. There are small pleural effusions with bibasilar consolidation. This is similar to yesterday's CT scan. ACT 112: Negative or not required by law. Electronically signed by: Ariel Lucas M.D. 05/15/2020 3:20 PM
[2020-05-15 15:56] LABS: Hematocrit (blood only) 35.7 % (42-52); Hemoglobin 11.5 g/dL (14.0-18.0)
[2020-05-16] MEDS: PIPERACILLIN/TAZOBACTAM 3.375 GM in DEXTROSE 5% 100 ML IV SCH ×3 (00:28→15:45)
[2020-05-16] MEDS: ACETAMINOPHEN 1,000 MG/100 ML VIAL IV SCH (05:22)
[2020-05-16] MEDS: SODIUM CHLORIDE 0.9% 1000ML 1,000 ML IV SCH (05:23)
[2020-05-16 07:21] LABS: Hematocrit (blood only) 30.8 % (42-52); Hemoglobin 10.4 g/dL (14.0-18.0); Mean Corpuscular Hemoglobin 32.2 pg (25-34); Mean Corpuscular Hgb Conc 33.8 g/dL (32-36); Mean Corpuscular Volume 95.4 fL (80-100); Mean Platelet Volume 9.8 fL (7.4-10.4); Platelet Count 197 K/uL (130-400); RDW Coefficient of Variation 13.1 % (11.5-14.5); RDW Standard Deviation 45.8 fL (36.4-46.3); Red Blood Count 3.23 M/uL (4.7-6.1); White Blood Count 10.17 K/uL (4.8-10.8)
[2020-05-16 07:46] LABS: Calcium 8.4 mg/dl (8.5-10.1); Creatinine Clr Calc Pharmacy 27.8 ml/min; Est GFR (African American) 27.5; Est GFR (Non-African American) 23.7; Magnesium 2.4 mg/dl (1.8-2.4); Potassium 4.8 mmol/L (3.5-5.1)
[2020-05-16] MEDS: LIDOCAINE 5% 1 PATCH TD SCH (07:56)
[2020-05-16] MEDS: DOCUSATE SODIUM/SENNA 50/8.6MG TAB PO SCH (08:05)
[2020-05-16] MEDS: POLYETHYLENE (MIRALAX) 17 GM PACK PO SCH ×2 (08:05→15:49)
--- NOTE | 2020-05-16 10:15 | Nephrology Consultation ---
Date of Consultation May 16, 2020 Assessment & Plan (1) Acute kidney injury: * Cr has risen from 1.8 to 2.5. Patient is nonoliguric * Volume status and electrolyte balance remain acceptable at this time * Agree w/ holding Lisinopril HCTZ and providing gentle hydration * Noncontrast CT 05/14 negative for hydro * Will order urinalysis w/ microscopy * Monitor PRP (2) Chronic kidney disease, stage III (moderate): * Baseline Cr ~ 1.8. Previous evaluation revealed acellular urine sediment. Abdominal CT 05/14 reveals R cortical atrophy suggestive of microvascular disease (3) Hypertension: * BP is acceptable. Hold NIDA and thiazide diuretic (4) Benign prostatic hyperplasia with elevated prostate specific antigen (PSA): * PVR > 300 cc. Agree w/ placing zapata catheter (5) Bile leak: * Lap marvin 05/11 * 05/14 bile leak s/p ERCP w/ stent History of Present Illness Reason for Consultation: NIKOLE/CKD Attending Physician: Erick Martinez MD History of Present Illness Mr. Man is a 80 year old white male who is seen at the request of Dr. Contreras for evaluation of NIKOLE/CKD. Medical records in the EMR were reviewed today and are summarized as follows: Mr. Man has stage III CKD w/ baseline Cr 1.8 - 2.0. His Pony Worker has been Dr. Crawford. Previous evaluation has revealed acellular urine sediment. Renal imaging revealed R cortical atrophy suggestive of microvascular disease. Mr. Man's medical history is also significant for BPH, HTN, inflammatory polyarthritis, carotid stenosis and GERD. Mr. Man underwent laproscopic cholecystectomy 05/11. He was readmitted 05/13 for evaluation of RUQ abdominal pain. Noncontrast CT 05/14 revealed a bile leak. Patient subsequently underwent ERCP w/ biliary stent placement. Since a dmission serum Cr has risen from 2.0 to 2.5. Patient has remained nonoliguric. NIDA inhibitor/HCTZ has been held. BP has remained stable. Mr. Man was noted to have PVR > 300 cc. Zapata catheter was inserted yesterday. Allergies Allergy/AdvReac Type Severity Reaction Status Date / Time atorvastatin Allergy Unknown RASH Verified 05/13/20 00:38 nisoldipine [From Sular] Allergy Unknown Unknown Verified 05/13/20 00:38 propranolol Allergy Unknown RASH Verified 05/13/20 00:38 Home Medications Home Medications Medication Instructions Recorded Confirmed Type lisinopril 20 1 tab PO QAM tab 07/03/19 05/13/20 History mg-hydrochlorothiazide 12.5 mg tablet Probiotic 0 mmu cells PO QAM 04/07/20 05/13/20 History omeprazole magnesium 20 mg 20 mg PO QAM 04/21/20 05/13/20 History tablet,delayed release alum-mag hydroxide-simeth 30 ml PO QID PRN 05/06/20 05/13/20 History oxycodone-acetaminophen [Percocet] 1 - 2 tab PO .q4-6h PRN #7 tab 05/11/20 05/13/20 Rx Patient History Medical History Benign prostatic hyperplasia with elevated prostate specific antigen (PSA) Cardiac murmur HEARD BY PCP PAST MONTH- NO VALVE ISSUES PER 2015 ECHO Carotid artery stenosis Left side 50-69% stenosis per 2019 carotid doppler Chronic kidney disease, stage III (moderate) F/U DR CRAWFORD- BASELINE CREAT 1.6-1.8 GERD without esophagitis History of back problems Hypertension Inflammatory polyarthritis PAD (peripheral artery disease) SOB (shortness of breath) on exertion Surgical History H/O hernia repair (08/18/05) Right direct inguinal hernia and lipoma of the cord repair with mesh [id number] Dr. Martinez H/O inguinal hernia repair H/O prostatectomy 2001 & 2007 H/O right knee surgery 1973 History of colonoscopy History of rectal surgery Hx of cataract surgery 2016 both eyes Hx of total knee arthroplasty Right 2004 S/P laparoscopic cholecystectomy (05/11/20) Laparoscopic Cholecystectomy with Cholangiogram 05/11/20 Dr. Martinez Family History Father Cancer Mother Heart disease Diabetes Denies family history of Kidney disease Social History Smoking Status: Former smoker Tobacco Type: Pipe and Cigars Second Hand Exposure: Yes (ON OCC); Do You Dip or Chew Tobacco: No; Hx Alcohol Use: Yes Alcohol type: beer, wine and hard liquor Alcohol Intake Frequency: 2-3 x/Week Hx Substance Use: No Preferred Language: Micronesian Communication Ability: Effective Linux Systems Analyst Required: No Beliefs That Will Affect Care: None marital status: Current Living Situation: Spouse current occupational status: retired How many Children do You have: 2 Feels Safe at Home: Yes Review of Systems Constitutional: no fever Eyes: no problem reported Ear, Nose, Mouth, Throat: no problem reported Respiratory: no dyspnea Cardiovascular: no chest pain and no edema Gastrointestinal: no abdominal pain and no diarrhea/loose stools Musculoskeletal: no back pain Integumentary: no rash Neurologic: no dizziness Physical Exam Constitutional: not in distress Eyes: PERRL, conjunctivae normal, anicteric sclerae ENMT: external ear and nose normal, oropharynx normal Neck: trachea midline, no thyromegaly Respiratory: normal respiratory effort, lungs clear to auscultation Cardiovascular: RRR, no murmur, no edema Gastrointestinal (Abdomen): normal bowel sounds, soft, nontender, no hepatosplenomegaly Musculoskeletal: Extremities: no cyanosis Skin: no rashes, warm and dry Neurologic: awake; not confused Results & Data ([facility]) Vital Signs (Past 12 Hours) Vital Signs Temp Pulse Pulse Pulse Resp BP Pulse Ox 05/16/20 08:51 59 L 05/16/20 07:38 36.9 C 67 20 146/79 H 98 05/16/20 03:28 36.4 C L 67 22 143/77 H 94 05/16/20 00:00 70 05/15/20 23:30 37.0 C 70 18 125/70 95 Laboratory Results Laboratory Tests 05/13/20 05/16/20 05/16/20 05:20 06:55 06:55 WBC 10.17 Hgb 10.4 L Hct 30.8 L Plt Count 197 Sodium 137 Potassium 4.8 Chloride 110 H Carbon Dioxide 20 L BUN 68 H Creatinine 2.50 H Glucose 104 H Magnesium 2.4 Urine Color Yellow Urine Appearance Clear Urine pH 5.0 Ur Specific [place] 1.025 Urine Protein Negative Urine Glucose (UA) Negative Urine Blood Negative Urine Nitrite Negative Ur Leukocyte Esterase Negative PG Care Time/CCT Total # of Minutes Spent Total Time Spent with Patient: Total time spent is greater than 50% in coordination of care (as documented) at patient's floor/unit and/or counseling patient: Coding Level of Care Code 68887 Inpt Consult Level 5 Diagnoses Acute kidney injury N17.9 Chronic kidney disease, stage III (moderate) N18.3 Hypertension I10 Benign prostatic hyperplasia with elevated prostate specific antigen (PSA) N40.0; R97.20 Bile leak K83.9
--- NOTE | 2020-05-16 10:43 | Surgery Progress Note ---
Date of Service pt feels better, no abdominal pain, no fever, normal WBC, passed BM, he tolerated diet, May 16, 2020 Assessment & Plan Admission and Anticipated Discharge Date Admission Date: May 13, 2020 Supervising Physician Co-Signing Physician Notes I have seen and examined the patient and discussed the management with FAUSTO Galvin. Post operative abdominal pain- admitted through the ER. Slightly use of accessory muscles, no reported chest pain. PE - elderly male in nad, HEENT -perrla, no scleral icterus, Pulm- slight use of accessory muscles with breathing, supplemental oxygen use, cv- rrr no mrg, Abd - lap marvin scars, protuberant abdomen, soft Labs reviewed - K high but repeat pending, hfp wnl CT a/p with concerns for a right pleural effusion, periphepatic fluid, and also a collection near bile duct ERCP later today - correction of electrolytes prior if still elevated. Dr. Berman aware of case. 05/16/2020 10:47AM doing fine, stable, continue treatment, will F/U Physical Exam Constitutional: WD/WN, vitals as above well developed and well nourished Eyes: PERRL, conjunctivae normal, anicteric sclerae ENMT: external ear and nose normal, oropharynx normal Neck: trachea midline, no thyromegaly Respiratory: normal respiratory effort, lungs clear to auscultation Cardiovascular: RRR, no murmur, no edema Gastrointestinal (Abdomen): Percussion/Palpation: abdomen soft NT, ND, BS + Musculoskeletal: no cyanosis or clubbing, extremities motor strength 5/5 Skin: no rashes, warm and dry Neurologic: patellar DTR's 2+ bilat, sensation intact Psychiatric: Orientation: alert and oriented x 3 Results & Data ([facility]) Vital Signs (Past 12 Hours) Vital Signs Temp Pulse Pulse Pulse Resp BP Pulse Ox 05/16/20 08:51 59 L 05/16/20 07:38 36.9 C 67 20 146/79 H 98 05/16/20 03:28 36.4 C L 67 22 143/77 H 94 05/16/20 00:00 70 05/15/20 23:30 37.0 C 70 18 125/70 95 Laboratory Results Abnormal lab results 05/15/20 05/15/20 05/16/20 Range/Units 14:50 15:44 06:55 RBC 3.23 L (4.7-6.1) M/uL Hgb 11.5 L 10.4 L (14.0-18.0) g/dL Hct 35.7 L 30.8 L (42-52) % Chloride 108 H (98-107) mmol/L Carbon Dioxide (21-32) mmol/L BUN 68 H (7-18) mg/dl Creatinine 2.47 H (0.6-1.4) mg/dl BUN/Creatinine Ratio 27.6 H (10-20) Glucose (70-99) mg/dl Calcium 8.4 L (8.5-10.1) mg/dl 05/16/20 Range/Units 06:55 RBC (4.7-6.1) M/uL Hgb (14.0-18.0) g/dL Hct (42-52) % Chloride 110 H (98-107) mmol/L Carbon Dioxide 20 L (21-32) mmol/L BUN 68 H (7-18) mg/dl Creatinine 2.50 H (0.6-1.4) mg/dl BUN/Creatinine Ratio 27.0 H (10-20) Glucose 104 H (70-99) mg/dl Calcium 8.4 L (8.5-10.1) mg/dl
[2020-05-16] MEDS: NORMOSOL-R 1,000 ML IV SCH ×2 (10:55→19:58)
[2020-05-16 11:46] LABS: Appearance Urine Cloudy (Clear); Bacteria Urine Automated Negative (Negative); Bilirubin Urine Negative (Negative); Blood Urine 3+ (Negative); Color Urine Yellow; Glucose Urine UA Negative (Negative); Ketones Urine Negative (Negative); Leukocyte Esterase Urine Trace (Negative); Nitrite Urine Negative (Negative); Protein Urine 1+ (Negative); Specific Gravity Urine 1.023 (1.000-1.030); Urobilinogen Urine Negative (Negative)
--- NOTE | 2020-05-16 13:06 | XRay Report ---
XR chest 1V portable CLINICAL HISTORY: Abnormal chest x-ray. Follow-up study. Pleural effusions. COMPARISON STUDY: 05/15/2020 FINDINGS: There is persistent elevation of the right hemidiaphragmatic contour. There are small bilat eral pleural effusions with basilar airspace opacities likely atelectatic. There is no failure.[ IMPRESSION: 1. No significant change from the preceding study 2. Persistent elevation right hemidiaphragm, small bilateral pleural effusions, and associated basila r opacities, likely atelectatic ACT 112: Negative or not required by law. Electronically signed by: Scott Irwin M.D. 05/16/2020 1:05 PM
[2020-05-17] MEDS: PIPERACILLIN/TAZOBACTAM 3.375 GM in DEXTROSE 5% 100 ML IV SCH ×3 (00:17→16:21)
[2020-05-17] MEDS: MoRPHine SULFATE 2 MG/ML CARP IV PRN ×3 (03:19→19:21)
[2020-05-17] MEDS: NORMOSOL-R 1,000 ML IV SCH (05:28)
[2020-05-17 06:03] LABS: Hematocrit (blood only) 30.5 % (42-52); Hemoglobin 10.2 g/dL (14.0-18.0); Mean Corpuscular Hemoglobin 31.9 pg (25-34); Mean Corpuscular Hgb Conc 33.4 g/dL (32-36); Mean Corpuscular Volume 95.3 fL (80-100); Mean Platelet Volume 9.5 fL (7.4-10.4); Platelet Count 212 K/uL (130-400); RDW Standard Deviation 45.4 fL (36.4-46.3); White Blood Count 8.04 K/uL (4.8-10.8)
[2020-05-17 06:37] LABS: BUN Creatinine Ratio 25.3 (10-20); Calcium 8.4 mg/dl (8.5-10.1); Creatinine Clr Calc Pharmacy 33.9 ml/min; Est GFR (African American) 35.1; Est GFR (Non-African American) 30.3; Potassium 4.4 mmol/L (3.5-5.1)
[2020-05-17 06:41] LABS: Albumin Globulin Ratio 0.6 (0.9-2); Bilirubin,Total 0.6 mg/dl (0.2-1); Globulin 3.6 gm/dl (2.5-4.0); Total Protein 5.6 gm/dl (6.4-8.2)
--- NOTE | 2020-05-17 07:22 | Surgery Progress Note ---
Date of Service May 17, 2020 Assessment & Plan (1) Bile leak: Point I reviewed this CAT scan again with the radiologist including the ERCP and we recommended to get a CT scan of the abdomen and pelvis now with the intention of possibility draining this percutaneously if there is enough fluid around the liver Did mention the patient that we need to do something to get him over this whether it is interventional radiologist done here or going to a tertiary center or if he does not want to go there cannot be drained here that we will take him to surgery and laparoscopic drain the fluid collections He is agreeable to proceed with this Based on a CAT scan he may need a thoracentesis or if interventional radiologist decides to drain this and may go through the chest to drain it Present on Admission?: Yes Admission and Anticipated Discharge Date Admission Date: May 13, 2020 Subjective He states he feels terrible this morning his legs are swollen he has no abdominal pain is tolerating a diet his bowels are moving but he is short of breath as he walks from the bed to the chair Physical Exam Physical Exam: He is alert coherent as stated above The abdomen is completely benign no right upper quadrant tenderness no epigastric tenderness or guarding He has bilateral +2 pedal edema Results & Data ([facility]) Vital Signs (Past 12 Hours) Vital Signs Temp Pulse Resp BP Pulse Ox 05/17/20 03:40 36.9 C 71 18 158/83 H 93 05/17/20 00:00 37.0 C 71 19 151/71 H 98 05/16/20 19:26 36.7 C 69 20 148/72 H 99 Labs noted chest x-ray from yesterday was reviewed PG Care Time/CCT Total # of Minutes Spent Total Time Spent with Patient: Total time spent is greater than 50% in coordination of care (as documented) at patient's floor/unit and/or counseling patient: Coding Level of Care Code None Diagnoses Bile leak K83.9
[2020-05-17] MEDS: LIDOCAINE 5% 1 PATCH TD SCH (07:52)
--- NOTE | 2020-05-17 08:17 | Anesthesiology Progress Note ---
Date of Service May 17, 2020 Anesthesia Post Procedure Vital Signs Vital Signs: Temp Pulse Pulse Resp BP BP Pulse Ox 05/17/20 07:43 36.7 C 63 19 150/78 H 96 05/17/20 03:40 36.9 C 71 18 158/83 H 93 05/17/20 00:00 37.0 C 71 19 151/71 H 98 05/16/20 19:26 36.7 C 69 20 148/72 H 99 05/16/20 15:59 37.5 C 61 20 134/76 98 05/16/20 15:21 63 05/16/20 12:00 36.7 C 64 20 151/76 H 98 05/16/20 08:51 59 L Pain Intensity Right Upper Abdomen: Pain Intensity: 0 Notes Notes: pt not present at time of rounding
--- NOTE | 2020-05-17 08:57 | XRay Report ---
XR chest 1V portable CLINICAL HISTORY: follow up effusion inc SOB COMPARISON STUDY: Chest radiograph May 16, 2020. FINDINGS: There is no pneumothorax. A small right pleural effusion with right basilar opacity and suzy vation of the right hemidiaphragm is unchanged. There is no evidence for pulmonary edema. Mild cardio megaly is noted. There is a trace left pleural effusion. IMPRESSION: 1. No change in appearance of the chest. Small right pleural effusion with right basilar opacity and elevation of the right hemidiaphragm. 2. Trace left pleural effusion. ACT 112: Negative or not required by law. Electronically signed by: Jack Drake M.D. 05/17/2020 8:56 AM
--- NOTE | 2020-05-17 09:26 | CT Scan Report ---
CT SCAN OF THE ABDOMEN AND PELVIS WITHOUT IV CONTRAST CLINICAL HISTORY: Follow-up fluid collection. Bile leak. COMPARISON STUDY: Abdominal CT scans dated 05/14/2020 and 05/13/2020. TECHNIQUE: CT scan of the abdomen and pelvis is performed from the lung bases to the proximal femora. Images are reviewed in the axial, sagittal, and coronal planes. IV contrast was not administered for this examination. A dose lowering technique was utilized adhering to the principles of ALARA. CT DOSE: 1064.46 mGy.cm FINDINGS: Lung bases: The heart is normal in size and without pericardial effusion. The coronary arteries are d ensely calcified. There is elevation right hemidiaphragm. There are small right and trace left pleura l effusions with associated right basilar consolidation. Linear atelectasis is seen. Lung base. Scatt ered calcified granulomas are observed. There is a small hiatal hernia. Liver: The unenhanced liver is normal in size, contour, and attenuation. There is no intrahepatic ibis iary ductal dilatation. Pneumobilia is noted. Gallbladder: The gallbladder is surgically absent noting clips in the gallbladder fossa. A common ibis e duct stent is in place.. Spleen: Normal in size and attenuation. Pancreas: The unenhanced pancreas is moderately atrophic and grossly unremarkable. Adrenal glands: Unremarkable. Kidneys: There is asymmetric cortical atrophy of the right kidney as compared to the left. There is n o hydronephrosis. There are no renal calculi identified. There is no evidence of contour deforming re nal mass lesion. Abdominal vasculature: The abdominal aorta is normal in course and caliber. Bowel: There is moderate colonic diverticulosis without CT evidence of acute diverticulitis. No bowel obstruction is seen. The appendix is well-visualized and normal. Peritoneum: There is trace perihepatic fluid. This has decreased from 05/14/2020. A small volume of fr ee fluid in the pelvis has also decreased from previous. No intraperitoneal free air is seen. Lymphadenopathy: None. Pelvic viscera: The bladder is decompressed around a Grubbs catheter and not well evaluated. Small foc i of intraluminal gas are likely related to instrumentation. The prostate gland is enlarged and heter ogeneous noting median lobe hypertrophy. There is a small fat-containing left inguinal hernia. Skeletal structures: The skeletal structures are osteopenic. Mild to moderate lumbosacral spondylosis is observed. No lytic or blastic lesions are seen. Soft tissues: There is body wall edema. IMPRESSION: 1. A common bile duct stent is in place. Pneumobilia suggests patency of the stent. 2. There is trace perihepatic fluid as well as a small volume of fluid in the pelvis. This has decrea sed from 05/14/2020. No organized/drainable fluid collection is identified. 3. Small right and trace left pleural effusions with associated right basilar consolidation. This is similar to previous. 4. Moderate colonic diverticulosis without CT evidence of acute diverticulitis. 5. Body wall edema suggests fluid overload. 6. Additional findings as above. ACT 112: Negative or not required by law. Electronically signed by: Ariel Lucas M.D. 05/17/2020 9:24 AM
[2020-05-17] MEDS: POLYETHYLENE (MIRALAX) 17 GM PACK PO SCH ×2 (10:23→22:02)
[2020-05-17] MEDS: DOCUSATE SODIUM/SENNA 50/8.6MG TAB PO SCH (10:23)
--- NOTE | 2020-05-17 10:29 | Nephrology Progress Note ---
Date of Service May 17, 2020 Assessment & Plan (1) Acute kidney injury: * Non-oliguric * Creatinine peaked at 2.5 mg/dL yesterday; 2.0 mg/dL today * Electrolytes acceptable * Fluid retention associated with IV fluids, hypoalbuminemia, and NIKOLE * Pneumatic compression BL LE * IVF discontinued * Maintain Zapata to gravity for now * Continue holding Lisinopril HCTZ * Noncontrast CT 05/14 and 05/17 reviewed with patient this morning * UA 1+ protein, microscopy 10-30 RBC * Monitor PRP (2) Chronic kidney disease, stage III (moderate): * Baseline Cr ~ 1.8. Previous evaluation revealed acellular urine sediment. Abdominal CT 05/14 reveals R cortical atrophy suggestive of microvascular disease (3) Hypertension: * BP is acceptable. Hold NIDA and thiazide diuretic (4) Benign prostatic hyperplasia with elevated prostate specific antigen (PSA): * PVR > 300 cc. Agree w/ placing zapata catheter (5) Bile leak: * Lap marvin 05/11 * 05/14 bile leak s/p ERCP w/ stent * Surgery following * Updated CT reviewed this AM (6) Pleural effusion: Pulm consult for evaluation and possible thoracentesis Admission and Anticipated Discharge Date Admission Date: May 13, 2020 Subjective Mr. Man and his are very upset this morning. They expressed frustration with his care. Gage describes significant progressive edema and dyspnea. No abdominal pain. No fevers or chills. Tolerating small amount of PO. Review of Systems Constitutional: no fever, no chills and no anorexia Eyes: no problem reported Ear, Nose, Mouth, Throat: no problem reported Respiratory: + chest congestion, + dyspnea and + dyspnea on exertion; no pain on inspiration Cardiovascular: + dyspnea at rest and + edema; no chest pain Gastrointestinal: no abdominal pain and no problem reported Genitourinary: + problem reported (Zapata draining clear yellow urine. No blood. Scrotal edema.); no hematuria Musculoskeletal: no problem reported Integumentary: no problem reported Neurologic: no problem reported Physical Exam Constitutional: well developed; no acute distress Eyes: no scleral abnormality and no corneal abnormality ENMT: Mouth: no oral mucosal abnormality and oral mucous membranes not dry Neck: normal visual inspection and trachea midline Respiratory: + labored breathing Auscultation: + diminished lung sounds; no rhonchi Cardiovascular: Rate/Rhythm: regular rate Heart Sounds: normal S1 and normal S2 Vessels: no JVD Extremities: + edema Musculoskeletal: Extremities: no cyanosis and no clubbing Skin: normal turgor; no lesions Neurologic: Motor/Sensory: no tremor and no asterixis Psychiatric: Orientation: alert and oriented x 3 Results & Data ([facility]) Vital Signs (Past 12 Hours) Vital Signs Temp Pulse Pulse Resp BP BP Pulse Ox 05/17/20 08:00 59 L 05/17/20 07:43 36.7 C 63 19 150/78 H 96 05/17/20 03:40 36.9 C 71 18 158/83 H 93 05/17/20 00:00 37.0 C 71 19 151/71 H 98 Laboratory Results Laboratory Results - last 24 hr 05/16/20 05/17/20 05/17/20 11:00 05:42 05:42 WBC 8.04 RBC 3.20 L Hgb 10.2 L Hct 30.5 L MCV 95.3 MCH 31.9 MCHC 33.4 RDW Std Deviation 45.4 RDW Coeff of Raul 13.0 Plt Count 212 MPV 9.5 Sodium 142 Potassium 4.4 Chloride 112 H Carbon Dioxide 22 Anion Gap 8.0 BUN 52 H Creatinine 2.04 H D Est Cr Clr Drug Dosing 33.9 Est GFR ( Amer) 35.1 Est GFR (Non-Af Amer) 30.3 BUN/Creatinine Ratio 25.3 H Glucose 101 H Calcium 8.4 L Total Bilirubin 0.6 AST 25 ALT 33 Alkaline Phosphatase 118 H D Total Protein 5.6 L Albumin 2.0 L Globulin 3.6 Albumin/Globulin Ratio 0.6 L Urine Color Yellow Urine Appearance Cloudy A Urine pH 5.0 Ur Specific [place] 1.023 Urine Protein 1+ H Urine Glucose (UA) Negative Urine Ketones Negative Urine Blood 3+ H Urine Nitrite Negative Urine Bilirubin Negative Urine Urobilinogen Negative Ur Leukocyte Esterase Trace H Urine WBC (Auto) 1-5 Urine RBC (Auto) 10-30 H U Hyaline Cast (Auto) 1-5 U Epithel Cells (Auto) 10-20 H Urine Bacteria (Auto) Negative Urine Yeast Not Reportable PG Care Time/CCT Total # of Minutes Spent Total Time Spent with Patient: Total time spent is greater than 50% in coordination of care (as documented) at patient's floor/unit and/or counseling patient: Coding Level of Care Code 84485 Subseq Hosp Care Lvl 3 Diagnoses Acute kidney injury N17.9 Chronic kidney disease, stage III (moderate) N18.3 Hypertension I10 Benign prostatic hyperplasia with elevated prostate specific antigen (PSA) N40.0; R97.20 Bile leak K83.9 Pleural effusion J90
--- NOTE | 2020-05-17 11:49 | Surgery Progress Note ---
Date of Service May 17, 2020 Assessment & Plan (1) Bile leak: CT scan of the abdomen and pelvis done today shows decreased fluid around the liver and an area right lower quadrant also decreased fluid in the right chest cavity radiologist felt there is nothing drainable Admission and Anticipated Discharge Date Admission Date: May 13, 2020 Results & Data ([facility]) Vital Signs (Past 12 Hours) Vital Signs Temp Pulse Pulse Resp BP BP Pulse Ox 05/17/20 08:00 59 L 05/17/20 07:43 36.7 C 63 19 150/78 H 96 05/17/20 03:40 36.9 C 71 18 158/83 H 93 05/17/20 00:00 37.0 C 71 19 151/71 H 98 PG Care Time/CCT Total # of Minutes Spent Total Time Spent with Patient: Total time spent is greater than 50% in coordination of care (as documented) at patient's floor/unit and/or counseling patient: Coding Level of Care Code None Diagnoses Bile leak K83.9
[2020-05-17] MEDS: OXYCODONE HCL IR 5 MG TAB (IMMEDIATE RELEASE) PO PRN (13:59)
[2020-05-17] MEDS ORDERED: POLYETHYLENE (MIRALAX) 17 GM PACK PO ONE (14:54)
--- NOTE | 2020-05-17 15:30 | Pulmonary Consultation ---
Date of Consultation May 17, 2020 Assessment & Plan (1) Volume overload: 72-year-old male with a past medical history of peripheral artery disease, obesity, inflammatory polyarthritis, CKD stage III and BPH presenting to the hospital with abdominal pain now found to have right lower lobe atelectasis and effusion. The right pleural effusion is very minimal and not amenable to thoracentesis. I think this is likely related to a sympathetic process given his recent surgery and also likely secondary to his overall volume overloaded state. At present, I do not think that the pleural effusion is related to the biliary leak given that he is afebrile and given that the effusion is fairly minimal. There also is not much ascites on the CT abdomen/pelvis. He is over 9 L positive. He is grossly edematous. He appears to be making good urine output Via Grubbs catheter. I will defer volume status management to primary team and his histology specialist. I would recommend obtaining an echocardiogram to evaluate his diastolic function and right ventricular pressures. I do not think he has any significant pneumonia at this time. He does have a right hemidiaphragm elevation likely related to atelectasis. He has been rather sedentary and I strongly encourage getting out of bed and sitting in a chair. He should ambulate as much as possible. Recommend continuing the use of incentive spirometry multiple times throughout the day. He is at risk to develop pneumonia. I suspect his hypoxemia is related to shunt physiology from the atelectasis. (2) Pleural effusion, right: (3) Acute postoperative abdominal pain: (4) Acute kidney injury: (5) Atelectasis, right: (6) Obesity (BMI 30.0-34.9): History of Present Illness Reason for Consultation: Right lower lobe atelectasis and effusion Requesting Physician: Hospitalist service Attending Physician: Erick Martinez MD History of Present Illness 80-year-old male with a past medical history of CKD stage III, hypertension, obesity, BPH, inflammatory polyarthritis and peripheral arterial disease who is currently hospitalized due to a bile leak related to cholecystectomy performed on 05/11/2020. Patient reports that after his cholecystectomy he woke up with pain in his chest and abdomen. He was admitted on 05/13/2020 due to "acute postoperative abdominal pain". ERCP on 05/14/2020 and stent placement for bile duct leak. Patient is endorsing occasional mild substernal chest pain. He notes that he is not walked today. He is virtually only waited in his bed today. He notes that he was walking around yesterday. He has not been using his incentive spirometer today. He denies any fevers or chills. He denies any cough. No sick contacts, however, his does cough chronically and she relates this is secondary to her COPD. Both his and his daughter are present in the room. Patient notes that he smoked in the 1960s socially. I am unable to find any recent echocardiogram. He does not have any significant white count currently. ABG on 05/13/2020 was generally unremarkable aside from mild hypoxemia. PaO2 was 84 on 3 L nasal cannula. Chest x-ray from 05/07/2020 demonstrated right basilar atelectasis with mild elevation of the right hemidiaphragm. CT abdomen yesterday demonstrated small right and left pleural effusions and right basilar consolidation/atelectasis. Trace effusion was noted. I performed a bedside [id number] ultrasound of his right ranjan diaphragm which demonstrated a very minimal effusion with significant atelectasis. Patient himself describes that he appears very swollen compared to his usual. He is 9.5 L positive since hospital admission. He has a Grubbs catheter in place. His creatinine is currently 2.04. This is improved from yesterday which was 2.5. His BUN is slowly improving to 52 from 68. Patient is currently on Zosyn. Allergies Allergy/AdvReac Type Severity Reaction Status Date / Time atorvastatin Allergy Unknown RASH Verified 05/13/20 00:38 nisoldipine [From Sular] Allergy Unknown Unknown Verified 05/13/20 00:38 propranolol Allergy Unknown RASH Verified 05/13/20 00:38 Home Medications Home Medications Medication Instructions Recorded Confirmed Type lisinopril 20 1 tab PO QAM tab 07/03/19 05/13/20 History mg-hydrochlorothiazide 12.5 mg tablet Probiotic 0 mmu cells PO QAM 04/07/20 05/13/20 History omeprazole magnesium 20 mg 20 mg PO QAM 04/21/20 05/13/20 History tablet,delayed release alum-mag hydroxide-simeth 30 ml PO QID PRN 05/06/20 05/13/20 History oxycodone-acetaminophen [Percocet] 1 - 2 tab PO .q4-6h PRN #7 tab 05/11/20 05/13/20 Rx Patient History Medical History Acute kidney injury Benign prostatic hyperplasia with elevated prostate specific antigen (PSA) Cardiac murmur HEARD BY PCP PAST MONTH- NO VALVE ISSUES PER 2015 ECHO Carotid artery stenosis Left side 50-69% stenosis per 2019 carotid doppler Chronic kidney disease, stage III (moderate) F/U DR RICARDO- BASELINE CREAT 1.6-1.8 GERD without esophagitis History of back problems Hypertension Inflammatory polyarthritis PAD (peripheral artery disease) SOB (shortness of breath) on exertion Surgical History H/O hernia repair (08/18/05) Right direct inguinal hernia and lipoma of the cord repair with mesh [id number] Dr. Martinez H/O inguinal hernia repair H/O prostatectomy 2001 & 2007 H/O right knee surgery 1973 History of colonoscopy History of rectal surgery Hx of cataract surgery 2016 both eyes Hx of total knee arthroplasty Right 2004 S/P laparoscopic cholecystectomy (05/11/20) Laparoscopic Cholecystectomy with Cholangiogram 05/11/20 Dr. Martinez Family History Father Cancer Mother Heart disease Diabetes Denies family history of Kidney disease Social History Smoking Status: Former smoker Tobacco Type: Pipe and Cigars Second Hand Exposure: Yes (ON OCC); Do You Dip or Chew Tobacco: No; Hx Alcohol Use: Yes Alcohol type: beer, wine and hard liquor Alcohol Intake Frequency: 2-3 x/Week Hx Substance Use: No Preferred Language: [place] Communication Ability: Effective Cleaning Technician Required: No Beliefs That Will Affect Care: None marital status: Current Living Situation: Spouse current occupational status: retired How many Children do You have: 2 Feels Safe at Home: Yes Review of Systems Review of Systems: All systems reviewed & are unremarkable except as noted in HPI & below Physical Exam Constitutional: Patient is lying in bed. Does not appear to be in any distress. Eyes: PERRL, conjunctivae normal, anicteric sclerae ENMT: external ear and nose normal, oropharynx normal Neck: trachea midline, no thyromegaly Respiratory: Diminished at the bases with some mild rhonchi. No tachypnea present. Cardiovascular: Rate/Rhythm: regular rate and regular rhythm 3-4+ pitting edema in the lower extremities. Left lower extremity is greater than the right lower extremity. Gastrointestinal (Abdomen): Mild tenderness to palpation. Laparoscopic scars present. Musculoskeletal: Peripheral cyanosis noted in his nailbeds. Able to move all extremities with ease. Skin: no rashes, warm and dry Neurologic: PERRL, EOMI, accommodation nl, no face palsy, no dysarthria Psychiatric: A+Ox3, euthymic affect Results & Data Results & Data ([facility]) Vital Signs (Past 12 Hours) Vital Signs Temp Pulse Pulse Resp BP BP Pulse Ox 05/17/20 11:50 98.4 F 73 18 160/74 H 96 05/17/20 08:00 59 L 05/17/20 07:43 98.1 F 63 19 150/78 H 96 05/17/20 03:40 98.4 F 71 18 158/83 H 93 I reviewed vital signs, labs and imaging PG Care Time/CCT Total # of Minutes Spent Total Time Spent with Patient: Total time spent is greater than 50% in coordination of care (as documented) at patient's floor/unit and/or counseling patient: Coding Level of Care Code 12757 Initial Inpt Care Lvl 3 Diagnoses Volume overload E87.70 Pleural effusion, right J90 Acute postoperative abdominal pain G89.18; R10.9 Acute kidney injury N17.9 Atelectasis, right J98.11 Obesity (BMI 30.0-34.9) E66.9
--- NOTE | 2020-05-17 16:22 | Hospitalist Progress Note ---
Date of Service May 17, 2020 Assessment & Plan Admission and Anticipated Discharge Date Admission Date: May 13, 2020 Subjective Is a 80-year-old male with a past medical history of obesity, volume overload, chronic kidney disease stage III, arthritis, CHF, carotid artery stenosis,., Hypertension, inflammatory polyarthritis, long-term use of hydroxychloroquine, NSAID long-term use, osteoarthritis with bilateral hands peripheral artery disease. Results & Data Results & Data ([facility]) Vital Signs (Past 12 Hours) Vital Signs Temp Pulse Pulse Resp BP BP Pulse Ox 05/17/20 15:26 36.4 C L 64 23 144/74 H 94 05/17/20 11:50 36.9 C 73 18 160/74 H 96 05/17/20 08:00 59 L 05/17/20 07:43 36.7 C 63 19 150/78 H 96
--- NOTE | 2020-05-17 16:25 | History & Physical Report ---
Date of Service May 17, 2020 Assessment & Plan (1) Acute postoperative abdominal pain: Acute postoperative abdominal pain secondary to bile leak: Was the reason for initial presentation in the hospital approximately a week ago. Patient is slowly improved, status post ERCP to repair bile leak. -Routine postop care per general surgery -We will follow Deconditioning in the setting of generalized malaise with abdominal pain and fullness: Patient has had a complex medical course recently, having been admitted for a similar procedure and having numerous adverse events subsequently. He endorses not eating properly, not sleeping well, and has not been physically active. Patient reports significant weakness with his muscles, questionable coordination with walking, significant abdominal fullness, and pain in his right quadricep. He attributes the majority of his symptoms to fluid overload, while he does have some objective physical exam evidence of this I do not believe is the underlying etiology of his illness. I believe it is multifactorial in nature stemming from poor nutrition and mobility leading to constipation producing a generalized sensation of fullness. I believe a multidisciplinary approach to address these issues will be most effective. First we will consult PT and OT to assess the patient's functional status and encourage "reconditioning ", second we will consult nutrition given the patient's poor protein status, therapy will address the patient's constipation reducing pain medication and encouraging MiraLAX. Provided significant education regarding the importance of ambulation, return of venous blood from the lower extremities, water retention -Consult PT -Consult OT -Consult nutrition -Monitor vital signs every shift Constipation: See above. Patient has not had a meaningful bowel movement in greater than 5 days. This is likely due to prolonged exposure to opioids and physical activity. We will start conservatively with a triple dose of MiraLAX, if this is not effective we will escalate to Relistor or milk molasses enema per patient request. Overall I think the patient's subjective symptomology was significantly improved after bowel movement. MiraLAX x3 doses provided in addition to patient's twice daily MiraLAX To consider Relistor versus enema if no bowel Pain management: See above. I believe the majority of his right quadricep pain is likely musculoskeletal in nature and to that effect he would be better served muscle relaxer. Furthermore would recommend trying to wean off opiate exposure as this will likely increase his constipation and his overall subjective feelings of fullness. to that effort will decrease opioid dose by half and provide 2 mg Valium scheduled -Valium 2 mg every 6 hours Oxycodone p.o. 5 mg every 6 hours as needed Morphine 2 mg IV every 4 as needed try to avoid Pedal edema to mid thigh: Patient has a history of an echo approximately 2 years ago showing normal ejection fraction 64%, has not had an echo since however is not having signs or symptoms of overt heart failure other than fluid overload. I suspect his fluid overload is most likely due to deconditioning, and physical inactivity along with poor nutrition. I provided the patient with significant education regarding physiological mechanisms that allow for water homeostasis. Patient was agreeable to try conservative approach including PT and OT, and nutrition in addition to resuming his hydrochlorothiazide blood pressure medication with nephrology's blessing. Given his symptoms and respiratory complaints, will obtain an echo to evaluate his diastolic function. -Monitor daily weights -PT OT -Nutrition consult -Resume BP meds when cleared by nephrology -f/u echo Urinary tract infection: Patient with history is she is voiding, has indwelling catheter with plans to be removed as an outpatient. Had a dirty urine culture today that grew out gardnella-like bacteria, currently on Zosyn. -continue zosyn and prior plan established with uro Acute kidney injury on chronic kidney disease: Patient presented with an NIKOLE on CKD, baseline creatinine appears to be 1.8, currently 2.0. Would expect it to continue trending in the right direction -Trend BMP -Avoid nephrotoxic meds Pleural effusion: Identified on CT scan, currently managed by surgery. There is a question referral to a tertiary care center for interventional radiology and thoracocentesis Respiratory distress: Upon presentation several days ago patient had an episode of respiratory distress, this was likely multifactorial from anxiety, pain, constipation, and overall fullness. Has had no episodes since. CT scan does demonstrate a pleural effusion as noted above, this is currently being managed with surgery. BPH with elevated PSA Continue home meds Peripheral artery disease Continue home meds FENa: Regular Code Status: Full code DVT PPX: SCDs PT/OT: Ordered Disposition: MedSurg with telemetry likely downgrade tomorrow Carrington Rollins MD PGY 3, FCM This chart was completed utilizing [employer] voice recognition software. Grammatical errors, random word insertions, pronoun errors, and in complete sentences are an occasional consequence of the system. Any questions or concerns about the content, text, or information contained within the body of this dictation should be addressed directly to the physician for clarification. (2) Obesity (BMI 30.0-34.9): (3) Pleural effusion, right: (4) DVT prophylaxis: (5) Bile leak: (6) Respiratory distress: (7) Benign prostatic hyperplasia with elevated prostate specific antigen (PSA): (8) PAD (peripheral artery disease): (9) Physical deconditioning: (10) Nutrition deficiency due to insufficient food: (11) Pain management: (12) Constipation: (13) Acute kidney injury superimposed on CKD: (14) HTN (hypertension): Admission and Anticipated Discharge Date Admission Date: May 13, 2020 History of Present Illness 80-year-old male with a past medical history of obesity, volume overload, chronic kidney disease stage III, arthritis, CHF, carotid artery stenosis,., Hypertension, inflammatory polyarthritis, long-term use of hydroxychloroquine, NSAID long-term use, osteoarthritis with bilateral hands peripheral artery disease.Initially presented on May 11 cholecystectomy, the patient was discharged the same day. He had postoperative complications including right upper quadrant pain, and respiratory distress. He was evaluated and admitted for what appeared to be bile leak that was subsequently corrected via ERCP. Repeat CT scan demonstrated resolution of bile leak, and questionable pleural effusion which is being managed conservatively by general surgery. The hospital service was consulted as the patient was endorsing significant fluid overload and associated pain. Today when I arrived to the room the patient was lying in bed no acute distress having recently taken pain medication accompanied by his . We reviewed the patient relayed to me the hospital course described above and endorsed the following symptoms pain in his right quadricep, significant abdominal fullness, constipation, and inability to take a full breath secondary fullness which she attributes secondary to fluid overload. Patient also endorses not eating well recently, nutrition mainly consisting few bites of food., Voiding, has not had a significant bowel movement in over 5 days, had an episode of watery diarrhea last night, only sleeping 45 minutes at a time. Upon reviewing the patient's lab work is most consistent with nutritional deficiency considering his total protein, albumin with significantly low, and his calcium was also low however normalized when corrected for hypoalbuminemia. Patient also described that p rior to his admission he was a fairly active gentleman, his activity has been significantly reduced since admission. Overall the patient is in poor spirits due to his prolonged medical course from what was supposed to be a uncomplicated medical procedure. His acute concerns are related to pain and perceived swelling, all questions were answered Primary Care Provider: Taj Hart MD Allergies Allergy/AdvReac Type Severity Reaction Status Date / Time atorvastatin Allergy Unknown RASH Verified 05/13/20 00:38 nisoldipine [From Sular] Allergy Unknown Unknown Verified 05/13/20 00:38 propranolol Allergy Unknown RASH Verified 05/13/20 00:38 Home Medications Home Medications Medication Instructions Recorded Confirmed Type lisinopril 20 1 tab PO QAM tab 07/03/19 05/13/20 History mg-hydrochlorothiazide 12.5 mg tablet Probiotic 0 mmu cells PO QAM 04/07/20 05/13/20 History omeprazole magnesium 20 mg 20 mg PO QAM 04/21/20 05/13/20 History tablet,delayed release alum-mag hydroxide-simeth 30 ml PO QID PRN 05/06/20 05/13/20 History oxycodone-acetaminophen [Percocet] 1 - 2 tab PO .q4-6h PRN #7 tab 05/11/20 05/13/20 Rx Past Med/Surg History Medical History Acute kidney injury Atelectasis, right Benign prostatic hyperplasia with elevated prostate specific antigen (PSA) Cardiac murmur HEARD BY PCP PAST MONTH- NO VALVE ISSUES PER 2015 ECHO Carotid artery stenosis Left side 50-69% stenosis per 2019 carotid doppler Chronic kidney disease, stage III (moderate) F/U DR RICARDO- BASELINE CREAT 1.6-1.8 GERD without esophagitis History of back problems Hypertension Inflammatory polyarthritis Obesity (BMI 30.0-34.9) PAD (peripheral artery disease) Pleural effusion, right SOB (shortness of breath) on exertion Volume overload Surgical History H/O hernia repair (08/18/05) Right direct inguinal hernia and lipoma of the cord repair with mesh [id number] Dr. Martinez H/O inguinal hernia repair H/O prostatectomy 2001 & 2007 H/O right knee surgery 1973 History of colonoscopy History of rectal surgery Hx of cataract surgery 2016 both eyes Hx of total knee arthroplasty Right 2004 S/P laparoscopic cholecystectomy (05/11/20) Laparoscopic Cholecystectomy with Cholangiogram 05/11/20 Dr. Martinez Family History Father Cancer Mother Heart disease Diabetes Denies family history of Kidney disease Social History Smoking Status: Former smoker Tobacco Type: Pipe and Cigars Second Hand Exposure: Yes (ON OCC); Do You Dip or Chew Tobacco: No; Hx Alcohol Use: Yes Alcohol type: beer, wine and hard liquor Alcohol Intake Frequency: 2-3 x/Week Hx Substance Use: No Preferred Language: Mohawk Communication Ability: Effective Microstrategy Architect Developer Required: No Beliefs That Will Affect Care: None marital status: Current Living Situation: Spouse current occupational status: retired How many Children do You have: 2 Feels Safe at Home: Yes Review of Systems Review of Systems: All systems reviewed & are unremarkable except as noted in HPI & below Physical Exam Physical Exam: General: In no acute distress HEENT: Normocephalic atraumatic Neck: Trachea midline, normal inspection. Cardiac: See attending attestation Respiratory: See attending attestation GI: Fullness, firm, tender in all 4 quadrants, no guarding, see attending attestation MSK: Moves all extremities, however reports significant reduction in strength Neuro: Alert and oriented although very tangential at times Psych: Calm and cooperative, appears frustrated by medical complications Results & Data Results & Data ([facility]) Vital Signs (Past 12 Hours) Vital Signs Temp Pulse Pulse Resp BP BP Pulse Ox 05/17/20 15:26 36.4 C L 64 23 144/74 H 94 05/17/20 11:50 36.9 C 73 18 160/74 H 96 05/17/20 08:00 59 L 05/17/20 07:43 36.7 C 63 19 150/78 H 96 Laboratory Results 05/17/20 05/17/20 Range/Units 05:42 05:42 WBC 8.04 (4.8-10.8) K/uL RBC 3.20 L (4.7-6.1) M/uL Hgb 10.2 L (14.0-18.0) g/dL Hct 30.5 L (42-52) % MCV 95.3 (80-100) fL MCH 31.9 (25-34) pg MCHC 33.4 (32-36) g/dL RDW Std Deviation 45.4 (36.4-46.3) fL RDW Coeff of Raul 13.0 (11.5-14.5) % Plt Count 212 (130-400) K/uL MPV 9.5 (7.4-10.4) fL Sodium 142 (136-145) mmol/L Potassium 4.4 (3.5-5.1) mmol/L Chloride 112 H (98-107) mmol/L Carbon Dioxide 22 (21-32) mmol/L Anion Gap 8.0 (3-11) BUN 52 H (7-18) mg/dl Creatinine 2.04 H D (0.6-1.4) mg/dl Est Cr Clr Drug Dosing 33.9 ml/min Est GFR ( Amer) 35.1 Est GFR (Non-Af Amer) 30.3 BUN/Creatinine Ratio 25.3 H (10-20) Glucose 101 H (70-99) mg/dl Calcium 8.4 L (8.5-10.1) mg/dl Total Bilirubin 0.6 (0.2-1) mg/dl AST 25 (15-37) U/L ALT 33 (12-78) U/L Alkaline Phosphatase 118 H D (45-117) U/L Total Protein 5.6 L (6.4-8.2) gm/dl Albumin 2.0 L (3.4-5.0) gm/dl Globulin 3.6 (2.5-4.0) gm/dl Albumin/Globulin Ratio 0.6 L (0.9-2) Medications Administered Current Inpatient Medications Piperacillin Sod/Tazobactam (Sod 3.375 gm/ Dextrose) 115 mls @ 28.75 mls/hr IV Q8H [facility]; Protocol Stop: 05/25/20 00:00 Last Admin: 05/17/20 16:21 Dose: 28.8 mls/hr Documented by: Lidocaine (Lidocaine 5% 1 Patch) 1 patch TD QAM [facility] Stop: 06/12/20 13:14 Last Admin: 05/17/20 07:52 Dose: Not Given Documented by: Miscellaneous (Remove Lidoderm Patch) 1 ea N/A DAILY@2100 [facility] Stop: 06/12/20 13:29 Last Admin: 05/16/20 15:50 Dose: Not Given Documented by: Miscellaneous Information (Piperacill/Tazobac Consult Active) 1 ea N/A UD PRN PRN Reason: Consult Stop: 06/13/20 17:31 Morphine Sulfate (Morphine Sulfate 2 Mg/Ml Carp) 2 mg IV Q4 PRN PRN Reason: Severe Pain Stop: 05/27/20 13:10 Last Admin: 05/17/20 10:42 Dose: 2 mg Documented by: Ondansetron HCl (Ondansetron Inj 2 Mg/Ml 2 Ml Vial) 4 mg IV Q4H PRN PRN Reason: Nausea And Vomiting Stop: 06/12/20 03:55 Last Admin: 05/13/20 17:47 Dose: 4 mg Documented by: Oxycodone HCl (Oxycodone Hcl Ir 5 Mg Tab (Immediate Release)) 10 mg PO Q6H PRN PRN Reason: Moderate Pain Stop: 05/27/20 13:10 Last Admin: 05/17/20 13:59 Dose: 10 mg Documented by: Polyethylene Glycol (Polyethylene (Miralax) 17 Gm Pack) 17 gm PO BID MARIA E Stop: 06/13/20 09:59 Last Admin: 05/17/20 10:23 Dose: Not Given Documented by: Senna/Docusate Sodium (Docusate Sodium/Senna 50/8.6mg Tab) 1 tab PO QAM [facility] Stop: 06/13/20 09:59 Last Admin: 05/17/20 10:23 Dose: Not Given Documented by: Code Status & VTE Plan VTE Prophylaxis Plan VTE Prophylaxis will be ordered: Yes Supervising Physician Co-Signing Physician Notes I personally examined the patient and verified all jiménez points of history and exam, discussed case, and agree with decision making with Dr Rollins. upper abdominal pain, swelling. no real breathing trouble now - and does not seem to have had for days. vitals noted initially sleeping comfortably then conversing with fatigue then having some upper abdominal pain. heent nc at mmm breathing unlabored no accessory muscles good effort skin no rashes no pallor or icterus neuro no focal deficits bile leak- upper abdominal pain also seems quite related to this. ongoing management per surgery. pain control. edema - agree w Dr Rollins, appears much more c/w venous stasis/third spacing from immobility and nutrition. compression, nutrition, mobilize, time. nephro has ordered a dose of diuretic - will follow for response otherwise as above Resident Activity Tracking Resident Involvement: Resident Care Provided Care Provided: Adult Hospital Medicine
[2020-05-17] MEDS ORDERED: FUROSEMIDE 20 MG in SYRINGE 0 ML IV ONE (17:00)
[2020-05-17] MEDS ORDERED: DIAZEPAM 5 MG/ML INJ 10ML VIAL IV SCH (17:15)
--- NOTE | 2020-05-17 18:42 | Billing Data ---
Date of Service May 17, 2020 Coding Level of Care Code 89427 Subseq Hosp Care Lvl 3
[2020-05-17] MEDS: diazePAM 2 MG TABLET PO PRN (21:46)
[2020-05-18] MEDS: PIPERACILLIN/TAZOBACTAM 3.375 GM in DEXTROSE 5% 100 ML IV SCH ×3 (00:54→16:14)
[2020-05-18] MEDS: MoRPHine SULFATE 2 MG/ML CARP IV PRN ×2 (03:24→14:02)
[2020-05-18 06:14] LABS: Albumin Level 2.4 gm/dl (3.4-5.0); BUN Creatinine Ratio 21.8 (10-20); Calcium 9.2 mg/dl (8.5-10.1); Creatinine Clr Calc Pharmacy 36.5 ml/min; Est GFR (African American) 38.8; Est GFR (Non-African American) 33.5; Potassium 3.7 mmol/L (3.5-5.1)
--- NOTE | 2020-05-18 07:50 | Surgery Progress Note ---
Date of Service May 18, 2020 Assessment & Plan (1) Bile leak: Delroy is one-week postop lap marvin with a postop bile leak that was stented He is improved and continues to improve the abdominal fluids by CAT scan yesterday was diminishing as was a slight pleural effusion My point of view I would say with next 24 hours he be ready to be discharged he states that he would like to go to rehab and plans were made for that which seems reasonable The Grubbs still in place at this time is draining clear urine and will be reasonable to remove the catheter before discharge since it was placed more to monitor his urine output Present on Admission?: Yes Admission and Anticipated Discharge Date Admission Date: May 13, 2020 Subjective Sitting up in a chair feeling much better he is breathing better but his legs are still swollen He is much happier now since "we have a team effort to treat him" Diet was changed to a softer diet that he is able to swallow better and he is enjoying that No abdominal complaints Physical Exam Physical Exam: As stated he is comfortable sitting in the chair eating his breakfast the abdomen is benign sitting up he still has some pedal edema but less so than he had yesterday Results & Data ([facility]) Vital Signs (Past 12 Hours) Vital Signs Temp Pulse Resp BP Pulse Ox 05/18/20 07:26 36.7 C 65 18 162/75 H 97 05/18/20 03:18 36.8 C 65 18 131/74 95 05/18/20 00:00 37.0 C 66 18 130/72 94 Intake and output noted diuresed well since yesterday his weight is down approximately 1 kg Creatinine is down to 1.8 almost at baseline PG Care Time/CCT Total # of Minutes Spent Total Time Spent with Patient: Total time spent is greater than 50% in coordination of care (as documented) at patient's floor/unit and/or counseling patient: Coding Level of Care Code None Diagnoses Bile leak K83.9
--- NOTE | 2020-05-18 09:13 | Nephrology Progress Note ---
Date of Service May 18, 2020 Assessment & Plan (1) Acute kidney injury: * Non-oliguric * Creatinine peaked at 2.5 mg/dL 05/16/20; 1.88 mg/dL today * Electrolytes acceptable * Fluid retention associated with IV fluids, hypoalbuminemia, and NIKOLE * Pneumatic compression BL LE * Maintain Grubbs to gravity for now * Continue holding Lisinopril HCTZ * Furosemide provided to encourage a negative fluid balance, additional 40 mg IV provide this AM * Document strict I/O's * UA 1+ protein, microscopy 10-30 RBC * Monitor PRP daily (2) Chronic kidney disease, stage III (moderate): * Baseline Cr ~ 1.8. Previous evaluation revealed acellular urine sediment. Abdominal CT 05/14 reveals R cortical atrophy suggestive of microvascular disease (3) Hypertension: * BP is acceptable. NIDA and thiazide diuretic have been held (4) Benign prostatic hyperplasia with elevated prostate specific antigen (PSA): * Grubbs remains intact but may remove for voiding trial as volume status and kidney function improve (5) Bile leak: * Lap marvin 05/11 * 05/14 bile leak s/p ERCP w/ stent (6) Pleural effusion: Appreciate pulm consult Admission and Anticipated Discharge Date Admission Date: May 13, 2020 Subjective No acute events overnight. Breathing more comfortably. Out of bed and ambulating. SHEETS better. Limited due to edema in legs and weakness. Edema slowly improving. No lightheadedness. No fevers or chills. Denies abdominal pain. Appetite is good. Review of Systems Review of Systems: All systems reviewed & are unremarkable except as noted in HPI & below Physical Exam Constitutional: well developed; no acute distress Eyes: no scleral abnormality and no corneal abnormality ENMT: Mouth: no oral mucosal abnormality and oral mucous membranes not dry Neck: normal visual inspection and trachea midline Respiratory: normal respiratory effort Auscultation: + diminished lung sounds and + rales; no rhonchi Cardiovascular: Rate/Rhythm: regular rate Heart Sounds: normal S1 and normal S2 Vessels: no JVD Extremities: + edema Musculoskeletal: Extremities: no cyanosis and no clubbing Skin: normal turgor; no lesions Neurologic: Motor/Sensory: no tremor and no asterixis Psychiatric: Orientation: alert and oriented x 3 Results & Data ([facility]) Vital Signs (Past 12 Hours) Vital Signs Temp Pulse Resp BP Pulse Ox 05/18/20 07:26 36.7 C 65 18 162/75 H 97 05/18/20 03:18 36.8 C 65 18 131/74 95 05/18/20 00:00 37.0 C 66 18 130/72 94 Laboratory Results Laboratory Results - last 24 hr 05/18/20 05:31 Sodium 141 Potassium 3.7 D Chloride 108 H Carbon Dioxide 25 Anion Gap 8.0 BUN 41 H Creatinine 1.88 H Est Cr Clr Drug Dosing 36.5 Est GFR ( Amer) 38.8 Est GFR (Non-Af Amer) 33.5 BUN/Creatinine Ratio 21.8 H Glucose 103 H Calcium 9.2 Phosphorus 4.0 Albumin 2.4 L PG Care Time/CCT Total # of Minutes Spent Total Time Spent with Patient: Total time spent is greater than 50% in coordination of care (as documented) at patient's floor/unit and/or counseling patient: Coding Level of Care Code 19481 Subseq Hosp Care Lvl 3 Diagnoses Acute kidney injury N17.9 Chronic kidney disease, stage III (moderate) N18.3 Hypertension I10 Benign prostatic hyperplasia with elevated prostate specific antigen (PSA) N40.0; R97.20 Bile leak K83.9 Pleural effusion J90
[2020-05-18] MEDS ORDERED: FUROSEMIDE 40 MG in SYRINGE 0 ML IV ONE (09:15)
[2020-05-18] MEDS: LIDOCAINE 5% 1 PATCH TD SCH (10:45)
[2020-05-18] MEDS: POLYETHYLENE (MIRALAX) 17 GM PACK PO SCH ×2 (10:45→21:08)
[2020-05-18] MEDS: DOCUSATE SODIUM/SENNA 50/8.6MG TAB PO SCH ×2 (10:46→17:49)
[2020-05-18] MEDS ORDERED: METHYLNALTREXONE BROMIDE 12 MG/0.6 ML VIAL SQ SCH (11:00)
[2020-05-18] MEDS: diazePAM 2 MG TABLET PO PRN (12:38)
--- NOTE | 2020-05-18 17:38 | XCELERA ---
[id number]
--- NOTE | 2020-05-18 17:38 | Hospitalist Progress Note ---
Date of Service May 18, 2020 Assessment & Plan Admission and Anticipated Discharge Date Admission Date: May 13, 2020 1. Pedal edema to mid thigh: Echo showed normal Left ventricular size and systolic function. EF 60-65%. No regional wall motion abnormalities. Mild concentric LV hypertrophy. No significant valvular abnormalities visualized. Similar findings compared to prior report from 2016. Patient is not showing any other overt signs of heart failure. Fluid overload is most likely due to deconditioning, prolonged immobility and poor nutrition. -Recommended more frequent ambulation and physical activity patient walked six laps on the floor today, will continue to do so -PT OT -Leg compression -Follow protein diet recommended by finish mill operator -Hold off on lisinopril and HCTZ until nephrology gives okay 2. Acute postoperative abdominal pain: Pain seems improved. Patient still experiencing some tenderness at surgery wound sites. -Routine postop care per general surgery -We will follow 3. Acid reflux: Patient began experiencing symptoms of acid reflux after lunch today. Symptoms possibly exacerbated by aftermath of surgical process. -Protonics and pepcid ordered 4. Constipation: Most likely due to prolonged exposure to opioids. MiraLAX helped a bit with bowel movement. -Escalate to Relistor to see if bowel movement will improve 5. Pain management: Pain meds and valium helped decrease right quadricep pain. Mobility should help with this as well. -Decrease dosage of opiates as this may be contributing to constipation. 6. UTI: Patient is voiding through indwelling catheter with plans to be removed as an outpatient. Continue on course of zosyn per prior plan established with uro 7. Acute kidney injury on chronic kidney disease: Patient is at baseline creatine of 1.8. Continue to avoid nephrotoxic meds. 8. Respiratory distress: Patient experiences mild episodes of respiratory distress, most likely aftermath of surgical process and RUQ abdominal pain -Continue to watch this 9. BPH with elevated PSA Continue home meds 10. Peripheral artery disease Continue home meds Supervising Physician Co-Signing Physician Notes I personally examined the patient and verified all jiménez points of history and exam, discussed case, and agree with decision making with Eduardo Young MS2. generally feeling better than he was. still w indigestion/reflux. pain on and off but pain meds defintiely help. swelling less. walking better. does get easily winded/SHEETS - notes that he did not have hypoxia though - did use O2 to recover faster but not actually hypoxic he ntoed. vitals ntoed nad heent nc at mmm breathing unlabored no accessory muscles good effort. edema improved - probably 2-3+ more shins and ~1-2thigh - definitely less than before edema - part venous stasis from immobility, part rpobably related to acute malnutirtion - working on both. mobility helping SHEETS - seems mostly deconditioning related. vitals and exam effectively rule out worrisome causes. continue to follow indigestion - PPI, will give a one-time dose of H2 otherwise as above, doing better Subjective Walked in to find patient sitting up in chair. He appeared to be having difficulty breathing. He said he felt winded and that this feeling comes and goes. He slept well last night, and thinks it might be thanks to pain meds. Had some complaints of epigastric pain and reflux with lunch. Seen by finish mill operator. Discussed switching him to high protein diet. Physical Exam Constitutional: Alert and oriented, in mild respiratory distress Eyes: PERRL, conjunctivae normal, anicteric sclerae Respiratory: clear to auscultation bilaterally, no rales, rhonchi, wheezes appreciated Cardiovascular: regular rate and rhythm. Normal S1/S2. No murmurs, rubs or gallops appreciated Musculoskeletal: noted some pain in right quad Skin: no bruising, itching, rashes Genitourinary: zapata catheter still in. Urine output is clear Results & Data Results & Data ([facility]) Vital Signs (Past 12 Hours) Vital Signs Temp Pulse Pulse Resp BP BP Pulse Ox 05/18/20 15:37 36.5 C 75 22 145/77 H 96 05/18/20 13:56 05/18/20 13:44 95 05/18/20 12:35 68 24 167/83 H 95 05/18/20 11:12 36.5 C 64 18 154/74 H 98 05/18/20 10:48 63 05/18/20 07:26 36.7 C 65 18 162/75 H 97 Pulse Ox Pulse Ox Pulse Ox 05/18/20 15:37 05/18/20 13:56 97 97 97 05/18/20 13:44 05/18/20 12:35 05/18/20 11:12 05/18/20 10:48 05/18/20 07:26
[2020-05-18] MEDS: OXYCODONE HCL IR 5 MG TAB (IMMEDIATE RELEASE) PO PRN ×2 (17:40→21:13)
[2020-05-18] MEDS: PANTOprazole 40 MG TAB PO SCH (17:49)
--- NOTE | 2020-05-18 19:14 | Billing Data ---
Date of Service May 18, 2020 Coding Level of Care Code 70383 Subseq Hosp Care Lvl 3
[2020-05-19] MEDS: PIPERACILLIN/TAZOBACTAM 3.375 GM in DEXTROSE 5% 100 ML IV SCH ×3 (00:53→16:06)
[2020-05-19] MEDS: diazePAM 2 MG TABLET PO PRN (01:14)
[2020-05-19 06:32] LABS: Albumin Level 2.3 gm/dl (3.4-5.0); Creatinine Clr Calc Pharmacy 37.3 ml/min; Est GFR (African American) 39.8; Est GFR (Non-African American) 34.3
[2020-05-19 06:33] LABS: Phosphorus 4.5 mg/dl (2.5-4.9)
--- NOTE | 2020-05-19 07:28 | Surgery Progress Note ---
Date of Service May 19, 2020 Assessment & Plan (1) Bile leak: Patient here s/p lap marvin c/b bile leak now stented He continues to make progress He is working on increasing his oral intake; DAIRY SCIENTIST saw patient yesterday and provided some guidance for diet advancement Will continue on PPI Lower extremity edema still present, but improving. He feels better when he is up ambulating Appreciate hospitalists and basic sciences professor assistance with patient We are okay with removal of zapata catheter for a void trial when okay with hospitalists & basic sciences professor; Cr: 1.8 today PT/OT worked with patient yesterday and anticipate discharge to home Pt has been seen and examined with Dr. Martinez Admission and Anticipated Discharge Date Admission Date: May 13, 2020 Supervising Physician Co-Signing Physician Notes is discomfort in his legsMain complaint at this time especially lateral aspect of the right thigh most noticeable when laying in bed but some discomfort with ambulation His appetite is slowly returning food does not taste good No abdominal complaints The abdomen is softly distended nontender slight ecchymosis just inferior to the umbilicus area probably related to heparin injection The leg still has a +2 edema bilaterally no calf tenderness He continues to mobilize fluid his lab noted his creatinine continues to decrease At this time continue present therapy hopefully he will continue the diuresis he did receive a diuretic yesterday but will leave it up to nephrology to address the fluid status Zapata catheter still in with clear urine Last evening he was complaining some reflux we started on some Protonix the patient has had a longstanding history of reflux and really had not had any since the gallbladder was out until last evening Subjective Patient seen resting in bed. Says he did not sleep very well last night. Has been having some pain in RLE, upper thigh area, that improves with ambulation. He is eating some, but the food had not been appetizing to him. Says abdomen feels okay. He is passing flatus and been having loose stools. Denies nausea. Was started on ppi for reflux yesterday. Physical Exam Physical Exam: awake Gastrointestinal (Abdomen): Percussion/Palpation: abdomen soft; abdomen nontender Musculoskeletal: + LE edema Results & Data ([facility]) Vital Signs (Past 12 Hours) Vital Signs Temp Pulse Pulse Resp BP BP Pulse Ox 05/19/20 07:25 36.9 C 67 18 143/77 H 96 05/19/20 03:17 36.7 C 71 17 137/63 96 05/18/20 23:25 36.9 C 70 18 130/66 94 05/18/20 23:00 61 PG Care Time/CCT Total # of Minutes Spent Total Time Spent with Patient: Total time spent is greater than 50% in coordination of care (as documented) at patient's floor/unit and/or counseling patient: Coding Level of Care Code None Diagnoses Bile leak K83.9
[2020-05-19] MEDS: PANTOprazole 40 MG TAB PO SCH (07:40)
[2020-05-19] MEDS ORDERED: FUROSEMIDE 40 MG TAB PO ONE (09:00)
--- NOTE | 2020-05-19 09:04 | Nephrology Progress Note ---
Date of Service May 19, 2020 Assessment & Plan (1) Acute kidney injury: * Non-oliguric * Creatinine peaked at 2.5 mg/dL 05/16/20; now stable at 1.8 mg/dL * Electrolytes acceptable * Fluid retention associated with IV fluids, hypoalbuminemia, and NIKLOE * Remove Grubbs for voiding trial today * Continue holding Lisinopril HCTZ * Furosemide provided to encourage a negative fluid balance; 40 mg PO provide this AM * Document strict I/O's * Monitor PRP daily (2) Chronic kidney disease, stage III (moderate): * Baseline Cr ~ 1.8. Previous evaluation revealed acellular urine sediment. Abdominal CT 05/14 reveals R cortical atrophy suggestive of microvascular disease (3) Hypertension: * BP is acceptable. NIDA and thiazide diuretic have been held (4) Benign prostatic hyperplasia with elevated prostate specific antigen (PSA): * Remove Grubbs for voiding trial today (5) Bile leak: * Lap marvin 05/11 * 05/14 bile leak s/p ERCP w/ stent (6) Pleural effusion: Admission and Anticipated Discharge Date Admission Date: May 13, 2020 Subjective No acute events overnight. Edema continues to improve. Ambulating in halls yesterday without difficulty. Good appetite. Denies pain. No fevers or chills. Denies significant dyspnea at this time. Review of Systems Review of Systems: All systems reviewed & are unremarkable except as noted in HPI & below Physical Exam Constitutional: well developed; no acute distress Eyes: no scleral abnormality and no corneal abnormality ENMT: Mouth: no oral mucosal abnormality and oral mucous membranes not dry Neck: normal visual inspection and trachea midline Respiratory: normal respiratory effort Auscultation: + diminished lung sounds and + rales; no rhonchi Cardiovascular: Rate/Rhythm: regular rate Heart Sounds: normal S1 and normal S2 Extremities: + edema Musculoskeletal: Extremities: no cyanosis and no clubbing Skin: normal turgor; no lesions Neurologic: Motor/Sensory: no tremor and no asterixis Psychiatric: Orientation: alert and oriented x 3 Results & Data ([facility]) Vital Signs (Past 12 Hours) Vital Signs Temp Pulse Pulse Resp BP BP Pulse Ox 05/19/20 07:25 36.9 C 67 18 143/77 H 96 05/19/20 03:17 36.7 C 71 17 137/63 96 05/18/20 23:25 36.9 C 70 18 130/66 94 05/18/20 23:00 61 Laboratory Results Laboratory Results - last 24 hr 05/19/20 05:32 Sodium 140 Potassium 4.0 Chloride 105 Carbon Dioxide 28 Anion Gap 7.0 BUN 39 H Creatinine 1.84 H Est Cr Clr Drug Dosing 37.3 Est GFR ( Amer) 39.8 Est GFR (Non-Af Amer) 34.3 BUN/Creatinine Ratio 21.0 H Glucose 115 H Calcium 9.0 Phosphorus 4.5 Albumin 2.3 L PG Care Time/CCT Total # of Minutes Spent Total Time Spent with Patient: Total time spent is greater than 50% in coordination of care (as documented) at patient's floor/unit and/or counseling patient: Coding Level of Care Code 48296 Subseq Hosp Care Lvl 3 Diagnoses Acute kidney injury N17.9 Chronic kidney disease, stage III (moderate) N18.3 Hypertension I10 Benign prostatic hyperplasia with elevated prostate specific antigen (PSA) N40.0; R97.20 Bile leak K83.9 Pleural effusion J90
[2020-05-19] MEDS: DOCUSATE SODIUM/SENNA 50/8.6MG TAB PO SCH (09:44)
[2020-05-19] MEDS: POLYETHYLENE (MIRALAX) 17 GM PACK PO SCH ×2 (09:44→22:24)
[2020-05-19] MEDS: LIDOCAINE 5% 1 PATCH TD SCH (09:44)
--- NOTE | 2020-05-19 13:35 | Hospitalist Progress Note ---
Date of Service May 19, 2020 Assessment & Plan Admission and Anticipated Discharge Date Admission Date: May 13, 2020 1. Pedal edema to thigh: This has been significantly improved. Recommend continuous ambulation and return to physical activity as tolerated. Also follow dietary instructions. 2. Right quad pain: Likely due to deconditioning. Ambulation and return to physical activity should help with this as well. 3. Abdominal pain: PPI seems to have helped with reflux symptoms. No other abdominal pain noted. Continue to follow up 4. Bowel movement: Follow up on effects of MiraLAX dose from today Supervising Physician Co-Signing Physician Notes I personally examined the patient and verified all jiménez points of history and exam, discussed case, and agree with decision making with Eduardo Young MS2. feeling well. swelling improving. for home once ok w surgery. vitals noted walking in room no distress. heent nc at mmm breathing unlabored edema - part venous stasis from immobility, part probably related to acute malnutrition - working on both. mobility helping. has had a few doses of diuretic SHEETS - seems mostly deconditioning related. ongoing increase in activity. otherwise as above, doing better. medically stable for discharge. Subjective Patient seems to be much improved today. He was able to get some sleep last nigh t, although right quad pain interrupted his sleep a few times. Walked in and found him standing upright. He says that standing and ambulation help with his right quad pain, but laying in bed for extended periods makes the pain worse. He ate all his breakfast this am. No reflux complaints. No abdominal pain except surgery wound site tenderness. Relistor did not do much for his bowel movement. He received MiraLax this am. The swelling in his legs is significantly decreased from yesterday. He is walking laps on hospital floor. Reports feeling winded afterwards. Diuresed 2L on Lasix. Grubbs catheter removed this am. Review of Systems Constitutional: Good energy. No fever, chills, decreased weakness Respiratory: Gets winded after prolonged ambulation. No wheezing/cough/pain on inspiration Cardiovascular: Additional Comments: No chest pain, no dyspnea at rest Gastrointestinal: No abdominal pain. Receiving MiraLax to help with bowel movement Genitourinary: + as per Subjective / HPI Neurologic: Focused, alert, oriented Results & Data Results & Data ([facility]) Vital Signs (Past 12 Hours) Vital Signs Temp Pulse Pulse Resp BP BP Pulse Ox 09/02/20 11:31 36.5 C 70 18 163/86 H 97 05/19/20 10:48 64 05/19/20 07:25 36.9 C 67 18 143/77 H 96 05/19/20 03:17 36.7 C 71 17 137/63 96
--- NOTE | 2020-05-19 18:48 | Billing Data ---
Date of Service May 19, 2020 Coding Level of Care Code 18863 Subseq Hosp Care Lvl 2
[2020-05-19] MEDS: OXYCODONE HCL IR 5 MG TAB (IMMEDIATE RELEASE) PO PRN (22:05)
[2020-05-20] MEDS: PIPERACILLIN/TAZOBACTAM 3.375 GM in DEXTROSE 5% 100 ML IV SCH (02:41)
[2020-05-20 07:23] LABS: Albumin Level 2.4 gm/dl (3.4-5.0); BUN Creatinine Ratio 19.4 (10-20); Calcium 8.9 mg/dl (8.5-10.1); Est GFR (African American) 41.7; Potassium 3.6 mmol/L (3.5-5.1)
[2020-05-20 07:28] LABS: Phosphorus 3.7 mg/dl (2.5-4.9)
--- NOTE | 2020-05-20 07:36 | Surgery Progress Note ---
Date of Service May 20, 2020 Assessment & Plan (1) Bile leak: Patient is s/p lap marvin and subsequent ERCP/stenting for bile leak Patient continues to clinically improve each day Grubbs catheter was removed, he stated he initially was retaining some but was eventually able to pass the urine without requiring straight cath; PVR's were obtained by nursing He is tolerating a diet LE edema improving We are okay with discharge to home today; will discuss with the hospitalists and nephrology their final recommendations Discharge instructions discussed with pt, we will see him in clinic next week. He will also need GI follow up within 6 weeks for stent removal Pt has been seen and examined with Dr. Martinez Admission and Anticipated Discharge Date Admission Date: May 13, 2020 Subjective Patient states he is eager to go home. He says his lower extremity swelling continues to improve. Denies shortness of breath. Had some more formed BM's this AM. Denies abdominal discomfort. Physical Exam Physical Exam: awake/alert Gastrointestinal (Abdomen): Inspection/Auscultation: + abdomen distended (mild) Percussion/Palpation: abdomen soft; abdomen nontender Musculoskeletal: bilateral LE edema improving Results & Data ([facility]) Vital Signs (Past 12 Hours) Vital Signs Temp Pulse Pulse Resp BP Pulse Ox 05/20/20 03:08 36.7 C 72 18 134/76 96 05/19/20 23:24 37.0 C 84 18 129/61 95 05/19/20 22:30 76 PG Care Time/CCT Total # of Minutes Spent Total Time Spent with Patient: Total time spent is greater than 50% in recreation coordinator rdination of care (as documented) at patient's floor/unit and/or counseling patient: Coding Level of Care Code None Diagnoses Bile leak K83.9
[2020-05-20] MEDS: LIDOCAINE 5% 1 PATCH TD SCH (08:26)
[2020-05-20] MEDS ORDERED: POTASSIUM CHLORIDE 20 MEQ TABCR PO SCH (08:30)
--- NOTE | 2020-05-20 10:30 | Nephrology Progress Note ---
Date of Service May 20, 2020 Assessment & Plan (1) Acute kidney injury: * Creatinine peaked at 2.5 mg/dL 05/16/20; now stable at 1.8 mg/dL * NIKOLE attributed to NIDA use, pre-renal physiology, and some urinary retention * Electrolytes acceptable * Fluid retention associated with IV fluids, hypoalbuminemia, and NIKOLE * Some persistent urinary retention but voiding reasonably well * Continue holding Lisinopril HCTZ * Furosemide 20 mg daily post discharge * Repeat metabolic profile next week as outpatient * I will coordinate outpatient follow up with me in the nephrology clinic next week * Plan of care was reviewed with the primary team today (2) Chronic kidney disease, stage III (moderate): * Baseline Cr ~ 1.8. Previous evaluation revealed acellular urine sediment. Abdominal CT 05/14 reveals R cortical atrophy suggestive of microvascular disease (3) Hypertension: * BP is acceptable. NIDA and thiazide diuretic have been held. Continue furosemide with monitoring. (4) Benign prostatic hyperplasia with elevated prostate specific antigen (PSA): * Remove Grubbs for voiding trial today (5) Bile leak: * Lap marvin 05/11 * 05/14 bile leak s/p ERCP w/ stent Admission and Anticipated Discharge Date Admission Date: May 13, 2020 Subjective No acute events overnight. Edema continues to improve. Ready to go home. Breathing comfortably. No abdominal pain. PVR ~120 ml. Continues to experience some hesitancy. Review of Systems Review of Systems: All systems reviewed & are unremarkable except as noted in HPI & below Physical Exam Constitutional: well developed; no acute distress Eyes: no scleral abnormality and no corneal abnormality ENMT: Mouth: no oral mucosal abnormality and oral mucous membranes not dry Neck: normal visual inspection and trachea midline Respiratory: normal respiratory effort Auscultation: + diminished lung sounds; no rales and no rhonchi Cardiovascular: Rate/Rhythm: regular rate Heart Sounds: normal S1 and normal S2 Vessels: no JVD Extremities: + edema Musculoskeletal: Extremities: no cyanosis and no clubbing Skin: normal turgor; no lesions Neurologic: Motor/Sensory: no tremor and no asterixis Psychiatric: Orientation: alert and oriented x 3 Results & Data ([facility]) Vital Signs (Past 12 Hours) Vital Signs Temp Pulse Pulse Resp BP BP Pulse Ox 05/20/20 07:41 36.8 C 72 19 148/73 H 96 05/20/20 03:08 36.7 C 72 18 134/76 96 05/19/20 23:24 37.0 C 84 18 129/61 95 05/19/20 22:30 76 Laboratory Results Laboratory Results - last 24 hr 05/20/20 06:22 Sodium 136 Potassium 3.6 Chloride 102 Carbon Dioxide 25 Anion Gap 9.0 BUN 34 H Creatinine 1.77 H Est Cr Clr Drug Dosing 38.0 Est GFR ( Amer) 41.7 Est GFR (Non-Af Amer) 36.0 BUN/Creatinine Ratio 19.4 Glucose 111 H Calcium 8.9 Phosphorus 3.7 Albumin 2.4 L PG Care Time/CCT Total # of Minutes Spent Total Time Spent with Patient: Total time spent is greater than 50% in coordination of care (as documented) at patient's floor/unit and/or counseling patient: Coding Level of Care Code 44360 Subseq Hosp Care Lvl 3 Diagnoses Acute kidney injury N17.9 Chronic kidney disease, stage III (moderate) N18.3 Hypertension I10 Benign prostatic hyperplasia with elevated prostate specific antigen (PSA) N40.0; R97.20 Bile leak K83.9
--- NOTE | 2020-05-20 19:49 | Hospitalist Progress Note ---
Date of Service May 20, 2020 Assessment & Plan (1) Bile leak: edema - part venous stasis from immobility, part probably related to acute malnutrition - working on both. mobility helping. anticipate ongoing slow resolution SHEETS - seems mostly deconditioning related. ongoing increase in activity seems to be helping thigh pain - mucle stiffness - improving w ambulation GERD/reflux - likely secondary (indirectly) to UGI irritation from bile leak - but improving. stable for home. can continue PPI for short term bile leak - stable for home per jim Admission and Anticipated Discharge Date Admission Date: May 13, 2020 Subjective feeling better ready to go home walking well. had a little trouble voiding earlier but then able to - no trouble since. discussed f/u, expectations, recovery, etc. Review of Systems Review of Systems: All systems reviewed & are unremarkable except as noted in HPI & below Physical Exam Physical Exam: vitals noted gen [id number] pleasant nad heent nc at mmm breathing unlabored no accessory muscles good effort skin no rashes no pallor or icterus neuro no focal deficits Results & Data Results & Data ([facility]) Vital Signs (Past 12 Hours) Vital Signs Temp Pulse Pulse Pulse Resp BP BP 05/20/20 13:47 98.2 F 71 67 72 19 148/73 H 134/76 Pulse Ox 05/20/20 13:47 96 PG Care Time/CCT Total # of Minutes Spent Total Time Spent with Patient: Total time spent is greater than 50% in coordination of care (as documented) at patient's floor/unit and/or counseling patient: Coding Level of Care Code 63683 Subseq Hosp Care Lvl 2 Diagnoses Bile leak K83.9
--- NOTE | 2020-05-23 10:00 | Discharge Summary ---
Date of Service May 23, 2020 Admission HPI Per Admitting Provider 80 year old male underwent cholecystectomy yesterday and was d/c home the same day. He was doing well--had BM and was tolerating diet until earlier this evening developed right shoulder pain along with RUQ abdominal pain. No N/V. No palliative or provocative factors. In the ED, CT scan of abdomen showed small amount of perihepatic fluid. No free air or SBO noted. WBC was 13K. At the im eof my exam the patient was noted to be stable. Principal Diagnosis Bile Leak acute post operative pain acute kidney injury superimposed on chronic kidney disease Discharge Exam awake/alert Gastrointestinal (Abdomen) Percussion/Palpation: abdomen soft; abdomen nontender Musculoskeletal bilateral lower extremity edema improving Discharge Data Allergies Allergy/AdvReac Type Severity Reaction Status Date / Time atorvastatin Allergy Unknown RASH Verified 05/13/20 00:38 nisoldipine [From Sular] Allergy Unknown Unknown Verified 05/13/20 00:38 propranolol Allergy Unknown RASH Verified 05/13/20 00:38 Consultations 05/13/20 01:47 ED Decision to Admit Stat 05/13/20 11:57 Consult Hospitalist Routine 05/14/20 12:56 Consult Gastroenterology Routine 05/16/20 09:28 Consult Nephrology Routine 05/17/20 10:23 Consult Pulmonology Routine Procedures Performed Operation Date: 05/14/20 14:20 Actual Procedures p Endoscopic Retrograde Cholangiopancreatogram, Stent Placement - Sheron Berman Ordered Studies 05/12/20 23:50 CT abd pelvis wo con Urgent 05/14/20 [place] ERCP biliary ductal Routine 05/14/20 10:57 CT abd pelvis wo con Stat 05/17/20 07:22 CT abd pelvis wo con Routine Hospital Course (1) Bile leak: This is a 80 year old male who underwent cholecystectomy on 05/11/[address] Martinez and was discharged home on the same day. He was doing well--had BM and was tolerating diet until the evening of 05/12 he developed right shoulder pain along with RUQ abdominal pain. Patient reported to the ER on 05/13 for further evaluation and a CT scan was obtained that was overall unremarkable, other than a small amount of perihepatic fluid, likely postop in nature. WBC 13. Patient was admitted and was made NPO with IVF. On 05/13 patient's pain persisted and a HIDA that revealed no definitive bile leak. Hospitalists were consulted to follow along with us during patient's admission given cardiac and CKD history. On the evening of 05/13 and into 05/14 patient developed an oxygen requirement and had some complaints of shortness of breath. ABG unremarkable and CXR showing elevation of the right hemidiaphragm. Given patient's clinical status decision was made to repeat CT scan. Interestingly repeat CT scan revealed interval devel opment of a 9.6 x 4.6 cm pocket of fluid along the undersurface of the lateral segment of the liver, highly suggestive of bile leak. GI was consulted thereafter and performed an ERCP with stent placement on 05/14. They recommended patient complete a course of abx thereafter. Patient's diet was advanced as tolerated post procedure. A repeat CT scan post procedure did not reveal any significant fluid collections requiring drainage. During patient's hospitalization he did develop NIKOLE on CKD. A zapata was placed temporarily for urinary retention and to accurately monitor I&O's. Nephrology was consulted for assistance and provided recommendations for diuresis and fortunately patient's Cr improved to his baseline. He did have significant lower extremity edema & had bilateral pleural effusions that improved after receiving diuresis. Pulmonary evaluated patient and agreed that his pleural effusions were improving and did not require thoracentesis. Patient also had low albumin which could have been contributing to his overloaded state. Diet was adjusted to patient's preferences of what was appetizing to him and he was seen by speech and dietary. His zapata catheter was ultimately removed prior to discharge and he was able to void spontaneously. Patient worked with PT/OT who recommended patient okay for discharge to home. On 05/20 the patient's pain was managed with prn medication, he was breathing comfortably on room air, tolerating a diet, and his LE edema and Cr improved. He was instructed to continue daily 20mg lasix until he was seen in nephrology clinic next wk. He was scheduled for a surgical follow up with Dr. Martinez and he was asked to call GI for removal of stent within 6 weeks. Total Time Total Time Spent Total Time Spent (In Minutes): 15 Discharge Plan Discharge Items Patient Disposition: Home - Self-Care Reason For Visit: POST-OP PAIN Discharge Diagnosis: post operative pain history of recent cholecystectomy Activity: Per Instructions section Lifting: No more than 10 pounds Bathing Comment: may shower; no soaking in tubs/pools Exercise/Sports: Wait until after follow-up appointment Driving/Machine Use: Do not resume driving until you are cleared by Dr. Martinez Non-emergency contact: Surgeon Call non-emergency contact if: you have any medication questions, your symptoms worsen, your pain is not controlled, your pain is worsening, you have a fever, your temperature is above 101.5, your wound has increased redness, your wound has increased drainage and your wound pain has increased Follow-up/Referrals: Erick Martinez MD [Surgeon] - 05/26/20 11:30 am ( within 1 week) Jakob Crawford DO [Physician] - 05/27/20 1:20 pm (within 1 week.) Taj Hart MD [Primary Care Provider] - 05/26/20 1:10 pm Sheron Berman [Physician] - 07/01/20 7:00 am (within 6 weeks for stent removal. Dr. Berman's office will mail you all the paperwork you need for this appointment.) Diet: Regular Addtl Attending Provider Instructions: Please call the gastroenterology group to schedule follow up within 6 weeks to have your stent removed. You have been followed by Nephrology during your hospitalization. They will be calling you to schedule an appointment with Dr. Crawford in his outpatient clinic within 1 week. You will be discharged on a diuretic called Lasix to be taken once daily until your follow up appointment. Please HOLD off on taking your Lisinopril-Hydrochlorothiazide until you see Dr. Crawford. Please call them if you have any questions/concerns. You may purchase stool softeners over the counter if needed for constipation. These include Miralax which you may take twice daily if needed Colace 100mg orally twice daily as needed Sennakot-S you may take twice daily if needed for constipation Pending Studies at Discharge: No Stand-Alone Forms: My [employer], Smoking Cessation Medications and DC Order Prescriptions: New furosemide [Lasix] 20 mg tablet 20 mg PO DAILY Qty: 7 RF: 0 oxycodone-acetaminophen [Percocet] 5-325 mg tablet 1 tab PO .q4-6h PRN (Reason: pain, for initial therapy, max 6 tabs per day) Qty: 7 RF: 0 Continued omeprazole magnesium [Prilosec OTC] 20 mg tablet,delayed release (DR/EC) 20 mg PO QAM RF: 0 alum-mag hydroxide-simeth 200-200-20 mg/5 mL Suspension 30 ml PO QID PRN (Reason: Indigestion) RF: 0 Probiotic 3 billion cell Capsule 0 mmu cells PO QAM RF: 0 Discontinued lisinopril-hydrochlorothiazide 20-12.5 mg tablet 1 tab PO QAM RF: 0 oxycodone-acetaminophen [Percocet] 5-325 mg tablet 1 - 2 tab PO .q4-6h PRN (Reason: pain, for initial therapy, max 6 tabs per day) Qty: 7 RF: 0 Discharge Orders: Discharge Order (Routine); Ordered 05/20/20 Ordered By: Maria Guadalupe Napoles/Other Patient Handouts: After Gallbladder Surgery, Having Laparoscopic C holecystectomy Admission Data Admit Date/Time: 05/13/20 02:01 Attending Provider: Erick Martinez Admit Provider: Erick Martinez Primary Care Provider: Taj Hart Other Providers: Erick Martinez ; Leighton Land ; Bina Fowler ; Lakhwinder Enamorado ; Guy Angeles ; Mary Beth Harley Thomas E. ; Francisco Javier Sosa ; Rene Almonte ; Alicia Spivey ; Sheri Reyna ; Bobbi Kraft ; Kraig Manzanares ; Tata Rowland ; Lona Rollins ; Ji Gutiérrez ; Kimani Vela ; Liban Doran ; Blanca Willard ; Farhan Licona ; Theodore Rutherford ; Lakhwinder Wade ; Joleen Treviño ; Oli Sanz ; Aranza Melgoza ; Eliana Melgoza ; Maninder Ko ; Marcel Serna ; Michael Martinez ; Norma De Santiago ; Edward Mccoy ; Yuridia Almonte ; Mary Beth Matt ; Jamie Thompson ; Stacie Shaw ; Joce Kothari ; Sheron Berman ; Zohaib Dai ; Sherice Hutchinson ; Taj Iyer ; Leon Jo ; Larisa Cisneros ; Camille Smalls ; Susu Bardales ; Jacy Ramirez ; Iglesia Nunes ; Ricky Pompa ; Zafar Massey ; [facility] Other Interventions: Discharge Summary Assessment (RN) Last Done: 05/20/20 13:47 Coding Level of Care Code D/C Day Management <30 mins Diagnoses Bile leak K83.9
== END 2020-05-20 13:52 | disposition home health service (06) | DRG 356 ==
LOC: ED 23:32 → 3E 05-13 02:01 → 2E 05-14 17:33

== ENCOUNTER 2020-05-28 21:48 | Inpatient (IN) ==
[2020-05-28] MEDS ORDERED: SODIUM CHLORIDE 0.9% 500 ML IV ONE (23:03)
[2020-05-28] MEDS ORDERED: ACETAMINOPHEN 1,000 MG/100 ML VIAL IV STA (23:03)
--- NOTE | 2020-05-28 23:09 | Emergency Department Note ---
History of Present Illness General Chief complaint: Cough Stated complaint: sob, fever 101, lethargic, cough Time Seen by Provider: 05/28/20 22:48 Source: patient, RN notes reviewed and old records reviewed Mode of arrival: ambulatory Limitations: no limitations History of Present Illness Provider complaint: fever Onset (ago): hour(s) 6 Location: upper extremity and lower extremity Radiation: non-radiation Maximum Pain Intensity: 0 Associated symptoms: + fever/chills and + weakness; no chest pain, no cough, no diaphoresis, no headaches, no nausea/vomiting and no shortness of breath This is a 80-year-old male who is had a complicated recent medical history. The patient reports he went down to his camper today and began running a fever. In addition to the fever the patient feels incredibly weak. The patient recently had his gallbladder out and unfortunately had a biliary leak. He ended up s taying approximately 1 month in the hospital which was complicated by acute kidney injury along with having a biliary stent placed. Home Medications Home Medications Medication Instructions Recorded Confirmed Type Probiotic 0 mmu cells PO QAM 04/07/20 05/28/20 History omeprazole magnesium 20 mg 20 mg PO QAM 04/21/20 05/28/20 History tablet,delayed release alum-mag hydroxide-simeth 30 ml PO QID PRN 05/06/20 05/28/20 History furosemide [Lasix] 20 mg PO DAILY #7 tab 05/20/20 05/28/20 Rx colchicine 0.6 mg tablet 0.6 mg PO BID 05/27/20 05/28/20 History Allergies Allergy/AdvReac Type Severity Reaction Status Date / Time atorvastatin Allergy Unknown RASH Verified 05/28/20 23:54 nisoldipine [From Sular] Allergy Unknown Unknown Verified 05/28/20 23:54 propranolol Allergy Unknown RASH Verified 05/28/20 23:54 Past Med/Surg History Medical History (Updated 05/31/20 @ 06:25 by Jakob Phipps MD) Acute kidney injury Atelectasis, right Benign prostatic hyperplasia with elevated prostate specific antigen (PSA) Cardiac murmur HEARD BY PCP PAST MONTH- NO VALVE ISSUES PER 2015 ECHO Carotid artery stenosis Left side 50-69% stenosis per 2019 carotid doppler Chronic kidney disease, stage III (moderate) F/U DR CRAWFORD- BASELINE CREAT 1.6-1.8 GERD without esophagitis Gout History of back problems Hypertension Inflammatory polyarthritis Obesity (BMI 30.0-34.9) PAD (peripheral artery disease) Pleural effusion, right SOB (shortness of breath) on exertion Volume overload Surgical History (Updated 05/29/20 @ 11:30 by Marbin Rausch MD) H/O hernia repair (08/18/05) Right direct inguinal hernia and lipoma of the cord repair with mesh [id number] Dr. Martinez H/O inguinal hernia repair H/O prostatectomy 2001 & 2007 H/O right knee surgery 1973 History of colonoscopy History of rectal surgery Hx of cataract surgery 2016 both eyes Hx of total knee arthroplasty Right 2004 S/P ERCP Stent placed S/P laparoscopic cholecystectomy (05/11/20) Laparoscopic Cholecystectomy with Cholangiogram 05/11/20 Dr. 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 Beliefs That Will Affect Care: None marital status: Current Living Situation: Spouse current occupational status: retired How many Children do You have: 2 Other Information That Helps Us Care for You: No Feels Safe at Home: Yes Safety Concerns: Feels Safe At This Time Review of Systems A total of 10 systems reviewed and were otherwise negative Physical Exam Vital Signs Vital Signs - 24 hr 05/28/20 21:57 Temperature 37.6 C H Temperature Source Oral Pulse Rate 91 H Pulse Rhythm Regular Pulse Strength Normal Respiratory Rate 20 Respiratory Effort / Characteristics Non-Labored Spontaneous Respiratory Depth Normal Respiratory Pattern Regular Blood Pressure 129/65 Blood Pressure Mean 86 Blood Pressure Position Sitting Pulse Oximetry 96 Oxygen Delivery Method Room Air Sepsis Recent Fever Within 48 Hours Yes Sepsis New/Unexplained Change in Mental Status No Sepsis Action Taken by Nursing No Action Required VITAL SIGNS - Vital signs and nursing notes were reviewed. GENERAL - 80-year-old appearing stated age who is in no acute distress. Commu nicates well with provider and answers questions appropriately. SKIN - Without rashes. HEAD - NC/AT. EYES - PERRL with EOMI bilaterally. Sclera anicteric. Palpebral conjunctiva pink and moist with no injection noted. EARS - No deformities of external structures noted on gross examination bilater ally. No pain elicited with palpation of the tragus bilaterally. External auditory canals without discharge or otorrhea. Tympanic membranes pearly robles without retraction or bulging. No fluid or purulent material visualized behind the TM. Handle of malleus, umbo, cone of light, pars tensa/flaccid all easily visualized. NOSE - Midline and without cyanosis. No epistaxis or purulent drainage noted. Septum midline without deviation or septal hematoma noted. MOUTH/OROPHARYNX - Without perioral cyanosis. Buccal mucosa pink and moist and without leukoplakia. Tongue midline with equal elevation of palate bilaterally. No tonsillar hypertrophy, erythema, or exudates noted. dentition noted. NECK - Neck with FROM. Supple to palpation. lymphadenopathy noted. No nuchal rigidity. LUNGS - Chest wall symmetric without accessory muscle use, intercostals retractions, or central cyanosis. Normal vesicular breath sounds CTA B/L. No wheezes, rales, or rhonchi appreciated. CARDIAC - RRR with S1/S2. No murmur, rubs, or gallops appreciated. ABDOMEN - Abdominal contour without pulsations or visible masses. BS normoactive all four quadrants. No tenderness, palpable masses, hepatosplenomegaly, or ascites noted. EXTREMITIES - No clubbing or peripheral cyanosis. No pretibial edema present. +3/5 radial, posterior tibial, and dorsalis pedis pulses palpated throughout. +5/5 strength noted in UE/LE bilaterally. NEUROLOGIC - Cranial nerves II through XII grossly intact. Sensory intact to light touch throughout. Patellar reflexes +2/4. PSYCH - A&Ox3 and cooperates fully with examiner. Pt is very pleasant and interacts well with examiner. Course Administered Medications Acetaminophen (Acetaminophen 325 Mg Tab) 650 mg PO Q4H PRN PRN Reason: Pain Stop: 06/29/20 15:26 Last Admin: 05/30/20 15:44 Dose: 650 mg Documented by: [id number] Colchicine (Colchicine 0.6 Mg Tab) 0.6 mg PO BID MARIA E Stop: 06/28/20 08:59 Last Admin: 05/30/20 20:25 Dose: 0.6 mg Documented by: [id number] Admin: 05/30/20 10:00 Dose: 0.6 mg Documented by: [id number] Admin: 05/29/20 21:32 Dose: 0.6 mg Documented by: [id number] Admin: 05/29/20 08:49 Dose: 0.6 mg Documented by: [id number] Furosemide (Furosemide 20 Mg Tab) 20 mg PO DAILY MARIA E Stop: 06/28/20 08:59 Last Admin: 05/30/20 10:00 Dose: 20 mg Documented by: [id number] Admin: 05/29/20 08:49 Dose: 20 mg Documented by: [id number] Piperacillin Sod/Tazobactam (Sod 3.375 gm/ Dextrose) 115 mls @ 28.75 mls/hr IV Q8H MARIA E; Protocol Stop: 06/08/20 07:59 Last Infusion: 05/31/20 03:38 Dose: 0 mls/hr Documented by: [id number] Admin: 05/30/20 23:39 Dose: 28.8 mls/hr Documented by: [id number] Infusion: 05/30/20 20:14 Dose: 0 mls/hr Documented by: [id number] Admin: 05/30/20 15:37 Dose: 28.8 mls/hr Documented by: [id number] Infusion: 05/30/20 13:00 Dose: 0 mls/hr Documented by: [id number] Admin: 05/30/20 09:00 Dose: 28.8 mls/hr Documented by: [id number] Infusion: 05/30/20 04:44 Dose: 0 mls/hr Documented by: [id number] Admin: 05/30/20 00:44 Dose: 28.8 mls/hr Documented by: [id number] Infusion: 05/29/20 19:57 Dose: 0 mls/hr Documented by: [id number] Admin: 05/29/20 15:51 Dose: 28.8 mls/hr Documented by: [id number] Infusion: 05/29/20 12:48 Dose: 0 mls/hr Documented by: [id number] Admin: 05/29/20 08:48 Dose: 28.8 mls/hr Documented by: [id number] Loperamide HCl (Loperamide Hcl 2 Mg Cap) 2 mg PO Q4H PRN PRN Reason: Diarrhea Stop: 06/29/20 18:08 Last Admin: 05/31/20 04:51 Dose: 2 mg Documented by: [id number] Admin: 05/30/20 20:25 Dose: 2 mg Documented by: [id number] Pantoprazole Sodium (Pantoprazole 40 Mg Tab) 40 mg PO BID MARIA E Stop: 06/28/20 20:59 Last Admin: 05/30/20 20:25 Dose: 40 mg Documented by: [id number] Admin: 05/30/20 10:00 Dose: 40 mg Documented by: [id number] Admin: 05/29/20 21:31 Dose: 40 mg Documented by: [id number] Saccharomyces Boulardii (Saccharomyces Boulardii 250 Mg Cap) 250 mg PO DAILY [facility] Stop: 06/29/20 08:59 Last Admin: 05/29/20 21:31 Dose: 250 mg Documented by: [id number] Discontinued Medications Sodium Chloride (Nss) 500 mls @ 999 mls/hr IV .Q31M ONE Stop: 05/28/20 23:33 Last Infusion: 05/29/20 00:41 Dose: 0 mls/hr Documented by: [id number] Admin: 05/29/20 00:07 Dose: 999 mls/hr Documented by: [id number] Acetaminophen (Ofirmev) 1,000 mg in 100 mls @ 400 mls/hr IV NOW STA Stop: 05/28/20 23:17 Last Infusion: 05/29/20 00:41 Dose: 0 mls/hr Documented by: [id number] Admin: 05/29/20 00:07 Dose: 400 mls/hr Documented by: [id number] Piperacillin Sod/Tazobactam Sod (Zosyn) 4.5 gm in 120 mls @ 240 mls/hr IV NOW ONE Stop: 05/29/20 02:21 Last Infusion: 05/29/20 03:49 Dose: 0 mls/hr Documented by: [id number] Admin: 05/29/20 02:16 Dose: 240 mls/hr Documented by: [id number] Daptomycin 475 mg/ Syringe 9.5 mls @ 4.75 mls/min IV NOW ONE; Protocol Stop: 05/29/20 01:53 Last Admin: 05/29/20 02:16 Dose: 4.75 mls/min Documented by: [id number] Ioversol (Optiray 320 125ml) 118 ml IV ONCE ONE Stop: 05/29/20 01:21 Last Admin: 05/29/20 01:20 Dose: 118 ml Documented by: [id number] Metoclopramide HCl (Metoclopramide Hcl Inj 5 Mg/Ml 2 Ml Vial) 10 mg IV NOW STA Stop: 05/29/20 02:16 Last Admin: 05/29/20 03:49 Dose: Not Given Documented by: [id number] Pantoprazole Sodium (Pantoprazole 40 Mg Tab) [facility] [place] [facility] [place]: 06/28/20 08:59 Last Admin: 05/29/20 08:49 Dose: 40 mg Documented by: [id number] Medical Decision Making Differential Diagnosis Infection, dehydration, metabolic abnormality, hypo/hyperglycemia, electrolyte disturbance, anemia, hypoxia, cardiac sources, intracerebral event, toxicologic, neurologic, as well as other pathologies. Medical Records Attestation: I reviewed the patient's medical records. Home Medications Current Medication List: was personally reviewed by me Laboratory Data Attestation: I reviewed the patient's lab results. Result diagrams: 05/31/20 04:52 05/30/20 05:50 Lab Results 05/28/20 05/28/20 05/28/20 Range/Units 23:46 23:46 23:46 WBC 13.18 H (4.8-10.8) K/uL RBC 3.41 L (4.7-6.1) M/uL Hgb 10.8 L (14.0-18.0) g/dL POC Hgb (14.0-18.0) g/dl Hct 31.4 L (42-52) % POC Hct (42-52) % MCV 92.1 (80-100) fL MCH 31.7 (25-34) pg MCHC 34.4 (32-36) g/dL RDW Std Deviation 40.7 (36.4-46.3) fL RDW Coeff of Raul 11.9 (11.5-14.5) % Plt Count 527 H (130-400) K/uL MPV 8.5 (7.4-10.4) fL Immature Gran % (Auto) 0.3 % Neut % (Auto) 83.0 % Lymph % (Auto) 5.8 % [place] % (Auto) 10.2 % Eos % (Auto) 0.5 % Baso % (Auto) 0.2 % Neut # (Auto) 10.94 H (1.4-6.5) K/uL Lymph # (Auto) 0.77 L (1.2-3.4) K/uL [place] # (Auto) 1.35 H (0.11-0.59) K/uL Eos # (Auto) 0.06 (0-0.5) K/uL Baso # (Auto) 0.02 (0-0.2) K/uL Immature Gran # (Auto) 0.04 H (0.00-0.02) K/uL PT 11.2 (9.0-12.0) Seconds INR 1.1 (0.9-1.1) APTT 27.7 (21.0-31.0) Seconds PTT Ratio 1.0 POC Sodium (135-144) mmol/L Sodium (136-145) mmol/L POC Potassium (3.3-5.0) mmol/L Potassium (3.5-5.1) mmol/L POC Chloride (101-112) mmol/L Chloride (98-107) mmol/L Carbon Dioxide (21-32) mmol/L POC Total CO2 (24-31) mmol/L Anion Gap (3-11) POC Anion Gap (16-25) mmol/L POC BUN (7-18) mg/dl BUN (7-18) mg/dl Creatinine (0.6-1.4) mg/dl POC Creatinine (0.6-1.3) mg/dl Est Cr Clr Drug Dosing Est GFR ( Amer) Est GFR (Non-Af Amer) BUN/Creatinine Ratio (10-20) Glucose (70-99) mg/dl POC Glucose (other) (70-99) mg/dl Lactate Calcium (8.5-10.1) mg/dl POC Ioniz Calcium Virgilio (1.12-1.32) mmol/l Magnesium (1.8-2.4) mg/dl Total Bilirubin (0.2-1) mg/dl AST (15-37) U/L ALT (12-78) U/L Alkaline Phosphatase (45-117) U/L Troponin I (0-0.045) ng/ml Total Protein (6.4-8.2) gm/dl Albumin (3.4-5.0) gm/dl Globulin (2.5-4.0) gm/dl Albumin/Globulin Ratio (0.9-2) Procalcitonin 0.37 (0-0.5) ng/ml Urine Color Urine Appearance (Clear) Urine pH (4.5-7.5) Ur Specific Telford (1.000-1.030) Urine Protein (Negative) Urine Glucose (UA) (Negative) Urine Ketones (Negative) Urine Blood (Negative) Urine Nitrite (Negative) Urine Bilirubin (Negative) Urine Urobilinogen (Negative) Ur Leukocyte Esterase (Negative) Urine WBC (Auto) (0-5) /hpf Urine RBC (Auto) (0-4) /hpf U Hyaline Cast (Auto) (0-5) /lpf U Epithel Cells (Auto) (0-5) /lpf Urine Bacteria (Auto) (Negative) Urine Yeast COVID-19 Eval Order COVID-19 PCR (Negative) 05/28/20 05/28/20 05/29/20 Range/Units 23:46 23:46 00:00 WBC (4.8-10.8) K/uL RBC (4.7-6.1) M/uL Hgb (14.0-18.0) g/dL POC Hgb (14.0-18.0) g/dl Hct (42-52) % POC Hct (42-52) % MCV (80-100) fL MCH (25-34) pg MCHC (32-36) g/dL RDW Std Deviation (36.4-46.3) fL RDW Coeff of Raul (11.5-14.5) % Plt Count (130-400) K/uL MPV (7.4-10.4) fL Immature Gran % (Auto) % Neut % (Auto) % Lymph % (Auto) % [place] % (Auto) % Eos % (Auto) % Baso % (Auto) % Neut # (Auto) (1.4-6.5) K/uL Lymph # (Auto) (1.2-3.4) K/uL [place] # (Auto) (0.11-0.59) K/uL Eos # (Auto) (0-0.5) K/uL Baso # (Auto) (0-0.2) K/uL Immature Gran # (Auto) (0.00-0.02) K/uL PT (9.0-12.0) Seconds INR (0.9-1.1) APTT (21.0-31.0) Seconds PTT Ratio POC Sodium (135-144) mmol/L Sodium 133 L (136-145) mmol/L POC Potassium (3.3-5.0) mmol/L Potassium 3.7 (3.5-5.1) mmol/L POC Chloride (101-112) mmol/L Chloride 100 (98-107) mmol/L Carbon Dioxide 24 (21-32) mmol/L POC Total CO2 (24-31) mmol/L Anion Gap 9.0 (3-11) POC Anion Gap (16-25) mmol/L POC BUN (7-18) mg/dl BUN 36 H (7-18) mg/dl Creatinine 1.92 H (0.6-1.4) mg/dl POC Creatinine (0.6-1.3) mg/dl Est Cr Clr Drug Dosing Not Reportable Est GFR ( Amer) 37.8 Est GFR (Non-Af Amer) 32.6 BUN/Creatinine Ratio 18.5 (10-20) Glucose 141 H (70-99) mg/dl POC Glucose (other) (70-99) mg/dl Lactate Cancelled Calcium 8.7 (8.5-10.1) mg/dl POC Ioniz Calcium Virgilio (1.12-1.32) mmol/l Magnesium 2.1 (1.8-2.4) mg/dl Total Bilirubin 0.6 (0.2-1) mg/dl AST 25 (15-37) U/L ALT 33 (12-78) U/L Alkaline Phosphatase 115 (45-117) U/L Troponin I < 0.015 (0-0.045) ng/ml Total Protein 7.3 (6.4-8.2) gm/dl Albumin 2.8 L (3.4-5.0) gm/dl Globulin 4.5 H (2.5-4.0) gm/dl Albumin/Globulin Ratio 0.6 L (0.9-2) Procalcitonin (0-0.5) ng/ml Urine Color Urine Appearance (Clear) Urine pH (4.5-7.5) Ur Specific [place]ord (1.000-1.030) Urine Protein (Negative) Urine Glucose (UA) (Negative) Urine Ketones (Negative) Urine Blood (Negative) Urine Nitrite (Negative) Urine Bilirubin (Negative) Urine Urobilinogen (Negative) Ur Leukocyte Esterase (Negative) Urine WBC (Auto) (0-5) /hpf Urine RBC (Auto) (0-4) /hpf U Hyaline Cast (Auto) (0-5) /lpf U Epithel Cells (Auto) (0-5) /lpf Urine Bacteria (Auto) (Negative) Urine Yeast COVID-19 Eval Order Covid19 Done at [facility] COVID-19 PCR (Negative) 05/29/20 05/29/20 05/29/20 Range/Units 00:00 00:18 01:29 WBC (4.8-10.8) K/uL RBC (4.7-6.1) M/uL Hgb (14.0-18.0) g/dL POC Hgb 12.2 L (14.0-18.0) g/dl Hct (42-52) % POC Hct 36 L (42-52) % MCV (80-100) fL MCH (25-34) pg MCHC (32-36) g/dL RDW Std Deviation (36.4-46.3) fL RDW Coeff of Raul (11.5-14.5) % Plt Count (130-400) K/uL MPV (7.4-10.4) fL Immature Gran % (Auto) % Neut % (Auto) % Lymph % (Auto) % [place] % (Auto) % Eos % (Auto) % Baso % (Auto) % Neut # (Auto) (1.4-6.5) K/uL Lymph # (Auto) (1.2-3.4) K/uL [place] # (Auto) (0.11-0.59) K/uL Eos # (Auto) (0-0.5) K/uL Baso # (Auto) (0-0.2) K/uL Immature Gran # (Auto) (0.00-0.02) K/uL PT (9.0-12.0) Seconds INR (0.9-1.1) APTT (21.0-31.0) Seconds PTT Ratio POC Sodium 132 L (135-144) mmol/L Sodium (136-145) mmol/L POC Potassium 3.8 (3.3-5.0) mmol/L Potassium (3.5-5.1) mmol/L POC Chloride 98 L (101-112) mmol/L Chloride (98-107) mmol/L Carbon Dioxide (21-32) mmol/L POC Total CO2 21 L (24-31) mmol/L Anion Gap (3-11) POC Anion Gap 18.0 (16-25) mmol/L POC BUN 33 H (7-18) mg/dl BUN (7-18) mg/dl Creatinine (0.6-1.4) mg/dl POC Creatinine 1.8 H (0.6-1.3) mg/dl Est Cr Clr Drug Dosing Est GFR ( Amer) Est GFR (Non-Af Amer) BUN/Creatinine Ratio (10-20) Glucose (70-99) mg/dl POC Glucose (other) 146 H (70-99) mg/dl Lactate 0.9 Calcium (8.5-10.1) mg/dl POC Ioniz Calcium Virgilio 1.10 L (1.12-1.32) mmol/l Magnesium (1.8-2.4) mg/dl Total Bilirubin (0.2-1) mg/dl AST (15-37) U/L ALT (12-78) U/L Alkaline Phosphatase (45-117) U/L Troponin I (0-0.045) ng/ml Total Protein (6.4-8.2) gm/dl Albumin (3.4-5.0) gm/dl Globulin (2.5-4.0) gm/dl Albumin/Globulin Ratio (0.9-2) Procalcitonin (0-0.5) ng/ml Urine Color Urine Appearance (Clear) Urine pH (4.5-7.5) Ur Specific T[place] (1.000-1.030) Urine Protein (Negative) Urine Glucose (UA) (Negative) Urine Ketones (Negative) Urine Blood (Negative) Urine Nitrite (Negative) Urine Bilirubin (Negative) Urine Urobilinogen (Negative) Ur Leukocyte Esterase (Negative) Urine WBC (Auto) (0-5) /hpf Urine RBC (Auto) (0-4) /hpf U Hyaline Cast (Auto) (0-5) /lpf U Epithel Cells (Auto) (0-5) /lpf Urine Bacteria (Auto) (Negative) Urine Yeast COVID-19 Eval Order COVID-19 PCR NEGATIVE (Negative) 05/29/20 Range/Units 01:50 WBC (4.8-10.8) K/uL RBC (4.7-6.1) M/uL Hgb (14.0-18.0) g/dL POC Hgb (14.0-18.0) g/dl Hct (42-52) % POC Hct (42-52) % MCV (80-100) fL MCH (25-34) pg MCHC (32-36) g/dL RDW Std Deviation (36.4-46.3) fL RDW Coeff of Raul (11.5-14.5) % Plt Count (130-400) K/uL MPV (7.4-10.4) fL Immature Gran % (Auto) % Neut % (Auto) % Lymph % (Auto) % [place] % (Auto) % Eos % (Auto) % Baso % (Auto) % Neut # (Auto) (1.4-6.5) K/uL Lymph # (Auto) (1.2-3.4) K/uL [place] # (Auto) (0.11-0.59) K/uL Eos # (Auto) (0-0.5) K/uL Baso # (Auto) (0-0.2) K/uL Immature Gran # (Auto) (0.00-0.02) K/uL PT (9.0-12.0) Seconds INR (0.9-1.1) APTT (21.0-31.0) Seconds PTT Ratio POC Sodium (135-144) mmol/L Sodium (136-145) mmol/L POC Potassium (3.3-5.0) mmol/L Potassium (3.5-5.1) mmol/L POC Chloride (101-112) mmol/L Chloride (98-107) mmol/L Carbon Dioxide (21-32) mmol/L POC Total CO2 (24-31) mmol/L Anion Gap (3-11) POC Anion Gap (16-25) mmol/L POC BUN (7-18) mg/dl BUN (7-18) mg/dl Creatinine (0.6-1.4) mg/dl POC Creatinine (0.6-1.3) mg/dl Est Cr Clr Drug Dosing Est GFR ( Amer) Est GFR (Non-Af Amer) BUN/Creatinine Ratio (10-20) Glucose (70-99) mg/dl POC Glucose (other) (70-99) mg/dl Lactate Calcium (8.5-10.1) mg/dl POC Ioniz Calcium Virgilio (1.12-1.32) mmol/l Magnesium (1.8-2.4) mg/dl Total Bilirubin (0.2-1) mg/dl AST (15-37) U/L ALT (12-78) U/L Alkaline Phosphatase (45-117) U/L Troponin I (0-0.045) ng/ml Total Protein (6.4-8.2) gm/dl Albumin (3.4-5.0) gm/dl Globulin (2.5-4.0) gm/dl Albumin/Globulin Ratio (0.9-2) Procalcitonin (0-0.5) ng/ml Urine Color Yellow Urine Appearance Slightly Cloudy A (Clear) Urine pH 5.0 (4.5-7.5) Ur Specific T[place]ord 1.039 H (1.000-1.030) Urine Protein 1+ H (Negative) Urine Glucose (UA) Negative (Negative) Urine Ketones Negative (Negative) Urine Blood Negative (Negative) Urine Nitrite Negative (Negative) Urine Bilirubin Negative (Negative) Urine Urobilinogen Negative (Negative) Ur Leukocyte Esterase Negative (Negative) Urine WBC (Auto) 1-5 (0-5) /hpf Urine RBC (Auto) 0-4 (0-4) /hpf U Hyaline Cast (Auto) 0 (0-5) /lpf U Epithel Cells (Auto) 5-10 H (0-5) /lpf Urine Bacteria (Auto) 1+ H (Negative) Urine Yeast Not Reportable COVID-19 Eval Order COVID-19 PCR (Negative) Imaging Data Radiologist's Impression: [facility], [place] [phone] CT Scan Report Patient: MART JOHNS Date: 05/29/20 MR#: [id number]: [address] Acct ID:[id number]: Date: 1940[facility] Zip: [place] [address] Age: 80Location: 3E Sex: MRoom/Bed: E317-1 Att Phy: Ji GutiérrezJuan, MDDiagnosis: FEVER Mariela Phy: Taj Hart, MDService Date: 05/28/20 Fam Phy:Interpreting Phy: Scott Irwin MD Admit Phy: Lona Rollins D.O. Ordering Phy: Jakob Phipps MD cc: ~ CT ANGIOGRAM OF THE CHEST CLINICAL HISTORY: Atypical chest pain. Possible pulmonary embolism. COMPARISON STUDY: Chest x-ray dated 11/16/2019 TECHNIQUE: Following the IV administration of 118 mL of Optiray-320, CT angiogram of the thorax was performed from the thoracic inlet to the lung bases utilizing the pulmonary embolus protocol. Images are reviewed in the axial, sagittal, and coronal planes. IV contrast was administered without complication. MIP imaging was performed. A dose lowering technique was utilized adhering to the principles of ALARA. CT DOSE: 1392.61 mGycm FINDINGS: Images of the upper abdomen reveal an indwelling biliary stent. There are a few tiny extraluminal gas bubbles in the region of the gallbladder fossa. There is trace fluid in the gallbladder fossa. There is pneumobilia. There is infiltration of the periduodenal fat. No pathologically enlarged axillary mediastinal or hilar lymph nodes were visualized. There was no evidence of thoracic aortic dilatation. There were no pulmonary artery filling defects to indicate acute pulmonary embolism. No pleural effusions are visualized. There is moderate respiratory motion artifact. There is no focal pulmonary consolidation. IMPRESSION: 1. Motion degraded study 2. No evidence of acute pulmonary embolism 3. No evidence of focal pulmonary consolidation 4. Tiny extraluminal gas bubbles in the region the gallbladder fossa. Trace fluid in the gallbladder fossa. Pneumobilia. Infiltration the periduodenal fat. ACT 112: Negative or not required by law. Electronically signed by: Scott Irwin M.D. 05/29/2020 8:22 AM Dictated: 05/29/20818 Transcribed: 05/29/20818 [facility], [facility] [phone] CT Scan Report Patient: MART JOHNS Date: 05/29/20 MR#: [id number]: [address] Acct ID:[id number]: Date: 1940[place] Zip: [place] [id number] Age: 80Location: 3E Sex: MRoom[facility]Bed: E[facility] Att Phy: Ji Gutiérrez, MDDiagnosis: FEVER Mariela Phy: Taj Hart, MDService Date: 05/28/20 Fam Phy:Interpreting Phy: Scott Irwin MD Admit Phy: Lona Rollins, D.O. Ordering Phy: Jakob Phipps MD cc: ~ CT abd pelvis IV con only CLINICAL HISTORY: Pt fever, hx of billary stents COMPARISON STUDY: 05/17/2020 TECHNIQUE: The patient was scanned in a dynamic helical fashion during intravenous administration of 118 cc of Optiray 320 A dose lowering technique was utilized adhering to the principles of ALARA. CT DOSE: FINDINGS: Lower chest: There are mild basilar atelectatic changes present. Liver: No focal hepatic masses are visualized. The portal and hepatic veins appear patent. There is pneumobilia. Gallbladder: Surgically absent Spleen: Normal in size and attenuation. Pancreas: Unremarkable. Adrenal glands: Unremarkable. Kidneys: There is symmetric renal cortical enhancement. The kidneys are normal in size without hydronephrosis. Bowel: There is marked thickening of the descending duodenum. This is likely inflammatory as a mass would likely have been visualized on prior ERCP. There is indwelling biliary enteric stent. There is infiltration of the fat adjacent to the duodenum. A few tiny extraluminal gas bubbles are suspected. These are nonspecific, but could be secondary to a persistent bile leak. A duodenal perforation can of course not be excluded. There is a small amount of periportal fluid. There is colonic diverticulosis. There is no evidence of acute diverticulitis. There is no evidence of acute appendicitis. Peritoneum: There is a small amount of periportal fluid, and there are a few tiny gas bubbles in the region of the gallbladder fossa. There is a small fat-containing left inguinal hernia Vasculature: The abdominal aorta is normal in course and caliber. Adenopathy: None. Pelvic viscera: The prostate is enlarged Skeletal structures: No destructive osseous lesions are seen. IMPRESSION: 1. Marked thickening of the descending duodenum with infiltration of adjacent fat, minimal periduodenal fluid, and tiny adjacent extraluminal gas bubbles. Diagnostic considerations for the extraluminal gas include persistent bile leak, or duodenal perforation. Although the duodenal thickening appears masslike, a neoplasm is unlikely as this would've been visualized on a recently performed ERCP. The masslike duodenal thickening, is therefore likely inflammatory 2. Colonic diverticulosis. No evidence of acute diverticulitis 3. Normal appendix 4. Prostatomegaly ACT 112: Negative or not required by law. Electronically signed by: Scott Irwin M.D. 05/29/2020 7:49 AM Dictated: 05/29/20732 Transcribed: 05/29/20732 [place], [place] [phone] CT Scan Report Patient: MART JOHNS [facility] Date: 05/29/20 MR#: [id number]: [address] Acct ID:[id number]: Date: [address] [place] [address] Zip: [place] [address] Age: 80Location: 3E Sex: MRoom/Bed: [facility] Att Phy: Ji Gutiérrez, MDDiagnosis: FEVER Mariela Phy: Taj Hart MDService Date: 05/29/20 Fam Phy:Interpreting Phy: Jack Drake MD Admit Phy: Lona Rollins D.O. Ordering Phy: Jakob Phipps MD cc: ~ CT OF THE ABDOMEN AND PELVIS WITH ORAL CONTRAST CLINICAL HISTORY: Pt c/o air in g/b fossa COMPARISON STUDY: CT of the abdomen and pelvis May 17, 2020. CT of the abdomen and pelvis performed earlier today. TECHNIQUE: Axial images of the abdomen and pelvis were obtained without IV contrast. Oral contrast was administered. Automated exposure control was utilized for the study. A dose lowering technique was utilized adhering to the principles of ALARA. FINDINGS: No pneumatosis or portal venous gas is present. A biliary stent is in place. There is pneumobilia.. There is no biliary ductal dilatation status post cholecystectomy. Note is made of significant wall thickening of the proximal du odenum. Note is made of a 2.7 cm fluid collection along the superior aspect of the proximal duodenum extending toward the cholecystectomy bed. There is moderate cholecystectomy bed inflammation. A few locules of gas within the cholecystectomy bed are noted. There is no oral contrast extravasation. There is no peripancreatic infiltration. No pancreatic ductal dilatation is present. Biliary stent is appropriately positioned. There is contrast within the collecting systems and bladder from recent contrast-enhanced exam. Moderate right renal atrophy is noted. No hydronephrosis. There is colonic diverticulosis without evidence for acute diverticulitis. There is no evidence for a bowel obstruction. No suspicious osseous lesions are noted. IMPRESSION: 1. No contrast extravasation. A few locules of gas within the cholecystectomy bed which could be due to a persistent bile leak. Duodenal perforation could appear similar although is considered less likely. 2. 2.7 cm fluid collection along the superior aspect of the proximal duodenum extending toward the cholecystectomy bed. This represents a nonspecific fluid collection, possibly a biloma. Sterility cannot be assessed by CT and an abscess cannot be excluded. Moderate cholecystectomy bed infiltration. This finding will be called/faxed to the ordering provider at time of dictation. 3. Marked duodenal wall thickening, likely inflammatory. A mass is considered less likely. ACT 112: Negative or not required by law. Electronically signed by: Jack Drake M.D. 05/29/2020 8:25 AM Dictated: 05/29/20 0738 Transcribed: 05/29/20 0814 ECG Data Attestation: I personally reviewed and interpreted this ECG as follows: Indication: + weakness Rate (beats per minute): 84 Rhythm: + normal sinus ECG Intervals/blocks: + Normal QT-c (411) ECG [place]: + Left axis deviation ECG ST segments: no ST depression and no ST elevation Comparison ECG Date: from (05/13/2020) Change: no significant change MDM Narrative This is a 80-year-old male who presents emergency department complaining of generalized weakness. Due to the patient's complex medical history using shared medical decision making with the patient he was sent for a CAT scan of the chest abdomen pelvis. His abdomen pelvis is a complicated read however it does appear the patient may have free air. Based on this I did discuss the case with the surgeon on-call who requested a oral contrast scan. The patient was then re- sent back for a rescan. He was started on broad-spectrum antibiotics in the meantime. He is a benign soft abdominal examination. I did discuss the case with the surgeon who asked that the patient be admitted to the medicine service. Patient and family are in agreement with treatment plan. Patient was seen and evaluated as above in room B2. Review was performed of nursing notes and vital signs. I did review pertinent previous visits and patient history. After obtaining a thorough history and physical examination the above work up was performed. While in the department, I personally reevaluated the patient several times and each time the patient was found to be resting comfortably. The patient was educated upon management, educated upon todays findings/results, educated upon importance of follow up from today's visit, educated upon symptoms in which to return, had questions answered prior to discharge, verbalized understanding, and was discharged home in good condition. An order was placed for continuous cardiac monitoring. The monitor shows a rate of 75 with Normal Sinus rhythm. The patient was evaluated during the global COVID-19 pandemic, and that diagnosis was suspected/considered upon their initial presentation. Their evaluation, treatment and testing was consistent with current guidelines for patients who present with complaints or symptoms that may be related to COVID- 19. Impression & Plan Fever, Duodenitis Discharge Plan Visit Data Chief Complaint: Cough Stated Complaint: sob, fever 101, lethargic, cough ED Provider: Jakob Phipps Discharge Problem: Fever, Duodenitis Patient Disposition: Admitted As Inpatient Discharge Instructions Interventions: ED Discharge Assessment Last Done: 05/29/20 06:49 Discharge Problem: Fever Qualifiers: Fever type: unspecified Qualified Code(s): R50.9 - Fever, unspecified
[2020-05-29 00:02] LABS: Basophils # (auto) 0.02 K/uL (0-0.2); Basophils % (auto) 0.2 %; Eosinophils # (auto) 0.06 K/uL (0-0.5); Eosinophils % (auto) 0.5 %; Hematocrit (blood only) 31.4 % (42-52); Hemoglobin 10.8 g/dL (14.0-18.0); Immature Granulocytes # (auto) 0.04 K/uL (0.00-0.02); Immature Granulocytes % (auto) 0.3 %; Lymphocytes # (auto) 0.77 K/uL (1.2-3.4); Lymphocytes % (auto) 5.8 %; Mean Corpuscular Hemoglobin 31.7 pg (25-34); Mean Corpuscular Hgb Conc 34.4 g/dL (32-36); Mean Corpuscular Volume 92.1 fL (80-100); Mean Platelet Volume 8.5 fL (7.4-10.4); Monocytes # (auto) 1.35 K/uL (0.11-0.59); Monocytes % (auto) 10.2 %; Neutrophils # (auto) 10.94 K/uL (1.4-6.5); Platelet Count 527 K/uL (130-400); RDW Coefficient of Variation 11.9 % (11.5-14.5); RDW Standard Deviation 40.7 fL (36.4-46.3); Red Blood Count 3.41 M/uL (4.7-6.1); White Blood Count 13.18 K/uL (4.8-10.8)
[2020-05-29 00:22] LABS: Alanine Aminotransferase 33 U/L (12-78); Albumin Level 2.8 gm/dl (3.4-5.0); Aspartate Aminotransferase 25 U/L (15-37); BUN Creatinine Ratio 18.5 (10-20); Blood Urea Nitrogen 36 mg/dl (7-18); Calcium 8.7 mg/dl (8.5-10.1); Carbon Dioxide 24 mmol/L (21-32); Chloride 100 mmol/L (98-107); Est GFR (African American) 37.8; Est GFR (Non-African American) 32.6; Glucose 141 mg/dl (70-99); Magnesium 2.1 mg/dl (1.8-2.4); Potassium 3.7 mmol/L (3.5-5.1); Sodium 133 mmol/L (136-145)
[2020-05-29 00:25] LABS: INR 1.1 (0.9-1.1); Partial Thromboplastin Time 27.7 Seconds (21.0-31.0); Prothrombin Time 11.2 Seconds (9.0-12.0)
[2020-05-29 00:26] LABS: Albumin Globulin Ratio 0.6 (0.9-2); Alkaline Phosphatase 115 U/L (45-117); Bilirubin,Total 0.6 mg/dl (0.2-1); Globulin 4.5 gm/dl (2.5-4.0); Total Protein 7.3 gm/dl (6.4-8.2); Troponin I < 0.015 ng/ml (0-0.045)
[2020-05-29 00:36] LABS: iSTAT Creatinine 1.8 mg/dl (0.6-1.3); iSTAT Hemoglobin 12.2 g/dl (14.0-18.0); iSTAT Ionized Calcium 1.1 mmol/l (1.12-1.32); iSTAT Potassium 3.8 mmol/L (3.3-5.0)
[2020-05-29] MEDS ORDERED: OPTIRAY 320 125ml IV ONE (01:20)
[2020-05-29] MEDS ORDERED: PIPERACILLIN/TAZOBACTAM 4.5 GM/120 ML BAG IV ONE (01:52)
[2020-05-29] MEDS ORDERED: DAPTOMYCIN CONSULT ACTIVE PRN (01:52)
[2020-05-29] MEDS ORDERED: DAPTOmycin 475 MG in SYRINGE 0 ML IV ONE (01:52)
[2020-05-29] MEDS ORDERED: PIPERACILL/TAZOBAC CONSULT ACTIVE PRN ×2 (01:52→07:30)
[2020-05-29 02:05] LABS: Bilirubin Urine Negative (Negative); Blood Urine Negative (Negative); Color Urine Yellow; Glucose Urine UA Negative (Negative); Ketones Urine Negative (Negative); Leukocyte Esterase Urine Negative (Negative); Nitrite Urine Negative (Negative); Protein Urine 1+ (Negative); Specific Gravity Urine 1.039 (1.000-1.030); Urobilinogen Urine Negative (Negative)
[2020-05-29 02:10] LABS: Appearance Urine Slightly Cloudy (Clear)
[2020-05-29] MEDS ORDERED: METOCLOPRAMIDE HCL INJ 5 MG/ML 2 ML VIAL IV STA (02:15)
[2020-05-29 02:24] LABS: Bacteria Urine Automated 1+ (Negative); Cast Urine Automated 0 /lpf (0-5); RBC Urine Automated 0-4 /hpf (0-4)
--- NOTE | 2020-05-29 06:27 | History & Physical Report ---
Date of Service May 29, 2020 Assessment & Plan (1) Fever: Patient presently afebrile. Etiology unclear. She is nontoxic in appearance. Does have elevated white blood cell count platelet count Follow cultures Check bio fire respiratory panel Uncertain if gallbladder site is the source of fever. His labs are largely unremarkable, right upper quadrant is nontender. Keep n.p.o. Dr. Berman consulted. Assistance appreciated Empiric Zosyn Continue to monitor Present on Admission?: Yes (2) Leukocytosis: As above, patient febrile. Source unclear Work-up as above Continue to follow Present on Admission?: Yes (3) Physical deconditioning: Patient may benefit from PT/OT Fall precautions Present on Admission?: Yes (4) Hypertension: Blood pressure well controlled at present. Patient recently stopped hydrochlorothiazide lisinopril due to acute kidney injury Continue to monitor Present on Admission?: Yes (5) Gout: Patient with recent flare of gout. He has been taking colchicine with improvement Continue current meds Present on Admission?: Yes (6) GERD without esophagitis: Chronic. Stable. Continue omeprazole 20 mg p.o. every morning EN Hep-Lock. Electrolytes within normal limits. N.p.o. for now. When diet is advanced, patient is requesting a low-sodium "slippery diet" with Ensure supplementation 3 times daily ProphylaxisSCDs Codefull Dispoadmit to medical floor Present on Admission?: Yes History of Present Illness Chief Complaint: fever, fatigue Primary Care Provider: Taj Hart MD Gage Man is a 80yo C male with history of HTN, Gout, GERD, CKD presenting with fevers/chills/cough and SOB. Patient had a cholecystectomy performed on 05/11/[address] Martinez and was discharged home the same day. Procedure was well tolerated with no complications identified. Patient developed RUQ pain and shoulder pain on the evening of 05/12. He was seen in the ER on 05/13 and ultimately found to have a bile leak. He had an ERCP wtih stent placement performed on 05/14/20. Patient's hospital stay was complicated by development of NIKOLE on CKD and volume overload requiring diuresis. Patient was ultimately discharged home. Patient followed up with Dr. Martinez on 05/26/[address] Crawford on 05/27/20. His Lisinopril/HCTZ continues to be held and BP is monitored. This can be restarted if needed pending blood pressure readings. Patient has been doing well at home overall. Yesterday he was going to try to spend the day at his camp. He reports riding in a golf cart for 30-45 minutes then he became very weak and fatigued. He went to his camp and "collapsed" and slept for 2.5 hours. He felt febrile when he woke up and his friends checked his temperature which was elevated at 101. He contacted a Tele-nurse through [employer] and was instructed to come to the ER. Patient reports a constant dry cough with some worsening SOB. He had gout symptoms recently in the left great toe and started Colchicine which improved his symptoms. No additional complaints at this time. No clear source of infecction. Patient denies LAINEZ/neck stiffness/CP/abdominal pain/nausea/vomiting/diarrhea/dysuria/rashes. Allergies Allergy/AdvReac Type Severity Reaction Status Date / Time atorvastatin Allergy Unknown RASH Verified 05/28/20 23:54 nisoldipine [From Sular] Allergy Unknown Unknown Verified 05/28/20 23:54 propranolol Allergy Unknown RASH Verified 05/28/20 23:54 Home Medications Home Medications Medication Instructions Recorded Confirmed Type Probiotic 0 mmu cells PO QAM 04/07/20 05/28/20 History omeprazole magnesium 20 mg 20 mg PO QAM 04/21/20 05/28/20 History tablet,delayed release alum-mag hydroxide-simeth 30 ml PO QID PRN 05/06/20 05/28/20 History furosemide [Lasix] 20 mg PO DAILY #7 tab 05/20/20 05/28/20 Rx colchicine 0.6 mg tablet 0.6 mg PO BID 05/27/20 05/28/20 History Past Med/Surg History Medical History (Updated 05/29/20 @ 06:47 by Lona Rollins DO) Acute kidney injury Atelectasis, right Benign prostatic hyperplasia with elevated prostate specific antigen (PSA) Cardiac murmur HEARD BY PCP PAST MONTH- NO VALVE ISSUES PER 2015 ECHO Carotid artery stenosis Left side 50-69% stenosis per 2019 carotid doppler Chronic kidney disease, stage III (moderate) F/U DR CRAWFORD- BASELINE CREAT 1.6-1.8 GERD without esophagitis Gout History of back problems Hypertension Inflammatory polyarthritis Obesity (BMI 30.0-34.9) PAD (peripheral artery disease) Pleural effusion, right SOB (shortness of breath) on exertion Volume overload Surgical History H/O hernia repair (08/18/05) Right direct inguinal hernia and lipoma of the cord repair with mesh [id number] Dr. Martinez H/O inguinal hernia repair H/O prostatectomy 2001 & 2007 H/O right knee surgery 1973 History of colonoscopy History of rectal surgery Hx of cataract surgery 2016 both eyes Hx of total knee arthroplasty Right 2005 S/P laparoscopic cholecystectomy (05/11/20) Laparoscopic Cholecystectomy with Cholangiogram 05/11/20 Dr. Martinez Family History Father Cancer Mother Heart disease Diabetes Denies family history of Kidney disease Social History Smoking Status: Former smoker Tobacco Type: Pipe and Cigars Second Hand Exposure: Yes (ON OCC); Hx Alcohol Use: Yes Alcohol type: beer, wine and hard liquor Alcohol Intake Frequency: 2-3 x/Week Hx Substance Use: No Preferred Language: Norwegian Communication Ability: Effective Geomatics Professor Required: No Beliefs That Will Affect Care: None marital status: Current Living Situation: Spouse current occupational status: retired How many Children do You have: 2 Feels Safe at Home: Yes Review of Systems Review of Systems: All systems reviewed & are unremarkable except as noted in HPI & below Physical Exam Physical Exam: General: patient resting comfortably, NAD, non-toxic in appearance, AA&O x 4 Skin: warm, dry, intact, no rashes or lesions HEENT: NC/AT, PERRL, EOMI, anicteric sclera, conjunctiva without injection, external ear normal to inspection and nontender, nares patent, moist mucus membranes, dentition intact, no oropharyngeal lesions, neck supple, trachea midline, no LAD, no thyromegaly, no JVD Heart: +S1/S2, regular, no m/r/g Lungs: equal air entry bilaterally, no rales/rhonchi/wheezes Abd: +BS, soft, NT/ND, no masses/organomegaly/ascites, trocar sites well approximated with no bleeding/drainage/dehiscence/erythema Ext: warm, 2+ pulses in UE/LE bilaterally, no clubbing/cyanosis or edema Neuro: nonfocal, patient AA&O x 4, speech intact, no facial droop, moving all extremities on command with equal strength 5/5 Results & Data Results & Data ([facility]) Vital Signs (Past 12 Hours) Vital Signs Temp Pulse Pulse Resp BP BP Pulse Ox 05/29/20 05:00 76 18 126/69 95 05/29/20 03:00 67 18 136/61 95 05/29/20 01:28 76 18 111/54 L 96 05/28/20 23:49 80 20 121/64 95 05/28/20 23:02 95 05/28/20 21:57 37.6 C H 91 H 20 129/65 96 Laboratory Results Lab Results 05/28/20 05/28/20 05/28/20 Range/Units 23:46 23:46 23:46 WBC 13.18 H (4.8-10.8) K/uL RBC 3.41 L (4.7-6.1) M/uL Hgb 10.8 L (14.0-18.0) g/dL POC Hgb (14.0-18.0) g/dl Hct 31.4 L (42-52) % POC Hct (42-52) % MCV 92.1 (80-100) fL MCH 31.7 (25-34) pg MCHC 34.4 (32-36) g/dL RDW Std Deviation 40.7 (36.4-46.3) fL RDW Coeff of Raul 11.9 (11.5-14.5) % Plt Count 527 H (130-400) K/uL MPV 8.5 (7.4-10.4) fL Immature Gran % (Auto) 0.3 % Neut % (Auto) 83.0 % Lymph % (Auto) 5.8 % Travis % (Auto) 10.2 % Eos % (Auto) 0.5 % Baso % (Auto) 0.2 % Neut # (Auto) 10.94 H (1.4-6.5) K/uL Lymph # (Auto) 0.77 L (1.2-3.4) K/uL Travis # (Auto) 1.35 H (0.11-0.59) K/uL Eos # (Auto) 0.06 (0-0.5) K/uL Baso # (Auto) 0.02 (0-0.2) K/uL Immature Gran # (Auto) 0.04 H (0.00-0.02) K/uL PT 11.2 (9.0-12.0) Seconds INR 1.1 (0.9-1.1) APTT 27.7 (21.0-31.0) Seconds PTT Ratio 1.0 POC Sodium (135-144) mmol/L Sodium (136-145) mmol/L POC Potassium (3.3-5.0) mmol/L Potassium (3.5-5.1) mmol/L POC Chloride (101-112) mmol/L Chloride (98-107) mmol/L Carbon Dioxide (21-32) mmol/L POC Total CO2 (24-31) mmol/L Anion Gap (3-11) POC Anion Gap (16-25) mmol/L POC BUN (7-18) mg/dl BUN (7-18) mg/dl Creatinine (0.6-1.4) mg/dl POC Creatinine (0.6-1.3) mg/dl Est Cr Clr Drug Dosing Est GFR ( Amer) Est GFR (Non-Af Amer) BUN/Creatinine Ratio (10-20) Glucose (70-99) mg/dl POC Glucose (other) (70-99) mg/dl Lactate Calcium (8.5-10.1) mg/dl POC Ioniz Calcium Virgilio (1.12-1.32) mmol/l Magnesium (1.8-2.4) mg/dl Total Bilirubin (0.2-1) mg/dl AST (15-37) U/L ALT (12-78) U/L Alkaline Phosphatase (45-117) U/L Troponin I (0-0.045) ng/ml Total Protein (6.4-8.2) gm/dl Albumin (3.4-5.0) gm/dl Globulin (2.5-4.0) gm/dl Albumin/Globulin Ratio (0.9-2) Procalcitonin 0.37 (0-0.5) ng/ml Urine Color Urine Appearance (Clear) Urine pH (4.5-7.5) Ur Specific [place] (1.000-1.030) Urine Protein (Negative) Urine Glucose (UA) (Negative) Urine Ketones (Negative) Urine Blood (Negative) Urine Nitrite (Negative) Urine Bilirubin (Negative) Urine Urobilinogen (Negative) Ur Leukocyte Esterase (Negative) Urine WBC (Auto) (0-5) /hpf Urine RBC (Auto) (0-4) /hpf U Hyaline Cast (Auto) (0-5) /lpf U Epithel Cells (Auto) (0-5) /lpf Urine Bacteria (Auto) (Negative) Urine Yeast COVID-19 Eval Order COVID-19 PCR (Negative) 05/28/20 05/28/20 05/29/20 Range/Units 23:46 23:46 00:00 WBC (4.8-10.8) K/uL RBC (4.7-6.1) M/uL Hgb (14.0-18.0) g/dL POC Hgb (14.0-18.0) g/dl Hct (42-52) % POC Hct (42-52) % MCV (80-100) fL MCH (25-34) pg MCHC (32-36) g/dL RDW Std Deviation (36.4-46.3) fL RDW Coeff of Raul (11.5-14.5) % Plt Count (130-400) K/uL MPV (7.4-10.4) fL Immature Gran % (Auto) % Neut % (Auto) % Lymph % (Auto) % Travis % (Auto) % Eos % (Auto) % Baso % (Auto) % Neut # (Auto) (1.4-6.5) K/uL Lymph # (Auto) (1.2-3.4) K/uL Travis # (Auto) (0.11-0.59) K/uL Eos # (Auto) (0-0.5) K/uL Baso # (Auto) (0-0.2) K/uL Immature Gran # (Auto) (0.00-0.02) K/uL PT (9.0-12.0) Seconds INR (0.9-1.1) APTT (21.0-31.0) Seconds PTT Ratio POC Sodium (135-144) mmol/L Sodium 133 L (136-145) mmol/L POC Potassium (3.3-5.0) mmol/L Potassium 3.7 (3.5-5.1) mmol/L POC Chloride (101-112) mmol/L Chloride 100 (98-107) mmol/L Carbon Dioxide 24 (21-32) mmol/L POC Total CO2 (24-31) mmol/L Anion Gap 9.0 (3-11) POC Anion Gap (16-25) mmol/L POC BUN (7-18) mg/dl BUN 36 H (7-18) mg/dl Creatinine 1.92 H (0.6-1.4) mg/dl POC Creatinine (0.6-1.3) mg/dl Est Cr Clr Drug Dosing Not Reportable Est GFR ( Amer) 37.8 Est GFR (Non-Af Amer) 32.6 BUN/Creatinine Ratio 18.5 (10-20) Glucose 141 H (70-99) mg/dl POC Glucose (other) (70-99) mg/dl Lactate Cancelled Calcium 8.7 (8.5-10.1) mg/dl POC Ioniz Calcium Virgilio (1.12-1.32) mmol/l Magnesium 2.1 (1.8-2.4) mg/dl Total Bilirubin 0.6 (0.2-1) mg/dl AST 25 (15-37) U/L ALT 33 (12-78) U/L Alkaline Phosphatase 115 (45-117) U/L Troponin I < 0.015 (0-0.045) ng/ml Total Protein 7.3 (6.4-8.2) gm/dl Albumin 2.8 L (3.4-5.0) gm/dl Globulin 4.5 H (2.5-4.0) gm/dl Albumin/Globulin Ratio 0.6 L (0.9-2) Procalcitonin (0-0.5) ng/ml Urine Color Urine Appearance (Clear) Urine pH (4.5-7.5) Ur Specific [place] (1.000-1.030) Urine Protein (Negative) Urine Glucose (UA) (Negative) Urine Ketones (Negative) Urine Blood (Negative) Urine Nitrite (Negative) Urine Bilirubin (Negative) Urine Urobilinogen (Negative) Ur Leukocyte Esterase (Negative) Urine WBC (Auto) (0-5) /hpf Urine RBC (Auto) (0-4) /hpf U Hyaline Cast (Auto) (0-5) /lpf U Epithel Cells (Auto) (0-5) /lpf Urine Bacteria (Auto) (Negative) Urine Yeast COVID-19 Eval Order Covid19 Done at [facility] COVID-19 PCR (Negative) 05/29/20 05/29/20 05/29/20 Range/Units 00:00 00:18 01:29 WBC (4.8-10.8) K/uL RBC (4.7-6.1) M/uL Hgb (14.0-18.0) g/dL POC Hgb 12.2 L (14.0-18.0) g/dl Hct (42-52) % POC Hct 36 L (42-52) % MCV (80-100) fL MCH (25-34) pg MCHC (32-36) g/dL RDW Std Deviation (36.4-46.3) fL RDW Coeff of Raul (11.5-14.5) % Plt Count (130-400) K/uL MPV (7.4-10.4) fL Immature Gran % (Auto) % Neut % (Auto) % Lymph % (Auto) % Travis % (Auto) % Eos % (Auto) % Baso % (Auto) % Neut # (Auto) (1.4-6.5) K/uL Lymph # (Auto) (1.2-3.4) K/uL Travis # (Auto) (0.11-0.59) K/uL Eos # (Auto) (0-0.5) K/uL Baso # (Auto) (0-0.2) K/uL Immature Gran # (Auto) (0.00-0.02) K/uL PT (9.0-12.0) Seconds INR (0.9-1.1) APTT (21.0-31.0) Seconds PTT Ratio POC Sodium 132 L (135-144) mmol/L Sodium (136-145) mmol/L POC Potassium 3.8 (3.3-5.0) mmol/L Potassium (3.5-5.1) mmol/L POC Chloride 98 L (101-112) mmol/L Chloride (98-107) mmol/L Carbon Dioxide (21-32) mmol/L POC Total CO2 21 L (24-31) mmol/L Anion Gap (3-11) POC Anion Gap 18.0 (16-25) mmol/L POC BUN 33 H (7-18) mg/dl BUN (7-18) mg/dl Creatinine (0.6-1.4) mg/dl POC Creatinine 1.8 H (0.6-1.3) mg/dl Est Cr Clr Drug Dosing Est GFR ( Amer) Est GFR (Non-Af Amer) BUN/Creatinine Ratio (10-20) Glucose (70-99) mg/dl POC Glucose (other) 146 H (70-99) mg/dl Lactate 0.9 Calcium (8.5-10.1) mg/dl POC Ioniz Calcium Virgilio 1.10 L (1.12-1.32) mmol/l Magnesium (1.8-2.4) mg/dl Total Bilirubin (0.2-1) mg/dl AST (15-37) U/L ALT (12-78) U/L Alkaline Phosphatase (45-117) U/L Troponin I (0-0.045) ng/ml Total Protein (6.4-8.2) gm/dl Albumin (3.4-5.0) gm/dl Globulin (2.5-4.0) gm/dl Albumin/Globulin Ratio (0.9-2) Procalcitonin (0-0.5) ng/ml Urine Color Urine Appearance (Clear) Urine pH (4.5-7.5) Ur Specific [place] (1.000-1.030) Urine Protein (Negative) Urine Glucose (UA) (Negative) Urine Ketones (Negative) Urine Blood (Negative) Urine Nitrite (Negative) Urine Bilirubin (Negative) Urine Urobilinogen (Negative) Ur Leukocyte Esterase (Negative) Urine WBC (Auto) (0-5) /hpf Urine RBC (Auto) (0-4) /hpf U Hyaline Cast (Auto) (0-5) /lpf U Epithel Cells (Auto) (0-5) /lpf Urine Bacteria (Auto) (Negative) Urine Yeast COVID-19 Eval Order COVID-19 PCR NEGATIVE (Negative) 05/29/20 Range/Units 01:50 WBC (4.8-10.8) K/uL RBC (4.7-6.1) M/uL Hgb (14.0-18.0) g/dL POC Hgb (14.0-18.0) g/dl Hct (42-52) % POC Hct (42-52) % MCV (80-100) fL MCH (25-34) pg MCHC (32-36) g/dL RDW Std Deviation (36.4-46.3) fL RDW Coeff of Raul (11.5-14.5) % Plt Count (130-400) K/uL MPV (7.4-10.4) fL Immature Gran % (Auto) % Neut % (Auto) % Lymph % (Auto) % Travis % (Auto) % Eos % (Auto) % Baso % (Auto) % Neut # (Auto) (1.4-6.5) K/uL Lymph # (Auto) (1.2-3.4) K/uL Travis # (Auto) (0.11-0.59) K/uL Eos # (Auto) (0-0.5) K/uL Baso # (Auto) (0-0.2) K/uL Immature Gran # (Auto) (0.00-0.02) K/uL PT (9.0-12.0) Seconds INR (0.9-1.1) APTT (21.0-31.0) Seconds PTT Ratio POC Sodium (135-144) mmol/L Sodium (136-145) mmol/L POC Potassium (3.3-5.0) mmol/L Potassium (3.5-5.1) mmol/L POC Chloride (101-112) mmol/L Chloride (98-107) mmol/L Carbon Dioxide (21-32) mmol/L POC Total CO2 (24-31) mmol/L Anion Gap (3-11) POC Anion Gap (16-25) mmol/L POC BUN (7-18) mg/dl BUN (7-18) mg/dl Creatinine (0.6-1.4) mg/dl POC Creatinine (0.6-1.3) mg/dl Est Cr Clr Drug Dosing Est GFR ( Amer) Est GFR (Non-Af Amer) BUN/Creatinine Ratio (10-20) Glucose (70-99) mg/dl POC Glucose (other) (70-99) mg/dl Lactate Calcium (8.5-10.1) mg/dl POC Ioniz Calcium Virgilio (1.12-1.32) mmol/l Magnesium (1.8-2.4) mg/dl Total Bilirubin (0.2-1) mg/dl AST (15-37) U/L ALT (12-78) U/L Alkaline Phosphatase (45-117) U/L Troponin I (0-0.045) ng/ml Total Protein (6.4-8.2) gm/dl Albumin (3.4-5.0) gm/dl Globulin (2.5-4.0) gm/dl Albumin/Globulin Ratio (0.9-2) Procalcitonin (0-0.5) ng/ml Urine Color Yellow Urine Appearance Slightly Cloudy A (Clear) Urine pH 5.0 (4.5-7.5) Ur Specific [place] 1.039 H (1.000-1.030) Urine Protein 1+ H (Negative) Urine Glucose (UA) Negative (Negative) Urine Ketones Negative (Negative) Urine Blood Negative (Negative) Urine Nitrite Negative (Negative) Urine Bilirubin Negative (Negative) Urine Urobilinogen Negative (Negative) Ur Leukocyte Esterase Negative (Negative) Urine WBC (Auto) 1-5 (0-5) /hpf Urine RBC (Auto) 0-4 (0-4) /hpf U Hyaline Cast (Auto) 0 (0-5) /lpf U Epithel Cells (Auto) 5-10 H (0-5) /lpf Urine Bacteria (Auto) 1+ H (Negative) Urine Yeast Not Reportable COVID-19 Eval Order COVID-19 PCR (Negative) Diagnostic Findings CT abdomen and pelvis without contrast: Direct comparison made with prior study from May 29 appointment DM. Gastrointestinal contrast has been administered. Again, there is thickening of the duodenum inflammation in the surrounding gallbladder fossa. There is a small focus of extraluminal gas. There is a duodenal diverticulum noted on prior study of May 13, 2020. Impression: No extravasation of gastrointestinal contrast duodenal diverticulum. Persistent inflammatory change in the gallbladder fossa with punctate focus of extraluminal gas ECG Additional Comments: Sinus rhythm, normal intervals, no acute ischemic changes Code Status & VTE Plan Code Status Full code PG Care Time/CCT Total # of Minutes Spent Total Time Spent with Patient: Total time spent is greater than 50% in coordination of care (as documented) at patient's floor/unit and/or counseling patient: Coding Level of Care Code 03630 Initial Inpt Care Lvl 3 Diagnoses Fever R50.9 Fever type: unspecified Leukocytosis D72.829 Leukocytosis type: unspecified Physical deconditioning R53.81 Hypertension I10 Hypertension type: essential hypertension Gout M10.9 Gout site: toe Gout etiology: unspecified cause Chronicity: acute Laterality: left GERD without esophagitis K21.9 (1) Leukocytosis Leukocytosis type: unspecified Qualified Code(s): D72.829 - Elevated white blood cell count, unspecified (2) Hypertension Hypertension type: essential hypertension Qualified Code(s): I10 - Essential (primary) hypertension (3) Fever Fever type: unspecified Qualified Code(s): R50.9 - Fever, unspecified (4) Gout Gout site: toe Gout etiology: unspecified cause Chronicity: acute Laterality: left Qualified Code(s): M10.9 - Gout, unspecified
[2020-05-29] MEDS ORDERED: DOCUSATE SODIUM 100 MG CAP PO PRN (07:30)
--- NOTE | 2020-05-29 07:50 | CT Scan Report ---
CT abd pelvis IV con only CLINICAL HISTORY: Pt fever, hx of billary stents COMPARISON STUDY: 05/17/2020 TECHNIQUE: The patient was scanned in a dynamic helical fashion during intravenous administration of 118 cc of Optiray 320 A dose lowering technique was utilized adhering to the principles of ALARA. CT DOSE: FINDINGS: Lower chest: There are mild basilar atelectatic changes present. Liver: No focal hepatic masses are visualized. The portal and hepatic veins appear patent. There is p neumobilia. Gallbladder: Surgically absent Spleen: Normal in size and attenuation. Pancreas: Unremarkable. Adrenal glands: Unremarkable. Kidneys: There is symmetric renal cortical enhancement. The kidneys are normal in size without hydron ephrosis. Bowel: There is marked thickening of the descending duodenum. This is likely inflammatory as a mass w ould likely have been visualized on prior ERCP. There is indwelling biliary enteric stent. There is i nfiltration of the fat adjacent to the duodenum. A few tiny extraluminal gas bubbles are suspected. T hese are nonspecific, but could be secondary to a persistent bile leak. A duodenal perforation can of course not be excluded. There is a small amount of periportal fluid. There is colonic diverticulosis . There is no evidence of acute diverticulitis. There is no evidence of acute appendicitis. Peritoneum: There is a small amount of periportal fluid, and there are a few tiny gas bubbles in the region of the gallbladder fossa. There is a small fat-containing left inguinal hernia Vasculature: The abdominal aorta is normal in course and caliber. Adenopathy: None. Pelvic viscera: The prostate is enlarged Skeletal structures: No destructive osseous lesions are seen. IMPRESSION: 1. Marked thickening of the descending duodenum with infiltration of adjacent fat, minimal periduoden al fluid, and tiny adjacent extraluminal gas bubbles. Diagnostic considerations for the extraluminal gas include persistent bile leak, or duodenal perforation. Although the duodenal thickening appears m asslike, a neoplasm is unlikely as this would've been visualized on a recently performed ERCP. The ma sslike duodenal thickening, is therefore likely inflammatory 2. Colonic diverticulosis. No evidence of acute diverticulitis 3. Normal appendix 4. Prostatomegaly ACT 112: Negative or not required by law. Electronically signed by: Scott Irwin M.D. 05/29/2020 7:49 AM
[2020-05-29] MEDS ORDERED: ALUMINUM/MAGNESIUM/SIMETH (MAALOX MAX) 30 ML UDC PO PRN (07:58)
--- NOTE | 2020-05-29 08:23 | CT Scan Report ---
CT ANGIOGRAM OF THE CHEST CLINICAL HISTORY: Atypical chest pain. Possible pulmonary embolism. COMPARISON STUDY: Chest x-ray dated 8 11/16/2019 TECHNIQUE: Following the IV administration of 118 mL of Optiray-320, CT angiogram of the thorax was p erformed from the thoracic inlet to the lung bases utilizing the pulmonary embolus protocol. Images a re reviewed in the axial, sagittal, and coronal planes. IV contrast was administered without complica tion. MIP imaging was performed. A dose lowering technique was utilized adhering to the principles o f ALARA. CT DOSE: 1392.61 mGycm FINDINGS: Images of the upper abdomen reveal an indwelling biliary stent. There are a few tiny extraluminal gas bubbles in the region of the gallbladder fossa. There is trace fluid in the gallbladder fossa. There is pneumobilia. There is infiltration of the periduodenal fat. No pathologically enlarged axillary mediastinal or hilar lymph nodes were visualized. There was no evidence of thoracic aortic dilatation. There were no pulmonary artery filling defects to indicate acute pulmonary embolism. No pleural effusions are visualized. There is moderate respiratory motion artifact. There is no focal pulmonary consolidation. IMPRESSION: 1. Motion degraded study 2. No evidence of acute pulmonary embolism 3. No evidence of focal pulmonary consolidation 4. Tiny extraluminal gas bubbles in the region the gallbladder fossa. Trace fluid in the gallbladder fossa. Pneumobilia. Infiltration the periduodenal fat. ACT 112: Negative or not required by law. Electronically signed by: Scott Irwin M.D. 05/29/2020 8:22 AM
--- NOTE | 2020-05-29 08:26 | CT Scan Report ---
CT OF THE ABDOMEN AND PELVIS WITH ORAL CONTRAST CLINICAL HISTORY: Pt c/o air in g/b fossa COMPARISON STUDY: CT of the abdomen and pelvis May 17, 2020. CT of the abdomen and pelvis perform ed earlier today. TECHNIQUE: Axial images of the abdomen and pelvis were obtained without IV contrast. Oral contrast wa s administered. Automated exposure control was utilized for the study. A dose lowering technique was utilized adhering to the principles of ALARA. FINDINGS: No pneumatosis or portal venous gas is present. A biliary stent is in place. There is pneum obilia.. There is no biliary ductal dilatation status post cholecystectomy. Note is made of significa nt wall thickening of the proximal duodenum. Note is made of a 2.7 cm fluid collection along the supe rior aspect of the proximal duodenum extending toward the cholecystectomy bed. There is moderate chol ecystectomy bed inflammation. A few locules of gas within the cholecystectomy bed are noted. There is no oral contrast extravasation. There is no peripancreatic infiltration. No pancreatic ductal dilata tion is present. Biliary stent is appropriately positioned. There is contrast within the collecting s ystems and bladder from recent contrast-enhanced exam. Moderate right renal atrophy is noted. No hydr onephrosis. There is colonic diverticulosis without evidence for acute diverticulitis. There is no ev idence for a bowel obstruction. No suspicious osseous lesions are noted. IMPRESSION: 1. No contrast extravasation. A few locules of gas within the cholecystectomy bed which could be due to a persistent bile leak. Duodenal perforation could appear similar although is considered less like ly. 2. 2.7 cm fluid collection along the superior aspect of the proximal duodenum extending toward the ch olecystectomy bed. This represents a nonspecific fluid collection, possibly a biloma. Sterility canno t be assessed by CT and an abscess cannot be excluded. Moderate cholecystectomy bed infiltration. Thi s finding will be called/faxed to the ordering provider at time of dictation. 3. Marked duodenal wall thickening, likely inflammatory. A mass is considered less likely. ACT 112: Negative or not required by law. Electronically signed by: Jack Drake M.D. 05/29/2020 8:25 AM
[2020-05-29] MEDS: PIPERACILLIN/TAZOBACTAM 3.375 GM in DEXTROSE 5% 100 ML IV SCH ×2 (08:48→15:51)
[2020-05-29] MEDS: FUROSEMIDE 20 MG TAB PO SCH (08:49)
[2020-05-29] MEDS: COLCHICINE 0.6 MG TAB PO SCH ×2 (08:49→21:32)
[2020-05-29] MEDS ORDERED: PANTOprazole 40 MG TAB PO SCH (09:00)
[2020-05-29 09:23] LABS: Adenovirus PCR Not Detected (NotDetected); Bordetella parapertussis PCR Not Detected (NotDetected); Bordetella pertussis PCR Not Detected (NotDetected); Chlamydia pneumoniae PCR Not Detected (NotDetected); Coronavirus 229E PCR Not Detected (NotDetected); Coronavirus CoV-2 (COVID19)PCR Not Detected (NotDetected); Coronavirus HKU1 PCR Not Detected (NotDetected); Coronavirus NL63 PCR Not Detected (NotDetected); Coronavirus OC43PCR Not Detected (NotDetected); Human Metapneumovirus PCR Not Detected (NotDetected); Influenza A PCR Not Detected (NotDetected); Influenza B PCR Not Detected (NotDetected); Mycoplasma pneumoniae PCR Not Detected (NotDetected); Parainfluenza Virus 1 PCR Not Detected (NotDetected); Parainfluenza Virus 2 PCR Not Detected (NotDetected); Parainfluenza Virus 3 PCR Not Detected (NotDetected); Parainfluenza Virus 4 PCR Not Detected (NotDetected); Respiratory Syncytial VirusPCR Not Detected (NotDetected); Rhinovirus/Enterovirus PCR Not Detected (NotDetected)
--- NOTE | 2020-05-29 10:20 | Electrocardiogram Report ---
Test Reason : Blood Pressure : / mmHG Vent. Rate : 084 BPM Atrial Rate : 084 BPM P-R Int : 200 ms QRS Dur : 082 ms QT Int : 348 ms P-R-T Axes : 027 -33 031 degrees QTc Int : 411 ms Poor data quality, interpretation may be adversely affected Normal sinus rhythm Left axis deviation Nonspecific T wave abnormality Abnormal ECG When compared with ECG of 13-MAY-2020 15:04, QT has shortened Confirmed by Andrews Jones ([id number]) on 05/29/2020 10:20:00 AM Referred By: Taj Hart Confirmed By:Andrews Jones
--- NOTE | 2020-05-29 11:31 | Surgery Consultation ---
Date of Consultation May 29, 2020 Assessment & Plan (1) Fever: This patient underwent cholecystectomy and then was diagnosed with a bile leak and had an ERCP and been doing well until yesterday. CT scan shows a small fluid collection superior to the duodenum near the gallbladder fossa. This may be residual bile. There is a chance it could be an abscess but it is small. He has duodenitis as well. There is some air in the gallbladder fossa. The patient has no abdominal pain and his abdominal exam is completely benign. There is no extravasation of oral contrast during that version of the CT scan. I doubt that he has perforation of his duodenum. He does have duodenitis that was noted on ERCP as well as CAT scan. He is on a PPI and I would continue with that. I would keep him n.p.o. for now. I agree with conservative measures for now. I would continue with the IV antibiotics. I would follow his white count and his exam. If he does not defervesce then repeat CT scan would be indicated. History of Present Illness Reason for Consultation: Abnormal CT scan of the abdomen Requesting Physician: Ji Gutiérrez MD Attending Physician: Ji Gutiérrez MD History of Present Illness I have been asked by Dr. Gutiérrez to see this 80-year-old male who presented to the emergency room with a complaint of fever. The patient underwent a laparoscopic cholecystectomy on May 11. The next day he developed abdominal lower chest pain and was found to have a bile leak. He underwent an ERCP with stent placement. He has chronic kidney disease and had some difficulty with fluid management. He was hospitalized for about 8 days and then discharged. He was doing very well following discharge. He was tolerating a regular diet. He was not having any abdominal pain. His bowels are moving with formed stool. [place] and developed a sensation of significant fatigue. His family took his temperature and it was found to be 102. He presented to the emergency room. He denies abdominal pain. He has no nausea. His bowels move this morning with a formed stool. There was no melena or hematochezia. Allergies Allergy/AdvReac Type Severity Reaction Status Date / Time atorvastatin Allergy Unknown RASH Verified 05/28/20 23:54 nisoldipine [From Sular] Allergy Unknown Unknown Verified 05/28/20 23:54 propranolol Allergy Unknown RASH Verified 05/28/20 23:54 Home Medications Home Medications Medication Instructions Recorded Confirmed Type Probiotic 0 mmu cells PO QAM 04/07/20 05/28/20 History omeprazole magnesium 20 mg 20 mg PO QAM 04/21/20 05/28/20 History tablet,delayed release alum-mag hydroxide-simeth 30 ml PO QID PRN 05/06/20 05/28/20 History furosemide [Lasix] 20 mg PO DAILY #7 tab 05/20/20 05/28/20 Rx colchicine 0.6 mg tablet 0.6 mg PO BID 05/27/20 05/28/20 History Patient History Medical History (Updated 05/29/20 @ 06:47 by Lona Rollins DO) Acute kidney injury Atelectasis, right Benign prostatic hyperplasia with elevated prostate specific antigen (PSA) Cardiac murmur HEARD BY PCP PAST MONTH- NO VALVE ISSUES PER 2015 ECHO Carotid artery stenosis Left side 50-69% stenosis per 2019 carotid doppler Chronic kidney disease, stage III (moderate) F/U DR CRAWFORD- BASELINE CREAT 1.6-1.8 GERD without esophagitis Gout History of back problems Hypertension Inflammatory polyarthritis Obesity (BMI 30.0-34.9) PAD (peripheral artery disease) Pleural effusion, right SOB (shortness of breath) on exertion Volume overload Surgical History (Updated 05/29/20 @ 11:30 by Marbin Rausch MD) H/O hernia repair (08/18/05) Right direct inguinal hernia and lipoma of the cord repair with mesh [id number] Dr. Martinez H/O inguinal hernia repair H/O prostatectomy 2001 & 2007 H/O right knee surgery 1973 History of colonoscopy History of rectal surgery Hx of cataract surgery 2015 both eyes Hx of total knee arthroplasty Right 2004 S/P ERCP Stent placed S/P laparoscopic cholecystectomy (05/11/20) Laparoscopic Cholecystectomy with Cholangiogram 05/11/20 Dr. Martinez Family History Father Cancer Mother Heart disease Diabetes Denies family history of Kidney disease Social History Smoking Status: Former smoker Tobacco Type: Pipe and Cigars Smoking End Date: 1969; Second Hand Exposure: Yes (on occasion); Do You Dip or Chew Tobacco: No; Tobacco Cessation Education Requested by Patient: No Hx Alcohol Use: Yes Alcohol type: beer, wine and hard liquor Alcohol Intake Frequency: 2-3 x/Week Hx Substance Use: No Preferred Language: Mauritanian Communication Ability: Effective Pattern Vault Clerk Required: No Beliefs That Will Affect Care: None marital status: Current Living Situation: Spouse current occupational status: retired How many Children do You have: 2 Other Information That Helps Us Care for You: No Feels Safe at Home: Yes Safety Concerns: Feels Safe At This Time Physical Exam Constitutional: no acute distress Neck: trachea midline Respiratory: normal respiratory effort, lungs clear to auscultation Cardiovascular: Rate/Rhythm: regular rate and regular rhythm Gastrointestinal (Abdomen): Inspection/Auscultation: normal bowel sounds; abdomen not distended Percussion/Palpation: abdomen soft; abdomen nontender and no guarding Skin: no rashes, warm and dry Lymphatic: no cervical lymphadenopathy Results & Data ([facility]) Vital Signs (Past 12 Hours) Vital Signs Temp Pulse Resp BP Pulse Ox 05/29/20 07:30 37.2 C 22 138/67 99 05/29/20 06:47 36.7 C 77 18 156/75 H 100 05/29/20 05:00 76 18 126/69 95 05/29/20 03:00 67 18 136/61 95 05/29/20 01:28 76 18 111/54 L 96 05/28/20 23:49 80 20 121/64 95 Laboratory Results 05/29/20 05/29/20 05/29/20 Range/Units 08:10 01:50 01:29 WBC (4.8-10.8) K/uL RBC (4.7-6.1) M/uL Hgb (14.0-18.0) g/dL POC Hgb (14.0-18.0) g/dl Hct (42-52) % POC Hct (42-52) % MCV (80-100) fL MCH (25-34) pg MCHC (32-36) g/dL RDW Std Deviation (36.4-46.3) fL RDW Coeff of Raul (11.5-14.5) % Plt Count (130-400) K/uL MPV (7.4-10.4) fL Immature Gran % (Auto) % Neut % (Auto) % Lymph % (Auto) % [place] % (Auto) % Eos % (Auto) % Baso % (Auto) % Neut # (Auto) (1.4-6.5) K/uL Lymph # (Auto) (1.2-3.4) K/uL [place] # (Auto) (0.11-0.59) K/uL Eos # (Auto) (0-0.5) K/uL Baso # (Auto) (0-0.2) K/uL Immature Gran # (Auto) (0.00-0.02) K/uL PT (9.0-12.0) Seconds INR (0.9-1.1) APTT (21.0-31.0) Seconds PTT Ratio POC Sodium (135-144) mmol/L Sodium (136-145) mmol/L POC Potassium (3.3-5.0) mmol/L Potassium (3.5-5.1) mmol/L POC Chloride (101-112) mmol/L Chloride (98-107) mmol/L Carbon Dioxide (21-32) mmol/L POC Total CO2 (24-31) mmol/L Anion Gap (3-11) POC Anion Gap (16-25) mmol/L POC BUN (7-18) mg/dl BUN (7-18) mg/dl Creatinine (0.6-1.4) mg/dl POC Creatinine (0.6-1.3) mg/dl Est Cr Clr Drug Dosing Est GFR ( Amer) Est GFR (Non-Af Amer) BUN/Creatinine Ratio (10-20) Glucose (70-99) mg/dl POC Glucose (other) (70-99) mg/dl Lactate 0.9 Calcium (8.5-10.1) mg/dl POC Ioniz Calcium Virgilio (1.12-1.32) mmol/l Magnesium (1.8-2.4) mg/dl Total Bilirubin (0.2-1) mg/dl AST (15-37) U/L ALT (12-78) U/L Alkaline Phosphatase (45-117) U/L Troponin I (0-0.045) ng/ml Total Protein (6.4-8.2) gm/dl Albumin (3.4-5.0) gm/dl Globulin (2.5-4.0) gm/dl Albumin/Globulin Ratio (0.9-2) Procalcitonin (0-0.5) ng/ml Urine Color Yellow Urine Appearance Slightly Cloudy A (Clear) Urine pH 5.0 (4.5-7.5) Ur Specific [place] 1.039 H (1.000-1.030) Urine Protein 1+ H (Negative) Urine Glucose (UA) Negative (Negative) Urine Ketones Negative (Negative) Urine Blood Negative (Negative) Urine Nitrite Negative (Negative) Urine Bilirubin Negative (Negative) Urine Urobilinogen Negative (Negative) Ur Leukocyte Esterase Negative (Negative) Urine WBC (Auto) 1-5 (0-5) /hpf Urine RBC (Auto) 0-4 (0-4) /hpf U Hyaline Cast (Auto) 0 (0-5) /lpf U Epithel Cells (Auto) 5-10 H (0-5) /lpf Urine Bacteria (Auto) 1+ H (Negative) Urine Yeast Not Reportable Adenovirus (PCR) Not Detected (NotDetected) B. pertussis DNA (PCR) Not Detected (NotDetected) B.parapertussis DNA PCR Not Detected (NotDetected) C. pneumoniae DNA (PCR) Not Detected (NotDetected) Coronavirus OC43 (PCR) Not Detected (NotDetected) Coronavirus HKU1 (PCR) Not Detected (NotDetected) Coronavirus 229E (PCR) Not Detected (NotDetected) COVID-19 Eval Order COVID-19 PCR Not Detected (Negative) Coronavirus NL63 (PCR) Not Detected (NotDetected) Human Metapneumovir PCR Not Detected (NotDetected) Influenza Type A (PCR) Not Detected (NotDetected) Influenza Type B (PCR) Not Detected (NotDetected) M. pneumoniae (PCR) Not Detected (NotDetected) Parainfluenza 1 (PCR) Not Detected (NotDetected) Parainfluenza 2 (PCR) Not Detected (NotDetected) Parainfluenza 3 (PCR) Not Detected (NotDetected) Parainfluenza 4 (PCR) Not Detected (NotDetected) RSV (PCR) Not Detected (NotDetected) Entero/Rhino (PCR) Not Detected (NotDetected) 05/29/20 05/29/20 05/29/20 Range/Units 00:18 00:00 00:00 WBC (4.8-10.8) K/uL RBC (4.7-6.1) M/uL Hgb (14.0-18.0) g/dL POC Hgb 12.2 L (14.0-18.0) g/dl Hct (42-52) % POC Hct 36 L (42-52) % MCV (80-100) fL MCH (25-34) pg MCHC (32-36) g/dL RDW Std Deviation (36.4-46.3) fL RDW Coeff of Raul (11.5-14.5) % Plt Count (130-400) K/uL MPV (7.4-10.4) fL Immature Gran % (Auto) % Neut % (Auto) % Lymph % (Auto) % [place] % (Auto) % Eos % (Auto) % Baso % (Auto) % Neut # (Auto) (1.4-6.5) K/uL Lymph # (Auto) (1.2-3.4) K/uL [place] # (Auto) (0.11-0.59) K/uL Eos # (Auto) (0-0.5) K/uL Baso # (Auto) (0-0.2) K/uL Immature Gran # (Auto) (0.00-0.02) K/uL PT (9.0-12.0) Seconds INR (0.9-1.1) APTT (21.0-31.0) Seconds PTT Ratio POC Sodium 132 L (135-144) mmol/L Sodium (136-145) mmol/L POC Potassium 3.8 (3.3-5.0) mmol/L Potassium (3.5-5.1) mmol/L POC Chloride 98 L (101-112) mmol/L Chloride (98-107) mmol/L Carbon Dioxide (21-32) mmol/L POC Total CO2 21 L (24-31) mmol/L Anion Gap (3-11) POC Anion Gap 18.0 (16-25) mmol/L POC BUN 33 H (7-18) mg/dl BUN (7-18) mg/dl Creatinine (0.6-1.4) mg/dl POC Creatinine 1.8 H (0.6-1.3) mg/dl Est Cr Clr Drug Dosing Est GFR ( Amer) Est GFR (Non-Af Amer) BUN/Creatinine Ratio (10-20) Glucose (70-99) mg/dl POC Glucose (other) 146 H (70-99) mg/dl Lactate Calcium (8.5-10.1) mg/dl POC Ioniz Calcium [place] 1.10 L (1.12-1.32) mmol/l Magnesium (1.8-2.4) mg/dl Total Bilirubin (0.2-1) mg/dl AST (15-37) U/L ALT (12-78) U/L Alkaline Phosphatase (45-117) U/L Troponin I (0-0.045) ng/ml Total Protein (6.4-8.2) gm/dl Albumin (3.4-5.0) gm/dl Globulin (2.5-4.0) gm/dl Albumin/Globulin Ratio (0.9-2) Procalcitonin (0-0.5) ng/ml Urine Color Urine Appearance (Clear) Urine pH (4.5-7.5) Ur Specific [place] (1.000-1.030) Urine Protein (Negative) Urine Glucose (UA) (Negative) Urine Ketones (Negative) Urine Blood (Negative) Urine Nitrite (Negative) Urine Bilirubin (Negative) Urine Urobilinogen (Negative) Ur Leukocyte Esterase (Negative) Urine WBC (Auto) (0-5) /hpf Urine RBC (Auto) (0-4) /hpf U Hyaline Cast (Auto) (0-5) /lpf U Epithel Cells (Auto) (0-5) /lpf Urine Bacteria (Auto) (Negative) Urine Yeast Adenovirus (PCR) (NotDetected) B. pertussis DNA (PCR) (NotDetected) B.parapertussis DNA PCR (NotDetected) C. pneumoniae DNA (PCR) (NotDetected) Coronavirus OC43 (PCR) (NotDetected) Coronavirus HKU1 (PCR) (NotDetected) Coronavirus 229E (PCR) (NotDetected) COVID-19 Eval Order Covid19 Done at [facility] COVID-19 PCR NEGATIVE (Negative) Coronavirus NL63 (PCR) (NotDetected) Human Metapneumovir PCR (NotDetected) Influenza Type A (PCR) (NotDetected) Influenza Type B (PCR) (NotDetected) M. pneumoniae (PCR) (NotDetected) Parainfluenza 1 (PCR) (NotDetected) Parainfluenza 2 (PCR) (NotDetected) Parainfluenza 3 (PCR) (NotDetected) Parainfluenza 4 (PCR) (NotDetected) RSV (PCR) (NotDetected) Entero/Rhino (PCR) (NotDetected) 05/28/20 05/28/20 05/28/20 Range/Units 23:46 23:46 23:46 WBC (4.8-10.8) K/uL RBC (4.7-6.1) M/uL Hgb (14.0-18.0) g/dL POC Hgb (14.0-18.0) g/dl Hct (42-52) % POC Hct (42-52) % MCV (80-100) fL MCH (25-34) pg MCHC (32-36) g/dL RDW Std Deviation (36.4-46.3) fL RDW Coeff of Raul (11.5-14.5) % Plt Count (130-400) K/uL MPV (7.4-10.4) fL Immature Gran % (Auto) % Neut % (Auto) % Lymph % (Auto) % [place] % (Auto) % Eos % (Auto) % Baso % (Auto) % Neut # (Auto) (1.4-6.5) K/uL Lymph # (Auto) (1.2-3.4) K/uL [place] # (Auto) (0.11-0.59) K/uL Eos # (Auto) (0-0.5) K/uL Baso # (Auto) (0-0.2) K/uL Immature Gran # (Auto) (0.00-0.02) K/uL PT 11.2 (9.0-12.0) Seconds INR 1.1 (0.9-1.1) APTT 27.7 (21.0-31.0) Seconds PTT Ratio 1.0 POC Sodium (135-144) mmol/L Sodium 133 L (136-145) mmol/L POC Potassium (3.3-5.0) mmol/L Potassium 3.7 (3.5-5.1) mmol/L POC Chloride (101-112) mmol/L Chloride 100 (98-107) mmol/L Carbon Dioxide 24 (21-32) mmol/L POC Total CO2 (24-31) mmol/L Anion Gap 9.0 (3-11) POC Anion Gap (16-25) mmol/L POC BUN (7-18) mg/dl BUN 36 H (7-18) mg/dl Creatinine 1.92 H (0.6-1.4) mg/dl POC Creatinine (0.6-1.3) mg/dl Est Cr Clr Drug Dosing Not Reportable Est GFR ( Amer) 37.8 Est GFR (Non-Af Amer) 32.6 BUN/Creatinine Ratio 18.5 (10-20) Glucose 141 H (70-99) mg/dl POC Glucose (other) (70-99) mg/dl Lactate Cancelled Calcium 8.7 (8.5-10.1) mg/dl POC Ioniz Calcium Virgilio (1.12-1.32) mmol/l Magnesium 2.1 (1.8-2.4) mg/dl Total Bilirubin 0.6 (0.2-1) mg/dl AST 25 (15-37) U/L ALT 33 (12-78) U/L Alkaline Phosphatase 115 (45-117) U/L Troponin I < 0.015 (0-0.045) ng/ml Total Protein 7.3 (6.4-8.2) gm/dl Albumin 2.8 L (3.4-5.0) gm/dl Globulin 4.5 H (2.5-4.0) gm/dl Albumin/Globulin Ratio 0.6 L (0.9-2) Procalcitonin (0-0.5) ng/ml Urine Color Urine Appearance (Clear) Urine pH (4.5-7.5) Ur Specific [place] (1.000-1.030) Urine Protein (Negative) Urine Glucose (UA) (Negative) Urine Ketones (Negative) Urine Blood (Negative) Urine Nitrite (Negative) Urine Bilirubin (Negative) Urine Urobilinogen (Negative) Ur Leukocyte Esterase (Negative) Urine WBC (Auto) (0-5) /hpf Urine RBC (Auto) (0-4) /hpf U Hyaline Cast (Auto) (0-5) /lpf U Epithel Cells (Auto) (0-5) /lpf Urine Bacteria (Auto) (Negative) Urine Yeast Adenovirus (PCR) (NotDetected) B. pertussis DNA (PCR) (NotDetected) B.parapertussis DNA PCR (NotDetected) C. pneumoniae DNA (PCR) (NotDetected) Coronavirus OC43 (PCR) (NotDetected) Coronavirus HKU1 (PCR) (NotDetected) Coronavirus 229E (PCR) (NotDetected) COVID-19 Eval Order COVID-19 PCR (Negative) Coronavirus NL63 (PCR) (NotDetected) Human Metapneumovir PCR (NotDetected) Influenza Type A (PCR) (NotDetected) Influenza Type B (PCR) (NotDetected) M. pneumoniae (PCR) (NotDetected) Parainfluenza 1 (PCR) (NotDetected) Parainfluenza 2 (PCR) (NotDetected) Parainfluenza 3 (PCR) (NotDetected) Parainfluenza 4 (PCR) (NotDetected) RSV (PCR) (NotDetected) Entero/Rhino (PCR) (NotDetected) 05/28/20 05/28/20 Range/Units 23:46 23:46 WBC 13.18 H (4.8-10.8) K/uL RBC 3.41 L (4.7-6.1) M/uL Hgb 10.8 L (14.0-18.0) g/dL POC Hgb (14.0-18.0) g/dl Hct 31.4 L (42-52) % POC Hct (42-52) % MCV 92.1 (80-100) fL MCH 31.7 (25-34) pg MCHC 34.4 (32-36) g/dL RDW Std Deviation 40.7 (36.4-46.3) fL RDW Coeff of Raul 11.9 (11.5-14.5) % Plt Count 527 H (130-400) K/uL MPV 8.5 (7.4-10.4) fL Immature Gran % (Auto) 0.3 % Neut % (Auto) 83.0 % Lymph % (Auto) 5.8 % [place] % (Auto) 10.2 % Eos % (Auto) 0.5 % Baso % (Auto) 0.2 % Neut # (Auto) 10.94 H (1.4-6.5) K/uL Lymph # (Auto) 0.77 L (1.2-3.4) K/uL [place] # (Auto) 1.35 H (0.11-0.59) K/uL Eos # (Auto) 0.06 (0-0.5) K/uL Baso # (Auto) 0.02 (0-0.2) K/uL Immature Gran # (Auto) 0.04 H (0.00-0.02) K/uL PT (9.0-12.0) Seconds INR (0.9-1.1) APTT (21.0-31.0) Seconds PTT Ratio POC Sodium (135-144) mmol/L Sodium (136-145) mmol/L POC Potassium (3.3-5.0) mmol/L Potassium (3.5-5.1) mmol/L POC Chloride (101-112) mmol/L Chloride (98-107) mmol/L Carbon Dioxide (21-32) mmol/L POC Total CO2 (24-31) mmol/L Anion Gap (3-11) POC Anion Gap (16-25) mmol/L POC BUN (7-18) mg/dl BUN (7-18) mg/dl Creatinine (0.6-1.4) mg/dl POC Creatinine (0.6-1.3) mg/dl Est Cr Clr Drug Dosing Est GFR ( Amer) Est GFR (Non-Af Amer) BUN/Creatinine Ratio (10-20) Glucose (70-99) mg/dl POC Glucose (other) (70-99) mg/dl Lactate Calcium (8.5-10.1) mg/dl POC Ioniz Calcium [place] (1.12-1.32) mmol/l Magnesium (1.8-2.4) mg/dl Total Bilirubin (0.2-1) mg/dl AST (15-37) U/L ALT (12-78) U/L Alkaline Phosphatase (45-117) U/L Troponin I (0-0.045) ng/ml Total Protein (6.4-8.2) gm/dl Albumin (3.4-5.0) gm/dl Globulin (2.5-4.0) gm/dl Albumin/Globulin Ratio (0.9-2) Procalcitonin 0.37 (0-0.5) ng/ml Urine Color Urine Appearance (Clear) Urine pH (4.5-7.5) Ur Specific [place] (1.000-1.030) Urine Protein (Negative) Urine Glucose (UA) (Negative) Urine Ketones (Negative) Urine Blood (Negative) Urine Nitrite (Negative) Urine Bilirubin (Negative) Urine Urobilinogen (Negative) Ur Leukocyte Esterase (Negative) Urine WBC (Auto) (0-5) /hpf Urine RBC (Auto) (0-4) /hpf U Hyaline Cast (Auto) (0-5) /lpf U Epithel Cells (Auto) (0-5) /lpf Urine Bacteria (Auto) (Negative) Urine Yeast Adenovirus (PCR) (NotDetected) B. pertussis DNA (PCR) (NotDetected) B.parapertussis DNA PCR (NotDetected) C. pneumoniae DNA (PCR) (NotDetected) Coronavirus OC43 (PCR) (NotDetected) Coronavirus HKU1 (PCR) (NotDetected) Coronavirus 229E (PCR) (NotDetected) COVID-19 Eval Order COVID-19 PCR (Negative) Coronavirus NL63 (PCR) (NotDetected) Human Metapneumovir PCR (NotDetected) Influenza Type A (PCR) (NotDetected) Influenza Type B (PCR) (NotDetected) M. pneumoniae (PCR) (NotDetected) Parainfluenza 1 (PCR) (NotDetected) Parainfluenza 2 (PCR) (NotDetected) Parainfluenza 3 (PCR) (NotDetected) Parainfluenza 4 (PCR) (NotDetected) RSV (PCR) (NotDetected) Entero/Rhino (PCR) (NotDetected) (1) Fever Fever type: unspecified Qualified Code(s): R50.9 - Fever, unspecified
--- NOTE | 2020-05-29 14:07 | History & Physical Bridge Note ---
Date of Service May 29, 2020 History & Physical Bridge Note I have examined the patient, reviewed the History & Physical and in the interval since the performance of the History & Physical I have noted the following changes of clinical significance: no changes noted Stable this morning. Frustrated at being back in the hospital. Discussed the case with Dr. Rausch who feels conservative treatment with IV abx is indicated at this time. Will watch for now. Hopefully can transition to PO abx before too long and discharge home.
[2020-05-29] MEDS: SACCHAROMYCES BOULARDII 250 MG CAP PO SCH (21:31)
[2020-05-29] MEDS: PANTOprazole 40 MG TAB PO SCH (21:31)
[2020-05-30] MEDS: PIPERACILLIN/TAZOBACTAM 3.375 GM in DEXTROSE 5% 100 ML IV SCH ×4 (00:44→23:39)
[2020-05-30 06:15] LABS: Basophils # (auto) 0.01 K/uL (0-0.2); Basophils % (auto) 0.1 %; Eosinophils # (auto) 0.23 K/uL (0-0.5); Eosinophils % (auto) 2.3 %; Hematocrit (blood only) 29.6 % (42-52); Hemoglobin 9.5 g/dL (14.0-18.0); Immature Granulocytes # (auto) 0.03 K/uL (0.00-0.02); Immature Granulocytes % (auto) 0.3 %; Lymphocytes # (auto) 1.25 K/uL (1.2-3.4); Lymphocytes % (auto) 12.7 %; Mean Corpuscular Hemoglobin 29.6 pg (25-34); Mean Corpuscular Hgb Conc 32.1 g/dL (32-36); Mean Corpuscular Volume 92.2 fL (80-100); Mean Platelet Volume 8.5 fL (7.4-10.4); Monocytes # (auto) 1.38 K/uL (0.11-0.59); Neutrophils # (auto) 6.93 K/uL (1.4-6.5); Neutrophils % (auto) 70.6 %; Platelet Count 459 K/uL (130-400); RDW Coefficient of Variation 12.1 % (11.5-14.5); RDW Standard Deviation 41.7 fL (36.4-46.3); Red Blood Count 3.21 M/uL (4.7-6.1); White Blood Count 9.83 K/uL (4.8-10.8)
[2020-05-30 06:36] LABS: Albumin Level 2.2 gm/dl (3.4-5.0); BUN Creatinine Ratio 14.5 (10-20); Bilirubin Direct 0.2 mg/dl (0-0.2); Calcium 8.1 mg/dl (8.5-10.1); Creatinine Clr Calc Pharmacy 33.9 ml/min; Potassium 3.3 mmol/L (3.5-5.1)
[2020-05-30 06:38] LABS: Bilirubin,Total 0.6 mg/dl (0.2-1); Total Protein 6.2 gm/dl (6.4-8.2)
[2020-05-30] MEDS: PANTOprazole 40 MG TAB PO SCH ×2 (10:00→20:25)
[2020-05-30] MEDS: COLCHICINE 0.6 MG TAB PO SCH ×2 (10:00→20:25)
[2020-05-30] MEDS: FUROSEMIDE 20 MG TAB PO SCH (10:00)
--- NOTE | 2020-05-30 10:38 | Surgery Progress Note ---
Date of Service May 30, 2020 Assessment & Plan (1) Fever: Status post laparoscopic cholecystectomy and ERCP with bile leak CT again noted Has defervesced on IV antibiotics and would continue them Multiple episodes of liquid stool Check C. difficile Encourage ambulation Maintain diet Admission and Anticipated Discharge Date Admission Date: May 29, 2020 Subjective Feels better today Having multiple episodes of watery stool No hematochezia or melena Denies nausea and vomiting Denies abdominal pain Tolerated diet T-max over the last 24 hours was 37.2 Physical Exam Gastrointestinal (Abdomen): Inspection/Auscultation: normal bowel sounds and + abdominal surgical incision (All are clean, dry and intact); abdomen not distended Percussion/Palpation: abdomen soft; abdomen nontender Skin: no rashes, warm and dry Results & Data ([facility]) Vital Signs (Past 12 Hours) Vital Signs Temp Pulse Resp BP Pulse Ox 05/30/20 07:30 36.8 C 66 16 147/72 H 96 05/29/20 23:14 37.3 C 83 18 109/64 96 Laboratory Results 05/30/20 05/30/20 Range/Units 05:50 05:50 WBC 9.83 (4.8-10.8) K/uL RBC 3.21 L (4.7-6.1) M/uL Hgb 9.5 L (14.0-18.0) g/dL Hct 29.6 L (42-52) % MCV 92.2 (80-100) fL MCH 29.6 (25-34) pg MCHC 32.1 (32-36) g/dL RDW Std Deviation 41.7 (36.4-46.3) fL RDW Coeff of Raul 12.1 (11.5-14.5) % Plt Count 459 H (130-400) K/uL MPV 8.5 (7.4-10.4) fL Immature Gran % (Auto) 0.3 % Neut % (Auto) 70.6 % Lymph % (Auto) 12.7 % [place] % (Auto) 14.0 % Eos % (Auto) 2.3 % Baso % (Auto) 0.1 % Neut # (Auto) 6.93 H (1.4-6.5) K/uL Lymph # (Auto) 1.25 (1.2-3.4) K/uL [place] # (Auto) 1.38 H (0.11-0.59) K/uL Eos # (Auto) 0.23 (0-0.5) K/uL Baso # (Auto) 0.01 (0-0.2) K/uL Immature Gran # (Auto) 0.03 H (0.00-0.02) K/uL Sodium 135 L (136-145) mmol/L Potassium 3.3 L (3.5-5.1) mmol/L Chloride 102 (98-107) mmol/L Carbon Dioxide 24 (21-32) mmol/L Anion Gap 9.0 (3-11) BUN 29 H (7-18) mg/dl Creatinine 2.00 H (0.6-1.4) mg/dl Est Cr Clr Drug Dosing 33.9 ml/min Est GFR ( Amer) 36.0 Est GFR (Non-Af Amer) 31.0 BUN/Creatinine Ratio 14.5 (10-20) Glucose 107 H (70-99) mg/dl Calcium 8.1 L (8.5-10.1) mg/dl Total Bilirubin 0.6 (0.2-1) mg/dl Direct Bilirubin 0.2 (0-0.2) mg/dl AST 32 (15-37) U/L ALT 34 (12-78) U/L Alkaline Phosphatase 90 (45-117) U/L Total Protein 6.2 L (6.4-8.2) gm/dl Albumin 2.2 L (3.4-5.0) gm/dl (1) Fever Fever type: unspecified Qualified Code(s): R50.9 - Fever, unspecified
[2020-05-30] MEDS ORDERED: GABAPENTIN 100 MG CAP PO PRN (15:27)
[2020-05-30] MEDS ORDERED: ONDANSETRON INJ 2 MG/ML 2 ML VIAL IV PRN (15:27)
[2020-05-30] MEDS: ACETAMINOPHEN 325 MG TAB PO PRN (15:44)
--- NOTE | 2020-05-30 16:13 | Hospitalist Progress Note ---
Date of Service May 30, 2020 Assessment & Plan (1) Duodenitis: CT a/p on 05/29 showed a 2.7 cm fluid collection along the superior aspect of the proximal duodenum and duodenal wall thickening. - Treating with IV Zosyn; plan to switch to oral abx as able. - Surgery following - Appreciate recs - Continue PPI BID - Continue clear liquids for now. (2) Acute kidney injury superimposed on CKD: Baseline Cr ~1.8 - 2.0. CKD stage IV. - Presently at 2.0, so on the upper end of usual range. - Monitor (3) Physical deconditioning: Patient may benefit from PT/OT. Fall precautions (4) Hypertension: Blood pressure well controlled at present. Patient recently stopped hydrochlorothiazide lisinopril due to acute kidney injury. Continue to monitor -> Good today. (5) Gout: Patient with recent flare of gout. He has been taking colchicine with improvement. Continue current meds - Toe has minimal pain today. (6) GERD without esophagitis: Chronic. Stable. - Continue omeprazole 20 mg p.o. every morning (7) DVT prophylaxis: SCDs - Low DVT risk per admission calculator & also having some mild blood in stool after diarrhea episodes. Admission and Anticipated Discharge Date Admission Date: May 29, 2020 Subjective Feeling somewhat less dismayed today given he can take liquids today. Reports no fevers/chills, chest pain, shortness of breath, abdominal pain, nausea, or vomiting. Physical Exam Constitutional: WD/WN, vitals as above Eyes: EOM intact bilaterally; no conjunctival abnormality ENMT: external ear and nose normal, oropharynx normal Neck: trachea midline, no thyromegaly normal visual inspection Respiratory: normal respiratory effort, lungs clear to auscultation no respiratory distress Cardiovascular: RRR, no murmur, no edema Gastrointestinal (Abdomen): Inspection/Auscultation: abdomen normal to inspection; abdomen not distended Musculoskeletal: no cyanosis or clubbing, extremities motor strength 5/5 Skin: no rashes, warm and dry Neurologic: moves all extremities and awake Psychiatric: Orientation: alert, oriented to person and cooperative Results & Data Results & Data ([facility]) Vital Signs (Past 12 Hours) Vital Signs Temp Pulse Resp BP Pulse Ox 05/30/20 15:59 37.5 C 79 16 118/67 99 05/30/20 07:30 36.8 C 66 16 147/72 H 96 PG Care Time/CCT Total # of Minutes Spent Total Time Spent with Patient: Total time spent is greater than 50% in coordination of care (as documented) at patient's floor/unit and/or counseling patient: Coding Level of Care Code 52560 Subseq Hosp Care Lvl 2 Diagnoses Duodenitis K29.80 Acute kidney injury superimposed on CKD N17.9; N18.9 Physical deconditioning R53.81 Hypertension I10 Hypertension type: essential hypertension Gout M10.9 Gout site: toe Gout etiology: unspecified cause Chronicity: acute Laterality: left GERD without esophagitis K21.9 DVT prophylaxis Z29.9 (1) Hypertension Hypertension type: essential hypertension Qualified Code(s): I10 - Essential (primary) hypertension (2) Gout Gout site: toe Gout etiology: unspecified cause Chronicity: acute Laterality: left Qualified Code(s): M10.9 - Gout, unspecified
[2020-05-30] MEDS: LOPERAMIDE HCL 2 MG CAP PO PRN (20:25)
[2020-05-31] MEDS: LOPERAMIDE HCL 2 MG CAP PO PRN ×2 (04:51→19:24)
[2020-05-31 05:52] LABS: Hematocrit (blood only) 29.7 % (42-52); Hemoglobin 10.4 g/dL (14.0-18.0); Mean Corpuscular Hemoglobin 31.9 pg (25-34); Mean Corpuscular Volume 91.1 fL (80-100); Mean Platelet Volume 8.7 fL (7.4-10.4); Platelet Count 456 K/uL (130-400); RDW Coefficient of Variation 12.1 % (11.5-14.5); RDW Standard Deviation 40.6 fL (36.4-46.3); Red Blood Count 3.26 M/uL (4.7-6.1); White Blood Count 8.58 K/uL (4.8-10.8)
[2020-05-31 06:20] LABS: BUN Creatinine Ratio 11.7 (10-20); Creatinine Clr Calc Pharmacy 30.4 ml/min; Est GFR (African American) 31.5; Est GFR (Non-African American) 27.2; Magnesium 2.3 mg/dl (1.8-2.4); Potassium 3.2 mmol/L (3.5-5.1)
[2020-05-31] MEDS: PIPERACILLIN/TAZOBACTAM 3.375 GM in DEXTROSE 5% 100 ML IV SCH (07:35)
[2020-05-31] MEDS: SACCHAROMYCES BOULARDII 250 MG CAP PO SCH (08:36)
[2020-05-31] MEDS: FUROSEMIDE 20 MG TAB PO SCH (08:36)
[2020-05-31] MEDS: PANTOprazole 40 MG TAB PO SCH ×2 (08:36→20:36)
[2020-05-31] MEDS: COLCHICINE 0.6 MG TAB PO SCH ×2 (08:37→20:36)
--- NOTE | 2020-05-31 10:58 | Surgery Progress Note ---
Date of Service May 31, 2020 Assessment & Plan (1) Duodenitis: discussed with Dr. Martinez will change to Augmentin, could also consider stopping abx or switch to cipro/flagyl full liquid lunch, can advance to soft food tonight or in AM if doing ok GI consult, s/p ERCP + diarrhea ok for d/c from surgical standpoint, but renal function and diarrhea are primary problems at this point Admission and Anticipated Discharge Date Admission Date: May 29, 2020 Supervising Physician Co-Signing Physician Notes as per Cinda LEYVA Delroy is sitting on the side of his bed in a chair eating of his liquid lunch not really any complaints except he would like more to eat the test sent progress notes since his admission is reviewed including his history of presentation to the emergency room At the likely the 2 cm collection in the gallbladder area is accountable for his symptomatology that happened quite briskly after riding on a 4 [place] Also concerned that he had bright rectal bleeding with diarrhea Overall at this time he is improving he feels better No acute surgical problem at this time may eventually need to have colonoscopy as he has not had a long time especially for his diarrhea and bloody stool Subjective 80 y/o male well known to Dr. Martinez after recent lap marvin, ERCP for bile leak 2 weeks s/p ERCP developed fever and sent to ED started on Zosyn for 2.7 cm fluid along duodenum, has been on for 48 hours tolerating clears c/o diarrhea that began Sunday afternoon ? abx Physical Exam Gastrointestinal (Abdomen): Inspection/Auscultation: abdomen not distended Percussion/Palpation: abdomen soft; abdomen nontender Rectal Exam: normal visual inspection of rectum Results & Data ([facility]) Vital Signs (Past 12 Hours) Vital Signs Temp Pulse Resp BP Pulse Ox 05/31/20 07:45 36.7 C 77 18 132/84 100 05/31/20 06:26 36.7 C 77 18 145/75 H 99 05/30/20 23:31 37.0 C 75 16 101/61 98 PG Care Time/CCT Total # of Minutes Spent Total Time Spent with Patient: Total time spent is greater than 50% in coordination of care (as documented) at patient's floor/unit and/or counseling patient: Coding Level of Care Code 82062 Subseq Hosp Care Lvl 2 Diagnoses Duodenitis K29.80
--- NOTE | 2020-05-31 13:02 | Gastrointestinal Consultation ---
Date of Consultation May 31, 2020 Assessment & Plan (1) Duodenitis: 80 year old male S/P CCY in April, ERCP in April w/ stent placement presenting w/ fatigue and fever. CT showed gas collection in CCY bed, and 2.7 cm collection extending from duodenum to CCY bed. Clinically feeling well. No abd pain. No nausea/vomiting. No GERD. No fever, chills, CP, SOB. Diarrhea w/ rectal bleeding x 1 day, new Cdiff Stool culture Trend HGB Monitor and document stools Transfuse PRN Start Questran once daily Can hold imodium once Questran started OP Colonoscopy PO ABX x 2 week Repeat CTAP as OP in 1 months ERCP as scheduled for stent removal Thank you for allowing us to participate in the care of this patient. Please call with any acute changes, questions or concerns. Please see addendum below with additional recommendation from my supervising physician. (2) Bile leak: Supervising Physician Co-Signing Physician Notes I have personally seen and examined the patient with FAUSTO Caban. Her note reflects my exam and findings. I agree with her impression and plan. I am concerned about an infected biloma (Fever, elevated WBC on admission, and air in bed). He has responded very well to IV antibiotics and now Augmentin. No more fever and normal WBC. He has never had abdominal pain subjectively or on PE. Doubt obstructed biliary stent ( only 2 weeks old and normal chemistries). If he develops fever or other signs of recurrence of infection, he will need IR drainage and culture to guide Tx. Case discussed with our biliary team as well. Leon Jo M.D. History of Present Illness Reason for Consultation: diarrhea, history of ERCP Requesting Physician: Toney Farrell PA-C Attending Physician: Ji Gutiérrez MD History of Present Illness 80 year old male with history of ERCP in April w/ stent placement for bile leak who was admitted 48 hours ago w/ fevers, fatigue - GI asked to evaluate. S/P CCY in April, ERCP in April w/ stent placement. He was discharged home and tolerating PO intake and feeling well. Went camping with family and friends and noted severe exhausted, fatigue and fever. Sought ED care. Was started on IV ABX, evaluated by surgery. CT showed gas collection in CCY bed, and 2.7 cm collection extending from duodenum to CCY bed. Clinically feeling well. No abd pain. No nausea/vomiting. Did develop diarrhea last evening. Numerous loose stools. Some BRB in stool. No GERD. No fever, chills, CP, SOB. Allergies Allergy/AdvReac Type Severity Reaction Status Date / Time atorvastatin Allergy Unknown RASH Verified 05/28/20 23:54 nisoldipine [From Sular] Allergy Unknown Unknown Verified 05/28/20 23:54 propranolol Allergy Unknown RASH Verified 05/28/20 23:54 Home Medications Home Medications Medication Instructions Recorded Confirmed Type Probiotic 0 mmu cells PO QAM 04/07/20 05/28/20 History omeprazole magnesium 20 mg 20 mg PO QAM 04/21/20 05/28/20 History tablet,delayed release alum-mag hydroxide-simeth 30 ml PO QID PRN 05/06/20 05/28/20 History furosemide [Lasix] 20 mg PO DAILY #7 tab 05/20/20 05/28/20 Rx colchicine 0.6 mg tablet 0.6 mg PO BID 05/27/20 05/28/20 History Patient History Medical History (Updated 05/31/20 @ 06:25 by Jakob Phipps MD) Acute kidney injury Atelectasis, right Benign prostatic hyperplasia with elevated prostate specific antigen (PSA) Cardiac murmur HEARD BY PCP PAST MONTH- NO VALVE ISSUES PER 2015 ECHO Carotid artery stenosis Left side 50-69% stenosis per 2019 carotid doppler Chronic kidney disease, stage III (moderate) F/U DR CRAWFORD- BASELINE CREAT 1.6-1.8 GERD without esophagitis Gout History of back problems Hypertension Inflammatory polyarthritis Obesity (BMI 30.0-34.9) PAD (peripheral artery disease) Pleural effusion, right SOB (shortness of breath) on exertion Volume overload Surgical History (Updated 05/29/20 @ 11:30 by Marbin Rausch MD) H/O hernia repair (08/18/05) Right direct inguinal hernia and lipoma of the cord repair with mesh [id number] Dr. Martinez H/O inguinal hernia repair H/O prostatectomy 2001 & 2007 H/O right knee surgery 1973 History of colonoscopy History of rectal surgery Hx of cataract surgery 2016 both eyes Hx of total knee arthroplasty Right 2004 S/P ERCP Stent placed S/P laparoscopic cholecystectomy (05/11/20) Laparoscopic Cholecystectomy with Cholangiogram 05/11/20 Dr. Martinez Family History Father Cancer Mother Heart disease Diabetes Denies family history of Kidney disease Social History Smoking Status: Former smoker Tobacco Type: Pipe and Cigars Smoking End Date: 1969; Second Hand Exposure: Yes (on occasion); Do You Dip or Chew Tobacco: No; Tobacco Cessation Education Requested by Patient: No Hx Alcohol Use: Yes Alcohol type: beer, wine and hard liquor Alcohol Intake Frequency: 2-3 x/Week Hx Substance Use: No Preferred Language: Kyrgyz Communication Ability: Effective Cycle Specialist Required: No Beliefs That Will Affect Care: None marital status: Current Living Situation: Spouse current occupational status: retired How many Children do You have: 2 Other Information That Helps Us Care for You: No Feels Safe at Home: Yes Safety Concerns: Feels Safe At This Time Review of Systems Constitutional: + fatigue; no fever and no chills Respiratory: no cough and no wheezing Cardiovascular: no chest pain Gastrointestinal: no abdominal pain, no nausea, no hematemesis and no blood in stools Physical Exam Constitutional: no acute distress Neck: trachea midline Respiratory: normal respiratory effort Skin: no rashes, warm and dry Results & Data ([facility]) Vital Signs (Past 12 Hours) Vital Signs Temp Pulse Resp BP Pulse Ox 05/31/20 07:45 36.7 C 77 18 132/84 100 05/31/20 06:26 36.7 C 77 18 145/75 H 99 Laboratory Results 05/31/20 05/31/20 Range/Units 04:52 04:52 WBC 8.58 (4.8-10.8) K/uL RBC 3.26 L (4.7-6.1) M/uL Hgb 10.4 L (14.0-18.0) g/dL Hct 29.7 L (42-52) % MCV 91.1 (80-100) fL MCH 31.9 (25-34) pg MCHC 35.0 (32-36) g/dL RDW Std Deviation 40.6 (36.4-46.3) fL RDW Coeff of Raul 12.1 (11.5-14.5) % Plt Count 456 H (130-400) K/uL MPV 8.7 (7.4-10.4) fL Sodium 133 L (136-145) mmol/L Potassium 3.2 L (3.5-5.1) mmol/L Chloride 100 (98-107) mmol/L Carbon Dioxide 25 (21-32) mmol/L Anion Gap 9.0 (3-11) BUN 26 H (7-18) mg/dl Creatinine 2.23 H (0.6-1.4) mg/dl Est Cr Clr Drug Dosing 30.4 ml/min Est GFR ( Amer) 31.5 Est GFR (Non-Af Amer) 27.2 BUN/Creatinine Ratio 11.7 (10-20) Glucose 98 (70-99) mg/dl Calcium 9.0 (8.5-10.1) mg/dl Magnesium 2.3 (1.8-2.4) mg/dl
[2020-05-31] MEDS: AMOXICILLIN/CLAVULANATE 875 MG TAB PO SCH (16:13)
[2020-05-31] MEDS: ACETAMINOPHEN 325 MG TAB PO PRN ×2 (19:24→23:23)
--- NOTE | 2020-05-31 19:46 | Hospitalist Progress Note ---
Date of Service May 31, 2020 Assessment & Plan (1) Duodenitis: CT a/p on 05/29 showed a 2.7 cm fluid collection along the superior aspect of the proximal duodenum and duodenal wall thickening. - initially on zosyn - now changed to augmentin - improving (2) Acute kidney injury superimposed on CKD: Baseline Cr ~1.8 - 2.0. CKD stage IV. - suspect rise is probably from fluid losses from diarrhea. for now will hold lasix and follow --> if continues to rise can add IV fluids, but want to hold off since he was very (and uncomfortably) edematous last admission and that has since resolved. (3) Diarrhea: Cdiff negative. prob related to zosyn. change to augmentin and probiotics should help. GI w/u otherwise. (4) Physical deconditioning: PT/OT (5) Hypertension: follow - BP reasonable right now (6) Gout: Patient with recent flare of gout. He has been taking colchicine with improvement. Continue current meds (7) GERD without esophagitis: Chronic. Stable. - Continue omeprazole 20 mg p.o. every morning (8) DVT prophylaxis: SCDs - Low DVT risk per admission calculator & also having some mild blood in stool after diarrhea episodes. Admission and Anticipated Discharge Date Admission Date: May 29, 2020 Subjective diarrhea. discouraged. was finally at [facility] then got so weak he fell into recliner, then found to have fever, then they brought him here. is otherwise feeling better now though. essentially no leg edema. Review of Systems Review of Systems: All systems reviewed & are unremarkable except as noted in HPI & below Physical Exam Physical Exam: gen aaox3 pleasant nad heent nc at mmm breathing unlabored no accessory muscles good effort skin no rashes no pallor or icterus neuro no focal deficits ext no c/c/e Results & Data Results & Data ([facility]) Vital Signs (Past 12 Hours) Vital Signs Temp Pulse Resp BP Pulse Ox 05/31/20 15:06 98.1 F 71 16 136/82 97 05/31/20 07:45 98.1 F 77 18 132/84 100 PG Care Time/CCT Total # of Minutes Spent Total Time Spent with Patient: Total time spent is greater than 50% in coordination of care (as documented) at patient's floor/unit and/or counseling patient: Coding Level of Care Code 82521 Subseq Hosp Care Lvl 3 Diagnoses Duodenitis K29.80 Acute kidney injury superimposed on CKD N17.9; N18.9 Diarrhea R19.7 Physical deconditioning R53.81 Hypertension I10 Hypertension type: essential hypertension Gout M10.9 Gout site: toe Gout etiology: unspecified cause Chronicity: acute Laterality: left GERD without esophagitis K21.9 DVT prophylaxis Z29.9 (1) Hypertension Hypertension type: essential hypertension Qualified Code(s): I10 - Essential (primary) hypertension (2) Gout Gout site: toe Gout etiology: unspecified cause Chronicity: acute Laterality: left Qualified Code(s): M10.9 - Gout, unspecified
[2020-06-01 06:10] LABS: BUN Creatinine Ratio 9.9 (10-20); Calcium 7.9 mg/dl (8.5-10.1); Creatinine Clr Calc Pharmacy 32.6 ml/min; Est GFR (African American) 34.3; Est GFR (Non-African American) 29.6; Potassium 2.9 mmol/L (3.5-5.1)
[2020-06-01] MEDS: ACETAMINOPHEN 325 MG TAB PO PRN (07:32)
[2020-06-01] MEDS: AMOXICILLIN/CLAVULANATE 875 MG TAB PO SCH (08:11)
[2020-06-01] MEDS: COLCHICINE 0.6 MG TAB PO SCH (08:12)
[2020-06-01] MEDS: SACCHAROMYCES BOULARDII 250 MG CAP PO SCH (08:12)
[2020-06-01] MEDS: PANTOprazole 40 MG TAB PO SCH (08:12)
[2020-06-01] MEDS ORDERED: POTASSIUM CHLORIDE 20 MEQ TABCR PO STA (08:26)
--- NOTE | 2020-06-01 08:53 | Gastroenterology Progress Note ---
Date of Service June 01, 2020 Assessment & Plan (1) Duodenitis: 80 year old male S/P CCY in April, ERCP in April w/ stent placement presenting w/ fatigue and fever. CT showed gas collection in CCY bed, and 2.7 cm collection extending from duodenum to CCY bed. Clinically feeling well. No abd pain. No nausea/vomiting. No GERD. No fever, chills, CP, SOB. Diarrhea w/ rectal bleeding x 1 day, new Cdiff negative Stool culture pending Trend HGB Monitor and document stools Transfuse PRN Start Questran once daily Can hold imodium once Questran started OP Colonoscopy PO ABX x 2 week Repeat CTAP as OP in 1 months ERCP as scheduled for stent removal Thank you for allowing us to participate in the care of this patient. Please call with any acute changes, questions or concerns. Please see addendum below with additional recommendation from my supervising physician. (2) Bile leak: Admission and Anticipated Discharge Date Admission Date: May 29, 2020 Supervising Physician Co-Signing Physician Notes I have personally seen and examined the patient with FAUSTO Caban. Her note reflects my exam and findings. I agree with her impression and plan. Had long discussion with surgery team as well today. Agree with continued broad spectrum ABx as out patient with close follow up. Patient without complaints today and feeling well. Leon Jo M.D. Subjective Was in restroom at time of AM rounds. Will re-assess in afternoon rounds. Denied fevers, abdominal pain or vomiting to me. Physical Exam Physical Exam: Unable to perform on AM rounds as pt was in restroom. Results & Data ([facility]) Vital Signs (Past 12 Hours) Vital Signs Temp Pulse Resp BP Pulse Ox 06/01/20 07:38 36.8 C 73 16 162/77 H 97 05/31/20 23:13 37.2 C 67 18 118/63 97 Laboratory Results 06/01/20 Range/Units 05:24 Sodium 136 (136-145) mmol/L Potassium 2.9 L (3.5-5.1) mmol/L Chloride 103 (98-107) mmol/L Carbon Dioxide 27 (21-32) mmol/L Anion Gap 6.0 (3-11) BUN 21 H (7-18) mg/dl Creatinine 2.08 H (0.6-1.4) mg/dl Est Cr Clr Drug Dosing 32.6 ml/min Est GFR ( Amer) 34.3 Est GFR (Non-Af Amer) 29.6 BUN/Creatinine Ratio 9.9 L (10-20) Glucose 107 H (70-99) mg/dl Calcium 7.9 L (8.5-10.1) mg/dl
--- NOTE | 2020-06-01 09:04 | Surgery Progress Note ---
Date of Service June 01, 2020 Assessment & Plan (1) Fever: Patient history since I saw him on Sunday of last week where he was doing well he had no chills or fever tolerating a regular diet felt great [place] go [place] the [place] after he rode in a [place] at that time started having chills and fever with hypotension On admission to the emergency room temperature was recorded as normal although he did have a white count elevation at 13+ The patient was admitted on Sunday by the next morning his white count returned to normal He did state that he started having some diarrhea which was bloody and it started after he was admitted to the emergency room and at this time diarrhea subsided and at most this blood-tinged In summary we have a 2 cm collection second portion of duodenum not sure if it is infected biloma in a patient that has a biliary stent who developed an acute episode and what clinically may have been a transient bacteremia it is unlikely that the fluid collection would have acted in such a way but having said that I would discuss with gastroenterology to see if this collection can possibly be drained transduodenal If the clam bed worker is unable to access this area and drain it and I would recommend the patient be kept on antibiotics and see how he does clinically as an outpatient Etiology of the hematochezia could be related to colonic or hemorrhoidal (clinically checked for hemorrhoids which did not reveal any significant disease) pathology but will keep in and mind the possibility of hemobilia (there was no significant drop in hemoglobin) Admission and Anticipated Discharge Date Admission Date: May 29, 2020 Yuri Almonte is anxious to go home soft diet yesterday without any issues he tolerated he is not having any abdominal pain diarrhea subsided only slight blood-tinged at this time Did state though that this morning when he went to the bathroom after drinking some water he felt like he was going to have an emesis Physical Exam Physical Exam: Patient is abdomen is completely benign no tenderness no guarding He continues to have some discomfort in the right lateral upper thigh in a square fashion states this is some burning sensation there is no cellulitis no tenderness on exam Results & Data ([facility]) Vital Signs (Past 12 Hours) Vital Signs Temp Pulse Resp BP Pulse Ox 06/01/20 07:38 36.8 C 73 16 162/77 H 97 05/31/20 23:13 37.2 C 67 18 118/63 97 went back and reviewed all the images from his initial surgery to the most recent CT scans of the abdomen that he had on this admission reviewed this with the radiologist He has approximately 2 cm or so fluid collection that appears to be anterior to the duodenum and possibly in the wall at the duodenum second portion He does have few specks of air that is hard to tell whether or not it is subhepatic Li or possibly intrahepatic patient has a biliary stent Radiologist feel that this is hard to access with interventional radiology and they also feel that this is a fluid collection not necessarily infected PG Care Time/CCT Total # of Minutes Spent Total Time Spent with Patient: Total time spent is greater than 50% in coordination of care (as documented) at patient's floor/unit and/or counseling patient: Coding Level of Care Code 81185 Subseq Hosp Care Lvl 3 Diagnoses Fever R50.9 Fever type: unspecified (1) Fever Fever type: unspecified Qualified Code(s): R50.9 - Fever, unspecified
--- NOTE | 2020-06-01 19:02 | Discharge Summary ---
Date of Service June 01, 2020 Admission HPI Per Admitting Provider Gage Man is a 80yo C male with history of HTN, Gout, GERD, CKD presenting with fevers/chills/cough and SOB. Patient had a cholecystectomy performed on 05/11/[address] Martinez and was discharged home the same day. Procedure was well tolerated with no complications identified. Patient developed RUQ pain and shoulder pain on the evening of 05/12. He was seen in the ER on 05/13 and ultimately found to have a bile leak. He had an ERCP wtih stent placement performed on 05/14/20. Patient's hospital stay was complicated by development of NIKOLE on CKD and volume overload requiring diuresis. Patient was ultimately discharged home. Patient followed up with Dr. Martinez on 05/26/[address] Crawford on 05/27/20. His Lisinopril/HCTZ continues to be held and BP is monitored. This can be restarted if needed pending blood pressure readings. Patient has been doing well at home overall. Yesterday he was going to try to spend the day at his camp. He reports riding in a golf cart for 30-45 minutes then he became very weak and fatigued. He went to his camp and "collapsed" and slept for 2.5 hours. He felt febrile when he woke up and his friends checked his temperature which was elevated at 101. He contacted a Tele-nurse through [place] and was instructed to come to the ER. Patient reports a constant dry cough with some worsening SOB. He had gout symptoms recently in the left great toe and started Colchicine which improved his symptoms. No additional complaints at this time. No clear source of infecction. Patient denies LAINEZ/neck stiffness/CP/abdominal pain/nausea/vomiting/diarrhea/dysuria/rashes. Principal Diagnosis duodenitis Discharge Exam gen aaox3 pleasant nad heent nc at mmm breathing unlabored no accessory muscles good effort skin no rashes no pallor or icterus neuro no focal deficits mental status good recent and remote recall Discharge Data Allergies Allergy/AdvReac Type Severity Reaction Status Date / Time atorvastatin Allergy Unknown RASH Verified 05/28/20 23:54 nisoldipine [From Sular] Allergy Unknown Unknown Verified 05/28/20 23:54 propranolol Allergy Unknown RASH Verified 05/28/20 23:54 Consultations 05/29/20 05:39 ED Decision to Admit Stat 05/29/20 07:37 Consult General Surgery Routine 05/31/20 10:36 Consult Gastroenterology Routine Ordered Studies 05/28/20 23:03 CT abd pelvis IV con only Urgent CT angio chest PE protocol Urgent 05/29/20 03:30 CT abd pelvis oral con only Urgent Hospital Course (1) Duodenitis: CT a/p on 05/29 showed a 2.7 cm fluid collection along the superior aspect of the proximal duodenum and duodenal wall thickening. - initially on zosyn - now changed to augmentin - improving - strongly desires to go home and appears stable to do so - to complete 14 days of abx w augmentin - outpt GI f/u and anticipate repeat CT and likely endoscopy after abx complete (2) Acute kidney injury superimposed on CKD: Baseline Cr ~1.8 - 2.0. CKD stage IV. - suspect rise was probably from fluid losses from diarrhea. improved to 2.08, diarrhea resolving. held lasix 06/01, instructed to hold 06/02. for repeat BMP 06/03 or 06/04. (3) Diarrhea: Cdiff negative. prob related to zosyn. the change to augmentin and probiotics should help. GI w/u otherwise. (4) Physical deconditioning: PT/OT inpatient. discussed reasonable expectations of progress as outpt (5) Hypertension: follow - BP reasonable right now (6) Gout: Patient with recent flare of gout. He has been taking colchicine with improvement. Continue current meds (7) GERD without esophagitis: Chronic. Stable. - Continue omeprazole 20 mg p.o. every morning (8) DVT prophylaxis: SCDs - Low DVT risk per admission calculator & also having some mild blood in stool after diarrhea episodes. stable for home Total Time Total Time Spent Total Time Spent (In Minutes): >30 Discharge Plan Discharge Items Patient Disposition: Home - Home Health Services Reason For Visit: FEVER Discharge Diagnosis: duodenitis (see below) Activity: Resume your previous activity Non-emergency contact: Primary Care Provider, Surgeon and Trim Operator Call non-emergency contact if: you have any medication questions, your symptoms worsen and your temperature is above 101 Follow-up/Referrals: Taj Hart MD [Primary Care Provider] - Leon Jo [Physician] - Diet: Low Sodium (2gm) Addtl Attending Provider Instructions: duodenitis -this means an inflammation of the duodenum - the first part of your small intestine. given what you've been through recently with the surgery and bile leak, and especially since you also had a fever when you first started feeling sick again, it is most likely that this duodenitis was infection (where bacteria in your intestines got across the wall into the duodenal wall and led to a localized area of infection) -everything appears to be getting better with antibiotics - we'll want to do a total of 2 weeks of antibiotics (through the end of 06/13) - we'll finish out the course with the augmentin you've been on here - next dose tonight -after the antibiotics, you'll be following up with gastroenterology - they'll see how you're doing and most likely repeat a CT vs doing a scope (or if the CT shows ongoing inflammation, then definitely the scope) -if you feel worsening - especially a recurrent fever, or new/worsening upper abdominal pain/nausea - we'd want you seen sooner rather than later diarrhea -this is almost certainly a side effect of the IV antibiotic you were on. your stool did not test positive for Cdiff - so an actual infection causing the diarrhea is quite unlikely - but antibiotics like the zosyn you were on are notorious for upsetting your normal gut bacteria and causing diarrhea. continue probiotics until you're off the antibiotics. i expect the diarrhea to improve over the coming days, but of course, if it worsens, then we'd want you seen again sooner rather than later kidney numbers -as we discussed, your kidney numbers had bumped a little with the fluid losses from the diarrhea - but are now back on track (your number today was 2.08, which appears to be just barely above where Dr Crawford normally sees you) - additionally your potassium was a bit low at 2.9 (normal is 3.5-5.0) - this, too, was from the diarrhea (people notoriously lose potassium in diarrhea) - we replaced the potassium some, and i expect as the diarrhea slows and your eating gets back to normal that this will normalize as well. we'll want to be safe and have you get labwork (BMP) checked at Dr Crawford's office by the end of this week just to ensure things continue to move the right way. -skip tomorrow's dose of lasix (furosemide) before getting back to your regular schedule deconditioning -with everything you've been through, it will take a while until you really feel like yourself again. figure it might be thanksgiving until you feel back to totally normal -the biggest thing will be a slow improvement in fatigue. right now doing just about anything can amount to feeling like you've run a marathon. that's not to say you can't go back to [place] - but i'd really plan on it taking a lot out of you to get there, and figure you'll want to take it really easy over the next few days -because improvement will come slowly - don't expect to see day-to-day improvements -- instead gauge your progress in 3-4 days at a time. if you can look back at how you were 3-4 days ago, then you'll probably be able to see that you're doing better than you were. if you see worsening, or a failure to show some progress over the course of a whole week, then it would be time to get looked at. To Do: -augmentin (antibiotic) twice a day - next dose tonight - for 25 more doses (rounding out 2 weeks of treatment) -follow up with gastroenterology around 3-4 weeks from now -skip tomorrow's dose of lasix (furosemide) and then go back to normal on -labwork (BMP) or sunday at dr crawford's office Pending Studies at Discharge: No Stand-Alone Forms: My [facility] [employer], Smoking Cessation Medications and DC Order Prescriptions: New amoxicillin-pot clavulanate [Augmentin] 875-125 mg tablet 1 tab PO BID Qty: 25 RF: 0 Continued omeprazole magnesium [Prilosec OTC] 20 mg tablet,delayed release (DR/EC) 20 mg PO QAM RF: 0 colchicine 0.6 mg tablet 0.6 mg PO BID RF: 0 alum-mag hydroxide-simeth 200-200-20 mg/5 mL Suspension 30 ml PO QID PRN (Reason: Indigestion) RF: 0 Probiotic 3 billion cell Capsule 0 mmu cells PO QAM RF: 0 furosemide [Lasix] 20 mg tablet 20 mg PO DAILY Qty: 7 RF: 0 Discharge Orders: Discharge Order (Routine); Ordered 06/01/20 Ordered By: Francisco Javier Sosa Admission Data Admit Date/Time: 05/29/20 06:17 Attending Provider: Francisco Javier Sosa Admit Provider: Lona Rollins Primary Care Provider: Taj Hart Other Providers: Ji Gutiérrez ; Mary Grace Berman ; [facility] ; Sheron Berman Other Interventions: Discharge Summary Assessment (RN) Last Done: 06/01/20 13:10 Coding Level of Care Code D/C Day Management >30 mins Diagnoses Duodenitis K29.80 Acute kidney injury superimposed on CKD N17.9; N18.9 Diarrhea R19.7 Physical deconditioning R53.81 Hypertension I10 Hypertension type: essential hypertension Gout M10.9 Gout site: toe Gout etiology: unspecified cause Chronicity: acute Laterality: left GERD without esophagitis K21.9 DVT prophylaxis Z29.9
== END 2020-06-01 15:22 | disposition home health service (06) | DRG 378 ==
LOC: ED 21:48 → 3E 05-29 06:49 → SUATTDRO 05-29 07:24 → 3E 05-29 07:24

== ENCOUNTER 2023-10-30 19:55 | Observation (INO) ==
[2023-10-30 20:07] VITALS: TEMP 98.2
--- NOTE | 2023-10-30 20:18 | Emergency Department Note ---
Impression & Plan Chest pressure, Dizziness, CKD (chronic kidney disease) stage 3, GFR 30-59 ml/min ED Provider Note NAME: MART JOHNS AGE: 83 SEX: M : 1940 ARRIVES VIA: Ambulance INFORMANT: Patient, ED PROVIDER(S): Rajat Grimes MD CHIEF COMPLAINT: Chest pressure MEDICAL DECISION MAKING: patient presents due to concern for associated chest pressure and dizziness. IV was established and blood work was obtained along with an EKG troponin and chest x-ray. The patient was ordered IV fluids. Patient stated that he initially had some abdominal what he described to get gas pain prior to his chest pressure but this is since resolved after having a bowel movement. No abdominal pain on exam. Patient has had occasional twinges of chest pressure. Given this with the patient's age do not think unreasonable for further evaluation. I did review the on-call hospital service Dr. Rollins and the patient was admitted to the medicine service. Discussion w/ other healthcare providers: None Prior /Outside records reviewed: None Differential diagnosis: Cardiac ischemia, aortic dissection, pulmonary embolism, pneumothorax, pneumonia, pericarditis, myocarditis, GERD, cholecystitis, pancreatitis, musculoskeletal, as well as other pathologies were considered. Diagnostics, as interpreted by me: ECG: Sinus with first-degree AV block, rate of 69, normal QRS, left axis deviation no ST elevations Q-wave noted in lead III. No significant changes from comparison completed June 11, 2023 Cardiac monitoring: An order was placed for continuous cardiac monitoring. The monitor shows a rate of 72 with sinus rhythm. Patient was placed on pulse oximetry Medical decision rules: None Imaging studies: I informally interpreted the patient's chest x-ray does show elevated right hemidiaphragm without obvious pneumonia or pneumothorax with formal report to follow. HPI: Patient presents due to concern for chest pressure. Patient states that around 630 he developed some right-sided abdominal pain that he described as "gas pain" and that he went to go have a bowel movement. The patient states that he was able to do so and then after having his bowel movement he had stood up got very lightheaded dizzy became diaphoretic and walked to his couch after he had sat on the toilet for several minutes as he felt very lightheaded to the point where he thought he was going to pass out. Upon presenting to his couch the patient did have associated chest pressure. Patient states that it has virtually resolved. He did receive 4 baby aspirin and rapid no nitro. Patient denies any leg swelling or calf pain. Patient denies any prior history of any heart disease. Patient does occasionally drink a glass of wine or a bottle of beer but does not drink regularly. Patient does not take any evening medications. Patient states that he had a fairly good breakfast this morning including 2 eggs and 3 pancakes and then only hard-boiled egg around 2:00 and then had some chili in the early evening. PAST MEDICAL HISTORY: See Below PAST SURGICAL HISTORY: See Below SOCIAL HISTORY: See Below HOME MEDICATIONS: See Below ALLERGIES: See Below VITALS: See Below PHYSICAL EXAMINATION: GENERAL: NAD, non-toxic. Wearing glasses. EYE EXAM: Normal conjunctiva. PERRL, no anisocoria and EOM's grossly intact w/o pain. OROPHARYNX: Moist mucus membranes, grossly normal dentition. NECK: Trachea midline, no stridor. Supple, no nuchal rigidity, no adenopathy, non-tender. No signs of meningismus. FROM of the neck with good chin to chest and neck extension. LUNGS: Clear to auscultation. Normal chest wall mechanics. HEART: NSR, no MRG. ABDOMEN: Abdomen soft, non-tender, no masses, no rebound or guarding. BACK: No CVA TTP. SKIN: No rashes and no bruising. UPPER EXTREMITIES: Upper extremities are grossly normal. LOWER EXTREMITIES: Grossly normal, trace pretibial edema without any calf pain or erythema and without asymmetry. NEURO EXAM: A&O x3, cranial nerves II-XII grossly intact, normal speech, moves all 4 extremities. Past Med/Surg History Medical History BPH with obstruction/lower urinary tract symptoms Anemia stable History of multiple concussions Gout no current issues History of back problems Carotid artery stenosis Left side 50-69% stenosis per 2019 carotid doppler Chronic kidney disease, stage III (moderate) baseline creatinine 1.6-1.8, follows with Dr. Ty GREENFILED without esophagitis Hypertension Inflammatory polyarthritis PAD (peripheral artery disease) per records/patient denies Surgical History History of esophagogastroduodenoscopy (EGD) EGD stent: 07/02/20: MAC sedation at [facility] History of tonsillectomy History of ear surgery multiple as a child S/P ERCP ERCP: 05/14/20: Grade 2 view, MAC33, ETT 7.5 at [facility] S/P laparoscopic cholecystectomy (05/11/20) Laparoscopic Cholecystectomy with Cholangiogram 05/11/20 Dr. Martinez History of colonoscopy History of rectal surgery 1970s fistula repair H/O right knee surgery 1972 Hx of cataract surgery 2016 both eyes H/O hernia repair (08/18/05) Right direct inguinal hernia and lipoma of the cord repair with mesh [id number] Dr. Martinez Hx of total knee arthroplasty Right 2004 H/O prostatectomy 2001 & 2007 Family History Father Cancer Mother Heart disease Diabetes Denies family history of Kidney disease Social History Smoking Status: Former smoker Tobacco Type: Cigarettes Second Hand Exposure: No; Do You Dip or Chew Tobacco: No; Hx Alcohol Use: Yes Alcohol type: beer, wine and hard liquor Alcohol Intake Frequency: 2-3 x/Week Hx Substance Use: No Preferred Language: Monegasque Communication Ability: Effective Pediatric Physiatrist Required: No Beliefs That Will Affect Care: None marital status: Current Living Situation: Spouse current occupational status: retired How many Children do You have: 2 Feels Safe at Home: Yes Assistive Devices: Denture - Upper, Denture - Lower and Glasses Allergies Allergies Allergy/AdvReac Type Severity Reaction Status Date / Time amoxicillin Allergy Intermediate rash Verified 10/30/23 21:09 atorvastatin Allergy Intermediate RASH Verified 10/30/23 21:09 propranolol Allergy Intermediate RASH Verified 10/30/23 21:09 nisoldipine [From Sular] Allergy Unknown Unknown Verified 10/30/23 21:09 Home Meds Home Medications Medication Instructions Recorded Confirmed lactobacillus combination no.4 3 3 mmu cells PO QAM 04/07/20 10/30/23 billion cell capsule (Probiotic) omeprazole magnesium 20 mg 20 mg PO QAM 04/21/20 10/30/23 tablet,delayed release (Prilosec OTC) aluminum-mag hydroxide-simethicone 30 ml PO QID PRN Indigestion 05/06/20 10/30/23 200 mg-200 mg-20 mg/5 mL oral susp symrzumbngmy-hhmjgzwq-rmocse tablet 1 tab PO QAM 07/01/20 10/30/23 colchicine 0.6 mg tablet See Rx Instructions .Route 06/11/23 10/30/23 .COMPLEX PRN GOUT FLARES glucosamine sulf dipot 2 cap PO DAILY 10/30/23 10/30/23 chlr,msm,chond 550 mg-C 30 mg-claudia 1 mg capsule (Glucosamine Chondroitin) lisinopril 30 mg tablet 30 mg PO DAILY 10/30/23 10/30/23 Previous Rx's Medication Instructions Recorded alfuzosin 10 mg tablet,extended 10 mg PO DAILY #90 tabs 09/05/23 release 24 hr (Uroxatral) Results & Data (ED) Vital Signs Vital Signs - 24 hr 10/30/23 20:01 10/30/23 20:01 10/30/23 20:02 Temperature 36.8 C Temperature Source Oral Pulse Rate 68 70 Pulse Rate [Apical] Respiratory Rate 19 Respiratory Effort / Characteristics Non-Labored Non-Labored Respiratory Depth Normal Normal Respiratory Pattern Regular Blood Pressure 98/2 L Blood Pressure [Right Arm] Blood Pressure Mean 34 Blood Pressure Mean [Right Arm] Pulse Oximetry 99 Oxygen Delivery Method Room Air Sepsis Recent Fever Within 48 Hours No Sepsis New/Unexplained Change in Mental Status N/A Sepsis Action Taken by Nursing No Action Required 10/30/23 20:06 Temperature Temperature Source Pulse Rate Pulse Rate [Apical] 67 Respiratory Rate 20 Respiratory Effort / Characteristics Non-Labored Respiratory Depth Normal Respiratory Pattern Blood Pressure Blood Pressure [Right Arm] 102/61 Blood Pressure Mean Blood Pressure Mean [Right Arm] 74 Pulse Oximetry 98 Oxygen Delivery Method Room Air Sepsis Recent Fever Within 48 Hours Sepsis New/Unexplained Change in Mental Status Sepsis Action Taken by [facility] Medications Current Medication List: was personally reviewed by me Laboratory Data Attestation: I reviewed the patient's lab results. 10/30/23 20:00 10/30/23 20:00 Lab Results 10/30/23 Range/Units 20:00 WBC 8.88 (4.8-10.8) K/ul RBC 4.04 L (4.70-6.10) M/uL Hgb 13.3 L (14.0-18.0) g/dl Hct 39.5 L (42.0-52.0) % MCV 97.8 (80.0-100.0) fL MCH 32.9 (25.0-34.0) pg MCHC 33.7 (32.0-36.0) g/dL RDW Std Deviation 43.1 (36.4-46.3) fL RDW Coeff of Raul 11.9 (11.5-14.5) % Plt Count 223 (130-400) K/uL MPV 9.7 (9.4-12.4) fL Immature Gran % (Auto) 0.3 % Neut % (Auto) 63.6 % Lymph % (Auto) 22.5 % [place] % (Auto) 7.1 % Eos % (Auto) 5.9 % Baso % (Auto) 0.6 % Neut # (Auto) 5.65 (1.40-6.50) K/uL Lymph # (Auto) 2.00 (1.20-3.40) K/uL [place] # (Auto) 0.63 H (0.11-0.59) K/uL Eos # (Auto) 0.52 H (0.00-0.50) K/uL Baso # (Auto) 0.05 (0.00-0.20) K/uL Immature Gran # (Auto) 0.03 (0.01-0.20) K/uL PT 10.3 (9.0-12.0) Seconds INR 0.9 (0.9-1.1) APTT 23 (21-31) Seconds PTT Ratio 0.8 Sodium 140 (136-145) mmol/L Potassium 4.3 (3.5-5.1) mmol/L Chloride 109 H (98-107) mmol/L Carbon Dioxide 24 (21-32) mmol/L Anion Gap 7 (3-11) BUN 37 H (6-23) mg/dl Creatinine 1.79 H (0.6-1.4) mg/dl Est Cr Clr Drug Dosing 31.3 ml/min Est GFR ( Amer) 40.3 ml/min Est GFR (Non-Af Amer) 34.8 ml/min BUN/Creatinine Ratio 20.7 H (10-20) Glucose 161 H (70-99(Fasting)) mg/dl Calcium 9.3 (8.6-10.3) mg/dl Total Bilirubin 0.4 (0.2-1.0) mg/dl AST 20 (13-39) U/L ALT 20 (7-52) U/L Alkaline Phosphatase 90 (34-104) U/L Troponin I High Sens 5.8 (0-20) pg/ml Total Protein 6.6 (6.0-8.3) gm/dl Albumin 4.3 (3.4-5.0) gm/dl Globulin 2.3 L (2.5-4.0) gm/dl Albumin/Globulin Ratio 1.9 (0.9-2) Administered Medications Discontinued Medications Al Hydrox/Mg Hydrox/Simethicone (Aluminum/Magnesium Susp 30 Ml Udc) 15 ml PO NOW STA Stop: 10/30/23 22:09 Last Admin: 10/30/23 22:47 Dose: 15 ml Documented By: [place] Sodium Chloride (Nss) 500 mls @ 999 mls/hr IV .Q31M ONE Stop: 10/30/23 21:15 Last Infusion: 10/30/23 22:11 Dose: Infused Documented By: Admin: 10/30/23 21:18 Dose: 999 mls/hr Documented By: [place] Discharge Plan Visit Data Chief Complaint: Cardiac Assessment Stated Complaint: Chest Pressure ED Provider: Rajat Grimes Discharge Problem: Chest pressure, Dizziness, CKD (chronic kidney disease) stage 3, GFR 30-59 ml/min Patient Disposition: Admitted As Inpatient Discharge Instructions Interventions: ED Discharge Assessment Last Done: 10/31/23 00:38 Discharge Problem: CKD (chronic kidney disease) stage 3, GFR 30-59 ml/min Qualifiers: Chronic kidney disease stage 3 subtype: stage 3b (GFR 30-44) Qualified Code(s): N18.32 - Chronic kidney disease, stage 3b
[2023-10-30 20:22] LABS: Basophils # (auto) 0.05 K/uL (0.00-0.20); Basophils % (auto) 0.6 %; Eosinophils # (auto) 0.52 K/uL (0.00-0.50); Eosinophils % (auto) 5.9 %; Hematocrit (blood only) 39.5 % (42.0-52.0); Hemoglobin 13.3 g/dl (14.0-18.0); Immature Granulocytes # (auto) 0.03 K/uL (0.01-0.20); Immature Granulocytes % (auto) 0.3 %; Lymphocytes % (auto) 22.5 %; Mean Corpuscular Hemoglobin 32.9 pg (25.0-34.0); Mean Corpuscular Hgb Conc 33.7 g/dL (32.0-36.0); Mean Corpuscular Volume 97.8 fL (80.0-100.0); Mean Platelet Volume 9.7 fL (9.4-12.4); Monocytes # (auto) 0.63 K/uL (0.11-0.59); Monocytes % (auto) 7.1 %; Neutrophils # (auto) 5.65 K/uL (1.40-6.50); Neutrophils % (auto) 63.6 %; Platelet Count 223 K/uL (130-400); RDW Coefficient of Variation 11.9 % (11.5-14.5); RDW Standard Deviation 43.1 fL (36.4-46.3); Red Blood Count 4.04 M/uL (4.70-6.10); White Blood Count 8.88 K/ul (4.8-10.8)
[2023-10-30 20:49] LABS: INR 0.9 (0.9-1.1); Partial Thromboplastin Ratio 0.8; Partial Thromboplastin Time 23 Seconds (21-31); Prothrombin Time 10.3 Seconds (9.0-12.0)
[2023-10-30 21:00] LABS: Albumin Globulin Ratio 1.9 (0.9-2); Albumin Level 4.3 gm/dl (3.4-5.0); BUN Creatinine Ratio 20.7 (10-20); Bilirubin,Total 0.4 mg/dl (0.2-1.0); Calcium 9.3 mg/dl (8.6-10.3); Creatinine Clr Calc Pharmacy 31.3 ml/min; Est GFR (African American) 40.3 ml/min; Est GFR (Non-African American) 34.8 ml/min; Globulin 2.3 gm/dl (2.5-4.0); Potassium 4.3 mmol/L (3.5-5.1); Total Protein 6.6 gm/dl (6.0-8.3); Troponin I High Sensitivity 5.8 pg/ml (0-20)
[2023-10-30] MEDS: SODIUM CHLORIDE 0.9% 500 ML IV ONE (21:18)
--- NOTE | 2023-10-30 22:09 | History & Physical Report ---
Date of Service October 30, 2023 Assessment & Plan (1) Chest pressure: Plan: 83yo male with HTN, GERD presenting after an episode of dizziness, near-syncope and chest pressure at home. Workup thus far is unremarkable to include normal troponin x 2 and non-ischemic EKG. -Observation to medical with telemetry -Check orthostatic VS x 1 -Check 2D echo (2) Hypertension: Plan: Blood pressure well controlled, presently 106/67 -Continue Lisinopril -Continue to monitor (3) GERD without esophagitis: Plan: With some epigastric discomfort on exam. Gi cocktail given -Protonix 40mg po daily (4) Chronic kidney disease, stage III (moderate): Plan: BUN and Cr near baseline. -Avoid nephrotoxic agents -Renal dosing where needed History of Present Illness Chief Complaint: chest pain Primary Care Provider: Wes Rutherford MD Gage Man is a pleasant 83yo male with history of HTN, GERD and CKD present ing from home after a pre-syncopal episode with chest pain. Patient was in his usual state of health today until this evening at 18:30 when he developed severe, crampy lower abdominal pain. He went to the bathroom and passed some gas. He then took 2 Gas-X tablets. He then had a normal bowel movement (no diarrhea, no blood, no straining) after which he stood up and became very diaphoretic and dizzy. He walked to the family room then developed left sided/substernal chest pressure. The pressure was non-radiating, non- pleuritic and non-exertional. It lasted approximately 5 minutes then resolved. Patient's daughter reports that patient was diaphoretic and pale when he walked out of the bathroom and clutching his chest in pain. She also reports that patient has appeared more short of breath lately. Of note, patient did shovel snow today and brushed off the sidewalk. He did not have any chest discomfort while doing that. He is active and does not routinely experience chest pain. In the ER he is afebrile, HD stable. NAD Chest pain free at present with occasional sharp, shooting pains that last briefly. ER Course: ASA x 324mg prior to arrival Allergies Allergy/AdvReac Type Severity Reaction Status Date / Time amoxicillin Allergy Intermediate rash Verified 10/30/23 21:09 atorvastatin Allergy Intermediate RASH Verified 10/30/23 21:09 propranolol Allergy Intermediate RASH Verified 10/30/23 21:09 nisoldipine [From Sular] Allergy Unknown Unknown Verified 10/30/23 21:09 Home Medications Medication Instructions Recorded Confirmed Type lactobacillus combination no.4 3 3 mmu cells PO QAM 04/07/20 10/30/23 History billion cell capsule (Probiotic) omeprazole magnesium 20 mg 20 mg PO QAM 04/21/20 10/30/23 History tablet,delayed release (Prilosec OTC) aluminum-mag hydroxide-simethicone 30 ml PO QID PRN Indigestion 05/06/20 10/30/23 History 200 mg-200 mg-20 mg/5 mL oral susp cjajqwraxqbi-mjkceahg-dflgac tablet 1 tab PO QAM 07/01/20 10/30/23 History colchicine 0.6 mg tablet See Rx Instructions .Route 06/11/23 10/30/23 History .COMPLEX PRN GOUT FLARES alfuzosin 10 mg tablet,extended 10 mg PO DAILY #90 tabs 09/05/23 10/30/23 Rx release 24 hr (Uroxatral) glucosamine sulf dipot 2 cap PO DAILY 10/30/23 10/30/23 History chlr,msm,chond 550 mg-C 30 mg-claudia 1 mg capsule (Glucosamine Chondroitin) lisinopril 30 mg tablet 30 mg PO DAILY 10/30/23 10/30/23 History Past Med/Surg History Medical History BPH with obstruction/lower urinary tract symptoms Anemia stable History of multiple concussions Gout no current issues History of back problems Carotid artery stenosis Left side 50-69% stenosis per 2019 carotid doppler Chronic kidney disease, stage III (moderate) baseline creatinine 1.6-1.8, follows with Dr. Crawford GERD without esophagitis Hypertension Inflammatory polyarthritis PAD (peripheral artery disease) per records/patient denies Surgical History History of esophagogastroduodenoscopy (EGD) EGD stent: 07/02/20: MAC sedation at [facility] History of tonsillectomy History of ear surgery multiple as a child S/P ERCP ERCP: 05/14/20: Grade 2 view, MAC33, ETT 7.5 at [facility] S/P laparoscopic cholecystectomy (05/11/20) Laparoscopic Cholecystectomy with Cholangiogram 05/11/20 Dr. Martinez History of colonoscopy History of rectal surgery 1970s fistula repair H/O right knee surgery 1972 Hx of cataract surgery 2016 both eyes H/O hernia repair (08/18/05) Right direct inguinal hernia and lipoma of the cord repair with mesh [id number] Dr. Martinez Hx of total knee arthroplasty Right 2005 H/O prostatectomy 2001 & 2007 Family History Father Cancer Mother Heart disease Diabetes Denies family history of Kidney disease Social History Smoking Status: Former smoker Tobacco Type: Cigarettes Second Hand Exposure: No; Do You Dip or Chew Tobacco: No; Hx Alcohol Use: Yes Alcohol type: beer, wine and hard liquor Alcohol Intake Frequency: 2-3 x/Week Hx Substance Use: No Preferred Language: Turkish Communication Ability: Effective Mask Designer Required: No Beliefs That Will Affect Care: Baptism marital status: Current Living Situation: Spouse current occupational status: retired How many Children do You have: 2 Other Information That Helps Us Care for You: No Feels Safe at Home: Yes Safety Concerns: Feels Safe At This Time Assistive Devices: Cane, Denture - Lower and Glasses Review of Systems Review of Systems: All systems reviewed & are unremarkable except as noted in HPI & below Physical Exam Physical Exam: General: patient resting comfortably, NAD, non-toxic in appearance, AA&O x 4 Skin: warm, dry, intact, no rashes or lesions HEENT: NC/AT, PERRL, EOMI, anicteric sclera, conjunctiva without injection, external ear normal to inspection and nontender, nares patent, moist mucus membranes, dentition intact, no oropharyngeal lesions, neck supple, trachea midline, no LAD, no thyromegaly, no JVD Heart: +S1/S2, regular, no m/r/g, no chest wall pain Lungs: equal air entry bilaterally, no rales/rhonchi/wheezes Abd: +BS, soft, ND, +epigastric discomfort with palpation, no masses/organomegaly/ascites Ext: warm, 2+ pulses in UE/LE bilaterally, no clubbing/cyanosis or edema Neuro: nonfocal, patient AA&O x 4, speech intact, no facial droop, moving all extremities on command with equal strength 5/5 Results & Data Results & Data Vital Signs (Past 12 Hours) Vital Signs Temp Pulse Pulse Resp BP BP Pulse Ox 10/30/23 22:08 66 20 121/52 L 98 10/30/23 20:06 67 20 102/61 98 10/30/23 20:02 70 10/30/23 20:01 36.8 C 68 19 98/2 L 99 O2 Del Method 10/30/23 22:08 Room Air 10/30/23 20:06 Room Air 10/30/23 20:02 10/30/23 20:01 Room Air Laboratory Results Laboratory Results WBC 8.88 K/ul (4.8-10.8) 10/30/23 20:00 RBC 4.04 M/uL (4.70-6.10) L 10/30/23 20:00 Hgb 13.3 g/dl (14.0-18.0) L 10/30/23 20:00 Hct 39.5 % (42.0-52.0) L 10/30/23 20:00 MCV 97.8 fL (80.0-100.0) 10/30/23 20:00 MCH 32.9 pg (25.0-34.0) 10/30/23 20:00 MCHC 33.7 g/dL (32.0-36.0) 10/30/23 20:00 RDW Std Deviation 43.1 fL (36.4-46.3) 10/30/23 20:00 RDW Coeff of Raul 11.9 % (11.5-14.5) 10/30/23 20:00 Plt Count 223 K/uL (130-400) 10/30/23 20:00 MPV 9.7 fL (9.4-12.4) 10/30/23 20:00 Immature Gran % (Auto) 0.3 % 10/30/23 20:00 Neut % (Auto) 63.6 % 10/30/23 20:00 Lymph % (Auto) 22.5 % 10/30/23 20:00 Surry % (Auto) 7.1 % 10/30/23 20:00 Eos % (Auto) 5.9 % 10/30/23 20:00 Baso % (Auto) 0.6 % 10/30/23 20:00 Neut # (Auto) 5.65 K/uL (1.40-6.50) 10/30/23 20:00 Lymph # (Auto) 2.00 K/uL (1.20-3.40) 10/30/23 20:00 Surry # (Auto) 0.63 K/uL (0.11-0.59) H 10/30/23 20:00 Eos # (Auto) 0.52 K/uL (0.00-0.50) H 10/30/23 20:00 Baso # (Auto) 0.05 K/uL (0.00-0.20) 10/30/23 20:00 Immature Gran # (Auto) 0.03 K/uL (0.01-0.20) 10/30/23 20:00 PT 10.3 Seconds (9.0-12.0) 10/30/23 20:00 INR 0.9 (0.9-1.1) 10/30/23 20:00 APTT 23 Seconds (21-31) 10/30/23 20:00 PTT Ratio 0.8 10/30/23 20:00 Sodium 140 mmol/L (136-145) 10/30/23 20:00 Potassium 4.3 mmol/L (3.5-5.1) 10/30/23 20:00 Chloride 109 mmol/L (98-107) H 10/30/23 20:00 Carbon Dioxide 24 mmol/L (21-32) 10/30/23 20:00 Anion Gap 7 (3-11) 10/30/23 20:00 BUN 37 mg/dl (6-23) H 10/30/23 20:00 Creatinine 1.79 mg/dl (0.6-1.4) H 10/30/23 20:00 Est Cr Clr Drug Dosing 31.3 ml/min 10/30/23 20:00 Est GFR ( Amer) 40.3 ml/min 10/30/23 20:00 Est GFR (Non-Af Amer) 34.8 ml/min 10/30/23 20:00 BUN/Creatinine Ratio 20.7 (10-20) H 10/30/23 20:00 Glucose 161 mg/dl (70-99(Fasting)) H 10/30/23 20:00 Calcium 9.3 mg/dl (8.6-10.3) 10/30/23 20:00 Total Bilirubin 0.4 mg/dl (0.2-1.0) 10/30/23 20:00 AST 20 U/L (13-39) 10/30/23 20:00 ALT 20 U/L (7-52) 10/30/23 20:00 Alkaline Phosphatase 90 U/L (34-104) 10/30/23 20:00 Troponin I High Sens 3.7 pg/ml (0-20) 10/31/23 01:18 Total Protein 6.6 gm/dl (6.0-8.3) 10/30/23 20:00 Albumin 4.3 gm/dl (3.4-5.0) 10/30/23 20:00 Globulin 2.3 gm/dl (2.5-4.0) L 10/30/23 20:00 Albumin/Globulin Ratio 1.9 (0.9-2) 10/30/23 20:00 Lipase 30 U/L (11-82) 10/31/23 01:18 ECG Additional Comments: EKG with SR at 69bpm, 1st degree AV block with SW=271, QRS=74, ADg=235, left axis deviation, no acute ischemic changes. No change from prior study PG Care Time/CCT Total # of Minutes Spent Total Time Spent with Patient: Total time spent is greater than 50% in coordination of care (as documented) at patient's floor/unit and/or counseling patient: Coding Level of Care Code 48120 INT INP/OBS CARE 2/55MIN Diagnoses Chest pressure R07.89 Essential hypertension I10 Hypertension type: essential hypertension GERD without esophagitis K21.9 Chronic kidney disease, stage III (moderate) N18.32 Chronic kidney disease stage 3 subtype: stage 3b (GFR 30-44) (2) Hypertension Hypertension type: essential hypertension Qualified Code(s): I10 - Essential (primary) hypertension (4) Chronic kidney disease, stage III (moderate) Chronic kidney disease stage 3 subtype: stage 3b (GFR 30-44) Qualified Code(s): N18.32 - Chronic kidney disease, stage 3b
[2023-10-30] MEDS: ALUMINUM/MAGNESIUM SUSP 30 ML UDC PO STA (22:47)
[2023-10-31] MEDS ORDERED: ONDANSETRON INJ 2 MG/ML 2 ML VIAL IV PRN (00:38)
[2023-10-31 02:03] LABS: Troponin I High Sensitivity 3.7 pg/ml (0-20)
[2023-10-31] MEDS: TAMSULOSIN HCL 0.4 MG CAP PO SCH (07:35)
[2023-10-31] MEDS: lisinopril 10 MG TAB PO SCH (07:35)
[2023-10-31] MEDS: PANTOprazole 40 MG TAB PO SCH (07:35)
--- NOTE | 2023-10-31 07:58 | XRay Report ---
XR chest 1V not portable HISTORY: Chest pain, nonspecific COMPARISON: Chest 05/17/2020. FINDINGS: There are low lung volumes with mild elevation of the right hemidiaphragm. The heart remain s mildly enlarged. No pneumothorax. No pleural effusions. No evidence for pulmonary edema. No acute f ractures identified. IMPRESSION: Stable mild cardiomegaly. Otherwise, no acute process within the chest. ACT 112: Negative or not required by law. Electronically signed by: Philip Gardner M.D. 10/31/2023 7:56 AM
[2023-10-31] MEDS: ACETAMINOPHEN 325 MG TAB PO PRN (14:33)
--- NOTE | 2023-10-31 17:32 | Discharge Summary ---
Discharge Summary Date of Service October 31, 2023 Notes For Next Care Provider Medication Changes From Visit None Admission HPI Per Admitting Provider Gage Man is a pleasant 83yo male with history of HTN, GERD and CKD presenting from home after a pre-syncopal episode with chest pain. Patient was in his usual state of health today until this evening at 18:30 when he developed severe, crampy lower abdominal pain. He went to the bathroom and passed some gas. He then took 2 Gas-X tablets. He then had a normal bowel movement (no diarrhea, no blood, no straining) after which he stood up and became very diaphoretic and dizzy. He walked to the family room then developed left sided/substernal chest pressure. The pressure was non-radiating, non- pleuritic and non-exertional. It lasted approximately 5 minutes then resolved. Patient's daughter reports that patient was diaphoretic and pale when he walked out of the bathroom and clutching his chest in pain. She also reports that patient has appeared more short of breath lately. Of note, patient did shovel snow today and brushed off the sidewalk. He did not have any chest discomfort while doing that. He is active and does not routinely experience chest pain. In the ER he is afebrile, HD stable. NAD Chest pain free at present with occasional sharp, shooting pains that last briefly. ER Course: ASA x 324mg prior to arrival Principal Dx & Hospital Course #1 = Principal Diagnosis (1) Chest pressure: 83yo male with HTN, GERD presenting after an episode of dizziness, near-syncope and chest pressure at home. Chest pain was sharp and stabbing, lasted off and on until received a GI cocktail in ER. He had chile an hour before all the symptoms started. He also had severe abdominal cramping and moved his bowels just before the presyncopal episode and chest pain He was shoveling snow earlier in the day ithout any angina and typically has no chest pains ECG no ischemic changes, serial troponin negative x 3 ECHO no wall motion abnormalities and preserved EF No recurrence Likely GI related from heartburn from chile (2) Vasovagal near syncope: occurred after severe abdominal cramping and moving bowels, associated with diaphoresis, lightheadedness, and appeared pale in color resolved with sitting own and resting ischemic workup as above negative, ECHO normal no tele events orthostatic vitals negative (3) Hypertension: Blood pressure well controlled -Continue Lisinopril (4) GERD without esophagitis: With some epigastric discomfort on exam. Gi cocktail given and resolved -Protonix 40mg po daily (5) Chronic kidney disease, stage III (moderate): BUN and Cr near baseline at 1.7 -Avoid nephrotoxic agents -Renal dosing where needed -follow BMP as outpt -continue lisinopril Plan Dispo-doing very well, ambulating in room without problems, dc to home discussed care with and daughter at bedside Discharge Exam Constitutional WD/WN, vitals as above Neck trachea midline, no thyromegaly Respiratory normal respiratory effort, lungs clear to auscultation Cardiovascular Rate/Rhythm: regular rate and regular rhythm Heart Sounds: + murmur (1/6 systolic murmur at RUSB) Chest (Breasts) Chest: normal inspection of chest Gastrointestinal (Abdomen) normal bowel sounds, soft, nontender, no hepatosplenomegaly Musculoskeletal Extremities: extremities normal to inspection; no cyanosis and no clubbing Skin no rashes, warm and dry Neurologic moves all extremities and awake; no focal motor deficits Psychiatric A+Ox3, euthymic affect Lymphatic no lymphedema Updated Medication List Medication Instructions Recorded Confirmed Type lactobacillus combination no.4 3 3 mmu cells PO QAM 04/07/20 10/30/23 History billion cell capsule (Probiotic) omeprazole magnesium 20 mg 20 mg PO QAM 04/21/20 10/30/23 History tablet,delayed release (Prilosec OTC) aluminum-mag hydroxide-simethicone 30 ml PO QID PRN Indigestion 05/06/20 10/30/23 History 200 mg-200 mg-20 mg/5 mL oral susp hcvjuwhssbyf-yqpbzptq-xboarm tablet 1 tab PO QAM 07/01/20 10/30/23 History colchicine 0.6 mg tablet See Rx Instructions .Route 06/11/23 10/30/23 History .COMPLEX PRN GOUT FLARES alfuzosin 10 mg tablet,extended 10 mg PO DAILY #90 tabs 09/05/23 10/30/23 Rx release 24 hr (Uroxatral) glucosamine sulf dipot 2 cap PO DAILY 10/30/23 10/30/23 History chlr,msm,chond 550 mg-C 30 mg-claudia 1 mg capsule (Glucosamine Chondroitin) lisinopril 30 mg tablet 30 mg PO DAILY 10/30/23 10/30/23 History Hospital Stay Data Consultations 10/30/23 21:41 ED Decision to Admit Stat Diagnostic Imagining Performed ECHO Pending Results Patient Have Any Pending Studies at Discharge: No Discharge Instructions Given to Patient (Per Discharging Provider) You were admitted after almost passing out. This was related to your abdominal cramping causing a vagal reaction and lowering your heart rate and blood pressure. You had normal blood tests to rule out heart attack and had a normal echocardiogram. You had no abnormal heart rhythms on the heart monitor. Total Time Total Time Spent Total Time Spent (In Minutes): 40 min Total Time Includes: Examination of the Patient, Discharge Planning, Medication Reconciliation and Communication With Other Providers (Cardiology) Coding Level of Care Code 22531 INP/OBS DISCH >30 MIN Diagnoses Chest pressure R07.89 Vasovagal near syncope R55 Essential hypertension I10 Hypertension type: essential hypertension GERD without esophagitis K21.9 Chronic kidney disease, stage III (moderate) N18.32 Chronic kidney disease stage 3 subtype: stage 3b (GFR 30-44)
[2023-10-31 17:45] VITALS: BP 152/91; PULSE 78; RESP 18; O2SAT 100
--- NOTE | 2023-10-31 19:16 | XCELERA ---
[id number]
--- NOTE | 2023-11-01 05:34 | Electrocardiogram Report ---
Test Reason : Blood Pressure : / mmHG Vent. Rate : 069 BPM Atrial Rate : 069 BPM P-R Int : 230 ms QRS Dur : 074 ms QT Int : 374 ms P-R-T Axes : 048 -49 072 degrees QTc Int : 400 ms Sinus rhythm with 1st degree A-V block Left axis deviation Low voltage QRS Cannot rule out Anterior infarct (cited on or before 04-OCT-2022) Nonspecific T wave abnormality Abnormal ECG When compared with ECG of 11-JUN-2023 10:24, No significant change was found Confirmed by Vidal Wilcox ([id number]) on 11/01/2023 5:34:41 AM Referred By: REFERRED SELF Confirmed By:Vidal Wilcox
== END 2023-10-31 18:07 | disposition home or self-care (01) ==
LOC: ED 19:55 → EDINP 19:55 → SUATTDRO 22:08 → EDINP 10-31 00:38
DX: Z87.891 Personal history of nicotine dependence; Z88.8 Allergy status to other drugs, medicaments and biological substances; Z88.0 Allergy status to penicillin; R07.89 Other chest pain; R61 Generalized hyperhidrosis; R94.31 Abnormal electrocardiogram [ECG] [EKG]; R55 Syncope and collapse; N18.30 Chronic kidney disease, stage 3 unspecified; I13.10 Hypertensive heart and chronic kidney disease without heart failure, with stage 1 through stage 4 chronic kidney disease, or unspecified chronic kidney disease; K21.9 Gastro-esophageal reflux disease without esophagitis; R10.9 Unspecified abdominal pain; Z82.49 Family history of ischemic heart disease and other diseases of the circulatory system; Z79.899 Other long term (current) drug therapy; R42 Dizziness and giddiness; I08.8 Other rheumatic multiple valve diseases

== ENCOUNTER 2024-03-19 06:29 | Observation (INO) ==
--- NOTE | 2024-02-14 10:48 | PAT Medication Instructions ---
Medication Instructions Date of Service February 14, 2024 Home Medications lactobacillus combination no.4 3 billion cell capsule (Probiotic) 3 mmu cells PO QAM omeprazole magnesium 20 mg tablet,delayed release (Prilosec OTC) 20 mg PO QAM aluminum-mag hydroxide-simethicone 200 mg-200 mg-20 mg/5 mL oral susp 30 ml PO QID PRN Indigestion ccemkzzmhsal-wjqarpmj-cecoxk tablet 1 tab PO QAM colchicine 0.6 mg tablet See Rx Instructions .Route .COMPLEX PRN GOUT FLARES lisinopril 30 mg tablet 30 mg PO QAM alfuzosin 10 mg tablet,extended release 24 hr (Uroxatral) 10 mg PO QAM MEDICATION INSTRUCTIONS: DO NOT take the morning of surgery lisinopril 30 mg tablet 30 mg PO QAM ngfztsbgkgkl-ocermvsa-oyohxu tablet 1 tab PO QAM lactobacillus combination no.4 3 billion cell capsule (Probiotic) 3 mmu cells PO QAM aluminum-mag hydroxide-simethicone 200 mg-200 mg-20 mg/5 mL oral susp 30 ml PO QID PRN Indigestion colchicine 0.6 mg tablet See Rx Instructions .Route .COMPLEX PRN GOUT FLARES Take morning of surgery With a small sip of water, OTHERWISE NOTHING TO EAT OR DRINK AFTER MIDNIGHT: omeprazole magnesium 20 mg tablet,delayed release (Prilosec OTC) 20 mg PO QAM alfuzosin 10 mg tablet,extended release 24 hr (Uroxatral) 10 mg PO QAM Take evening before surgery aluminum-mag hydroxide-simethicone 200 mg-200 mg-20 mg/5 mL oral susp 30 ml PO QID PRN Indigestion colchicine 0.6 mg tablet See Rx Instructions .Route .COMPLEX PRN GOUT FLARES ( if needed) Other Notes If you have any questions please call us at [phone] or [phone] or [phone] or [phone]
--- NOTE | 2024-02-25 09:44 | Anesthesiology Consultation ---
Date of Service February 25, 2024 Assessment & Plan (1) Encounter for pre-operative examination: - Infectious disease screening: Per assessment on 02/25/24: No known recent infectious disease contacts or current infectious disease symptoms. - Outpatient joint assessment: Pt currently scheduled for inpatient pathway. If surgeon requests review for outpatient joint pathway, patient is not recommended candidate for outpatient joint program from anesthesia standpoint based on available information. - PCP visit (02/27/24): "According to RCRI, this number of risk factors stratifies the patient to Class I, whihc [sic] carries with it a 0.4% risk in major CV complications, such as GA, CHF, or malignant arrhythmia. In this case, however, the RCRI likely over-estimates the patient's true cardiac risk and due to the fact that this surgery is considered a intermediate risk.. Anemia chronic condition, stable" - Carotid disease: Carotid doppler done 05/2023 notes greater than 70% stenosis within the proximal left ICA which has progressed in the interval. Carotid disease has been closely monitored by General surgery/Dr. Martniez. Per last office visti note 11/13/23, "Pathophysiology of carotid disease including the symptoms were explained to the patient.. The patient this time has no symptoms related to carotid disease.. I did explain to him that the last Doppler the carotid on the left showed it to be slightly more than 70% narrowed and this is the threshold that we follow-up closely regarding the possibility of considering surgery.. The patient is completely asymptomatic at this time I recommend him for take 1 baby aspirin a day and we will repeat the carotid Dopplers in about 8 months which be for a year since the last 1" - Carotid disease monitored by General surgery/Dr. Martinez. Case reviewed with Dr. Maldonado- he requests comment from Dr. Martinez prior to upcoming surgery (workload message sent). Received general surgery workload response regarding carotid disease/preop (02/26/24): "ok to proceed with surgery" Chart Review Chart Review: Acceptable Risk for Surgery (pending evaluation DOS) and Patient seen in Pre Admission Testing Teaching & Discussion Pre-Anesthesia Teaching/Discussion Notes: Instructed NPO after midnight before surgery,except medications with 15 cc of water. Medication instructions provided according to the PAT guidelines. History Surgery Operation Date: 03/19/24 07:00 Proposed Procedures p Left Total Knee Arthroplasty - Tin Cisneros MD Height/Weight Height: 5 ft 9 in Weight: 90.8 kg Allergies Allergy/AdvReac Type Severity Reaction Status Date / Time amoxicillin Allergy Intermediate Rash Verified 02/22/24 14:57 atorvastatin Allergy Intermediate Rash Verified 02/22/24 14:57 propranolol Allergy Intermediate Rash Verified 02/22/24 14:57 nisoldipine [From Sular] Allergy Mild Rash Verified 02/14/24 09:08 Medications Home Medications Medication Instructions Recorded Confirmed Last Taken lactobacillus combination no.4 3 3 mmu cells PO QAM 04/07/20 02/14/24 10/30/23 billion cell capsule (Probiotic) omeprazole magnesium 20 mg 20 mg PO QAM 04/21/20 02/14/24 10/30/23 tablet,delayed release (Prilosec OTC) aluminum-mag hydroxide-simethicone 30 ml PO QID PRN Indigestion 05/06/20 02/14/24 05/09/20 13:00 200 mg-200 mg-20 mg/5 mL oral susp xqedehntbaoq-pukqqkgp-yncjqn tablet 1 tab PO QAM 07/01/20 02/14/24 10/30/23 colchicine 0.6 mg tablet See Rx Instructions .Route 06/11/23 02/14/24 Unknown .COMPLEX PRN GOUT FLARES lisinopril 30 mg tablet 30 mg PO QAM 10/30/23 02/14/24 10/30/23 alfuzosin 10 mg tablet,extended 10 mg PO QAM 02/14/24 02/14/24 Unknown release 24 hr (Uroxatral) aspirin 81 mg tablet 81 mg PO DAILY 02/25/24 02/25/24 Unknown Past Medical History Medical History (Updated 02/25/24 @ 15:47 by Staci Seymour) Anemia BPH (benign prostatic hyperplasia) Carotid artery stenosis Under surveillance by General surgery/Dr. Martinez Carotid doppler 05/2023: Greater than 70% stenosis within the proximal left ICA which has progressed in the interval. No significant stenosis within the right carotid arteries. Carotid imaging reviewed at 10/2023 [facility] [place] General surgery visit indicating left carotid "slightly more than 70% narrowed" Chronic kidney disease, stage III (moderate) Follows with Dr. Crawford GERD (gastroesophageal reflux disease) Gout No current/recent issues Hypertension Inflammatory polyarthritis Osteoarthritis PAD (peripheral artery disease) Per records Exercise / Class Metabolic Activity II 4-5 Yardwork/Stairs/Walk up hill (one FS: No CP, no SOB) Past Family History Family History Father Cancer Mother Diabetes Heart disease Other No family history of adverse response to anesthesia Denies family history of Kidney disease Past Surgical History Surgical History H/O hernia repair (2004) Right direct inguinal hernia and lipoma of the cord repair with mesh H/O prostatectomy H/O right knee surgery 1972 History of colonoscopy History of ear surgery Multiple as a child History of esophagogastroduodenoscopy (EGD) EGD stent: 07/02/20: MAC sedation at [facility], [place] History of rectal surgery 1970s fistula repair History of tonsillectomy Hx of cataract surgery 2016 both eyes Hx of total knee arthroplasty Right 2004 S/P ERCP ERCP: 05/14/20: Grade 2 view, MAC33, ETT 7.5 at [facility] [place] S/P laparoscopic cholecystectomy (05/11/20) Laparoscopic Cholecystectomy with Cholangiogram Past Anesthesia History No Hx of Anesthesia Complications and No Family Hx of Anesthesia Complications History of PONV No Hx of PONV and No Hx of Motion Sickness Social History Smoking Status: Former smoker tobacco type: cigarettes Do You Dip or Chew Tobacco: No (Remote hx 12+ years ago) Smoking End Date: Quit "many years ago" Hx Alcohol Use: Yes Alcohol type: beer and wine alcohol intake frequency: a few times a month Hx Substance Use: No substance use type: does not use Review of Systems Patient denies chest pain, shortness of breath, dyspnea on exertion, fever, chills, cough, wheezing, palpitations. Physical Exam Vital Signs BP 144/73 P 58 TEMP 97.9 SP02 98%RA RESP 18 Physical Full cervical extension range of motion. Full TMJ range of motion. TMD 2.5 finger breaths Mallampati Score 3 Dentition: lower partial, upper full dentures Lungs: clear throughout to auscultation Cardiac: regular rate and rhythm, no murmurs noted Spine: normal Carotid arteries: negative bruit Extremities: no LE edema Lab Results Anesthesia Preop Results Results Anesthesia Widget: WBC 5.32 K/ul (4.8-10.8) 02/25/24 Hgb 11.6 g/dl (14.0-18.0) L 02/25/24 Hct 34.0 % (42.0-52.0) L 02/25/24 Plt 194 K/uL (130-400) 02/25/24 Na 142 mmol/L (136-145) 02/25/24 K 4.8 mmol/L (3.5-5.1) 02/25/24 Cl 112 mmol/L (98-107) H 02/25/24 CO2 24 mmol/L (21-32) 02/25/24 BUN 41 mg/dl (6-23) H 02/25/24 Creat 1.62 mg/dl (0.6-1.4) H 02/25/24 Glucose Level 91 mg/dl (70-99(Fasting)) 02/25/24 PT 10.3 Seconds (9.0-12.0) 02/25/24 PTT 26 Seconds (21-31) 02/25/24 INR 0.9 (0.9-1.1) 02/25/24 Urine Color Yellow 02/25/24 Urine Appearance Clear (Clear) 02/25/24 Urine pH 5.5 (4.5-7.5) 02/25/24 Urine Specific [place] 1.017 (1.000-1.030) 02/25/24 Urine Protein Negative (Negative) 02/25/24 Urine Glucose (UA) Negative (Negative) 02/25/24 Urine Ketones Negative (Negative) 02/25/24 Urine Blood Negative (Negative) 02/25/24 Urine Nitrite Negative (Negative) 02/25/24 Urine Bilirubin Negative (Negative) 02/25/24 Urine Urobilinogen Negative (Negative) 02/25/24 Urine Leukocyte Esterase Negative (Negative) 02/25/24 Blood Type A Positive 02/25/24 Antibody Screen NEGATIVE 02/25/24 Testing Laboratory Results *Preop testing forwarded to PCP for continuity of care* Electrocardiogram Date: 10/30/23 SR with first degree AVB at 69bpm. LAD. Low voltage QRS. Cannot r/l anterior infarct (Cited on before 10/04/2022). NS TWA. *Echo done 10/31/23* Chest X-Ray Date: 10/30/23 FINDINGS: There are low lung volumes with mild elevation of the right hemidiaphragm. The heart remains mildly enlarged. No pneumothorax. No pleural effusions. No evidence for pulmonary edema. No acute fractures identified. IMPRESSION: Stable mild cardiomegaly. Otherwise, no acute process within the chest. Echocardiogram Date: 10/31/23 EF 65-70%. No RWMA. No significant valvular disease. Normal RVSP. Type I DD. Moderate cLVH. Stress Test Date: 05/05/19 Type: nuclear/exercise MPHR 93%. 9.0 METS achieved. Normal myocardial perfusion study without fixed or stress-induced reversible ischemia. Normal wall motion. EF =64% Other Testing Carotid doppler Date: 05/29/23 Greater than 70% stenosis within the proximal left ICA which has progressed in the interval. Biphasic flow again noted within the right vertebral artery. No significant stenosis within the right carotid arteries. Reviewed by general surgery/Dr. Martinez at subsequent 11/13/23, "last Doppler the carotid on the left showed it to be slightly more than 70% narrowed"
--- NOTE | 2024-03-19 05:21 | History & Physical Bridge Note ---
Date of Service March 19, 2024 History & Physical Bridge Note I have examined the patient, reviewed the History & Physical and in the interval since the performance of the History & Physical I have noted the following changes of clinical significance: no changes noted
[~2024-03-19 06:29] MED LIST changes: -ASPI-319 PO; +BUPIVACAINE 0.5 % 5 MG/1 ML PF 10ML VIAL ONE; -CHOL100027 PO; -GLYCDRO6 OP; -LISI-787 PO; -MISCCAP80 PO; +ROPIVACAINE 0.5% 5 MG/ML 30 ML VIAL ONE
[2024-03-19] MEDS ORDERED: ONDANSETRON INJ 2 MG/ML 2 ML VIAL ONE (07:07)
[2024-03-19] MEDS ORDERED: MIDAZOLAM HCL 1 MG/ML 2ML VIAL ONE (07:07)
[2024-03-19] MEDS ORDERED: fentaNYL citrate PF 100 MCG/2 ML VIAL ONE (07:07)
[2024-03-19] MEDS ORDERED: PROPOFOL IV EMULSION 10 MG/ML 20 ML VIAL IV ONE ×2 (07:07)
[2024-03-19] MEDS ORDERED: LIDOCAINE 2% 2 ML VIAL/AMP(20MG/ML) INFIL ONE (07:07)
[2024-03-19] MEDS ORDERED: DEXAMETHASONE SOD INJ 4 MG/ML VIAL ONE (07:07)
[2024-03-19] MEDS: LR 500ML BOLUS, THEN 15ML/HR IV SCH (07:22)
[2024-03-19] MEDS: LR 60ML/HR IV SCH (07:22)
[2024-03-19] MEDS ORDERED: ONDANSETRON INJ 2 MG/ML 2 ML VIAL IV PRN ×2 (08:06→12:50)
[2024-03-19] MEDS ORDERED: ATROPINE SULFATE 0.1 MG/ML 10ML SYR IV PRN (08:06)
[2024-03-19] MEDS ORDERED: ePHEDrine sulfate 50 MG/ML AMP IV PRN (08:06)
[2024-03-19] MEDS ORDERED: fentaNYL citrate PF 100 MCG/2 ML VIAL IV PRN (08:06)
[2024-03-19] MEDS: TRANEXAMIC ACID 1,000 MG **IV Pre-op IV SCH (08:54)
[2024-03-19] MEDS: ceFAZolin 2000MG 2,000 MG/15 ML SYR IV SCH ×2 (09:05→17:03)
[2024-03-19] MEDS ORDERED: PHENYLEPHRINE 100MCG/ML 10ML SYR IV ONE (09:33)
[2024-03-19] MEDS: ORTHO JOINT ANESTHETIC ONE (09:33)
[2024-03-19] MEDS ORDERED: ePHEDrine sulfate 50 MG/5 ML SYR ONE (09:33)
[2024-03-19] MEDS: TRANEXAMIC ACID 1,000 MG **IV Intra-op IV SCH (10:15)
[2024-03-19] MEDS: ROPIVACAINE 0.5% HCL/PF 246 MG, Ketorolac (*for OR use only*) 30 MG, EPINEPHrine 30MG/3... INFIL SCH (10:26)
--- NOTE | 2024-03-19 10:39 | Post Operative Brief Note ---
Immediate Post Op Note Date of Surgery March 19, 2024 Pre & Post Diagnosis Operation Date: 03/19/24 08:50 <No data on this case meets the specified criteria> Pre and postop diagnosis left knee osteoarthritis medial patellofemoral compartment I identified the patient and participated in the time-out.: Yes Procedure Operation Date: 03/19/24 08:50 <No data on this case meets the specified criteria> Cemented left total knee replacement Surgeon Tin Cisneros MD Food Safety Auditor VASQUEZ/Lev Estimated Blood Loss 75 Findings Consistent with Post-Op Diagnosis Grade 4 patellofemoral disease grade 4 small area medial compartment grade 3 lateral compartment Fluids See anesthesia report Complications None
--- NOTE | 2024-03-19 10:43 | Operative Report ---
Post Operative Report Pre & Post Diagnosis Operation Date: 03/19/24 08:50 <No data on this case meets the specified criteria> Osteoarthritis left knee patellofemoral and medial compartments pre and postop diagnosis same I identified the patient and participated in the time-out.: Yes Procedure Operation Date: 03/19/24 Cemented left total knee replacement Surgeon Tin Cisneros MD Therapeutic Activities Services Worker VASQUEZ/Lev Estimated Blood Loss 75 Findings Consistent with Post-Op Diagnosis Grade 4 patellofemoral disease subchondral cyst patella medial compartment small area of grade 4 disease tibia and femur grade 3 lateral compartment Fluids See anesthesia report Specimens Bone pathology Drains None Complications None Indications Failed conservative management with x-ray and MRI scan revealing progressive disease. Secondary to patellofemoral disease medial compartment partial knee replacement likely not approved full as well as the 1 on the other side still has pain. Description of Procedure After the patient was brought identified site verified consent verified antibiotics confirmed to be given the left lower extremity was prepped and draped use routine fashion. Tourniquet was inflated to 275 mmHg after exsanguination limb with a rubber Esmarch bandage for total of 56 minutes. Midline exposure utilized parapatellar neurotomy performed there was a significant synovial fluid significant synovial hypertrophy this was evacuated and excised. There was grade 4 disease in the entire area of the central trochlea roughly 70% of the entire surface of the patella had grade 4 disease throughout its entire central area about 80% there was subchondral cyst. Medial compartment had grade 4 disease and a nickel sized area on the tibia and femur. There was grade 3 disease on the femur on the lateral compartment. Once everything was excised soft tissue gentile distal femur was entered cruciates resected tibia subluxated the menisci remnants were excised. There was advanced disease to the medial meniscus of the knee as well. Distal femur was cut 9 mm proximal tibia 4 mm the extension gap was excellent with a 5 mm spacer. Femur was sized between 4 and 6L was measured 5 and cut 5. There was no significant notching noted. Anterior posterior, chamfer cuts then made the flexion gap checked and was excellent. Posterior Ortho mix was then injected the box cut was then made and the size 5 by required slight revision to the box but then fit well. The tibia was broached and reamed to a size 4 and a size 5 spacer offered excellent stability and full extension full flexion full range of motion excellent patella tracking. The patella was resected leaving roughly 14 mm. Subchondral cyst were evacuated. A size 38 button fit and tracked well. Ortho mix was then injected all about the knee all trial limits were then removed wound was irrigated with Betadine Pulsavac and permanent cemented in position tibia femur patella in that order at 12 minutes of tourniquet deflated minor bleeding points controlled lecture cautery at 14 minutes the knee was then flexed no major cement removal was required. Wound was then irrigated with B etadine Pulsavac and the permanent liner seated knee reduced and closed the 40 to 50 degrees of flexion with #2 Vicryl 2-0 Vicryl and standstill clips appropriate dressing applied and patient transferred recovery in satisfactory descending tolerated the procedure well. EBL was roughly 75 cc crystalloid per anesthesia bone pathology pending. DVT prophylaxis per protocol. Summary of implants ATT UNE knee replacement system by [employer] size 5 left femur posterior cruciate substituting size 4 tibia rotating left form size 38 patella size 5 x 5 PCL stabilized insert. Family contacted post procedure. I attest to the content of the Intraoperative Record and any orders documented therein. Any exceptions are noted below.
--- NOTE | 2024-03-19 10:45 | Discharge Summary ---
Date of Service March 20, 2024 Principal Diagnosis Bicompartmental osteoarthritis left knee Discharge Data Allergies Allergy/AdvReac Type Severity Reaction Status Date / Time amoxicillin Allergy Intermediate Rash Verified 03/19/24 06:53 atorvastatin Allergy Intermediate Rash Verified 03/19/24 06:53 propranolol Allergy Intermediate Rash Verified 03/19/24 06:53 nisoldipine [From Sular] Allergy Mild Rash Verified 03/19/24 06:53 Vaccinations None Consultations None Procedures Performed Operation Date: 03/19/24 08:50 <No data on this case meets the specified criteria> Cemented left total knee replacement Ordered Studies 03/19/24 05:00 US - OR guided needle placemen Routine Hospital Course (1) Status post left knee replacement: Total Time Total Time Spent Total Time Spent (In Minutes): 5 Discharge Plan Discharge Items Patient Disposition: Home - Home Health Services Reason For Visit: Left Knee Osteoarthritis Discharge Diagnosis: Left knee status post total knee replacement Condition on Discharge: Good Activity: Per Instructions section Lifting: Wait until after follow-up appointment Bathing: Keep incision dry Sexual Activity: Wait until after follow-up appointment Exercise/Sports: Wait until after follow-up appointment Non-emergency contact: Surgeon Call non-emergency contact if: you have any medication questions, your pain is not controlled, your temperature is above 101.5, your wound has increased redness, your wound has increased drainage and your wound pain has increased Follow-up/Referrals: Wes Rutherford MD [Primary Care Provider] - Tito Ohara PA-C [Physician Chief Load Dispatcher] - 04/03/24 3:00 pm Diet: Regular Addtl Attending Provider Instructions: New Medicine: * You will likely be taking one or more of these medications: 1. Percocet - Take, as directed, when you need it, every four to six hours to control your pain. 2. Iron Sulfate - Take 1x each day for the month after surgery to help you replace the blood lost during surgery. 3. Eliquis- Thins your blood to lessen the chance of forming a blood clot. * The most common side effects of pain medicine and iron are nausea and constipation. If nausea or constipation is too much of a problem or if you have any questions about your new medicines or doses, call [facility] at . We will try to help you manage these issues. "VERY IMPORTANT TO READ AND REVIEW" Blood Clots and Blood Thinning Medicine: * You are given Eliquis during the immediate post-operative period to lessen the risk of blood clots forming in your legs and/or lungs. It is usually given for 4 weeks after surgery. Pain: * The immediate post-operative period after knee replacement surgery is often quite painful. * You are given a prescription for pain medicine. You should take it, as di rected, when you need it, especially before physical therapy and before going to bed. Pain that interferes with sleep is very common and can last several months. * You will likely need pain medicine for the first four to six weeks. It will not stop all of the pain. The pain will lessen and as you feel better, you may change to milder pain medicine such as Tylenol. * The most common side effects of pain medicine are nausea and constipation, so don't take more than you need. Physical Therapy: * You will have physical therapy two or three times each week for four to six weeks after your surgery in order to regain your knee range of motion and to retrain your knee to work properly. * It is just as important to make sure you are getting your knee perfectly straight as it is to regain your knee bend. * Taking a pain pill an hour before therapy can help you have a more productive and comfortable therapy session if needed. Home Exercise: * You were shown a series of exercises (heel props, heel slides, etc.) in the hospital. Do these exercises three to four times each day including the exercises you were shown in physical therapy. Walking: * Get up and walk several times each day. For the first four weeks, try not to stand or walk for more than one hour at a time. If you do stand or walk for more than one hour, you will not hurt anything, but your knee and leg will likely swell. * As you feel comfortable, you may change from the walker or crutches to a cane and then to independent walking. SELF CARE INSTRUCTIONS AFTER TOTAL KNEE REPLACEMENT A. You may need to continue a physical therapy program after discharge from the hospital. There are several options available to you. Your doctor will assist you in selecting the best one for you. 1. An out-patient facility 2 to 3 times a week for therapy or home therapy. 2. Continue working on all exercises taught to you in the hospital. Your goals should be to increase bending of your knee to 90 degrees and beyond and to fully straighten your knee. B. You may progress at your own pace from walking with a walker or crutches to a cane; then to no assistive devices. C. Make walking a part of your daily routine. Be up as much as comfortable with rest periods throughout the day. Rest with leg elevation is very important. Use the ice wrap frequently for the first 3-4 weeks. D. There are no restrictions on activities. You may ride in a car, shop, participate in government property inspector and all social activities. E. Wear the long elastic stockings (DANISH hose) 20 hours a day for six weeks after surgery. They can be removed several times a day for laundering and for a shower. F. Do not place a pillow behind your knee when resting. A pillow at your ankle is okay. VERY IMPORTANT TO READ AND REVIEW A. Take Eliquis (blood thinning medication) as directed by your doctor. B. There are a few signs you need to watch for after you are home. Call [facility] if you notice any of the followin. Increased severe knee pain. Some pain is expected especially when you exercise. 2. Increased swelling in your leg or knee; pain or swelling of the calf muscle in either lower leg. 3. Any fluid drainage from the incision. 4. Shortness of breath or chest pain. C. Please call [facility] at if you have any concerns or questions about your operation or recovery. The doctor or his nurse will return your call promptly. D. You must take antibiotics before dental work, bladder, bowel or other surgery. Call the office to obtain a prescription at least 2 days prior to your appointment. * CALL IF INCREASED PAIN, REDNESS, DRAINAGE OR FEVER GREATER THAT 101. * Sutures should be removed 12-14 days after surgery unless you are on chronic steroids, then it will be 14-18 days after surgery. Call your doctor if: * Temperature above 101 degrees F. * Pain not relieved by pain medicine ordered. * Increased drainage or redness from incision. * Notify your doctor with any questions or concerns. DIET: * Resume previous diet. MEDICATIONS: * Please take your prescriptions as instructed at your pre-op appointment and/or see medication discharge instructions listed above. * If concerns develop, call your physician's office at . SPECIAL CARE INSTRUCTIONS: * Ice/Elevate as instructed. * Keep dressing clean, dry, intact. * Your surgical extremity may be discolored due to prepping agents used on the skin. A bluish-green tint is a normal variant and should not cause alarm. Call your doctor at [phone] if: * Temperature above 101 degrees * Pain not relieved by pain medicine ordered * There is increased drainage or redness from any incision * You have any unanswered questions, problems or concerns. FOLLOW UP VISIT: * If not already scheduled, please call the office at to schedule a follow-up appointment. Start your Eliquis tomorrow night with dinner. Take it 2 times per day for 4 weeks to prevent clots Use your knee immobilizer when out of bed on and Sunday. It may be discontinued entirely on Sunday morning Use your walker for ambulation Ice and elevate the knee frequently to reduce pain and swelling Leave the postsurgical dressing in place through the weekend. It can be changed on Sunday by home health if needed for soiling Pending Studies at Discharge: Yes (Bone pathology) Stand-Alone Forms: My [facility], Smoking Cessation Medications and DC Order Prescriptions: New oxycodone-acetaminophen [Percocet] 5-325 mg tablet 2 tab PO Q6H PRN (Reason: pain) Qty: 18 0RF Rx Instructions: initial script max of 6 per day Eliquis 2.5 mg tablet 2.5 mg PO BID Qty: 60 0RF Continued omeprazole magnesium [Prilosec OTC] 20 mg tablet,delayed release (DR/EC) 20 mg PO QAM alum-mag hydroxide-simeth 200-200-20 mg/5 mL Suspension 30 ml PO QID PRN (Reason: Indigestion) Probiotic 3 billion cell Capsule 3 mmu cells PO QAM [id number] Tablet 1 tab PO QAM colchicine 0.6 mg tablet See Rx Instructions .ROUTE .COMPLEX PRN (Reason: GOUT FLARES) Rx Instructions: TAKE 2 TABLETS BY MOUTH AT THE FIRST SIGN OF GOUT FLARE FOLLOWED BY 1 TABLET AN HOUR LATER. MAY CONTINUE 1 TABLET EVERY HOUR UP TO 3 ADDITIONAL TIMES lisinopril 30 mg tablet 30 mg PO QAM alfuzosin [Uroxatral] 10 mg tablet extended release 24 hr 10 mg PO QAM Rx Instructions: administer after the same meal each day aspirin 81 mg Tablet 81 mg PO DAILY Held acetaminophen [Tylenol Ex Str Arthritis Pain] 500 mg Tablet 1,500 mg PO Q6H PRN (Reason: Pain) Hold Instructions: Resume on 04/16/24. limit tylenol dosage to 3000mg/day Admission Data Admit Date/Time: 03/19/24 11:04 Attending Provider: Tin Cisneros Admit Provider: Tin Cisneros Primary Care Provider: Wes Rutherford Other Providers: [facility],Referral [facility]; [facility]
--- NOTE | 2024-03-19 10:46 | Orthopedic Progress Note ---
Date of Service March 19, 2024 Orthopedic Progress Note Underwent left total knee replacement cemented patient did well denies chest pain shortness of breath fever chills nausea vomiting or headache vital signs are stable he is afebrile. Neurovascular check limited by spinal. X-ray pending. Family contacted.
--- NOTE | 2024-03-19 10:52 | Operative Report ---
Post Operative Report Pre & Post Diagnosis Operation Date: 03/19/24 08:50 Pre-Op Diagnosis: Left Knee Osteoarthritis Post-Op Diagnosis: Left Knee Osteoarthritis I identified the patient and participated in the time-out.: Yes Procedure Operation Date: 03/19/24 08:50 Actual Procedures p Left Total Knee Arthroplasty, Cemented(Left) - Tin Cisneros MD Surgeon NICKOLAS Cisneros MD Plate Printer VASQUEZ/Lev NELSON Estimated Blood Loss 75 Findings Consistent with Post-Op Diagnosis see operative report Specimens see operative report Drains none Complications none Disposition Accompanied Patient To Recovery: Yes Indications This 84 year old male presented to the office with complaints of persisting left knee pain. He had tried conservative care measures without improvement. He elected to proceed with surgical intervention after being educated about potential risks and outcomes. Preoperative imaging was obtained. Description of Procedure The patient was administered a spinal anesthetic and then taken to the operating room where he was given sedation. He was prepped and draped in the usual sterile fashion. Please see Dr. Cisneros's operative report for specifics of the procedure. I was present for the entire case from initial patient positioning through final wound closure. Assistance was provided in tissue retraction, hemostasis, trial implant placement, final implant placement, and final wound closure. The patient was taken to the recovery room in satisfactory condition. I attest to the content of the Intraoperative Record and any orders documented therein. Any exceptions are noted below.
--- NOTE | 2024-03-19 10:59 | Operative Report ---
Post Operative Report Pre & Post Diagnosis Operation Date: 03/19/24 08:50 Pre-Op Diagnosis: Left Knee Osteoarthritis Post-Op Diagnosis: Left Knee Osteoarthritis I identified the patient and participated in the time-out.: Yes Procedure Operation Date: 03/19/24 08:50 Actual Procedures p Left Total Knee Arthroplasty, Cemented(Left) - Tin Cisneros MD Surgeon Tin Cisneros MD Rubber Press Operator VASQUEZ/Lev NELSON Estimated Blood Loss 75 Findings Consistent with Post-Op Diagnosis Same as postoperative diagnosis. Specimens The resected portions of the distal femur and the proximal tibia. Description of Procedure Please see detailed operative note. I attest to the content of the Intraoperative Record and any orders documented therein. Any exceptions are noted below.
--- NOTE | 2024-03-19 12:17 | Anesthesiology Progress Note ---
Date of Service March 19, 2024 Anesthesia Post Procedure Vital Signs Vital Signs: Temp Pulse Pulse Resp BP Pulse Ox O2 Del Method 03/19/24 12:10 59 L 19 115/68 98 Nasal Cannula 03/19/24 12:00 55 L 15 122/65 96 Nasal Cannula 03/19/24 11:50 60 17 121/78 95 Room Air 03/19/24 11:40 97.3 F L 60 19 101/57 L 95 Room Air 03/19/24 11:30 61 14 92/59 L 96 Room Air 03/19/24 11:20 65 21 98/58 L 97 Room Air 03/19/24 11:10 62 15 93/58 L 95 Room Air 03/19/24 11:00 97.3 F L 65 17 96/58 L 95 Room Air 03/19/24 10:51 97.3 F L 67 20 85/52 L 95 Room Air 03/19/24 06:56 97.7 F 61 18 143/70 H 98 Room Air O2 Flow Rate 03/19/24 12:10 2 03/19/24 12:00 2 03/19/24 11:50 03/19/24 11:40 03/19/24 11:30 03/19/24 11:20 03/19/24 11:10 03/19/24 11:00 03/19/24 10:51 03/19/24 06:56 Pain Intensity Left Knee: Pain Intensity: 0 Transfer of Care Handoff Completed per policy Notes Mental Status: alert / awake / arousable and participated in evaluation Patient Amnestic to Procedure: Yes Nausea / Vomiting: adequately controlled Pain: adequately controlled Airway Patency, RR, SpO2: stable & adequate BP & HR: stable & adequate Hydration State: stable & adequate Neuraxial Anesthesia: was administered and sensory block is resolving Anesthetic Complications: no major complications apparent and Pt Satisfied with anesthetic care
[2024-03-19] MEDS ORDERED: ALUMINUM/MAGNESIUM SUSP 30 ML UDC PO PRN (12:50)
[2024-03-19] MEDS ORDERED: TAMSULOSIN HCL 0.4 MG CAP PO PRN (12:50)
[2024-03-19] MEDS ORDERED: VANCOMYCIN CONSULT ACTIVE PRN (12:50)
[2024-03-19] MEDS ORDERED: bisacodyL 10 MG SUPP PR PRN (12:50)
[2024-03-19] MEDS ORDERED: MAGNESIUM HYDROXIDE SUSP 30 ML UDC PO PRN (12:50)
[2024-03-19] MEDS ORDERED: diphenhydrAMINE 50 MG/ML VIAL IV PRN (12:50)
[2024-03-19] MEDS ORDERED: HYDROmorphone INJ 0.5 MG/0.5 ML SYR IV PRN (12:50)
[2024-03-19] MEDS ORDERED: NALOXONE HCL 0.4 MG/1 ML VIAL/CARP IV PRN (12:50)
[2024-03-19] MEDS ORDERED: METOCLOPRAMIDE HCL INJ 5 MG/ML 2 ML VIAL IV PRN (12:50)
--- NOTE | 2024-03-19 13:47 | Orthopedic Progress Note ---
Date of Service March 19, 2024 Assessment & Plan Admission and Anticipated Discharge Date Admission Date: March 19, 2024 Orthopedic Progress Note Afternoon rounds checked doing well denies chest pain shortness of breath fever chills nausea vomiting or headache. Vital signs are stable he is afebrile. Neurovascular check reveals intact femoral sciatic nerve can do straight leg raise can do ankle pumps. Wound dressing clean dry and intact. Postop x-rays x-rays look excellent. Assessment overall doing well continue care pathway start DVT PE prophylaxis tomorrow. Open around in the room knee immobilizer on for ambulation only. Do's exercises including posterior capsular stretch. Prepare for discharge in a.m.
[2024-03-19] MEDS: KETOROLAC TROMETHAMINE 15 MG/ML VIAL IV SCH (13:59)
[2024-03-19] MEDS: SODIUM CHLORIDE 0.9% 1,000 ML IV SCH (14:01)
[2024-03-19] MEDS: ACETAMINOPHEN 500 MG TAB PO SCH (14:05)
[2024-03-19] MEDS: VANCOMYCIN HCL 1,250 MG in SODIUM CHLORIDE 0.9% 250 ML IV ONE (14:09)
--- NOTE | 2024-03-19 15:57 | XRay Report ---
XR knee LT 1 or 2V routine CLINICAL HISTORY: S/P L TKA TECHNIQUE: 2 views of the left knee were obtained. Comparison: Comparison is made to knee radiographs 01/28/2024 FINDINGS: Patient is status post total knee arthroplasty with expected postsurgical changes including soft tiss ue swelling and subcutaneous emphysema. No periarticular lucency or hardware fracture is seen. IMPRESSION: Expected postoperative appearance status post placement of total knee arthroplasty. ACT 112: Negative or not required by law. Electronically signed by: Rene Lee M.D. 03/19/2024 3:56 PM
--- OUTSIDE RECORDS SUMMARY | 2024-03-19 16:17 | External Medical Summary | Continuity of Care Document ---
Author Name Unknown Organization [facility] [address] Address [address] [place], [place] [id number] Care Team Providers Care Top Case Assembler Name Role Phone Clover Condon Hero Primary Care Physician [phone] [phone] Date(s): 03/05/24 - 03/05/24 [facility] [address] [facility] [address], [facility] [address] [place], [place] [phone] Encounter Diagnosis Encounter for other preprocedural examination(Final) - Other tear of lateral meniscus, current injury, left knee, initial encounter (Final) - Essential (primary) hypertension(Final) - Chronic kidney disease, stage 3 unspecified(Final) - Disorder of arteries and arterioles, unspecified(Final) - Anemia, unspecified(Final) - Discharge Disposition: Home or Self Care Attending Physician: DO Vasquez Allison B Referring Physician: DO Vasquez Allison B Allergies, Adverse Reactions, Alerts Substance Criticality Severity Reaction Reaction Severity Status propranolol Active amoxicillin rash Active nisoldipine rash Active atorvastatin Urticaria Rash Active Immunizations Given and Recorded Vaccine Date Status Refusal Reason influenza virus vaccine, inactivated 05/29/23 Giovanni rded influenza virus vaccine, inactivated 05/24/22 Giovanni rded influenza virus vaccine, inactivated 06/23/20 Give n influenza virus vaccine, inactivated 06/17/19 Giovanni rded influenza virus vaccine, inactivated 06/18/18 Giovanni rded influenza virus vaccine, inactivated 05/31/18 Give n influenza virus vaccine, inactivated 05/31/17 Giovanni rded influenza virus vaccine, inactivated 06/07/16 Give n influenza virus vaccine, inactivated 07/13/15 Give n influenza virus vaccine, inactivated 06/09/14 Give n influenza virus vaccine, inactivated 42 Giovanni rded pneumococcal 23-valent vaccine 10/14/19 Recorded pneumococcal 13-valent vaccine 1 06/18/18 Recorded 1Result Comment: 2021-03-22: Historical information-source unspecified Medications alfuzosin 10 mg oral tablet, extended release Start: 11/08/23 3:29:00 PM EST Start Date: 11/08/23 Status: Ordered aspirin 81 mg oral delayed release tablet Start: 12/03/23 1:36:00 PM EDT, 1 tab, PO, Daily Start Date: 12/03/23 Status: Ordered Centrum Silver Men's Start: 03/22/21 9:37:00 AM EDT, 1 tab, PO, Daily Start Date: 03/22/21 Status: Ordered colchicine 0.6 mg oral tablet Start: 12/03/23 2:07:00 PM EDT, See Instructions, Disp# 30 tab, Refills: 3, 2 tab po at the first sign of a gout flare followed by 0.6 mg one hour later. May continue hourly if needed, Pharmacy: [id number] Start Date: 12/03/23 Status: Ordered lisinopril 30 mg oral tablet Start: 07/19/23 4:46:00 PM EDT, 1 tab, PO, Daily, Disp# 90 tab, Refills: 4, Pharmacy: [id number] Start Date: 07/19/23 Stop Date: 10/11/24 Status: Ordered omeprazole 20 mg oral delayed release capsule Start: 03/09/23 10:07:00 AM EDT, 1 cap, PO, Daily, Disp# 30 cap, other Start Date: 03/09/23 Stop Date: 04/08/23 Status: Ordered Probiotic Intestinal Start: 06/09/14 2:28:00 PM EDT, 1 cap, PO, Daily Start Date: 06/09/14 Status: Ordered triamcinolone 0.025% topical cream Start: 02/27/24 11:30:00 AM EDT, 1 appl, topical, bid, Disp# 60 g, Pharmacy: [id number] Start Date: 02/27/24 Stop Date: 03/12/24 Status: Ordered Tylenol Start: 02/08/21 10:23:00 AM EDT, 1,000 mg =, PO, q6h, PRN: as needed for pain Start Date: 02/08/21 Status: Ordered Problem List Condition Confirmation Course Effective Dates Status H ealth Status Informant Acute lateral meniscus tear of left knee Confirmed Active Atopic dermatitis in adult Confirmed Active CKD (chronic kidney disease), stage III Confirmed Active HYPERTENSION Confirmed Active HYPERTENSION Confirmed Active Family history of prostate cancer Confirmed Active Gout 1 Confirmed Active Osteoarthritis of left knee Confirmed Active Knee pain, bilateral Confirmed Active Tear of medial meniscus of left knee Confirmed Active 1on allopurinol and colchicine Procedures Procedure Date Related Diagnosis Body Site Status CT of abdomen and pelvis wit hout contrast 1 10/04/22 Completed Colonoscopy 2, 3 10/07/20 Complete d Upper GI endoscopy 4 07/02/20 Comp leted Echocardiogram 5 05/18/20 Complete d Laparoscopic cholecystectomy with cholangiography 05/11/20 Completed Cataract surgery 6 12/20/16 Comple kristine Cataract surgery 7 12/06/16 Comple kristine Testicular ultrasound 8 11/20/16 C ompleted Echocardiogram 9 06/13/16 Complete d Procedure on prostate 2011 Completed Arthroplasty of the knee 2004 Completed Hernia repair 2004 Completed Colonoscopy 12 Completed ERCP 13 Completed 11. Wall thickening involves several loops of ileum within the right midabdomen and right pelvis with additional wall thickening of the cecum and ascending colon. Mild associated inflammatory stranding with trace ascites. Findings are suggestive of a nonspecific enterocolitis. 2. Large and small bowel diverticulosis 3. No bowel obstruction or pneumoperitoneum 4. Noninflammed appendix 2Pathology results showed 1 hyperplastic polyp and 2 tubular adenomas. Repeat colo in 5 years. 3COLO to cecum, redundant colon, meza-diverticulosis, hemorroids, 2- sigmoid polyps 2-3 mm CF, rectalpolyp 3 mm CF, 4Z-line regular, 40 cm from the inciosrs. Normal esophagus and stomach.. Non-bleeding duodenal diverticulum No specimens collected 5Impression: 1. Normal left ventriculat size and systolic function. EF 60-65%. No regional wall motion abnormalites. Mild concentric left ventricular hypertrophy. 2. No significant valvular abnormalites visulaized. 3. Technically difficult study, enhanced with IV Definity. 4. Similar findings compared to prior report on 06/13/2016. 6R eye 7L eye 8Right testis: Maximum dimension 3.8 cm. Normal vascular flow. Left testis: Maximum dimension 4.1 cm. Normal vascular flow. 91. LVEF 65%. Normal segmental wall motion. Mild LVH. 2. Diastolic dysfunction. 3. No significant regurgitation or stenosis. 10"laser on prostate" 11R knee, partial [id number] 13impression a previously placed stent had migrated into the biliary tree. one stent was removed fromthe biliary tree. Pt discharged to home , continue present medication return to primary care physician prn. Results Laboratory List Name Date Complete Blood Count (CBC) 03/05/24 Most recent to oldest [Reference Range]: 1 MPV [9.0-12.2 fL] 9.9 fL (03/05/24 11:23 AM) RDW [11.5-14.2 %] 12.7 % (03/05/24 11:23 AM) Hct [39-48 %] 34.4 % *LOW* (03/05/24 11:23 AM) Hgb [13.0-17.0 g/dL] 11.5 g/dL *LOW* (03/05/24 11:23 AM) MCH [28-33 pg] 33.5 pg *HI* (03/05/24 11:23 AM) MCHC [32-36 g/dL] 33.4 g/dL (03/05/24 11:23 AM) MCV [81-96 fL] 100.3 fL *HI* (03/05/24 11:23 AM) Plts [150-350 K/uL] 221 K/uL (03/05/24 11:23 AM) RBC [4.40-5.60 M/uL] 3.43 M/uL *LOW* (03/05/24 11:23 AM) WBC [4.0-10.4 K/uL] 5.25 K/uL (03/05/24 11:23 AM) Social History Social History Type Response Tobacco Oral 1 Smoking Status Never smoked cigaret mercedes Sex Male 1Used pouch tobacco. Quit approx. 9 years ago. Patient Care team information Care Team Personnel Name: MD Taurus, Clover Monahan Position: Physician - Family Med Member Role: Primary Care Provider Address: Address: [address] [place] [address] Name: Quentin Gray MD, Umesh Position: Resident Member Role: Lifetime Relationship Address: [address] [address] [place] [address] [place] Name: Ashanti Stokes Position: HIS Supervisor_P Member Role: HIS Lifetime Care Team Related Persons Name: FOX JOHNS Address: [place] Address: [address] [place] [id number] Name: ARMOND SPENCER V Address: home [address] [place] [facility] [address] [place] [id number]
--- OUTSIDE RECORDS SUMMARY | 2024-03-19 16:17 | External Medical Summary | Continuity of Care Document ---
Author Name Unknown Organization [facility] [address] [place] [phone] Care Team Providers Care Co Chairman Name Role Phone Condon Clover Hero Primary Care Physician [phone] Encounter [facility] [phone] Date(s): 02/27/24 - 02/27/24 [facility] [address] [place] [id number] [phone] Encounter Diagnosis Body mass index [BMI] 29.0-29.9, adult(Discharge Diagnosis) - 02/27/24 Pre-op exam(Discharge Diagnosis) - 02/27/24 Acute lateral meniscus tear of left knee(Discharge Diagnosis) - 02/27/24 HYPERTENSION(Discharge Diagnosis) - 02/27/24 CKD (chronic kidney disease), stage III(Discharge Diagnosis) - 02/27/24 Carotid artery disease(Discharge Diagnosis) - 02/27/24 Anemia(Discharge Diagnosis) - 02/27/24 Discharge Disposition: Home or Self Care Attending Physician: DO Vasquez Allison B Allergies, Adverse Reactions, Alerts Substance Criticality Severity Reaction Reaction Severity Status propranolol Active amoxicillin rash Active nisoldipine rash Active atorvastatin Urticaria Rash Active Assessment and Plan Extracted from: Title:Office Visit Note Author:Quentin Gray MD, Umesh Date:02/27/24 1.Pre-op exam Martis seen for laurie-operative risk stratification. They report no cardiac symptoms at rest or on exertion. They have no history of ischemic heart disease, CHF, CVD, diabetes, EtOH/drug abuse, recent anticoagulant or antithrombotic use, personal or family history of coagulopathy.They report no history of undergoing a stress test, cardiac catheterization, or coronary revascularization. They report being able to achieve>10METs of activity. This patient's cardiac risk factors include history of carotid artery disease. . According to the RCRI, this number of risk factors stratifies the patient to ClassI, whihc carries with it a0.4% risk of major CV complications, such as NE, CHF, or malignant arrhythmia. In this case, however, the RCRI likelyover-estimatesthe patient's true cardiac risk and due to the fact that this surgery is considered aintermediaterisk. These risks, along with the risk of laurie-operative stroke, were discussed with the patient, in light of the benefits of possible surgery. Omar to proceed with the operation. This assessment was conveyed to the surgery and anesthesia teams. 3.HYPERTENSION Chronic condition, stable Goal:Resolution Data:_ Plan: _At goal. CMP reviewed. Continue lisinopril 30 mg daily 4.CKD (chronic kidney disease), stage III Chronic condition, stable Goal:Resolution Data:unique tests reviewed:CMP _ Plan: CMP reviewed. Cr. 1.62 (baseline). 5.Carotid artery disease Chronic condition, stable Goal:Resolution Data:external notes reviewedincluding:Anesthesia team note _ Plan: _ Currently on Aspirin 81 mg daily. As per Anesthesiateam note, general surgeon toproceed with surgery. 6.Anemia Chronic condition, stable Goal:Resolution Data:unique tests ordered:CBC Plan: _ CBCreviewed. Hgb 11 from 13 in 2 month. Denied any bleeding, hematuria,hematochezia or black stools. will repeat CBC in 2 weeks Immunizations Given and Recorded Vaccine Date Status [...] later. May continue hourly if needed, Pharmacy: [id number] Start Date: 12/03/23 Status: Ordered lisinopril 30 mg oral tablet Start: 07/19/23 4:46:00 PM EDT, 1 tab, PO, Daily, Disp# 90 tab, Refills: 4, Pharmacy: [id number] Start Date: 07/19/23 Stop Date: [...] appl, topical, bid, Disp# 60 g, Pharmacy: [id number] Start Date: 02/27/24 Stop Date: 03/12/24 Status: Ordered Tylenol Start: 02/08/21 10:23:00 AM EDT, 1,000 mg =, PO, q6h, PRN: as needed for pain Start Date: 02/08/21 Status: Ordered Mental Status 02/27/24 Barriers to Learning one year None evide nt Mandatory Health Literacy Documentation Yes Health Literacy Communication Barriers N ever Primary Language German Problem List Condition Confirmation Course Effective Dates [...] knee Confirmed Active 1on allopurinol and colchicine Diagnosis Diagnosis Type Effective Dates Health Status Clinical Service Informant CKD (chronic kidney disease), stage III Discharge Diagnosis 02/27/24 Non-Specified Body mass index [BMI] 29.0-29.9, adult Discharge Diagnosis 02/27/24 Non-Specified Pre-op exam Discharge Diagnosis 02/27/24 Non-Specified Anemia Discharge Diagnosis 02/27/24 Non-Specified HYPERTENSION Discharge Diagnosis 02/27/24 Non-Specified Acute lateral meniscus tear of left knee Discharge Diagnosis 02/27/24 Non-Specified Carotid artery disease Discharge Diagnosis 02/27/24 Non-Specified Procedures Procedure Date Related Diagnosis Body Site [...] prostate 2011 Completed Arthroplasty of the knee 11 2004 Completed Hernia repair 2004 Completed Colonoscopy [...] stenosis. 10"laser on prostate" 11R knee, partial 146552 13impression a previously placed stent had migrated into the biliary tree. one stent was removed fromthe biliary tree. Pt discharged to home , continue present medication return to primary care physician prn. Vital Signs Most recent to oldest [Reference Range]: 1 Height 175.0 cm (02/27/24 11:14 AM) Patient Weight 88.8 kg (02/27/24 11:14 AM) Body Mass Index 29 kg/m2 (02/27/24 11:14 AM) Temperature [36.5-37.9 DegC] 36.5 DegC (02/27/24 11:14 AM) Blood Pressure 148/68mmHg (02/27/24 11:14 AM) BP Location # 1 Left Arm (02/27/24 11:14 AM) Social History Social History Type Response Tobacco Oral 1 Smoking Status Never smoked cigaret mercedes Sex Male 1Used pouch tobacco. Quit approx. 9 years ago. [facility] Outpt Note * Quentin Gary MD, [facility]: PERFORM DO Vasquez Allison B: MODIFY Event Display: FCM Outpt Note Authored Date: [id number] Chief Complaint Here for pro op for lt knee replacement. History of Present Illness Preoperative evaluation Complete knee replacement Requested by/Surgeon:Blayne Planned surgery:intermediate risk (intraperitoneal, intrathoracic, CEA, head/neck, ortho, prostate) Planned anesthesia:general Exercise tolerance:4 METs (climbing 1 flight, walking up hill, level ground @ 4mph, heavy house work) Bleeding tendency/history: Denied Substance use per social history in EHR Prior response to anesthesia:None Prev hx of gallbladder surgery, hernia repaired, partial knee replacement Revised Cardiac Risk Index: Score [0] [_] High Risk Surgery [_] Ischemic Heart Disease [_] History of CHF [_] History of cerebrovascular disease [_] Insulin therapy for DM [_] Pre-op Cr >2 Physical Exam Vitals & Measurements T:36.5C BP:148/68 SpO2:97% HT:175.0cm WT:88.800kg(Dosing) WT:88.8kg BMI:29 PHQ2 Data(Data Documented on:02/27/2024 11:10) Emotional health assessment NEGATIVE General: _Alert and oriented, No acute distress HEENT: _ Normocephalic, TM clear, Nl gross hearing, moist oral mucosa _ Cardiovascular: _Normal rate, Regular rhythm, No murmur, No gallop. Respiratory: _Lungs are clear to auscultation, Respirations are non-labored, Breath sounds are equal Gastrointestinal: _Soft, Non-tender, Non-distended, Normal bowel sounds. Musculoskeletal: _Normal range of motion,normal strength. Neurologic:Normal sensory, Normal motor function, CN II-XII grossly intact. Integumentary: _Warm, Dry, [place]. Psych: Mood-affect congruence. Reports no SI/HI. Speech is of normal pace and content Assessment/Plan 1.Pre-op exam Jassi seen for laurie-operative risk stratification. They report no cardiac symptoms at rest or on exertion. They have no history of ischemic heart disease, CHF, CVD, diabetes, EtOH/drug abuse, recent anticoagulant or antithrombotic use, personal or family history of coagulopathy.They reportno history of undergoing a stress test, cardiac catheterization, or coronary revascularization. They report being able to achieve>10METs of activity. This patient's cardiac risk factors include history of carotid artery disease. . According to the RCRI, this number of risk factors stratifiesthe patient to ClassI, whihc carries with it a0.4% risk of major CV complications, such as NE, CHF, or malignant arrhythmia. In this case, however, the RCRI likelyover- estimatesthe patient's true cardiac risk and due to the fact that this surgery is considered aintermediaterisk. These risks, along with the risk of laurie- operative stroke, were discussed with the patient, in light of the benefits of possible surgery. Omar to proceed with the operation. This assessment was conveyed to the surgery and anesthesia teams. 3.HYPERTENSION Chronic condition, stable Goal:Resolution Data:_ Plan: _At goal. CMP reviewed. Continue lisinopril 30 mg daily 4.CKD (chronic kidney disease), stage III Chronic condition, stable Goal:Resolution Data:unique tests reviewed:CMP _ Plan: CMP reviewed. Cr. 1.62 (baseline). 5.Carotid artery disease Chronic condition, stable Goal:Resolution Data:external notes reviewedincluding:Anesthesia team note _ Plan: _ Currently on Aspirin 81 mg daily. As per Anesthesiateam note, general surgeon toproceed with surgery. 6.Anemia Chronic condition, stable Goal:Resolution Data:unique tests ordered:CBC Plan: _ CBCreviewed. Hgb 11 from 13 in 2 month. Denied any bleeding, hematuria,hematochezia or black stools. will repeat CBC in 2 weeks Attestation Pt seen and examined in concert with Dr. Gray_, agree with history and physical as documented above. Plan reviewed in detail. Any corrections or additions are noted here - Based on records, patient would be low risk for the proposed surgery. Would like to repeat CBC in 1-2 weeks to make sure hemoglobin is not dropping as there is a two gram difference. Patient is asymptomatic. IF stable, willadd an addendum. Continue current medications. Follow up for routine follow up or sooner as needed. Problem List/Past Medical History Ongoing Acute lateral meniscus tear of left knee Atopic dermatitis in adult CKD (chronic kidney disease), stage III Family history of prostate cancer Gout HYPERTENSION HYPERTENSION Knee pain, bilateral Osteoarthritis of left knee Tear of medial meniscus of left knee Resolved Cellulitis Hypotension Knee pain, left Orthostatic dizziness Pain of right thumb Right arm pain Strain of right forearm Strain of right upper arm Wrist pain, right Procedure/Surgical History CT of abdomen and pelvis without contrast| Service Date: 3Colonoscopy| Service Date:10/07/2020Upper GI endoscopy| Service Date: 07/02/2020Echocardiogram| Service Date: 05/18/2020Laparoscopic cholecystectomy with cholangiography| Service Date: 05/11/2020Cataract surgery| Service Date: 12/20/2016Cataract surgery| Service Date: 12/06/2016Testicular ultrasound| Service Date: 11/20/2016Echocardiogram| Service Date: 09/27/2016Procedure on prostate| Service Date: 2011Hernia repair| Service Date: 2004Arthroplasty of the knee| Service Date: 2004ColonoscopyERCP Medications acetaminophen(Tylenol), 1000 mg, PO, q6h, PRN alfuzosin(alfuzosin 10 mg oral tablet, extended release) aspirin(aspirin 81 mg oral delayed release tablet), 81 mg= 1 tab, PO, Daily colchicine(colchicine 0.6 mg oral tablet), See Instructions, 3 refills lisinopril(lisinopril 30 mg oral tablet), 1 tab, PO, Daily, 4 refills multivitamin with minerals(Centrum Silver Men's), 1 tab, PO, Daily omeprazole(omeprazole 20 mg oral delayed release capsule), 20 mg= 1 cap, PO, Daily Probiotic Intestinal, 1 cap, PO, Daily triamcinolone topical(triamcinolone 0.025% topical cream), 1 appl, topical, bid Allergies amoxicillinrash atorvastatinUrticaria, Rash nisoldipinerash propranolol Social History Smoking Status Never smoked cigarettes Alcohol Use:Current Frequency:1-2 times per week Average drinks per episode in last year:1 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 Quit approx. 9 years ago. Family History CVA - Cerebrovascular accident: Unknown. Cancer: Unknown. Cancer: Father. Glaucoma: Mother. Heart attack: Mother and Brother. Heart disease: Unknown. Respiratory disease: Sister. Stroke: Brother. Type I diabetes mellitus: Mother. Health Status Family Member(s) Immunizations Vaccine Date Status influenza virus vaccine, inactivated 05/29/2023 Recorded influenza virus vaccine, inactivated 05/24/2022 Recorded influenza virus vaccine, inactivated 06/23/2020 Given pneumococcal 23-valent vaccine 10/14/2019 Recorded influenza virus vaccine, inactivated 06/17/2019 Recorded influenza virus vaccine, inactivated 06/18/2018 Recorded pneumococcal 13-valent vaccine 06/18/2018 Recorded Comments : 2021-03-22: Historical information-source unspecified influenza virus vaccine, inactivated 05/31/2018 Given influenza virus vaccine, inactivated 05/31/2017 Recorded influenza virus vaccine, inactivated 06/07/2016 Given influenza virus vaccine, inactivated 07/13/2015 Given influenza virus vaccine, inactivated 06/09/2014 Given influenza virus vaccine, inactivated 1942 Recorded Recommendations Health Maintenance Pending(in the next year) OverDue Medicare Annual Wellness Visit due12/19/23and every 1year Due Adult COVID-19 Vaccination due02/28/24Unknown Frequency Adult Social Determinants of Health Screening due02/28/24Unknown Frequency Adult Tdap/Td Vaccine due02/28/24Unknown Frequency Shingles Vaccine due02/28/24One-time only Due In Future Adult Influenza Vaccine not due until03/16/24and every 1year Satisfied(in the past 1 year) Satisfied Adult Influenza Vaccine on05/29/23.Satisfied by PRABHU Montemayor Gillian Body Mass Index on02/27/24.Satisfied by JACKSON Hawk Paula Electronic Signature on File Electronically Reviewed/Signed by: Umesh Gray MD Author Signature Dt/Tm:02/28/2024 03:03 PM Resident Department of Family Medicine Electronically Reviewed/Signed by: DO Shirley Wills Signature Dt/Tm: 02/28/2024 04:23 PM Department of Family Medicine CR Patient Care team information Care Team Personnel Name: MD Taurus, Clover Monahan Position: Physician - Family Med Member Role: Primary Care Provider Address: Address: [address] [place] [address] [place] Name: Quentin Gray MD, Cayra Position: Resident Member Role: Lifetime Relationship Address: Address: [address] [place] [address] [place] Name: Ashanti Stokes Position: HIS Supervisor_P Member Role: HIS Lifetime Care Team Related Persons Name: FOX JOHNS Address: [place] Address: home [address] [place], [place] [phone] Name: ARMOND SPENCER V Address: home [address] [place], [place] [id number]
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
[2024-03-19] MEDS: ASCORBIC ACID 500 MG TAB PO SCH (17:04)
[2024-03-19] MEDS: FERROUS GLUCONATE 324 MG TAB PO SCH (17:04)
[2024-03-19] MEDS: SENNA 8.6 MG TAB PO SCH (20:09)
[2024-03-19] MEDS: DOCUSATE SODIUM 100 MG CAP PO SCH (20:09)
[2024-03-20] MEDS: oxyCODONE HCL IR 5 MG TAB (IMMEDIATE RELEASE) PO PRN (00:41)
[2024-03-20 03:22] VITALS: PULSE 65
[2024-03-20 06:56] LABS: Hematocrit (blood only) 30.2 % (42.0-52.0); Hemoglobin 10.2 g/dl (14.0-18.0); Mean Corpuscular Hemoglobin 33.2 pg (25.0-34.0); Mean Corpuscular Hgb Conc 33.8 g/dL (32.0-36.0); Mean Corpuscular Volume 98.4 fL (80.0-100.0); Mean Platelet Volume 9.5 fL (9.4-12.4); Platelet Count 172 K/uL (130-400); RDW Coefficient of Variation 12.5 % (11.5-14.5); RDW Standard Deviation 44.6 fL (36.4-46.3); Red Blood Count 3.07 M/uL (4.70-6.10); White Blood Count 7.18 K/ul (4.8-10.8)
--- NOTE | 2024-03-20 07:09 | Orthopedic Progress Note ---
Date of Service March 20, 2024 Assessment & Plan Admission and Anticipated Discharge Date Admission Date: March 19, 2024 Orthopedic Progress Note Postop day #1 status post left total knee replacement. Patient is resting comfortably in bed. Denies chest pain shortness of breath fever chills nausea vomiting or headache. Vital signs are stable he is afebrile. Neurovascular check femoral sciatic nerve is good. Wound dressing is taken down. There is minimal staining on the dressings. Area cleaned and then redressed. Keith stocking above-knee applied. Calf was nontender. A.m. labs pending. Assessment overall doing well continue with care pathway. PT OT this morning and the discharge. Start his blood thinner this morning. Prescriptions were sent in yesterday.
[2024-03-20 07:14] LABS: BUN Creatinine Ratio 25.3 (10-20); Calcium 7.8 mg/dl (8.6-10.3); Creatinine Clr Calc Pharmacy 38.6 ml/min; Est GFR (African American) 45.1 ml/min; Est GFR (Non-African American) 38.9 ml/min; Potassium 4.9 mmol/L (3.5-5.1)
[2024-03-20] MEDS: dexAMETHasone 10 MG in SYRINGE 0 ML IV SCH (07:29)
[2024-03-20 07:35] VITALS: BP 115/71; RESP 15; TEMP 97.7; O2SAT 98
[2024-03-20] MEDS: MULTIVITAMIN TAB PO SCH (08:16)
[2024-03-20] MEDS: TAMSULOSIN HCL 0.4 MG CAP PO SCH (08:16)
[2024-03-20] MEDS: APIXABAN 2.5 MG TAB PO SCH (08:16)
[2024-03-20] MEDS: lisinopril 10 MG TAB PO SCH (08:16)
[2024-03-20] MEDS: ASPIRIN 81 MG ECTAB PO SCH (08:16)
== END 2024-03-20 11:05 | disposition home health service (06) ==
LOC: 3E 06:29 → ASU 06:29

== ENCOUNTER 2024-05-13 11:30 | Observation (INO) ==
--- NOTE | 2024-05-13 12:00 | Emergency Department Note ---
Impression & Plan Virginie-prosthetic fracture around prosthetic joint To O.R. ED Provider Note HPI: History obtained from patient. The patient is a 84-year-old gentleman who presents the emergency department with a chief complaint of a mechanical fall with a laceration over his left knee. Patient states that he was out in the yard when he went up to his porch and he believes he tripped on the dog leash and then fell onto his left knee. Patient sustained a large laceration over his left knee but he is unsure of what exactly caused the laceration. On arrival here to the ED the patient is alert, he is hemodynamically stable. Patient does have a large vertical laceration approximately 10 cm in length overlying the right knee joint without any evidence of exposed bone, there is no active bleeding. ROS: - Per HPI Differential Diagnosis: Open fracture of the left knee, foreign body, traumatic arthrotomy, amongst other potential pathologies. *Outpatient medications and allergy history reviewed. PE: General: Alert HEENT: Normocephalic, trachea midline Eyes: Extraocular eye movement is intact, no scleral erythema Pulmonary: Clear to auscultation bilaterally, no wheezing Cardio: Regular rate and rhythm GI: Abdomen is soft to palpation : No suprapubic tenderness MSK: There is a 10 cm laceration overlying the previously noted surgical scar in vertical orientation over the left knee joint without any obvious exposed bone, there is no active bleeding, otherwise no evidence of trauma or malformation of the extremities, no edema Skin: No evidence of rash Neuro: Alert, no focal deficits Psychiatric: Cooperative Interventions provided in ED: -Tdap Medical Decision Making: X-ray imaging of the left knee was obtained that shows evidence of possible periprosthetic fracture at the patellar facet medially. Otherwise no evidence of fracture or dislocation is noted. Patient did just recently have a knee replacement performed by [facility] orthopedics, I therefore did discuss the patient's case with the on-call orthopedic physician assistant customer service manager for [facility], Tito Ohara PA-C, and the patient was evaluated eventually at the bedside by Dr. Cisneros. Following orthopedic evaluation at the bedside, patient was determined appropriate for transfer to the operating room for washout. IV was established and the patient was given Ancef in the ED. Patient was transferred to the operating room in stable condition for further management to the service of orthopedics. Consultants/Discussions held with other healthcare providers: -Orthopedic surgery, Dr. Cisneros Diagnosis: 1. Mechanical fall, acute 2. Periprosthetic fracture of the patella, acute, open 3. Laceration overlying the left knee, acute Disposition: Transfer to operating room Marbin Enriquez DO Emergency Medicine Past Med/Surg History Problem List Virginie-prosthetic fracture around prosthetic joint (Acute) Status post left knee replacement Medical History Osteoarthritis Hypertension GERD (gastroesophageal reflux disease) BPH (benign prostatic hyperplasia) Gout No current/recent issues Carotid artery stenosis Under surveillance by General surgery/Dr. Martinez Carotid doppler 05/2023: Greater than 70% stenosis within the proximal left ICA which has progressed in the interval. No significant stenosis within the right carotid arteries. Carotid imaging reviewed at 10/2023 [facility] General surgery visit indicating left carotid "slightly more than 70% narrowed" Chronic kidney disease, stage III (moderate) Follows with Dr. Crawford Inflammatory polyarthritis PAD (peripheral artery disease) Per records Anemia Surgical History History of esophagogastroduodenoscopy (EGD) EGD stent: 07/02/20: MAC sedation at [facility] History of tonsillectomy History of ear surgery Multiple as a child S/P ERCP ERCP: 05/14/20: Grade 2 view, MAC33, ETT 7.5 at [facility] S/P laparoscopic cholecystectomy (05/11/20) Laparoscopic Cholecystectomy with Cholangiogram History of colonoscopy History of rectal surgery 1970s fistula repair H/O right knee surgery 1973 Hx of cataract surgery 2016 both eyes H/O hernia repair (2004) Right direct inguinal hernia and lipoma of the cord repair with mesh Hx of total knee arthroplasty Right 2004 H/O prostatectomy Family History Father Cancer Mother Diabetes Heart disease Other No family history of adverse response to anesthesia Denies family history of Kidney disease Social History Smoking Status: Never smoker Tobacco Type: Pipe and Cigars Second Hand Exposure: No; Do You Dip or Chew Tobacco: No (Remote hx 12+ years ago); Hx Alcohol Use: Yes Alcohol type: beer and wine Alcohol Intake Frequency: 2-3 x/Week Hx Substance Use: No Preferred Language: Welsh Communication Ability: Effective Theatrical Scenic Designer Required: No Beliefs That Will Affect Care: None marital status: Current Living Situation: Spouse current occupational status: retired How many Children do You have: 2 Feels Safe at Home: Yes Assistive Devices: Crutches and Walker Allergies Allergies Allergy/AdvReac Type Severity Reaction Status Date / Time amoxicillin Allergy Intermediate Rash Verified 03/19/24 06:53 atorvastatin Allergy Intermediate Rash Verified 03/19/24 06:53 propranolol Allergy Intermediate Rash Verified 03/19/24 06:53 nisoldipine [From Sular] Allergy Mild Rash Verified 03/19/24 06:53 Home Meds Home Medications Medication Instructions Recorded Confirmed lactobacillus combination no.4 3 3 mmu cells PO QAM 04/07/20 03/19/24 billion cell capsule (Probiotic) omeprazole magnesium 20 mg 20 mg PO QAM 04/21/20 03/19/24 tablet,delayed release (Prilosec OTC) aluminum-mag hydroxide-simethicone 30 ml PO QID PRN Indigestion 05/06/20 03/19/24 200 mg-200 mg-20 mg/5 mL oral susp evzbvumqvdan-hvqkbndh-ozvjzh tablet 1 tab PO QAM 07/01/20 03/19/24 colchicine 0.6 mg tablet See Rx Instructions .Route 06/11/23 03/19/24 .COMPLEX PRN GOUT FLARES lisinopril 30 mg tablet 30 mg PO QAM 10/30/23 03/19/24 alfuzosin 10 mg tablet,extended 10 mg PO QAM 02/14/24 03/19/24 release 24 hr (Uroxatral) aspirin 81 mg tablet 81 mg PO DAILY 02/25/24 03/19/24 acetaminophen 500 mg tablet 1,500 mg PO Q6H PRN Pain 03/19/24 03/19/24 Previous Rx's Medication Instructions Recorded apixaban 2.5 mg tablet (Eliquis) 2.5 mg PO BID #60 tabs 03/19/24 oxycodone-acetaminophen 5 mg-325 2 tab PO Q6H PRN pain #18 tabs 03/19/24 mg tablet (Percocet) Results & Data (ED) Vital Signs Vital Signs - 24 hr 05/13/24 11:13 Temperature 36.7 C Temperature Source Oral Pulse Rate 74 Pulse Rhythm Regular Pulse Strength Normal Respiratory Rate 20 Respiratory Effort / Characteristics Non-Labored Spontaneous Respiratory Depth Normal Respiratory Pattern Regular Blood Pressure 118/67 Blood Pressure Mean 84 Blood Pressure Position Sitting Pulse Oximetry 97 Oxygen Delivery Method Room Air Sepsis Recent Fever Within 48 Hours No Sepsis New/Unexplained Change in Mental Status No Sepsis Action Taken by Nursing No Action Required Laboratory Data 05/13/24 14:26 05/13/24 14:26 Lab Results 05/13/24 Range/Units 14:26 WBC 10.64 (4.8-10.8) K/ul RBC 3.59 L (4.70-6.10) M/uL Hgb 11.9 L (14.0-18.0) g/dl Hct 34.8 L (42.0-52.0) % MCV 96.9 (80.0-100.0) fL MCH 33.1 (25.0-34.0) pg MCHC 34.2 (32.0-36.0) g/dL RDW Std Deviation 43.3 (36.4-46.3) fL RDW Coeff of Raul 12.1 (11.5-14.5) % Plt Count 315 (130-400) K/uL MPV 9.7 (9.4-12.4) fL Immature Gran % (Auto) 0.3 % Neut % (Auto) 74.0 % Lymph % (Auto) 14.2 % Hart % (Auto) 5.8 % Eos % (Auto) 5.4 % Baso % (Auto) 0.3 % Neut # (Auto) 7.88 H (1.40-6.50) K/uL Lymph # (Auto) 1.51 (1.20-3.40) K/uL Hart # (Auto) 0.62 H (0.11-0.59) K/uL Eos # (Auto) 0.57 H (0.00-0.50) K/uL Baso # (Auto) 0.03 (0.00-0.20) K/uL Immature Gran # (Auto) 0.03 (0.01-0.20) K/uL Administered Medications Discontinued Medications Cefazolin Sodium (Cefazolin 2,000 Mg/15 Ml Iv Push) Confirm Administered Dose 2,000 mg IV .STK-MED ONE Stop: 05/13/24 14:26 Last Admin: 05/13/24 14:31 Dose: Not Given Documented By: ALISE Diphtheria/Pertussis/Tetanus Vacc (Diphther/Tetan/Pertus Vaccine (Tdap, Adol/Adult) 0.5ml) 0.5 ml IM .ONCE ONE Stop: 05/13/24 11:59 Last Admin: 05/13/24 12:12 Dose: 0.5 ml Documented By: ANNE Lidocaine HCl (Lidocaine 1% Local 20 Ml Vial) 10 ml INFIL NOW ONE Stop: 05/13/24 12:28 Last Admin: 05/13/24 12:56 Dose: 10 ml Documented By: BLADIMIR Imaging Data Radiologist's Impression: Knee X-Ray 05/13/24 11:58 XR knee LT 3V CLINICAL HISTORY: fall, laceration COMPARISON STUDY: Left knee 05/12/2024. FINDINGS: There is a left total knee arthroplasty. The hardware is intact. Possible subtle periprosthetic fracture at the medial patellar facet. No dislocation. There is a large soft tissue laceration involving the prepatellar soft tissues with a small amount of soft tissue gas anteriorly. This could be due to the laceration. There is associated moderate knee effusion. IMPRESSION: 1. Possible subtle periprosthetic fracture at the medial patellar facet. 2. Large prepatellar soft tissue laceration with a small amount of soft tissue gas anteriorly. This is likely due to laceration. 3. Moderate knee effusion. ACT 112: Negative or not required by law. Electronically signed by: Philip Gardner M.D. 05/13/2024 12:57 PM Discharge Plan Visit Data Chief Complaint: Knee Injury/Pain Stated Complaint: FALL, LAC TO LEFT KNEE ED Provider: Marbin Enriquez Discharge Problem: Virginie-prosthetic fracture around prosthetic joint Forms Stand Alone Forms: Lettuce Prescriptions Prescriptions: No Action omeprazole magnesium [Prilosec OTC] 20 mg tablet,delayed release (DR/EC) 20 mg PO QAM alum-mag hydroxide-simeth 200-200-20 mg/5 mL Suspension 30 ml PO QID PRN (Reason: Indigestion) Probiotic 3 billion cell Capsule 3 mmu cells PO QAM rrbaeubjktsn-tttylphm-irjowd Tablet 1 tab PO QAM colchicine 0.6 mg tablet See Rx Instructions .ROUTE .COMPLEX PRN (Reason: GOUT FLARES) Rx Instructions: TAKE 2 TABLETS BY MOUTH AT THE FIRST SIGN OF GOUT FLARE FOLLOWED BY 1 TABLET AN HOUR LATER. MAY CONTINUE 1 TABLET EVERY HOUR UP TO 3 ADDITIONAL TIMES lisinopril 30 mg tablet 30 mg PO QAM alfuzosin [Uroxatral] 10 mg tablet extended release 24 hr 10 mg PO QAM Rx Instructions: administer after the same meal each day aspirin 81 mg Tablet 81 mg PO DAILY acetaminophen 500 mg Tablet 1,500 mg PO Q6H PRN (Reason: Pain) Hold Instructions: Resume on 04/16/24. limit tylenol dosage to 3000mg/day oxycodone-acetaminophen [Percocet] 5-325 mg tablet 2 tab PO Q6H PRN (Reason: pain) Qty: 18 0RF Rx Instructions: initial script max of 6 per day Eliquis 2.5 mg tablet 2.5 mg PO BID Qty: 60 0RF Referrals Referrals: Wes Rutherford MD [Primary Care Provider] - Discharge Problem: Virginie-prosthetic fracture around prosthetic joint Qualifiers: Encounter type: initial encounter Qualified Code(s): M97.9XXA - Periprosthetic fracture around unspecified internal prosthetic joint, initial encounter
[2024-05-13] MEDS: DIPHTHER/TETAN/PERTUS Vaccine (Tdap, Adol/Adult) 0.5mL IM ONE (12:12)
[2024-05-13] MEDS: LIDOCAINE 1% LOCAL 20 ML VIAL INFIL ONE (12:56)
--- NOTE | 2024-05-13 12:59 | XRay Report ---
XR knee LT 3V CLINICAL HISTORY: fall, laceration COMPARISON STUDY: Left knee 05/12/2024. FINDINGS: There is a left total knee arthroplasty. The hardware is intact. Possible subtle periprosth etic fracture at the medial patellar facet. No dislocation. There is a large soft tissue laceration i nvolving the prepatellar soft tissues with a small amount of soft tissue gas anteriorly. This could b e due to the laceration. There is associated moderate knee effusion. IMPRESSION: 1. Possible subtle periprosthetic fracture at the medial patellar facet. 2. Large prepatellar soft tissue laceration with a small amount of soft tissue gas anteriorly. This i s likely due to laceration. 3. Moderate knee effusion. ACT 112: Negative or not required by law. Electronically signed by: Philip Gardner M.D. 05/13/2024 12:57 PM
[2024-05-13] MEDS: ceFAZolin 2,000 MG/15 ML IV PUSH IV ONE ×2 (14:31→15:04)
[2024-05-13] MEDS ORDERED: fentaNYL citrate PF 100 MCG/2 ML VIAL ONE (14:35)
[2024-05-13 14:37] LABS: Basophils # (auto) 0.03 K/uL (0.00-0.20); Basophils % (auto) 0.3 %; Eosinophils # (auto) 0.57 K/uL (0.00-0.50); Eosinophils % (auto) 5.4 %; Hematocrit (blood only) 34.8 % (42.0-52.0); Hemoglobin 11.9 g/dl (14.0-18.0); Immature Granulocytes # (auto) 0.03 K/uL (0.01-0.20); Immature Granulocytes % (auto) 0.3 %; Lymphocytes # (auto) 1.51 K/uL (1.20-3.40); Lymphocytes % (auto) 14.2 %; Mean Corpuscular Hemoglobin 33.1 pg (25.0-34.0); Mean Corpuscular Hgb Conc 34.2 g/dL (32.0-36.0); Mean Corpuscular Volume 96.9 fL (80.0-100.0); Mean Platelet Volume 9.7 fL (9.4-12.4); Monocytes # (auto) 0.62 K/uL (0.11-0.59); Monocytes % (auto) 5.8 %; Neutrophils # (auto) 7.88 K/uL (1.40-6.50); Platelet Count 315 K/uL (130-400); RDW Coefficient of Variation 12.1 % (11.5-14.5); RDW Standard Deviation 43.3 fL (36.4-46.3); Red Blood Count 3.59 M/uL (4.70-6.10); White Blood Count 10.64 K/ul (4.8-10.8)
[2024-05-13] MEDS ORDERED: ONDANSETRON INJ 2 MG/ML 2 ML VIAL ONE (14:37)
[2024-05-13] MEDS ORDERED: LIDOCAINE 2% 2 ML VIAL/AMP(20MG/ML) INFIL ONE (14:37)
[2024-05-13] MEDS ORDERED: PROPOFOL IV EMULSION 10 MG/ML 20 ML VIAL IV ONE (14:37)
--- NOTE | 2024-05-13 14:44 | Anesthesiology Consultation ---
Date of Service May 13, 2024 Assessment & Plan (1) Encounter for pre-operative examination: Chart Review Chart Review: Acceptable Risk for Surgery (about 6 hours since eating - surgeon does not want to wait any longer with infected knee) History Surgery Operation Date: 05/13/24 12:30 Proposed Procedures p Left Incision and Drainage Knee, Possible Poly Exchange - Tin Cisneros MD Height/Weight Height: 5 ft 9 in Weight: 90.2 kg Allergies Allergy/AdvReac Type Severity Reaction Status Date / Time amoxicillin Allergy Intermediate Rash Verified 03/19/24 06:53 atorvastatin Allergy Intermediate Rash Verified 03/19/24 06:53 propranolol Allergy Intermediate Rash Verified 03/19/24 06:53 nisoldipine [From Sular] Allergy Mild Rash Verified 03/19/24 06:53 Medications Home Medications Medication Instructions Recorded Confirmed Last Taken lactobacillus combination no.4 3 3 mmu cells PO QAM 04/07/20 03/19/24 03/18/24 08:00 billion cell capsule (Probiotic) omeprazole magnesium 20 mg 20 mg PO QAM 04/21/20 03/19/24 03/19/24 04:30 tablet,delayed release (Prilosec OTC) aluminum-mag hydroxide-simethicone 30 ml PO QID PRN Indigestion 05/06/20 03/19/24 03/16/24 200 mg-200 mg-20 mg/5 mL oral susp bzrodcnsbepz-oyntqtmw-tkejxf tablet 1 tab PO QAM 07/01/20 03/19/24 03/18/24 08:00 colchicine 0.6 mg tablet See Rx Instructions .Route 06/11/23 03/19/24 03/05/24 .COMPLEX PRN GOUT FLARES lisinopril 30 mg tablet 30 mg PO QAM 10/30/23 03/19/24 03/18/24 08:00 alfuzosin 10 mg tablet,extended 10 mg PO QAM 02/14/24 03/19/24 03/19/24 04:30 release 24 hr (Uroxatral) aspirin 81 mg tablet 81 mg PO DAILY 02/25/24 03/19/24 03/14/24 acetaminophen 500 mg tablet 1,500 mg PO Q6H PRN Pain 03/19/24 03/19/24 03/17/24 apixaban 2.5 mg tablet (Eliquis) 2.5 mg PO BID #60 tabs 03/19/24 Unknown oxycodone-acetaminophen 5 mg-325 2 tab PO Q6H PRN pain #18 tabs 03/19/24 Unknown mg tablet (Percocet) Past Medical History Medical History Osteoarthritis Hypertension GERD (gastroesophageal reflux disease) BPH (benign prostatic hyperplasia) Gout No current/recent issues Carotid artery stenosis Under surveillance by General surgery/Dr. Martinez Carotid doppler 05/2023: Greater than 70% stenosis within the proximal left ICA which has progressed in the interval. No significant stenosis within the right carotid arteries. Carotid [place] [facility] [place] indicating left carotid "slightly more than 70% narrowed" Chronic kidney disease, stage III (moderate) Follows with Dr. Crawford Inflammatory polyarthritis PAD (peripheral artery disease) Per records Anemia Past Family History Family History Father Cancer Mother Diabetes Heart disease Other No family history of adverse response to anesthesia Denies family history of Kidney disease Past Surgical History Surgical History History of esophagogastroduodenoscopy (EGD) EGD stent: 07/02/20: MAC sedation at [facility] History of tonsillectomy History of ear surgery Multiple as a child S/P ERCP ERCP: 05/14/20: Grade 2 view, MAC33, ETT 7.5 at [facility] S/P laparoscopic cholecystectomy (05/11/20) Laparoscopic Cholecystectomy with Cholangiogram History of colonoscopy History of rectal surgery 1970s fistula repair H/O right knee surgery 1973 Hx of cataract surgery 2016 both eyes H/O hernia repair (2004) Right direct inguinal hernia and lipoma of the cord repair with mesh Hx of total knee arthroplasty Right 2005 H/O prostatectomy Social History Smoking Status: Never smoker tobacco type: cigarettes Do You Dip or Chew Tobacco: No (Remote hx 12+ years ago) Hx Alcohol Use: Yes Alcohol type: beer and wine alcohol intake frequency: a few times a month Hx Substance Use: No substance use type: does not use Physical Exam Vital Signs Last Vital Signs Temp 36.7 C 05/13/24 11:13 Pulse 74 05/13/24 11:13 Resp 20 05/13/24 11:13 BP 118/67 05/13/24 11:13 Pulse Ox 97 05/13/24 11:13 O2 Del Method Room Air 05/13/24 11:13 Testing Laboratory Results 05/13/24 14:26 Electrocardiogram Date: 10/30/23 Findings: + NSR @ (69) possible anterior infarct but seen on prior ecg Echocardiogram Date: 10/31/23 EF: 65-70% LV Function: normal Valvular Disease: + no significant valvular disease
--- NOTE | 2024-05-13 14:51 | History & Physical Report ---
Date of Service May 13, 2024 Assessment & Plan (1) Laceration of left knee with complication: Plan: The patient and his family were educated regarding today's findings. His wound and films are concerning for open penetration of his total knee. I do not think there is a fracture of his patella. Importance of exploration in the OR with appropriate irrigation, debridement, and closure was discussed. Risks and benefits were discussed. The patient is agreeable to proceed in an emergent manner. IV was established. Labs were obtained. Preop dose of Ancef 2 g was administered. The patient last ate a little over 4 hours ago, consisting of orange juice and an Egg McMuffin. He is aware of potential risks related to anesthesia and desires to proceed. A temporary dressing was placed on the knee for transport to the OR. The patient was seen in conjunction with Dr. Cisneros, who also evaluated the patient and obtained consent. History of Present Illness Chief Complaint: Left knee laceration after total knee arthroplasty Primary Care Provider: Wes Rutherford MD This 84-year-old male presents today in the ED, for evaluation after falling on his front porch this morning. The patient states he landed on his knee. He is unsure whether his knee was flexed. He sustained a large laceration over the anterior aspect of his left knee. There was immediate onset of pain. He reported to the ED for evaluation. Orthopedics was consulted. He denies striking his head. There was no loss of conscious. He denies any numbness or tingling. He has been able to ambulate as well as perform a straight leg raise. Pain is rated as 6/10. He denies any chest pain, headache, or dizziness at the time of the fall. Allergies Allergy/AdvReac Type Severity Reaction Status Date / Time amoxicillin Allergy Intermediate Rash Verified 03/19/24 06:53 atorvastatin Allergy Intermediate Rash Verified 03/19/24 06:53 propranolol Allergy Intermediate Rash Verified 03/19/24 06:53 nisoldipine [From Sular] Allergy Mild Rash Verified 03/19/24 06:53 Home Medications Medication Instructions Recorded Confirmed Type lactobacillus combination no.4 3 3 mmu cells PO QAM 04/07/20 03/19/24 History billion cell capsule (Probiotic) omeprazole magnesium 20 mg 20 mg PO QAM 04/21/20 03/19/24 History tablet,delayed release (Prilosec OTC) aluminum-mag hydroxide-simethicone 30 ml PO QID PRN Indigestion 05/06/20 03/19/24 History 200 mg-200 mg-20 mg/5 mL oral susp ymoglqbjhkjz-jprzstap-zelnzm tablet 1 tab PO QAM 07/01/20 03/19/24 History colchicine 0.6 mg tablet See Rx Instructions .Route 06/11/23 03/19/24 History .COMPLEX PRN GOUT FLARES lisinopril 30 mg tablet 30 mg PO QAM 10/30/23 03/19/24 History alfuzosin 10 mg tablet,extended 10 mg PO QAM 02/14/24 03/19/24 History release 24 hr (Uroxatral) aspirin 81 mg tablet 81 mg PO DAILY 02/25/24 03/19/24 History acetaminophen 500 mg tablet 1,500 mg PO Q6H PRN Pain 03/19/24 03/19/24 History apixaban 2.5 mg tablet (Eliquis) 2.5 mg PO BID #60 tabs 03/19/24 Rx oxycodone-acetaminophen 5 mg-325 2 tab PO Q6H PRN pain #18 tabs 03/19/24 Rx mg tablet (Percocet) Past Med/Surg History Problem List Laceration of left knee with complication Virginie-prosthetic fracture around prosthetic joint (Acute) Status post left knee replacement Medical History Osteoarthritis Hypertension GERD (gastroesophageal reflux disease) BPH (benign prostatic hyperplasia) Gout No current/recent issues Carotid artery stenosis Under surveillance by General surgery/Dr. Martinez Carotid doppler 05/2023: Greater than 70% stenosis within the proximal left ICA which has progressed in the interval. No significant stenosis within the right carotid arteries. Carotid imaging [place]20[place] [facility] [place] indicating left carotid "slightly more than 70% narrowed" Chronic kidney disease, stage III (moderate) Follows with Dr. Crawford Inflammatory polyarthritis PAD (peripheral artery disease) Per records Anemia Surgical History History of esophagogastroduodenoscopy (EGD) EGD stent: 07/02/20: MAC sedation at [facility] History of tonsillectomy History of ear surgery Multiple as a child S/P ERCP ERCP: 05/14/20: Grade 2 view, MAC33, ETT 7.5 at [facility] S/P laparoscopic cholecystectomy (05/11/20) Laparoscopic Cholecystectomy with Cholangiogram History of colonoscopy History of rectal surgery 1970s fistula repair H/O right knee surgery 1972 Hx of cataract surgery 2016 both eyes H/O hernia repair (2004) Right direct inguinal hernia and lipoma of the cord repair with mesh Hx of total knee arthroplasty Right 2005 H/O prostatectomy Family History Father Cancer Mother Diabetes Heart disease Other No family history of adverse response to anesthesia Denies family history of Kidney disease Social History Smoking Status: Never smoker Tobacco Type: Pipe and Cigars Second Hand Exposure: No; Do You Dip or Chew Tobacco: No (Remote hx 12+ years ago); Hx Alcohol Use: Yes Alcohol type: beer and wine Alcohol Intake Frequency: 2-3 x/Week Hx Substance Use: No Preferred Language: Welsh Communication Ability: Effective Director Internal Control Required: No Beliefs That Will Affect Care: None marital status: Current Living Situation: Spouse current occupational status: retired How many Children do You have: 2 Feels Safe at Home: Yes Assistive Devices: Crutches and Walker Review of Systems Review of Systems: All systems reviewed & are unremarkable except as noted in HPI & below Physical Exam Physical Exam: General: Well-developed, well-nourished, elderly male, in no acute distress. Laying in bed. Alert and oriented. Skin: Warm and dry with good turgor. No rashes. No ecchymosis. Mild intra- articular effusion in the left knee. He has 11 cm linear laceration present over the anterior aspect of his left knee. It follows his previous scar from the TKA 8 weeks ago. It is full-thickness. No foreign material is noted at this time. HEENT: Normocephalic atraumatic. Eyes PERRLA, EOMI. No conjunctiva or scleral injection. Nares patent bilaterally without turbinate enlargement. No significant drainage. No epistaxis. Neurologic: Cranial nerves II through XII are intact. Heart: Heart RRR. No MGR. Peripheral pulses are 2+. Lungs: Lungs are clear to auscultation. No crackles rhonchi or wheezing. Good air movement. The patient is able to take a deep breath. Abdomen: Abdomen was inspected, auscultated, and palpated. Obese. Bowel sounds present x 4. Soft, nontender to palpation. No hepato-splenomegaly. No masses noted. No rebound. Musculoskeletal: Gross motor function of the lower extremities is intact and unremarkable. He has intact motor function to the ankle, knee, and hip. Knee motion is limited secondary to pain. He is able to set his quad and perform a straight leg raise. Neurologic: Gross sensation is intact across the upper and lower extremities by soft touch. Results & Data Results & Data Vital Signs (Past 12 Hours) Vital Signs Temp Pulse Resp BP Pulse Ox O2 Del Method 05/13/24 11:13 36.7 C 74 20 118/67 97 Room Air Laboratory Results CBC shows a white count of 10.6. H&H of 11.9 and 34.8. Platelets normal at 315,000. Chemistry panel is pending. Diagnostic Findings Left knee radiographic imaging obtained today was read by radiology. There is concern for a periprosthetic patellar fracture. When compared to his films from yesterday, I do not think there is a fracture. He does have evidence of a large laceration with soft tissue gas. Code Status & VTE Plan VTE Prophylaxis Plan VTE Prophylaxis will be ordered: Yes
[2024-05-13] MEDS ORDERED: ATROPINE SULFATE 0.1 MG/ML 10ML SYR IV PRN (14:53)
[2024-05-13] MEDS ORDERED: ePHEDrine sulfate 50 MG/ML AMP IV PRN (14:53)
[2024-05-13] MEDS ORDERED: ONDANSETRON INJ 2 MG/ML 2 ML VIAL IV PRN ×2 (14:53→17:50)
[2024-05-13 14:54] LABS: Albumin Level 4.1 gm/dl (3.4-5.0); Bilirubin,Total 0.4 mg/dl (0.2-1.0); Calcium 9.2 mg/dl (8.6-10.3); Potassium 4.9 mmol/L (3.5-5.1)
[2024-05-13] MEDS: LACTATED RINGER'S 1,000 ML IV SCH (14:56)
--- NOTE | 2024-05-13 14:57 | History & Physical Bridge Note ---
Date of Service May 13, 2024 History & Physical Bridge Note I have examined the patient, reviewed the History & Physical and in the interval since the performance of the History & Physical I have noted the following changes of clinical significance: consent and site verified.no changes noted
[2024-05-13 15:00] LABS: Albumin Globulin Ratio 1.5 (0.9-2); BUN Creatinine Ratio 26.1 (10-20); Creatinine Clr Calc Pharmacy 47.2 ml/min; Est GFR (African American) 56.8 ml/min; Globulin 2.8 gm/dl (2.5-4.0); Total Protein 6.9 gm/dl (6.0-8.3)
[2024-05-13] MEDS: CLINDAMYCIN/D5W 900 MG/50 ML BAG IV SCH (15:00)
[2024-05-13] MEDS: CLINDAMYCIN 900 MG/D5W 50 ML BAG IV ONE (15:03)
[2024-05-13] MEDS ORDERED: ePHEDrine sulfate 50 MG/5 ML SYR ONE (15:20)
[2024-05-13] MEDS ORDERED: ROCURONIUM BROMIDE 10 MG/ML 5 ML VIAL IV ONE (15:20)
[2024-05-13] MEDS ORDERED: PHENYLEPHRINE 100MCG/ML 10ML SYR IV ONE (15:20)
[2024-05-13] MEDS ORDERED: SUCCINYLCHOLINE CHLORIDE 20 MG/ML 10 ML VIAL IV ONE (15:20)
[2024-05-13] MEDS ORDERED: SUGAMMADEX SODIUM 200 MG/2 ML VIAL IV ONE (15:29)
--- NOTE | 2024-05-13 15:50 | Post Operative Brief Note ---
Immediate Post Op Note Date of Surgery May 13, 2024 Pre & Post Diagnosis Operation Date: 05/13/24 12:30 Pre-Op Diagnosis: Laceration of left knee with complication status post recent total knee replacement in roughly 9 to 10 weeks ago Post-Op Diagnosis: Laceration of left knee with complication status post recent total knee replacement roughly 9 to 10 weeks ago I identified the patient and participated in the time-out.: Yes Procedure Operation Date: 05/13/24 12:30 Actual Procedures p Incision and Drainage of Left Knee(Left) - Tin Cisneros MD Surgeon Tin Cisneros MD Bus Washer Lev Estimated Blood Loss 15 Findings Consistent with Post-Op Diagnosis 11 to 13 cm laceration with no direct communication in the joint large medial flap Fluids See anesthesia report Drains Hemovac Drain
--- NOTE | 2024-05-13 15:53 | Operative Report ---
Post Operative Report Pre & Post Diagnosis Operation Date: 05/13/24 12:30 Pre-Op Diagnosis: Laceration of left knee with complication status post recent total knee replacement left Post-Op Diagnosis: Laceration of left knee with complication status post recent total knee replacement left I identified the patient and participated in the time-out.: Yes Procedure Operation Date: 05/13/24 12:30 Actual Procedures p Incision and Drainage of Left Knee(Left) - Tin Cisneros MD Surgeon Tin Cisneros MD Mill Work Lev Estimated Blood Loss 15 Findings Consistent with Post-Op Diagnosis No intra-articular communication no evident dirt or gross contamination Specimens None see anesthesia report Drains X 1 Complications None Indications Laceration over total knee replacement done of roughly 9 weeks ago. X-ray with questionable air intra-articular Description of Procedure After the patient was appropriate endophyte site verified consent verified antibiotics confirmed as being given the area was prepped and draped use routine fashion no tourniquet was utilized were applied. The wound was then explored there was no digital communication of the joint in extension the knee was then flexed there was no digital communication the joint no joint fluid leaking out. The wound was then carlton irrigated with roughly 10 L of fluid. Once this was all cleaned out and there was no evident contamination it was then closed over a drain using 2-0 Vicryl and stainless steel clips. EBL was 20 cc to 30 cc at most. Crystalloid per anesthesia no cultures were obtained no pathology. DVT prophylaxis with aspirin knee immobilizer no range of motion for 2 weeks. I attest to the content of the Intraoperative Record and any orders documented therein. Any exceptions are noted below.
--- NOTE | 2024-05-13 15:59 | Operative Report ---
Post Operative Report Pre & Post Diagnosis Operation Date: 05/13/24 12:30 Pre-Op Diagnosis: Laceration of left knee with complication Post-Op Diagnosis: Laceration of left knee with complication I identified the patient and participated in the time-out.: Yes Procedure Operation Date: 05/13/24 12:30 Actual Procedures p Incision and Drainage of Left Knee(Left) - Tin Cisneros MD Surgeon NICKOLAS Cisneros MD Bar And Filler Assembler Lev NELSON Estimated Blood Loss 15 Findings Consistent with Post-Op Diagnosis see operative report Specimens none Drains hemovac x 1 left thigh Complications none Disposition Accompanied Patient To Recovery: Yes Indications This 84-year-old male presented through the ED for evaluation of a left knee laceration after falling on his front porch. He has an underlying total knee arthroplasty that is 8 weeks old. He elected to proceed with surgical intervention for irrigation and debridement as well as inspection of the joint, after being educated about potential risks and outcomes. Preoperative imaging was obtained. Description of Procedure The patient was taken to the operating room where he was administered a general anesthetic. He was prepped and draped in the usual sterile fashion. Please see Dr. Cisneros's operative report for specifics of the procedure. I was present for the entire case from initial patient positioning through final wound closure. Assistance was provided in tissue retraction, hemostasis, and final wound closure. The patient was taken to the recovery room in satisfactory condition. I attest to the content of the Intraoperative Record and any orders documented therein. Any exceptions are noted below.
[2024-05-13] MEDS: fentaNYL citrate PF 100 MCG/2 ML VIAL IV PRN (16:02)
[2024-05-13] MEDS: HYDROmorphone INJ 1 MG/ML SYRINGE ONE (16:25)
[2024-05-13] MEDS: HYDROmorphone INJ 1 MG/ML SYRINGE IV STA (16:41)
--- NOTE | 2024-05-13 16:45 | Anesthesiology Progress Note ---
Date of Service May 13, 2024 Anesthesia Post Procedure Vital Signs Vital Signs: Temp Pulse Pulse Pulse Resp BP BP 05/13/24 16:35 73 12 112/62 05/13/24 16:25 78 16 110/69 05/13/24 16:15 74 14 113/72 05/13/24 16:05 74 15 116/69 05/13/24 15:55 36.7 C 80 18 128/70 05/13/24 14:47 84 18 124/72 05/13/24 14:40 36.9 C 74 20 134/79 05/13/24 12:00 72 16 121/67 05/13/24 11:13 36.7 C 74 20 118/67 Pulse Ox O2 Del Method O2 Flow Rate 05/13/24 16:35 97 Nasal Cannula 2 05/13/24 16:25 99 Nasal Cannula 2 05/13/24 16:15 99 Nasal Cannula 2 05/13/24 16:05 100 Oxymask 9 05/13/24 15:55 100 Oxymask 9 05/13/24 14:47 98 Room Air 05/13/24 14:40 97 Room Air 05/13/24 12:00 96 Room Air 05/13/24 11:13 97 Room Air Pain Intensity Left Knee: Pain Intensity: 5 Transfer of Care Handoff Completed per policy Notes Mental Status: alert / awake / arousable Patient Amnestic to Procedure: Yes Nausea / Vomiting: adequately controlled Pain: adequately controlled Airway Patency, RR, SpO2: stable & adequate BP & HR: stable & adequate Hydration State: stable & adequate Anesthetic Complications: no major complications apparent
[2024-05-13] MEDS ORDERED: oxyCODONE HCL IR 5 MG TAB (IMMEDIATE RELEASE) PO PRN (17:50)
[2024-05-13] MEDS ORDERED: METOCLOPRAMIDE HCL INJ 5 MG/ML 2 ML VIAL IV PRN (17:50)
[2024-05-13] MEDS ORDERED: ALUMINUM/MAGNESIUM SUSP 30 ML UDC PO PRN (17:50)
[2024-05-13] MEDS ORDERED: COLCHICINE 0.6 MG TAB PO PRN (17:50)
[2024-05-13] MEDS ORDERED: ALUM MAG HYDROXIDE SIMETH PO PRN (17:50)
[2024-05-13] MEDS ORDERED: MAGNESIUM HYDROXIDE SUSP 30 ML UDC PO PRN (17:50)
[2024-05-13] MEDS ORDERED: VANCOMYCIN CONSULT ACTIVE PRN (17:50)
[2024-05-13] MEDS ORDERED: TAMSULOSIN HCL 0.4 MG CAP PO PRN (17:50)
[2024-05-13] MEDS ORDERED: bisacodyL 10 MG SUPP PR PRN (17:50)
[2024-05-13] MEDS ORDERED: diphenhydrAMINE 50 MG/ML VIAL IV PRN (17:50)
[2024-05-13] MEDS ORDERED: NALOXONE HCL 0.4 MG/1 ML VIAL/CARP IV PRN (17:50)
[2024-05-13] MEDS: SODIUM CHLORIDE 0.9% 1,000 ML IV SCH (18:16)
[2024-05-13] MEDS: KETOROLAC TROMETHAMINE 15 MG/ML VIAL IV SCH (18:18)
[2024-05-13] MEDS: VANCOMYCIN HCL 1,250 MG in SODIUM CHLORIDE 0.9% 250 ML IV ONE (18:41)
[2024-05-13] MEDS: HYDROmorphone INJ 0.5 MG/0.5 ML SYR IV PRN (20:23)
[2024-05-13] MEDS: DOCUSATE SODIUM 100 MG CAP PO SCH (20:28)
[2024-05-13] MEDS: FERROUS GLUCONATE 324 MG TAB PO SCH (20:28)
[2024-05-13] MEDS: SENNA 8.6 MG TAB PO SCH (20:28)
[2024-05-13] MEDS: ASCORBIC ACID 500 MG TAB PO SCH (20:28)
[2024-05-13] MEDS: ACETAMINOPHEN 500 MG TAB PO SCH (22:02)
[2024-05-13] MEDS: ceFAZolin 2000MG 2,000 MG/15 ML SYR IV SCH (22:02)
[2024-05-14 04:28] VITALS: TEMP 97.5
[2024-05-14] MEDS ORDERED: ceFAZolin 2000MG 2,000 MG/15 ML SYR IV SCH (06:00)
--- NOTE | 2024-05-14 06:40 | Orthopedic Progress Note ---
Date of Service May 14, 2024 Assessment & Plan Admission and Anticipated Discharge Date Admission Date: May 13, 2024 Orthopedic Progress Note Please discharge on azithromycin 500 mg p.o. twice daily for a week.
--- NOTE | 2024-05-14 06:42 | Orthopedic Progress Note ---
Date of Service May 14, 2024 Assessment & Plan Admission and Anticipated Discharge Date Admission Date: May 13, 2024 Orthopedic Progress Note Patient doing well denies any chest pain shortness of breath fever chills nausea vomiting headache. Vital signs are stable he is afebrile. Neurovascular check femoral sciatic nerve is normal. This point in time we will allow full weightbearing keep knee immobilizer on for 2 weeks to let skin heal. We placed in a Prevena leave drain in until Sunday can you come to the office on Sunday to have it removed. He did work around the Prevena so does get incarcer ated and that. Eat independently stabilize it with a Tegaderm. Use aspirin for DVT PE prophylaxis.
[2024-05-14 07:26] VITALS: BP 121/70; PULSE 55; RESP 17; O2SAT 97
[2024-05-14 07:33] LABS: Hemoglobin 10.5 g/dl (14.0-18.0); Mean Corpuscular Hemoglobin 32.5 pg (25.0-34.0); Mean Corpuscular Hgb Conc 32.8 g/dL (32.0-36.0); Mean Corpuscular Volume 99.1 fL (80.0-100.0); Mean Platelet Volume 9.3 fL (9.4-12.4); Platelet Count 237 K/uL (130-400); RDW Coefficient of Variation 12.1 % (11.5-14.5); RDW Standard Deviation 43.9 fL (36.4-46.3); Red Blood Count 3.23 M/uL (4.70-6.10); White Blood Count 6.47 K/ul (4.8-10.8)
[2024-05-14 08:08] LABS: BUN Creatinine Ratio 18.3 (10-20); Calcium 8.3 mg/dl (8.6-10.3); Creatinine Clr Calc Pharmacy 31.3 ml/min; Est GFR (African American) 34.6 ml/min; Est GFR (Non-African American) 29.8 ml/min; Potassium 4.7 mmol/L (3.5-5.1)
[2024-05-14] MEDS: lisinopril 10 MG TAB PO SCH (09:20)
[2024-05-14] MEDS: PANTOprazole 40 MG TAB PO SCH (09:20)
[2024-05-14] MEDS: TAMSULOSIN HCL 0.4 MG CAP PO SCH (09:20)
[2024-05-14] MEDS: MULTIVITAMIN TAB PO SCH (09:21)
--- NOTE | 2024-05-14 15:55 | Discharge Summary ---
Date of Service May 14, 2024 Admission HPI Per Admitting Provider This 84-year-old male presents today in the ED, for evaluation after falling on his front porch this morning. The patient states he landed on his knee. He is unsure whether his knee was flexed. He sustained a large laceration over the anterior aspect of his left knee. There was immediate onset of pain. He reported to the ED for evaluation. Orthopedics was consulted. He denies striking his head. There was no loss of conscious. He denies any numbness or tingling. He has been able to ambulate as well as perform a straight leg raise. Pain is rated as 6/10. He denies any chest pain, headache, or dizziness at the time of the fall. Discharge Data Procedures Performed Operation Date: 05/13/24 12:30 Actual Procedures p Incision and Drainage of Left Knee(Left) - Tin Cisneros MD Hospital Course (1) Laceration of left knee with complication: Patient was admitted to [facility] on May 13, 2024 after being seen and evaluated in the emergency room for a left knee open wound. He is approximately 2 months status post a left total knee arthroplasty. He fell at home and directly onto his his left knee. He was seen and evaluated in the emergency room by Jaycob and Dr. Cisneros. No fractures were found. Due to his incision opening, surgical intervention was recommended. He underwent exploration, irrigation, debridement and closure of his left open knee wound. He was taken directly to the operating room. He was given 2 g of IV Ancef and this was continued for 24 hours after his procedure. He tolerated the procedure well without any intraoperative complications. He was allowed out of bed, we ight-bear as tolerated on his left lower extremity with the assistance of a walker and a knee immobilizer on his left leg at all times. His pain was well- controlled with Percocet and Tylenol. He was seen and evaluated by Occupational Therapy and physical therapy and did well out of bed. On postop day 1 a Prevena wound VAC was applied to the left knee incision. A pressure dressing was applied over the wound VAC and his Hemovac was left in place. He will be scheduled follow-up appointment for later this week in our office to have the Hemovac removed. He was placed on aspirin 325 mg p.o. twice daily for DVT prophylaxis. During his inpatient stay was given a regular diet. His vital signs remained stable. He did not develop any postoperative complications or lightheadedness, dizziness, chest pains or shortness of breath. He was deemed safe out of bed by PT and OT and was discharged to his home in stable condition on July 14, 2024. He was given a refill of Percocet for use at home. Postoperatively He was seen and evaluated by case management and elected to go home without home health. He will start outpatient physical therapy when appropriate. Discharge instructions were reviewed and discussed with the patient.
== END 2024-05-14 11:43 | disposition home or self-care (01) | DRG 581 ==
LOC: ED 11:30 → OR 14:43 → 3N 14:44 → INTOOBSV 14:44 → 3N 05-14 05:27

== ENCOUNTER 2025-05-07 18:20 | Observation (INO) ==
[2025-05-07 18:54] LABS: Hematocrit (blood only) 36.2 % (42.0-52.0); Hemoglobin 12.7 g/dl (14.0-18.0); Immature Granulocytes # (auto) 0.04 K/uL (0.01-0.20); Immature Granulocytes % (auto) 0.4 %; Mean Corpuscular Hemoglobin 32.8 pg (25.0-34.0); Mean Corpuscular Volume 93.5 fL (80.0-100.0); Platelet Count 218 K/uL (130-400); RDW Standard Deviation 42.1 fL (36.4-46.3); Red Blood Count 3.87 M/uL (4.70-6.10); White Blood Count 10.52 K/ul (4.8-10.8)
[2025-05-07 19:13] LABS: Alanine Aminotransferase 20 U/L (7-52); Albumin Globulin Ratio 1.4 (0.9-2); Alkaline Phosphatase 104 U/L (34-104); Anion Gap 9 (3-11); Bilirubin,Total 0.4 mg/dl (0.2-1.0); Blood Urea Nitrogen 39 mg/dl (6-23); Calcium 9.3 mg/dl (8.6-10.3); Carbon Dioxide 22 mmol/L (21-32); Chloride 108 mmol/L (98-107); Globulin 2.9 gm/dl (2.5-4.0); Glucose 166 mg/dl (70-99(Fasting)); Potassium 5.2 mmol/L (3.5-5.1); Sodium 139 mmol/L (136-145); Total Protein 6.9 gm/dl (6.0-8.3)
[2025-05-07 19:20] LABS: INR 0.9 (0.9-1.1); Partial Thromboplastin Time 23 Seconds (21-31); Prothrombin Time 10.2 Seconds (9.0-12.0)
--- NOTE | 2025-05-07 19:36 | XRay Report ---
Chest radiograph, one view History: Chest pain Comparison: None Findings: Single AP view of the chest performed. No focal consolidation or pleural effusion. No pneumothorax. The cardiomediastinal silhouette is within normal limits. Normal pulmonary vascularity. No evidence for lymphadenopathy. No visualized bony or soft tissue abnormality. Impression: Normal chest radiograph Electronically signed by Wes Monahan 05-07-2025 7:36 PM
--- NOTE | 2025-05-07 20:08 | Emergency Department Note ---
History of Present Illness General Chief Complaint: Chest Pain Time Seen by Provider: 05/07/25 19:32 History of Present Illness Provider Complaint: chest pain Time: 16:30 Duration: now resolved Onset: during rest Pain Location: substernal Pain Radiation: none Severity: severe Current Pain Intensity: 0 Quality: + heaviness Relieved By: + nothing Exacerbated By: + nothing Context: no recent illness, no recent surgery, no recent immobilization, no recent travel, no trauma/injury or no new medications Associated symptoms: + diaphoresis and + dyspnea; no nausea, no vomiting or no cough Treatments prior to arrival: aspirin Home Medications Medication Instructions Recorded Confirmed Type lactobacillus combination no.4 3 3 mmu cells PO QAM 04/07/20 01/19/25 History billion cell capsule (Probiotic) omeprazole magnesium 20 mg 20 mg PO QAM 04/21/20 01/19/25 History tablet,delayed release (Prilosec OTC) aluminum-mag hydroxide-simethicone 30 ml PO QID PRN Indigestion 05/06/20 01/19/25 History 200 mg-200 mg-20 mg/5 mL oral susp hhxbcasjaxvo-xogppkny-excolu tablet 1 tab PO QAM 07/01/20 01/19/25 History colchicine 0.6 mg tablet See Rx Instructions .Route 06/11/23 01/19/25 History .COMPLEX PRN GOUT FLARES lisinopril 30 mg tablet 30 mg PO QAM 10/30/23 01/19/25 History aspirin 81 mg tablet 81 mg PO DAILY 02/25/24 01/19/25 History acetaminophen 500 mg tablet 1,000 mg (2 x 500 mg) PO Q8 PRN 05/14/24 01/19/25 Rx (Tylenol Extra Strength) fever or pain #30 tabs aspirin 325 mg tablet 325 mg PO BID #60 tabs 05/14/24 01/19/25 Rx fluticasone propionate 50 1 spray intranasal DAILY 07/21/24 01/19/25 History mcg/actuation nasal spray,suspension (Flonase Allergy Relief) alfuzosin 10 mg tablet,extended 10 mg PO QAM #90 tabs 09/16/24 01/19/25 Rx release 24 hr (Uroxatral) Allergies Allergy/AdvReac Type Severity Reaction Status Date / Time amoxicillin Allergy Intermediate Rash Verified 01/19/25 09:32 atorvastatin Allergy Intermediate Rash Verified 01/19/25 09:32 propranolol Allergy Intermediate Rash Verified 01/19/25 09:32 nisoldipine [From Sular] Allergy Mild Rash Verified 01/19/25 09:32 azithromycin AdvReac Intermediate Diarrhea Unverified 01/19/25 09:32 Past Med/Surg History Problem List (Updated 05/07/25 @ 20:12 by Rodolfo Christy MD) Chest pain (Acute) Sensorineural hearing loss (SNHL) of both ears right-worse asymmetry BPH (benign prostatic hyperplasia) Medical History Virginie-prosthetic fracture around prosthetic joint Osteoarthritis Hypertension GERD (gastroesophageal reflux disease) Gout No current/recent issues Carotid artery stenosis Under surveillance by General surgery/Dr. Martinez Carotid doppler 05/2023: Greater than 70% stenosis within the proximal left ICA which has progressed in the interval. No significant stenosis within the right carotid arteries. Carotid imaging reviewed at 10/2023 [facility] General surgery visit indicating left carotid "slightly more than 70% narrowed" Chronic kidney disease, stage III (moderate) Follows with Dr. Crawford Inflammatory polyarthritis PAD (peripheral artery disease) Per records Anemia Surgical History Status post left knee replacement History of esophagogastroduodenoscopy (EGD) EGD stent: 07/02/20: MAC sedation at [facility] History of tonsillectomy History of ear surgery Multiple as a child S/P ERCP ERCP: 05/14/20: Grade 2 view, MAC33, ETT 7.5 at [facility] S/P laparoscopic cholecystectomy (05/11/20) Laparoscopic Cholecystectomy with Cholangiogram History of colonoscopy History of rectal surgery 1970s fistula repair H/O right knee surgery 1973 Hx of cataract surgery 2016 both eyes H/O hernia repair (2004) Right direct inguinal hernia and lipoma of the cord repair with mesh Hx of total knee arthroplasty Right 2004 H/O prostatectomy Family History Father Cancer Mother Diabetes Heart disease Other No family history of adverse response to anesthesia Denies family history of Kidney disease Social History Smoking Status: Never smoker Tobacco Type: Pipe and Cigars Second Hand Exposure: No; Do You Dip or Chew Tobacco: No (Remote hx 12+ years ago); Hx Alcohol Use: Yes Alcohol type: beer and wine Alcohol Intake Frequency: 2-3 x/Week Hx Substance Use: No Preferred Language: Slovak Communication Ability: Effective 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: No Beliefs That Will Affect Care: None marital status: Current Living Situation: Spouse current occupational status: retired How many Children do You have: 2 Feels Safe at Home: Yes Assistive Devices: Cane and Walker Physical Exam Vital Signs Vital Signs - 24 hr 05/07/25 18:24 05/07/25 19:35 05/07/25 19:37 Temperature 36.9 C Temperature Source Temporal Artery Scan Pulse Rate 83 67 Pulse Rate [Apical] 58 L Pulse Rhythm [Apical] Regular Pulse Strength [Apical] Normal Respiratory Rate 19 18 Respiratory Effort / Characteristics Non-Labored Spontaneous Non-Labored Spontaneous Respiratory Depth Normal Normal Respiratory Pattern Regular Blood Pressure 101/64 Blood Pressure [Right Arm] 103/65 Blood Pressure Mean 76 Blood Pressure Mean [Right Arm] 77 Blood Pressure Position [Right Arm] Sitting Pulse Oximetry 98 97 Oxygen Delivery Method Room Air Room Air Sepsis Recent Fever Within 48 Hours No Sepsis New/Unexplained Change in Mental Status N/A Sepsis Action Taken by Nursing No Action Required Physical Exam GENERAL: oriented to person, place, and time. appears well-developed and well- nourished. HENT: Exam performed. - Head: Normocephalic and atraumatic. EYES: Conjunctivae and EOM are normal. Right eye exhibits no discharge. Left eye exhibits no discharge. No scleral icterus. NECK: Normal range of motion. Neck supple. No JVD present. CV: Normal rate, regular rhythm, normal heart sounds and intact distal pulses. There is no peripheral edema. Palpable radial pulses bue. PULM/CHEST: Effort normal and breath sounds normal. No respiratory distress. No stridor. no wheezes. no rales. ABD: The abdomen is soft. There is no tenderness. NEURO: Motor and sensation grossly intact. SKIN: Skin is warm and dry. He is not diaphoretic. PSYCH: normal mood and affect. Behavior is normal. Judgment and thought content normal. Course Course 1931: The patient was evaluated in room A11A. A complete history and physical exam was performed Medical Decision Making Laboratory Data Attestation: I reviewed the patient's lab results. 05/07/25 Unknown 05/07/25 Unknown Labs: Lab Results 05/07/25 Range/Units Unknown WBC 10.52 (4.8-10.8) K/ul RBC 3.87 L (4.70-6.10) M/uL Hgb 12.7 L (14.0-18.0) g/dl Hct 36.2 L (42.0-52.0) % MCV 93.5 (80.0-100.0) fL MCH 32.8 (25.0-34.0) pg MCHC 35.1 (32.0-36.0) g/dL RDW Std Deviation 42.1 (36.4-46.3) fL RDW Coeff of Raul 12.2 (11.5-14.5) % Plt Count 218 (130-400) K/uL MPV 9.6 (9.4-12.4) fL Immature Gran % (Auto) 0.4 % Neut % (Auto) 73.3 % Lymph % (Auto) 15.3 % [place] % (Auto) 7.2 % Eos % (Auto) 3.4 % Baso % (Auto) 0.4 % Neut # (Auto) 7.71 H (1.40-6.50) K/uL Lymph # (Auto) 1.61 (1.20-3.40) K/uL [place] # (Auto) 0.76 H (0.11-0.59) K/uL Eos # (Auto) 0.36 (0.00-0.50) K/uL Baso # (Auto) 0.04 (0.00-0.20) K/uL Immature Gran # (Auto) 0.04 (0.01-0.20) K/uL PT 10.2 (9.0-12.0) Seconds INR 0.9 (0.9-1.1) APTT 23 (21-31) Seconds PTT Ratio 0.9 Sodium 139 (136-145) mmol/L Potassium 5.2 H (3.5-5.1) mmol/L Chloride 108 H (98-107) mmol/L Carbon Dioxide 22 (21-32) mmol/L Anion Gap 9 (3-11) BUN 39 H (6-23) mg/dl Creatinine 2.52 H (0.6-1.4) mg/dl Est Cr Clr Drug Dosing Not Reportable eGFR 24.63 BUN/Creatinine Ratio 15.5 (10-20) Glucose 166 H (70-99(Fasting)) mg/dl Calcium 9.3 (8.6-10.3) mg/dl Total Bilirubin 0.4 (0.2-1.0) mg/dl AST 25 (13-39) U/L ALT 20 (7-52) U/L Alkaline Phosphatase 104 (34-104) U/L Troponin I High Sens 5.6 (0-20) pg/ml Total Protein 6.9 (6.0-8.3) gm/dl Albumin 4.0 (3.4-5.0) gm/dl Globulin 2.9 (2.5-4.0) gm/dl Albumin/Globulin Ratio 1.4 (0.9-2) Imaging Data Chest x-ray: Attestation: I personally reviewed and interpreted this imaging study as follows: My impression: Chest x-ray negative. Airway clear. No pneumothorax. No consolidation. No cardiomegaly or cephalization.. No free air under the diaphragm. No fractures of the skeletal structures. Radiologist's impression: Chest X-Ray 05/07/25 18:27 Chest radiograph, one view History: Chest pain Comparison: None Findings: Single AP view of the chest performed. No focal consolidation or pleural effusion. No pneumothorax. The cardiomediastinal silhouette is within normal limits. Normal pulmonary vascularity. No evidence for lymphadenopathy. No visualized bony or soft tissue abnormality. Impression: Normal chest radiograph Electronically signed by Wes Monahan 05-07-2025 7:36 PM ECG Data Attestation: I personally reviewed and interpreted this ECG as follows: Indication: chest pain Rate (beats per minute): 73 Rhythm: normal sinus Findings: + 1st degree AV block; no ST depression, no ST elevation or no prolonged QT Additional Comments: ME 246 QRS 74 QTc 427 MDM Narrative Cardiac monitoring: An order was placed for continuous cardiac monitoring. The monitor shows a rate of 70 with sinus rhythm interpreted by me Patient was seen during a time of extreme volume and extreme acuity. Nursing triage protocols were initiated labs and imaging was conducted by protocol in the triage area. Vital signs stable. Labs are unremarkable. Patient will be admitted for chest pain rule out ACS. Impression & Plan Chest pain Discharge Plan Visit Data Chief Complaint: Chest Pain ED Provider: Rodolfo Christy Discharge Problem: Chest pain Patient Disposition: Admitted As Inpatient Condition: Fair Forms Stand Alone Forms: My [facility] Prescriptions Prescriptions: No Action omeprazole magnesium [Prilosec OTC] 20 mg tablet,delayed release (DR/EC) 20 mg PO QAM alfuzosin [Uroxatral] 10 mg tablet extended release 24 hr 10 mg PO QAM Qty: 90 3RF Rx Instructions: administer after the same meal each day fluticasone propionate [Flonase Allergy Relief] 50 mcg/actuation spray,suspension 1 spray intranasal DAILY Rx Instructions: administer into each nostril alum-mag hydroxide-simeth 200-200-20 mg/5 mL Suspension 30 ml PO QID PRN (Reason: Indigestion) Probiotic 3 billion cell Capsule 3 mmu cells PO QAM pxzkullgrlwc-kwuzsffl-rnttck Tablet 1 tab PO QAM colchicine 0.6 mg tablet See Rx Instructions .ROUTE .COMPLEX PRN (Reason: GOUT FLARES) Rx Instructions: TAKE 2 TABLETS BY MOUTH AT THE FIRST SIGN OF GOUT FLARE FOLLOWED BY 1 TABLET AN HOUR LATER. MAY CONTINUE 1 TABLET EVERY HOUR UP TO 3 ADDITIONAL TIMES lisinopril 30 mg tablet 30 mg PO QAM aspirin 81 mg Tablet 81 mg PO DAILY Hold Instructions: Resume on 06/14/24. hold while on ASA 325mg twice daily acetaminophen [Tylenol Extra Strength] 500 mg Tablet 1,000 mg PO Q8 PRN (Reason: fever or pain) Qty: 30 0RF aspirin 325 mg tablet 325 mg PO BID Qty: 60 0RF Referrals Referrals: Wes Rutherford MD [Primary Care Provider] - Discharge Problem: Chest pain Qualifiers: Chest pain type: unspecified Qualified Code(s): R07.9 - Chest pain, unspecified
--- NOTE | 2025-05-07 21:31 | History & Physical Report ---
Date of Service May 07, 2025 Assessment & Plan (1) Chest pain: (2) Hypertension: (3) GERD (gastroesophageal reflux disease): (4) Gout: (5) PAD (peripheral artery disease): Plan 85yo male presenting with episode of chest discomfort. #Chest pain - resolved. Troponin x 1 unremarkable. EKG with no ischemic changes -Admit to Medical with telemetry -Troponin with AM labs #NIKOLE - Cr=2.52, increased from 1.99. Likely pre-renal. -LR at 80mL/hr x 1L -Repeat chemistry in AM -Avoid nephrotoxic agents -Renal dosing where needed #GERD -Continue Protonix #Hypertension -Holding Lisinopril for now given borderline low BPs in ER and elevated Cr -Continue to monitor BP #PAD -Continue ASA 81mg po daily -Rash with atorvastatin History of Present Illness Chief Complaint: dizziness, chest discomfort Primary Care Provider: Wes Rutherford MD Gage Man is an 85yo male with history of HTN, Carotid artery stenosis, CKD III, PAD presenting with episode of dizziness. Patient was at the [facility] today. He was walking around most of the day. He had some coffee in the morning but otherwise did not drink anything all day. At 16:30 he felt dizzy and developed some abdominal pain. He had a bowel movement which he describes as loose, no straining. He then got dizzy and diaphoretic. He went outside and sat on the sofa then developed some central chest pain- epigastric, 5/10 in severity. He was told that he became "ashen" in color. His chest discomfort lasted approximately 1-1.5 hours then resolved on its own. Patient denies fever, chills, palpitations, cough, SOB, abdominal pain, nausea, vomiting. He has been getting some leg cramps at night and has been drinking tonic water for them. In the ER he is afebrile, HD stable ER Course: NSS x500mL by EMS Allergies Allergy/AdvReac Type Severity Reaction Status Date / Time amoxicillin Allergy Intermediate Rash Verified 01/19/25 09:32 atorvastatin Allergy Intermediate Rash Verified 01/19/25 09:32 propranolol Allergy Intermediate Rash Verified 01/19/25 09:32 nisoldipine [From Sular] Allergy Mild Rash Verified 01/19/25 09:32 azithromycin AdvReac Intermediate Diarrhea Unverified 01/19/25 09:32 Home Medications Medication Instructions Recorded Confirmed Type lactobacillus combination no.4 3 3 mmu cells PO QAM 04/07/20 05/07/25 History billion cell capsule (Probiotic) omeprazole magnesium 20 mg 20 mg PO QAM 04/21/20 05/07/25 History tablet,delayed release (Prilosec OTC) aluminum-mag hydroxide-simethicone 30 ml PO QID PRN Indigestion 05/06/20 01/19/25 History 200 mg-200 mg-20 mg/5 mL oral susp xhxeuwdfrirx-zceeyjoq-zadjih tablet 1 tab PO QAM 07/01/20 05/07/25 History colchicine 0.6 mg tablet See Rx Instructions .Route 06/11/23 05/07/25 History .COMPLEX PRN GOUT FLARES lisinopril 30 mg tablet 30 mg PO QAM 10/30/23 05/07/25 History aspirin 81 mg tablet 81 mg PO DAILY 02/25/24 05/07/25 History acetaminophen 500 mg tablet 1,000 mg (2 x 500 mg) PO Q8 PRN 05/14/24 01/19/25 Rx (Tylenol Extra Strength) fever or pain #30 tabs aspirin 325 mg tablet 325 mg PO BID #60 tabs 05/14/24 01/19/25 Rx fluticasone propionate 50 1 spray intranasal DAILY 07/21/24 01/19/25 History mcg/actuation nasal spray,suspension (Flonase Allergy Relief) alfuzosin 10 mg tablet,extended 10 mg PO QAM #90 tabs 09/16/24 05/07/25 Rx release 24 hr (Uroxatral) Past Med/Surg History Problem List Chest pain (Acute) Sensorineural hearing loss (SNHL) of both ears right-worse asymmetry BPH (benign prostatic hyperplasia) Medical History Virginie-prosthetic fracture around prosthetic joint Osteoarthritis Hypertension GERD (gastroesophageal reflux disease) Gout No current/recent issues Carotid artery stenosis Under surveillance by General surgery/Dr. Martinez Carotid doppler 05/2023: Greater than 70% stenosis within the proximal left ICA which has progressed in the interval. No significant stenosis within the right carotid arteries. [place] [facility] [place] visit indicating left carotid "slightly more than 70% narrowed" Chronic kidney disease, stage III (moderate) Follows with Dr. Crawford Inflammatory polyarthritis PAD (peripheral artery disease) Per records Anemia Surgical History Status post left knee replacement History of esophagogastroduodenoscopy (EGD) EGD stent: 07/02/20: MAC sedation at [facility] History of tonsillectomy History of ear surgery Multiple as a child S/P ERCP ERCP: 05/14/20: Grade 2 view, MAC33, ETT 7.5 at [facility] S/P laparoscopic cholecystectomy (05/11/20) Laparoscopic Cholecystectomy with Cholangiogram History of colonoscopy History of rectal surgery 1970s fistula repair H/O right knee surgery 1972 Hx of cataract surgery 2016 both eyes H/O hernia repair (2004) Right direct inguinal hernia and lipoma of the cord repair with mesh Hx of total knee arthroplasty Right 2004 H/O prostatectomy Family History Father Cancer Mother Diabetes Heart disease Other No family history of adverse response to anesthesia Denies family history of Kidney disease Social History Smoking Status: Never smoker Tobacco Type: Pipe and Cigars Second Hand Exposure: No; Do You Dip or Chew Tobacco: No (Remote hx 12+ years ago); Hx Alcohol Use: Yes Alcohol type: beer and wine Alcohol Intake Frequency: 2-3 x/Week Hx Substance Use: No Preferred Language: Slovak Communication Ability: Effective 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 Beliefs That Will Affect Care: None marital status: Current Living Situation: Spouse and Family Current Living Situation Comment: lives at home with and daughter current occupational status: retired How many Children do You have: 2 Other Information That Helps Us Care for You: No Feels Safe at Home: Yes Safety Concerns: Feels Safe At This Time Assistive Devices: Cane, Denture - Upper, Denture - Lower, Glasses and Hearing Aid - Bilateral Assistive Devices Comment: uses cane occasionally as needed Review of Systems Review of Systems: All systems reviewed & are unremarkable except as noted in HPI & below Physical Exam Physical Exam: Laboratory Results WBC 10.52 K/ul (4.8-1 0.8) 05/07/25 Unknown RBC 3.87 M/uL (4.70-6 .10) L 05/07/25 Unknown Hgb 12.7 g/dl (14.0-1 8.0) L 05/07/25 Unknown Hct 36.2 % (42.0-52.0 ) L 05/07/25 Unknown MCV 93.5 fL (80.0-100 .0) 05/07/25 Unknown MCH 32.8 pg (25.0-34. 0) 05/07/25 Unknown MCHC 35.1 g/dL (32.0-3 6.0) 05/07/25 Unknown RDW Std Deviation 42.1 fL (36.4-46. 3) 05/07/25 Unknown RDW Coeff of Raul 12.2 % (11.5-14.5 ) 05/07/25 Unknown Plt Count 218 K/uL (130-400 ) 05/07/25 Unknown MPV 9.6 fL (9.4-12.4) 05/07/25 Unknown Immature Gran % (A uto) 0.4 % 05/07/25 Unknown Neut % (Auto) 73.3 % 05/07/25 Unknown Lymph % (Auto) 15.3 % 05/07/25 Unknown [place] % (Auto) 7.2 % 05/07/25 Unknown Eos % (Auto) 3.4 % 05/07/25 Unknown Baso % (Auto) 0.4 % 05/07/25 Unknown Neut # (Auto) 7.71 K/uL (1.40-6 .50) H 05/07/25 Unknown Lymph # (Auto) 1.61 K/uL (1.20-3 .40) 05/07/25 Unknown [place] # (Auto) 0.76 K/uL (0.11-0 .59) H 05/07/25 Unknown Eos # (Auto) 0.36 K/uL (0.00-0 .50) 05/07/25 Unknown Baso # (Auto) 0.04 K/uL (0.00-0 .20) 05/07/25 Unknown Immature Gran # (A uto) 0.04 K/uL (0.01-0 .20) 05/07/25 Unknown PT 10.2 Seconds (9.0 -12.0) 05/07/25 Unknown INR 0.9 (0.9-1.1) 05/07/25 Unknown APTT 23 Seconds (21-31 ) 05/07/25 Unknown PTT Ratio 0.9 05/07/25 Unknown Sodium 139 mmol/L (136-1 45) 05/07/25 Unknown Potassium 5.2 mmol/L (3.5-5 .1) H 05/07/25 Unknown Chloride 108 mmol/L (98-10 7) H 05/07/25 Unknown Carbon Dioxide 22 mmol/L (21-32) 05/07/25 Unknown Anion Gap 9 (3-11) 05/07/25 Unknown BUN 39 mg/dl (6-23) H 05/07/25 Unknown Creatinine 2.52 mg/dl (0.6-1 .4) H 05/07/25 Unknown Est Cr Clr Drug Do sing Not Reportable 05/07/25 Unknown eGFR 24.63 05/07/25 Unknown BUN/Creatinine Rat io 15.5 (10-20) 05/07/25 Unknown Glucose 166 mg/dl (70-99( Fasting)) H 05/07/25 Unknown Calcium 9.3 mg/dl (8.6-10 .3) 05/07/25 Unknown Phosphorus 3.9 mg/dl (2.5-4. 9) 05/07/25 Unknown Magnesium 2.0 mg/dl (1.7-2. 4) 05/07/25 Unknown Total Bilirubin 0.4 mg/dl (0.2-1. 0) 05/07/25 Unknown AST 25 U/L (13-39) 05/07/25 Unknown ALT 20 U/L (7-52) 05/07/25 Unknown Alkaline Phosphata se 104 U/L (34-104) 05/07/25 Unknown Troponin I High Se ns 5.6 pg/ml (0-20) 05/07/25 Unknown Total Protein 6.9 gm/dl (6.0-8. 3) 05/07/25 Unknown Albumin 4.0 gm/dl (3.4-5. 0) 05/07/25 Unknown Globulin 2.9 gm/dl (2.5-4. 0) 05/07/25 Unknown Albumin/Globulin R atio 1.4 (0.9-2) 05/07/25 Unknown Impressions Chest X-Ray 05/07/25 18:27 Chest radiograph, one view History: Chest pain Comparison: None Findings: Single AP view of the chest performed. No focal consolidation or pleural effusion. No pneumothorax. The cardiomediastinal silhouette is within normal limits. Normal pulmonary vascularity. No evidence for lymphadenopathy. No visualized bony or soft tissue abnormality. Impression: Normal chest radiograph Electronically signed by Wes Monahan 05-07-2025 7:36 PM Results & Data Results & Data Vital Signs (Past 12 Hours) Vital Signs Temp Pulse Pulse Resp BP BP Pulse Ox 05/07/25 19:37 67 05/07/25 19:35 58 L 18 103/65 97 05/07/25 18:24 36.9 C 83 19 101/64 98 O2 Del Method 05/07/25 19:37 05/07/25 19:35 Room Air 05/07/25 18:24 Room Air Laboratory Results Laboratory Results WBC 10.52 K/ul (4.8-10.8) 05/07/25 Unknown RBC 3.87 M/uL (4.70-6.10) L 05/07/25 Unknown Hgb 12.7 g/dl (14.0-18.0) L 05/07/25 Unknown Hct 36.2 % (42.0-52.0) L 05/07/25 Unknown MCV 93.5 fL (80.0-100.0) 05/07/25 Unknown MCH 32.8 pg (25.0-34.0) 05/07/25 Unknown MCHC 35.1 g/dL (32.0-36.0) 05/07/25 Unknown RDW Std Deviation 42.1 fL (36.4-46.3) 05/07/25 Unknown RDW Coeff of Raul 12.2 % (11.5-14.5) 05/07/25 Unknown Plt Count 218 K/uL (130-400) 05/07/25 Unknown MPV 9.6 fL (9.4-12.4) 05/07/25 Unknown Immature Gran % (Auto) 0.4 % 05/07/25 Unknown Neut % (Auto) 73.3 % 05/07/25 Unknown Lymph % (Auto) 15.3 % 05/07/25 Unknown [place] % (Auto) 7.2 % 05/07/25 Unknown Eos % (Auto) 3.4 % 05/07/25 Unknown Baso % (Auto) 0.4 % 05/07/25 Unknown Neut # (Auto) 7.71 K/uL (1.40-6.50) H 05/07/25 Unknown Lymph # (Auto) 1.61 K/uL (1.20-3.40) 05/07/25 Unknown [place] # (Auto) 0.76 K/uL (0.11-0.59) H 05/07/25 Unknown Eos # (Auto) 0.36 K/uL (0.00-0.50) 05/07/25 Unknown Baso # (Auto) 0.04 K/uL (0.00-0.20) 05/07/25 Unknown Immature Gran # (Auto) 0.04 K/uL (0.01-0.20) 05/07/25 Unknown PT 10.2 Seconds (9.0-12.0) 05/07/25 Unknown INR 0.9 (0.9-1.1) 05/07/25 Unknown APTT 23 Seconds (21-31) 05/07/25 Unknown PTT Ratio 0.9 05/07/25 Unknown Sodium 139 mmol/L (136-145) 05/07/25 Unknown Potassium 5.2 mmol/L (3.5-5.1) H 05/07/25 Unknown Chloride 108 mmol/L (98-107) H 05/07/25 Unknown Carbon Dioxide 22 mmol/L (21-32) 05/07/25 Unknown Anion Gap 9 (3-11) 05/07/25 Unknown BUN 39 mg/dl (6-23) H 05/07/25 Unknown Creatinine 2.52 mg/dl (0.6-1.4) H 05/07/25 Unknown Est Cr Clr Drug Dosing Not Reportable 05/07/25 Unknown eGFR 24.63 05/07/25 Unknown BUN/Creatinine Ratio 15.5 (10-20) 05/07/25 Unknown Glucose 166 mg/dl (70-99(Fasting)) H 05/07/25 Unknown Calcium 9.3 mg/dl (8.6-10.3) 05/07/25 Unknown Phosphorus 3.9 mg/dl (2.5-4.9) 05/07/25 Unknown Magnesium 2.0 mg/dl (1.7-2.4) 05/07/25 Unknown Total Bilirubin 0.4 mg/dl (0.2-1.0) 05/07/25 Unknown AST 25 U/L (13-39) 05/07/25 Unknown ALT 20 U/L (7-52) 05/07/25 Unknown Alkaline Phosphatase 104 U/L (34-104) 05/07/25 Unknown Troponin I High Sens 5.6 pg/ml (0-20) 05/07/25 Unknown Total Protein 6.9 gm/dl (6.0-8.3) 05/07/25 Unknown Albumin 4.0 gm/dl (3.4-5.0) 05/07/25 Unknown Globulin 2.9 gm/dl (2.5-4.0) 05/07/25 Unknown Albumin/Globulin Ratio 1.4 (0.9-2) 05/07/25 Unknown Impressions Chest X-Ray 05/07/25 18:27 Chest radiograph, one view History: Chest pain Comparison: None Findings: Single AP view of the chest performed. No focal consolidation or pleural effusion. No pneumothorax. The cardiomediastinal silhouette is within normal limits. Normal pulmonary vascularity. No evidence for lymphadenopathy. No visualized bony or soft tissue abnormality. Impression: Normal chest radiograph Electronically signed by Wes Monahan 05-07-2025 7:36 PM PG Care Time/CCT Total # of Minutes Spent Total Time Spent with Patient: Total time spent is greater than 50% in coordination of care (as documented) at patient's floor/unit and/or counseling patient: Coding Level of Care Code 61281 INT INP/OBS CARE 3/75MIN Diagnoses Chest pain R07.9 Chest pain type: unspecified Hypertension I10 GERD (gastroesophageal reflux disease) K21.9 Acute gout involving toe of left foot, unspecified cause M10.9 Gout site: toe Gout etiology: unspecified cause Chronicity: acute Laterality: left PAD (peripheral artery disease) I73.9 (1) Chest pain Chest pain type: unspecified Qualified Code(s): R07.9 - Chest pain, unspecified (4) Gout Gout site: toe Gout etiology: unspecified cause Chronicity: acute Laterality: left Qualified Code(s): M10.9 - Gout, unspecified
[2025-05-07] MEDS: LACTATED RINGER'S 1,000 ML IV SCH (22:28)
[2025-05-07] MEDS ORDERED: ACETAMINOPHEN 325 MG TAB PO PRN (23:15)
[2025-05-07] MEDS ORDERED: ONDANSETRON INJ 2 MG/ML 2 ML VIAL IV PRN (23:15)
[2025-05-07 23:42] LABS: Magnesium 2.0 mg/dl (1.7-2.4)
[2025-05-08 07:05] LABS: Hematocrit (blood only) 34.6 % (42.0-52.0); Hemoglobin 11.9 g/dl (14.0-18.0); Mean Corpuscular Hemoglobin 32.2 pg (25.0-34.0); Mean Corpuscular Volume 93.8 fL (80.0-100.0); Platelet Count 192 K/uL (130-400); RDW Standard Deviation 42.3 fL (36.4-46.3); Red Blood Count 3.69 M/uL (4.70-6.10); White Blood Count 6.69 K/ul (4.8-10.8)
[2025-05-08 07:22] LABS: Anion Gap 6.0 (3-11); Blood Urea Nitrogen 36.0 mg/dl (6-23); Calcium 8.6 mg/dl (8.6-10.3); Carbon Dioxide 23.0 mmol/L (21-32); Chloride 110.0 mmol/L (98-107); Creatinine Clr Calc Pharmacy 28.9 ml/min; Glucose 104.0 mg/dl (70-99(Fasting)); Potassium 4.5 mmol/L (3.5-5.1); Sodium 139.0 mmol/L (136-145)
[2025-05-08 08:02] VITALS: RESP 20
[2025-05-08] MEDS: HEPARIN SOD 5,000 UNIT/0.5 ML VIAL SQ SCH (09:14)
[2025-05-08] MEDS: ASPIRIN 81 MG ECTAB PO SCH (09:14)
[2025-05-08 14:41] VITALS: BP 153/68; TEMP 97.2; O2SAT 99
--- NOTE | 2025-05-08 17:05 | XCELERA ---
[id number] \\[id number]
--- NOTE | 2025-05-08 17:20 | Discharge Summary ---
Date of Service May 08, 2025 Admission HPI Per Admitting Provider Gage Man is an 85yo male with history of HTN, Carotid artery stenosis, CKD III, PAD presenting with episode of dizziness. Patient was at the [facility] today. He was walking around most of the day. He had some coffee in the morning but otherwise did not drink anything all day. At 16:30 he felt dizzy and developed some abdominal pain. He had a bowel movement which he describes as loose, no straining. He then got dizzy and diaphoretic. He went outside and sat on the sofa then developed some central chest pain- epigastric, 5/10 in severity. He was told that he became "ashen" in color. His chest discomfort lasted approximately 1-1.5 hours then resolved on its own. Patient denies fever, chills, palpitations, cough, SOB, abdominal pain, nausea, vomiting. He has been getting some leg cramps at night and has been drinking tonic water for them. In the ER he is afebrile, HD stable ER Course: NSS x500mL by EMS Admission Exam Per Admitting Provider None seen on H&P, but below is ER note exam: GENERAL: oriented to person, place, and time. appears well-developed and well- nourished. HENT: Exam performed. - Head: Normocephalic and atraumatic. EYES: Conjunctivae and EOM are normal. Right eye exhibits no discharge. Left eye exhibits no discharge. No scleral icterus. NECK: Normal range of motion. Neck supple. No JVD present. CV: Normal rate, regular rhythm, normal heart sounds and intact distal pulses. There is no peripheral edema. Palpable radial pulses bue. PULM/CHEST: Effort normal and breath sounds normal. No respiratory distress. No stridor. no wheezes. no rales. ABD: The abdomen is soft. There is no tenderness. NEURO: Motor and sensation grossly intact. SKIN: Skin is warm and dry. He is not diaphoretic. PSYCH: normal mood and affect. Behavior is normal. Judgment and thought content normal. Principal Diagnosis chest pain; NIKOLE 2/2 dehydration Discharge Exam Gen: A&Ox3, no acute distress HEENT: moist mucus membranes, EOM intact CV: RRR, +s1/s2, no m/r/g; carotid bruits heard on auscultation b/l, pulses 2+ on R and 1+ on L; R radial artery 1+ pulse, L radial artery 2+; 2+ L dorsalis pedis, 1+ R dorsalis pedis Resp: clear to auscultation b/l, no w/r/R GI/Abd: +BS, nontender to palpation MSK: 5/5 strength in all extremities Neuro: no facial droop, no focal deficits, speech intact Discharge Data Allergies Allergy/AdvReac Type Severity Reaction Status Date / Time amoxicillin Allergy Intermediate Rash Verified 01/19/25 09:32 atorvastatin Allergy Intermediate Rash Verified 01/19/25 09:32 propranolol Allergy Intermediate Rash Verified 01/19/25 09:32 nisoldipine [From Sular] Allergy Mild Rash Verified 01/19/25 09:32 azithromycin AdvReac Intermediate Diarrhea Unverified 01/19/25 09:32 Consultations 05/07/25 19:38 ED Decision to Admit Stat Hospital Course (1) Chest pain: (2) Acute kidney injury superimposed on CKD: (3) Hypertension: (4) Carotid artery stenosis: Plan You were evaluated and treated for chest pain at [facility]. Based on cardiac and pulmonary workup, we have ruled out acute cardiac and pulmonary causes of your chest pain. As you have remained clinically and medically stable, we are comfortable with your discharge today on the condition that you follow up next week in your PCP's office. Additionally, please follow up with Dr. Crawford for your chronic kidney disease and Dr. Mckeon for your carotid artery stenosis. #Chest pain - resolved since yesterday in ED. Based on recent history of going to the [employer], staying out all day and having eaten very greasy/salty food with with inadequate fluid intake, he was dehydrated and with GI upset, and likely had a vasovagal response, lowering his heart rate temporarily and causing dizziness/diaphoresis and likely chest pain as well. - based on stable vital signs and no symptoms which would be concerning for acute cardiac or pulmonary pathology (rapid heart rate, low blood pressure, shortness of breath, continued chest pain, dizziness, lightheadedness, nausea), we can say with good confidence he was/is not having an acute cardiac event or pulmonary embolism - Troponin unremarkable initially and with repeat. EKG with no ischemic changes, only showing known 1st degree AV block - chest xray negative for acute pathology - no concerning telemetry findings overnight and this AM - Echocardiogram today 05/08/25 showing no new valvular pathology, no remarkable change from prior echocardiogram in 2023 Advised to continue taking aspirin 81mg daily Followup at PCP office next week for hospital followup #Acute kidney injury (resolving) on Chronic Kidney Disease III Likely due to dehydration from day at the [place] [facility] Baseline creatinine 1.5-1.9 - creatinine improving 2.52 -> 2.16 with IV fluids and good PO intake - encouraged to continue good hydration and to keep water close by to drink intermittently if he plans to be out for an extended time - Advised to hold lisinopril until followup next week; check BMP in 1 week - followup with Dr. Crawford as instructed, followup in PCP office next week Chronic, stable: Carotid (bilateral) and R subclavian artery stenosis- continue aspirin 81mg po daily - since statins are contraindicated due to reaction of severe itching, encouraged to discuss with PCP and Dr. Mckeon whether he should be on another lipid-lowering medication, at least for plaque stabilization purposes Hypertension- holding lisinopril for now to help NIKOLE recover a bit more - continue home alfuzosin 10mg each morning upon discharge - followup in PCP clinic next week, may resume lisinopril per provider discretion -added hydralazine 10mg po bid for BP control until can resume lisinopril (had allergy to nisoldipine, propranolol, and want to avoid diuretics, ACEi or ARB) GERD- continue home omeprazole Total Time Total Time Spent Total Time Spent (In Minutes): 45 Discharge Plan Discharge Items Patient Disposition: Home - Self-Care Reason For Visit: CHEST PAIN, NIKOLE Discharge Diagnosis: chest pain, unspecified; NIKOLE 2/2 dehydration; GI upset, pre-syncope Condition on Discharge: [place] Activity: Per Instructions section Non-emergency contact: Primary Care Provider Call non-emergency contact if: your symptoms worsen and your pain is not controlled Follow-up/Referrals: Wes Rutherford MD [Primary Care Provider] - Romulo Abreu DO [Resident] - Diet: Heart Healthy Ambulatory Orders: Basic Metabolic Panel (Routine) Timeframe: 3 Days Location: Determined by Patient Ordered By: Romulo Abreu Addtl Attending Provider Instructions: You were evaluated and treated for chest pain at [facility]. Based on cardiac and pulmonary workup, we have ruled out acute cardiac and pulmonary causes of your chest pain. As you have remained clinically and medically stable, we are comfortable with your discharge today on the condition that you follow up next week in your PCP's office. Additionally, please follow up with Dr. Crawford for your chronic kidney disease and Dr. Mckeon for your carotid artery stenosis. #Chest pain - resolved since yesterday in ED. Based on your recent history of going to the [facility], staying out all day and having eaten very greasy/salty food with with inadequate fluid intake, you were dehydrated and with GI upset, and likely had what is called a "vasovagal" response, lowering your heart rate temporarily and causing your dizziness and likely your chest pain as well. - Troponin (marker of heart injury) unremarkable initially and with repeat. EKG with no ischemic changes, only showing known 1st degree AV block - chest xray negative for acute pathology - based on stable vital signs and no symptoms which would be concerning for acute cardiac or pulmonary pathology (rapid heart rate, low blood pressure, shortness of breath, continued chest pain, dizziness, lightheadedness, nausea), we can say with good confidence you are not having an acute cardiac event or pulmonary embolism - no concerning telemetry findings overnight and this AM - Echocardiogram today 05/08/25 showing no new valvular pathology, no remarkable change from prior echocardiogram in 2023 - continue taking aspirin 81mg daily - Followup at PCP office next week for hospital followup #Acute kidney injury (resolving) on Chronic Kidney Disease III Likely due to dehydration from day at the [facility] Baseline creatinine 1.5-1.9 - creatinine improving 2.52 -> 2.16 with IV fluids - encouraged to continue good hydration, keep water on you to drink intermittently if you plan to be out for an extended time - Please hold your lisinopril until followup with PCP to allow kidneys to recover a bit more -you should have your kidney blood work checked next week - followup with Dr. Crawford as instructed, followup in PCP office next week Chronic, stable: Carotid (bilateral) and R subclavian artery stenosis- continue aspirin 81mg po daily - since statins are contraindicated due to your reaction of severe itching, discuss with PCP and Dr. Mckeon whether you should be on another lipid-lowering medication, at least for plaque stabilization purposes Hypertension- we are holding your lisinopril for now to help your kidneys recover a bit more - continue your home alfuzosin 10mg each morning upon discharge - followup in PCP clinic next week, may resume lisinopril per provider discretion -start hydralazine 10mg twice a day to control your blood pressure until you can resume your lisinopril GERD- continue home omeprazole Pending Studies at Discharge: No Stand-Alone Forms: My [facility] [employer], Smoking Cessation Medications and DC Order Prescriptions: New hydralazine 10 mg tablet 10 mg PO BID Qty: 60 0RF Continued omeprazole magnesium [Prilosec OTC] 20 mg tablet,delayed release (DR/EC) 20 mg PO QAM alfuzosin [Uroxatral] 10 mg tablet extended release 24 hr 10 mg PO QAM Qty: 90 3RF Rx Instructions: administer after the same meal each day fluticasone propionate [Flonase Allergy Relief] 50 mcg/actuation spray,suspension 1 spray intranasal DAILY Rx Instructions: administer into each nostril alum-mag hydroxide-simeth 200-200-20 mg/5 mL Suspension 30 ml PO QID PRN (Reason: Indigestion) Probiotic 3 billion cell Capsule 3 mmu cells PO QAM [id number] Tablet 1 tab PO QAM colchicine 0.6 mg tablet See Rx Instructions .ROUTE .COMPLEX PRN (Reason: GOUT FLARES) Rx Instructions: TAKE 2 TABLETS BY MOUTH AT THE FIRST SIGN OF GOUT FLARE FOLLOWED BY 1 TABLET AN HOUR LATER. MAY CONTINUE 1 TABLET EVERY HOUR UP TO 3 ADDITIONAL TIMES aspirin 81 mg Tablet 81 mg PO DAILY Hold Instructions: Resume on 06/14/24. hold while on ASA 325mg twice daily acetaminophen [Tylenol Extra Strength] 500 mg Tablet 1,000 mg PO Q8 PRN (Reason: fever or pain) Qty: 30 0RF aspirin 325 mg tablet 325 mg PO BID Qty: 60 0RF Held lisinopril 30 mg tablet 30 mg PO QAM Hold Instructions: Resume on 05/13/25. please hold until followup at your PCP office early next week, until advised on whether to continue taking or holding Discharge Orders: Discharge Order (Routine); Ordered 05/08/25 Ordered By: Romulo Napoles/Other Patient Handouts: Understanding Vasovagal Syncope, ED Near-Fainting- Vagal Reaction Admission Data Admit Date/Time: 05/07/25 21:38 Attending Provider: Alicia Spivey Admit Provider: Lona Rollins Primary Care Provider: Wes Rutherford Other Providers: Lona Rollins Other Interventions: Discharge Summary Assessment (RN) Last Done: 05/08/25 17:22 Supervising Physician Co-Signing Physician Notes I personally examined the patient and verified all jiménez points of history and exam, discussed case, and agree with decision making with Dr. Abreu with the following additions/exceptions: S-Pt feeling well, has no complaints, no further chest pain, is eating and drinking. Thinks his stomach and chest pains were from eating greasy kinyarwanda fries loaded with cheese. He also only had 3 cups of coffee and no other fluids to drink all day. Tele with 1st degree AV block, no other abnormalities O- Vitals Reviewed Gen: [AAOx3, NAD] HEENT: [anicteric sclerae, EOMI] CV: [RRR no mgr nl S1S2] Pulm: [CTAB no wcr] Abd: [+BS soft NT ND no masses or hernias] Ext: [no edema, 2+ DP pulses] Skin: [no rashes, warm/dry] Neuro: [full strength throughout] CBC, BMP, ECHO reviewed A/P: 85 yo male here with chest pain likely GI related, and NIKOLE from dehydration. Also with vasovagal presyncope from moving bowels and being dehydrated. Hydrated with IVFs, trop serially neg, ECHO neg, no events on tele, all symptoms resolved stable for dc to home replace lisinopril with hydralazine for now until renal function returns to normal Resident Activity Tracking Resident Involvement: Resident Care Provided Care Provided: Adult Hospital Medicine
[2025-05-08 17:23] VITALS: PULSE 58
--- NOTE | 2025-05-08 18:11 | Billing Data ---
Date of Service May 08, 2025 Coding Level of Care Code 13930 INP/OBS DISCH >30 MIN Time Spent (min) 35 Comment Spent 35 min coordinating care,discussing with Fibre Composite Technician,face to face time with patient
--- NOTE | 2025-05-08 22:03 | Electrocardiogram Report ---
Test Reason : Blood Pressure : */* mmHG Vent. Rate : 73 BPM Atrial Rate : 73 BPM P-R Int : 246 ms QRS Dur : 74 ms QT Int : 388 ms P-R-T Axes : 24 -46 54 degrees QTcB Int : 427 ms Sinus rhythm with 1st degree A-V block Left axis deviation Abnormal ECG When compared with ECG of 30-Oct-2023 20:03, No significant change was found Confirmed by Salomon Galaviz ([id number]) on 05/08/2025 10:03:09 PM Referred By: Confirmed By: Salomon Galaviz
== END 2025-05-08 18:32 | disposition home or self-care (01) | DRG 641 ==
LOC: ED 18:20 → INTOOBSV 21:38 → 2W 21:38 → SUATTDRO 21:38 → 2W 22:31